=== PATIENT | female | born 1945 | race Caucasian/White ===

== ENCOUNTER → 2016-10-11 | Outpatient (CLI) | payer MEDICARE, BC | LOC: LABWHC1 16:00 | PROVIDERS: ATTEND Internal Medicine Endocrinology, Diabetes & Metabolism | DX: E11.65 Type 2 diabetes mellitus with hyperglycemia (principal) | CPT/HCPCS: 36415; 83519; 84681 ==

== ENCOUNTER → 2017-02-07 | Outpatient (CLI) | payer MEDICARE, BC ==
[2017-02-07 08:41] LABS: ALT 37 U/L (9-52); AST 26 U/L (14-36); Alkaline Phosphatase 54 U/L (38-126); Anion Gap 9 mmol/L; Blood Urea Nitrogen 22 mg/dL (7-17); Calcium 9.9 mg/dL (8.4-10.2); Carbon Dioxide 28 mmol/L (22-30); Chloride 105 mmol/L (98-107); Cholesterol 96 mg/dL (<200); Glucose 91 mg/dL (74-99); HDL Cholesterol 38 mg/dL (40-60); Non-African American GFR(MDRD) >60 (>60 ml/min/1.73 sqM); Potassium 4.8 mmol/L (3.5-5.1); Sodium 142 mmol/L (137-145); Total Bilirubin 0.4 mg/dL (0.2-1.3); Total Protein 7.3 g/dL (6.3-8.2)
[2017-02-07 16:58] LABS: Urine Creatinine 101.9 mg/dL
== END | disposition home or self-care (01) ==
LOC: LABWHC1 07:19
PROVIDERS: ATTEND Internal Medicine Endocrinology, Diabetes & Metabolism
DX: E11.65 Type 2 diabetes mellitus with hyperglycemia (principal)
CPT/HCPCS: 36415; 80053; 80061; 82043; 82570; 83036

== ENCOUNTER → 2017-08-27 | Outpatient (CLI) | payer MEDICARE, BC ==
[2017-08-27 11:22] LABS: ALT 42 U/L (9-52); AST 25 U/L (14-36); Albumin 4.2 g/dL (3.5-5.0); Alkaline Phosphatase 55 U/L (38-126); Anion Gap 15 mmol/L; Blood Urea Nitrogen 22 mg/dL (7-17); Calcium 9.5 mg/dL (8.4-10.2); Carbon Dioxide 29 mmol/L (22-30); Chloride 100 mmol/L (98-107); Cholesterol 159 mg/dL (<200); Glucose 96 mg/dL (74-99); HDL Cholesterol 34 mg/dL (40-60); LDL Cholesterol,Calculated 100 mg/dL (0-99); Potassium 4.7 mmol/L (3.5-5.1); Sodium 144 mmol/L (137-145); Total Bilirubin 0.4 mg/dL (0.2-1.3); Total Protein 6.8 g/dL (6.3-8.2); Triglycerides 124 mg/dL (<150)
[2017-08-27 18:40] LABS: Hemoglobin A1C 6.4 % (4.0-6.0)
== END | disposition home or self-care (01) ==
LOC: LABWHC1 10:19
PROVIDERS: ATTEND Internal Medicine Endocrinology, Diabetes & Metabolism
DX: E11.65 Type 2 diabetes mellitus with hyperglycemia (principal)
CPT/HCPCS: 36415; 80053; 80061; 82043; 82570; 83036

== ENCOUNTER → 2018-07-20 | Outpatient (CLI) | payer BC, MEDICARE ==
[2018-07-20 16:38] LABS: Albumin 4.4 g/dL (3.80-4.90); Anion Gap 8.6 mmol/L (4.00-12.00); Calcium 9.6 mg/dL (8.7-10.3); Carbon Dioxide 29.4 mmol/L (21.6-31.8); Globulin 2.2 g/dL (1.6-3.3); LDL Cholesterol,Calculated 83.2 mg/dL (0.0-131.0); Potassium 5.1 mmol/L (3.5-5.5); Total Bilirubin 0.5 mg/dL (0.3-1.2); Total Protein 6.6 g/dL (6.2-8.2); VLDL Calculation 18.8 mg/dL (5.00-40.00)
[2018-07-20 18:22] LABS: Hemoglobin A1C 6.2 % (4.0-6.0)
== END | disposition home or self-care (01) ==
LOC: LABWHC1 09:19
PROVIDERS: ATTEND Internal Medicine Endocrinology, Diabetes & Metabolism
DX: E11.9 Type 2 diabetes mellitus without complications (principal)
CPT/HCPCS: 36415; 80053; 80061; 82043; 82570; 83036; 84443

== ENCOUNTER → 2018-10-25 | Outpatient (CLI) | payer MEDICARE ==
[2018-10-25 20:04] LABS: Vitamin D 25 Hydroxy 51.4 ng/mL (30.0-100.0)
[2018-10-25 20:35] LABS: Hemoglobin A1C 6.5 % (4.0-6.0)
[2018-10-26 01:41] LABS: African American GFR (CKD) 65.6 (60.0-200.0); Albumin 4.4 g/dL (3.80-4.90); Albumin/Globulin Ratio 2.1 (1.60-3.17); Anion Gap 22.8 mmol/L (4.00-12.00); Calcium 9.4 mg/dL (8.7-10.3); Carbon Dioxide 16.2 mmol/L (21.6-31.8); Globulin 2.1 g/dL (1.6-3.3); Potassium 4.4 mmol/L (3.5-5.5); Total Bilirubin 0.3 mg/dL (0.2-1.2); Total Protein 6.5 g/dL (6.2-8.2)
== END | disposition home or self-care (01) ==
LOC: LABWHC1 15:08
PROVIDERS: ATTEND Internal Medicine Endocrinology, Diabetes & Metabolism
DX: E53.8 Deficiency of other specified B group vitamins (principal); E55.9 Vitamin D deficiency, unspecified; E11.65 Type 2 diabetes mellitus with hyperglycemia
CPT/HCPCS: 36415; 80053; 82306; 82607; 83036

== ENCOUNTER → 2019-03-31 | Outpatient (CLI) | payer MEDICARE ==
[2019-03-31 16:05] LABS: African American GFR (CKD) 65.2 (60.0-200.0); Albumin 4.3 g/dL (3.80-4.90); Albumin/Globulin Ratio 2.05 (1.60-3.17); Anion Gap 3.9 mmol/L (4.00-12.00); Calcium 9.7 mg/dL (8.7-10.3); Carbon Dioxide 32.1 mmol/L (21.6-31.8); Chol/HDL Ratio 4.36; Globulin 2.1 g/dL (1.6-3.3); LDL Cholesterol,Calculated 99.2 mg/dL (0.0-131.0); Non-African American GFR(CKD) 56.2 (60.0-200.0); Potassium 5.5 mmol/L (3.5-5.5); Total Bilirubin 0.3 mg/dL (0.2-1.2); Total Protein 6.4 g/dL (6.2-8.2); VLDL Calculation 21.8 mg/dL (5.00-40.00)
[2019-03-31 17:32] LABS: Urine Creatinine 56.9 mg/dL
[2019-03-31 18:39] LABS: Hemoglobin A1C 7.4 % (4.0-6.0)
== END | disposition home or self-care (01) ==
LOC: LABWHC1 10:57
PROVIDERS: ATTEND Internal Medicine Endocrinology, Diabetes & Metabolism
DX: E11.9 Type 2 diabetes mellitus without complications (principal)
CPT/HCPCS: 36415; 80053; 80061; 82043; 82570; 83036; 84443

== ENCOUNTER → 2019-12-03 | Outpatient (CLI) | payer MEDICARE ==
[2019-12-03 12:06] LABS: Anisocytosis Slight; HCT 52.5 % (34.0-46.0); HGB 15.8 gm/dL (11.4-16.0); Hypochromasia Moderate; MCH 27.7 pg (25.0-35.0); MCHC 30.1 g/dL (31.0-37.0); MCV 91.9 fL (80.0-100.0); Mean Platelet Volume 8.3; Platelet Count 381 k/uL (150-450); RBC 5.71 m/uL (3.80-5.40); WBC 9.2 k/uL (3.8-10.6)
[2019-12-03 12:35] LABS: Appearance,Urine Clear (Clear); Bacteria,Urine Rare /hpf; Bilirubin,Urine Negative (Negative); Blood,Urine Negative (Negative); Color,Urine Yellow; Glucose,Urine (UA) Negative (Negative); Hyaline Casts,Urine 3 /lpf (0-2); Ketones,Urine Negative (Negative); Leukocyte Esterase,Urine Moderate (Negative); Mucus,Urine Rare /hpf; Nitrite,Urine Negative (Negative); PH, Urine 7.5 (5.0-8.0); Protein,Urine Negative (Negative); RBC,Urine 1 /hpf (0-5); Specific Gravity,Urine 1.012 (1.001-1.035); Squamous Epithelial Cell,Urine 2 /hpf (0-4); Urobilinogen,Urine <2.0 mg/dL (<2.0); WBC,Urine 3 /hpf (0-5)
[2019-12-03 18:25] LABS: % Iron Saturation 20.06 (12.00-45.00); Albumin 4.6 g/dL (3.80-4.90); Albumin/Globulin Ratio 1.84 (1.60-3.17); BUN/Creat Ratio 16.67 Ratio (12.00-20.00); Chol/HDL Ratio 3.56; Globulin 2.5 g/dL (1.6-3.3); LDL Cholesterol,Calculated 56.2 mg/dL (0.0-131.0); Magnesium 1.6 mg/dL (1.5-2.4); Non-African American GFR(CKD) 63.9 (60.0-200.0); Phosphorus 3.8 mg/dL (2.4-5.1); Potassium 5.9 mmol/L (3.5-5.5); Total Bilirubin 0.6 mg/dL (0.3-1.2); Total Protein 7.1 g/dL (6.2-8.2); Uric Acid 6.3 mg/dL (2.9-7.7); VLDL Calculation 25.8 mg/dL (5.00-40.00)
[2019-12-03 22:12] LABS: Hemoglobin A1C 6.7 % (4.0-6.0)
[2019-12-03 22:39] LABS: Urine Creatinine 111.7 mg/dL
== END | disposition home or self-care (01) ==
LOC: LABWHC1 10:43
PROVIDERS: ATTEND Family Medicine
DX: I12.9 Hypertensive chronic kidney disease with stage 1 through stage 4 chronic kidney disease, or unspecified chronic kidney disease (principal); E11.22 Type 2 diabetes mellitus with diabetic chronic kidney disease; E11.65 Type 2 diabetes mellitus with hyperglycemia; N18.9 Chronic kidney disease, unspecified; Z79.899 Other long term (current) drug therapy
CPT/HCPCS: 36415; 80053; 80061; 81001; 82043; 82306; 82570; 83036; 83540; 83550; 83735; 83970; 84100; 84443; 84550; 85027

== ENCOUNTER 2023-03-07 19:56 | Observation (INO) | payer MEDICARE ==
[2023-03-07 20:07] LABS: Glucose,Whole Blood 139 mg/dL (70-110)
[2023-03-07] MEDS ORDERED: SODIUM CHLORIDE 0.9% 1,000 ML IV STA (20:52)
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
[2023-03-07 21:33] LABS: Anisocytosis Moderate; HCT 26.5 % (34.0-46.0); HGB 8.3 gm/dL (11.4-16.0); Hypochromasia Marked; MCH 38.4 pg (25.0-35.0); MCHC 31.3 g/dL (31.0-37.0); MCV 122.7 fL (80.0-100.0); Macrocytosis Marked; Mean Platelet Volume 11.7; Platelet Count 483 k/uL (150-450); RBC 2.16 m/uL (3.80-5.40); RDW 20.8 % (11.5-15.5)
[2023-03-07 21:53] LABS: ALT 12 U/L (4-34); AST 17 U/L (14-36); African American GFR (CKD) 38 (>60 ml/min/1.73 sqM); Albumin 3.9 g/dL (3.5-5.0); Alkaline Phosphatase 52 U/L (38-126); Anion Gap 12 mmol/L; Blood Urea Nitrogen 43 mg/dL (7-17); Calcium 9.2 mg/dL (8.4-10.2); Carbon Dioxide 22 mmol/L (22-30); Chloride 103 mmol/L (98-107); Glucose 117 mg/dL (74-99); Magnesium 1.7 mg/dL (1.6-2.3); Non-African American GFR(CKD) 33 (>60 ml/min/1.73 sqM); Phosphorus 3.9 mg/dL (2.5-4.5); Potassium 5.8 mmol/L (3.5-5.1); Sodium 137 mmol/L (137-145); Total Bilirubin 0.9 mg/dL (0.2-1.3)
[2023-03-07 22:02] LABS: NT-Pro-B-Type Natriuretic Pept 9580 pg/mL
[2023-03-07 22:16] LABS: INR 1.3 (<1.2); Partial Thromboplastin Time 23.9 sec (22.0-30.0); Prothrombin Time 13.6 sec (10.0-12.5)
[2023-03-07 22:37] LABS: Band Neutrophils % 1 %; Eosinophils # (M) 0.06 k/uL (0-0.7); Lymphocytes # (M) 0.87 k/uL (1.0-4.8); Monocytes # (M) 0.46 k/uL (0-1.0); Neutrophils % (M) 75 %; Nucleated Red Blood Cells 1 /100 WBC (0-0); Total Cells Counted 100; WBC 5.8 k/uL (3.8-10.6)
[2023-03-07 22:38] LABS: Anisocytosis (M) Present; Hypochromasia (M) Present
[2023-03-07 22:39] LABS: Polychromasia Present
[2023-03-07] MEDS ORDERED: NALOXONE 0.4 MG/ML 1 ML VIAL IV PRN (23:29)
[2023-03-07] MEDS ORDERED: MORPHINE SULFATE 4 MG/ML SYRINGE IV PRN (23:29)
[2023-03-07] MEDS ORDERED: ONDANSETRON 4 MG/2 ML VIAL IVP PRN (23:29)
[2023-03-07] MEDS ORDERED: IPRATROPIUM-ALBUTEROL 3 ML NEB INHALATION STA (23:31)
[2023-03-07] MEDS ORDERED: IPRATROPIUM-ALBUTEROL 3 ML NEB INHALATION PRN (23:31)
[2023-03-07] MEDS ORDERED: SODIUM BICARB 8.4% 50 ML SYR (1 MEQ/ML) IV STA (23:32)
[2023-03-07] MEDS ORDERED: INSULIN REGULAR 100 UNIT/ML VIAL (IV) IV ONE (23:32)
[2023-03-07] MEDS ORDERED: DEXTROSE 50% SYRINGE 50 ML IVP STA (23:32)
[2023-03-07] MEDS ORDERED: SODIUM POLYSTYRENE SULFONATE 15 GM/60 ML BOTTLE PO STA (23:32)
--- NOTE | 2023-03-07 23:41 | XR ---
EXAMINATION TYPE: XR chest 1V DATE OF EXAM: 03/07/2023 9:28 PM CLINICAL INDICATION:Female, 78 years old with history of fall; [facility] COMPARISON: 07/21/2020 TECHNIQUE: XR chest 1V Frontal view of the chest. FINDINGS: Lines/Tubes/Devices: None. Heart/mediastinum: Cardiomediastinal silhouette is well defined. Heart appears mildly/moderately enla rged and stable. Mediastinum appears stable with slight broadening similar to the prior exam. Pulmonary vascularity: Mild central congestion suggested. Lungs/Pleura: Left lung base not evaluated due to the enlarged heart. Visualized left lung and right lung are otherwise clear. No pneumothorax is evident. Musculoskeletal: No clear evidence of an acute bony abnormality in the limits of the exam. Mild/moder ate degenerative changes of the shoulders and spine. Partially seen hardware plate and screws in the proximal left humerus. Other findings: None. IMPRESSION: 1. Cardiomegaly with mild central congestion. 2. Small left pleural effusion, left basilar infiltrate or atelectasis cannot be excluded. 3. Otherwise the lungs are clear without evidence of pneumothorax.
--- NOTE | 2023-03-07 23:43 | XR ---
EXAMINATION TYPE: XR pelvis AP view DATE OF EXAM: 03/07/2023 9:28 PM CLINICAL INDICATION:Female, 78 years old with history of fall; H COMPARISON: None TECHNIQUE: The pelvis was examined in a single projection. FINDINGS: Osseous mineralization appears slightly diminished. Mild/moderate degenerative changes of the lower l umbar spine, SI joints, hips. No definite acute fracture or dislocation is seen. Unremarkable soft ti ssues. IMPRESSION: Osteopenia and degenerative changes. No acute fracture or dislocation identified, on this single view of the pelvis.
--- NOTE | 2023-03-08 00:11 | CT ---
EXAMINATION TYPE: CT brain cspine wo con CT DLP: 1455.2 mGycm, Automated exposure control for dose reduction was used. DATE OF EXAM: 03/07/2023 9:55 PM COMPARISON: None. CLINICAL INDICATION:Female, 78 years old with history of pain; neck pain, ams TECHNIQUE: Brain: Multiple axial CT images of the brain were obtained without IV contrast. Cspine: Axial CT images from the skull base to the inferior aspect of T2 we obtained without intraven ous contrast. Coronal and sagittal reformatted images were also reviewed. FINDINGS: Brain: Extra-axial spaces: No abnormal extra-axial fluid collections. Ventricular system: Appear dilated in proportion to the degree of cerebral atrophy. Cerebral parenchyma: No increased attenuation to suggest acute intraparenchymal hemorrhage. The gra y-white matter interface appears maintained. Moderate to severe generalized brain atrophy. Scattere d hypoattenuating areas are seen within the cerebral white matter, nonspecific but most often seen wi th chronic microvascular ischemic changes; moderate/severe in degree. Cerebellum: No acute abnormality. Mass effect: No evidence of mass effect or midline shift. Intracranial vasculature: Atherosclerotic calcifications of the larger arteries near the skull base. Soft tissues: Normal. Visualized orbits: Orbital contents appear grossly intact. Calvarium/osseous structures: No evidence of calvarial fracture. Paranasal sinuses and mastoid air cells: Clear. Mild nasal septal deviation towards the right. MRI is more sensitive for detecting acute processes such as infarct, and may be considered if clinica lly warranted. Cervical spine: Fracture: None seen. Osseous structures, spinal canal/neural foramina: Osseous structures appear somewhat demineralized. C raniocervical junction, C1-C2, C2-C3, C3-C4 show minimal degenerative changes. Bony canal and neural foramina appear patent. At C4-C5 and C5-C6, there is mild/moderate degenerative disc disease with mar ginal osteophytes and mild facet arthrosis, resulting in mild canal and neural foraminal narrowing at C4-C5, moderate canal and neural foraminal narrowing C5-C6. Vertebral alignment: No traumatic malalignment. Mild reversal of the normal cervical lordosis appears likely degenerative. Neck soft tissues: No acute finding.. Moderate to heavy calcifications are present in the bilateral c ervical carotid artery bifurcation regions, left slightly greater than right. Please note the carotid s have a slightly retropharyngeal course towards the midline, that should be remembered encase pharyn geal mucosal biopsy is other contemplated. Visualized airway is patent. Other: Lung apices show no acute infiltrate or pneumothorax. IMPRESSION: CT head: 1. No acute intracranial CT abnormality. 2. Mild/moderate generalized brain atrophy and chronic microvascular ischemic changes. CT cervical spine: 1. No evidence of cervical spine fracture or traumatic malalignment. 2. Mild/moderate cervical spondylosis, most significant C5-C6. 3. Moderate to heavy carotid arterial calcifications.
[2023-03-08] MEDS: SODIUM CHLORIDE 0.9% 1,000 ML IV SCH ×2 (00:17→23:39)
[2023-03-08 04:11] LABS: Anisocytosis Moderate; Basophils % (A) 1 %; Eosinophils # (A) 0.1 k/uL (0-0.7); Eosinophils % (A) 1 %; HCT 25.4 % (34.0-46.0); HGB 7.7 gm/dL (11.4-16.0); Hypochromasia Marked; Lymphocytes % (A) 17 %; MCHC 30.2 g/dL (31.0-37.0); MCV 122.5 fL (80.0-100.0); Mean Platelet Volume 9.9; Monocytes # (A) 0.9 k/uL (0-1.0); Monocytes % (A) 15 %; Neutrophils # (A) 3.8 k/uL (1.3-7.7); Neutrophils % (A) 64 %; Platelet Count 460 k/uL (150-450); RBC 2.07 m/uL (3.80-5.40); RDW 20.3 % (11.5-15.5); WBC 5.9 k/uL (3.8-10.6)
[2023-03-08 04:14] LABS: Potassium 5.1 mmol/L (3.5-5.1)
[2023-03-08 04:15] LABS: Macrocytosis Marked
[2023-03-08 05:30] LABS: Glucose,Whole Blood 142 mg/dL (70-110)
[2023-03-08] MEDS ORDERED: DEXTROSE 50% SYRINGE 50 ML IVP PRN ×2 (10:47)
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
[2023-03-08 13:06] LABS: African American GFR (CKD) 37 (>60 ml/min/1.73 sqM); Anion Gap 13 mmol/L; Blood Urea Nitrogen 41 mg/dL (7-17); Calcium 9.2 mg/dL (8.4-10.2); Carbon Dioxide 23 mmol/L (22-30); Chloride 103 mmol/L (98-107); Glucose 127 mg/dL (74-99); Magnesium 1.6 mg/dL (1.6-2.3); Non-African American GFR(CKD) 32 (>60 ml/min/1.73 sqM); Potassium 5.9 mmol/L (3.5-5.1); Sodium 139 mmol/L (137-145)
[2023-03-08 13:07] LABS: Glucose,Whole Blood 124 mg/dL (70-110)
[2023-03-08 13:07] LABS: ALT 13 U/L (4-34); AST 18 U/L (14-36); African American GFR (CKD) 40 (>60 ml/min/1.73 sqM); Albumin 3.6 g/dL (3.5-5.0); Albumin/Globulin Ratio 1.2; Alkaline Phosphatase 49 U/L (38-126); Anion Gap 13 mmol/L; Blood Urea Nitrogen 42 mg/dL (7-17); Calcium 8.9 mg/dL (8.4-10.2); Carbon Dioxide 22 mmol/L (22-30); Chloride 104 mmol/L (98-107); Globulin 2.9 g/dL; Glucose 113 mg/dL (74-99); Magnesium 1.6 mg/dL (1.6-2.3); Non-African American GFR(CKD) 34 (>60 ml/min/1.73 sqM); Phosphorus 3.8 mg/dL (2.5-4.5); Sodium 139 mmol/L (137-145); Total Bilirubin 0.8 mg/dL (0.2-1.3); Total Protein 6.5 g/dL (6.3-8.2)
[2023-03-08] MEDS: INSULIN ASPART (NovoLOG) 100 UNIT/ML VIAL SQ SCH ×3 (13:08→21:20)
[2023-03-08] MEDS: FUROSEMIDE 10 MG/ML 2 ML VIAL IV ONE ×2 (13:29→13:30)
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
[2023-03-08] MEDS ORDERED: SODIUM ZIRCONIUM CYCLOSILICATE 10 GM PACKET PO ONE (15:56)
[2023-03-08 18:42] LABS: Glucose,Whole Blood 121 mg/dL (70-110)
[2023-03-08 19:44] LABS: Appearance,Urine Clear (Clear); Bilirubin,Urine Negative (Negative); Blood,Urine Small (Negative); Color,Urine Colorless; Glucose,Urine (UA) Negative (Negative); Ketones,Urine Negative (Negative); Leukocyte Esterase,Urine Negative (Negative); Mucus,Urine Rare /hpf; Nitrite,Urine Negative (Negative); Protein,Urine Negative (Negative); RBC,Urine 22 /hpf (0-5); Specific Gravity,Urine 1.011 (1.001-1.035); Urobilinogen,Urine <2.0 mg/dL (<2.0)
[2023-03-08 21:00] LABS: Glucose,Whole Blood 163 mg/dL (70-110)
[2023-03-09 02:52] LABS: % Iron Saturation 35.19 (12.00-45.00); Iron 101 UG/DL (50-170); Total Iron Binding Capacity 287 UG/DL (228-460)
[2023-03-09 05:44] LABS: Glucose,Whole Blood 146 mg/dL (70-110)
[2023-03-09] MEDS: INSULIN ASPART (NovoLOG) 100 UNIT/ML VIAL SQ SCH ×2 (05:44→11:56)
[2023-03-09] MEDS ORDERED: METOPROLOL SUCCINATE (ER) 25 MG TAB.ER.24H PO SCH (09:00)
[2023-03-09 09:03] LABS: BUN/Creat Ratio 25.71 Ratio (12.00-20.00); Calcium 8.6 mg/dL (8.7-10.3); Carbon Dioxide 23.1 mmol/L (21.6-31.8); Chloride 107 mmol/L (96-109); Glucose 140 mg/dL (70-110); Magnesium 1.8 mg/dL (1.5-2.4); Potassium 5.3 mmol/L (3.5-5.5); Sodium 140 mmol/L (135-145)
[2023-03-09 11:11] LABS: Glucose,Whole Blood 188 mg/dL (70-110)
--- NOTE | 2023-03-09 11:13 | P.PN ---
Subjective Patient is seen in follow-up for hyperkalemia. Potassium level 5.3 today. His Johnson catheter for urinary retention. Renal function stable with creatinine 1.4. Oral intake is good. Vital signs are stable. General: No acute distress. HEENT: Head exam is unremarkable. LUNGS: No audible rhonchi or wheezes. HEART: Rate and Rhythm are regular. ABDOMEN: Nontender. Obese. EXTREMITITES: Chronic changes noted. Objective - Vital Signs Vital signs: Vital Signs Temp 97.7 F 03/09/23 07:17 Pulse 80 03/09/23 07:17 Resp 19 03/09/23 07:17 BP 108/68 03/09/23 07:17 Pulse Ox 93 L 03/09/23 07:17 FiO2 Intake & Output 03/08/23 03/09/23 03/09/23 18:59 06:59 18:59 Output Total 400 Balance -400 Weight 117.934 kg Output: Urine 400 Other: Voiding Method Indwelling Catheter - Labs CBC & Chem 7: 03/08/23 02:58 03/09/23 05:21 Labs: Abnormal Lab Results - Last 24 Hours (Table) 03/08/23 03/08/23 03/08/23 Range/Units 02:58 11:44 13:06 Potassium 5.9 H (3.5-5.1) mmol/L BUN 42 H 41 H (7-17) mg/dL Creatinine 1.47 H 1.55 H (0.52-1.04) mg/dL Est GFR (CKD-EPI) (>=60) BUN/Creatinine Ratio (12.00-20.00) Ratio Glucose 113 H 127 H (74-99) mg/dL POC Glucose (mg/dL) 124 H (70-110) mg/dL Hemoglobin A1c (<=6.0) % Calcium (8.7-10.3) mg/dL Urine Blood (Negative) Urine RBC (0-5) /hpf Urine Mucus (None) /hpf 03/08/23 03/08/23 03/08/23 Range/Units 17:00 18:41 20:58 Potassium (3.5-5.1) mmol/L BUN (7-17) mg/dL Creatinine (0.52-1.04) mg/dL Est GFR (CKD-EPI) (>=60) BUN/Creatinine Ratio (12.00-20.00) Ratio Glucose (74-99) mg/dL POC Glucose (mg/dL) 121 H 163 H (70-110) mg/dL Hemoglobin A1c (<=6.0) % Calcium (8.7-10.3) mg/dL Urine Blood Small H (Negative) Urine RBC 22 H (0-5) /hpf Urine Mucus Rare H (None) /hpf 03/09/23 03/09/23 03/09/23 Range/Units 05:21 05:21 05:42 Potassium (3.5-5.1) mmol/L BUN 36.0 H (7-17) mg/dL Creatinine (0.52-1.04) mg/dL Est GFR (CKD-EPI) 39 L (>=60) BUN/Creatinine Ratio 25.71 H (12.00-20.00) Ratio Glucose 140 H (74-99) mg/dL POC Glucose (mg/dL) 146 H (70-110) mg/dL Hemoglobin A1c 6.6 H (<=6.0) % Calcium 8.6 L (8.7-10.3) mg/dL Urine Blood (Negative) Urine RBC (0-5) /hpf Urine Mucus (None) /hpf Assessment and Plan Plan: Assessment: 1. Acute kidney injury secondary to vasomotor nephropathy from diuresis. Also component of urinary retention. Creatinine 1.54 on admission - 1.4 today. No hydronephrosis noted on kidney ultrasound. No proteinuria on UA. 2. Hyperkalemia secondary to acute kidney injury and potassium supplementation. Improved with medical management. 3. Status post fall. 4. Anemia. Iron replete. 5. Diabetes mellitus. 6. Edema. Status post IV Lasix yesterday. 7. Urinary retention. Has Johnosn catheter. Plan: Encouraged oral intake. Add Flomax. Resume torsemide. Lokelma 10 g once today. Continue to hold potassium supplementation. Okay to do trial of void. Will need to see urology if has persistent hypertension. Advised patient to follow up outpatient in 1 week post discharge. Repeat BMP and magnesium level 2-3 days postdischarge. Patient to follow-up with her PCP next week. Case discussed with primary team.
[2023-03-09] MEDS ORDERED: TAMSULOSIN 0.4 MG CAP.ER.24H PO SCH (11:15)
--- NOTE | 2023-03-09 12:13 | P.DS ---
Providers Date of admission: 03/07/23 23:31 Expected date of discharge: 03/09/23 Attending physician: Lacey Preston Consults: 03/07/23 23:29 Consult Physician Routine Consulting Provider: Pepito Kline Consult Reason/Comments: hyperK Do you want consulting provider notified?: Yes Primary care physician: Ricardo Hameed MD Hospital Course: Discharge diagnoses; Fall Hyperkalemia Acute kidney injury Hypertension Diabetes mellitus Hospital course; patient is 78-year-old lady with past medical history significant for Diabetes mellitus, hypertension who presented to The ER for evaluation for a fall. Patient stated that yesterday she lost her balance and fell hitting the back of her head, patient did not lose her consciousness. There was no noticeable jerking movement of any extremities. No complaints of slurred speech. Patient had trauma to her head and was bleeding. Because of this fall, patient brought to the ER for further evaluation. Initial lab work done in the ER showed WBC 5.8, hemoglobin 8.3, platelet count 483 sodium 137, potassium 5.8, BUNs 43, and 1.54 Chest x-ray done in the ER showed cardiomegaly with mild central congestion, small left pleural effusion CT head done showed no acute intracranial abnormality CT cervical spine showed no evidence of cervical spine fracture or subluxation Pelvic x-ray done showed osteopenia and degenerative changes Patient admitted to internal medicine service 03/09. Patient seen and examined. Labs done this morning showed sodium 140, potassium 5.3, BUNs 36, creatinine 1.4,. Nephrology recommended discontinuing potassium supplementation and continue with torsemide home dose. Patient declined home care. Being discharged in in stable condition PHYSICAL EXAMINATION: GENERAL: The patient is alert and oriented x3, not in any acute distress. Well developed, well nourished. HEENT: Pupils are round and equally reacting to light. EOMI. No scleral icterus. No conjunctival pallor. Normocephalic, atraumatic. No pharyngeal erythema. No thyromegaly. CARDIOVASCULAR: S1 and S2 present. No murmurs, rubs, or gallops. PULMONARY: Chest is clear to auscultation, no wheezing or crackles. ABDOMEN: Soft, nontender, nondistended, normoactive bowel sounds. No palpable organomegaly. MUSCULOSKELETAL: Chronic lymphedema of lower extremities bilaterally EXTREMITIES: No cyanosis, clubbing, or pedal edema. NEUROLOGICAL: Gross neurological examination did not reveal any focal deficits. SKIN: No rashes. Dictation was produced using [employer] dictation software. please excuse any grammatical, word or spelling errors. Patient Condition at Discharge: Fair Plan - Discharge Summary Discharge Rx Participant: No New Discharge Prescriptions: New Tamsulosin [Flomax] 0.4 mg PO PC-BRKFST 30 Days #30 cap Continue metFORMIN HCL [Glucophage Xr] 1,000 mg PO W/BRKFST Metoprolol Succinate [Metoprolol Succinate ER] 25 mg PO DAILY Torsemide [Demadex] 10 mg PO BID metFORMIN HCL ER [Glucophage XR] 500 mg PO W/SUPPER Discontinued Potassium Chloride ER [K-Dur 20] 20 meq PO BID Discharge Medication List metFORMIN HCL [Glucophage Xr] 1,000 mg PO W/BRKFST 12/20/16 [History] Metoprolol Succinate [Metoprolol Succinate ER] 25 mg PO DAILY 03/07/23 [History] Torsemide [Demadex] 10 mg PO BID 03/07/23 [History] metFORMIN HCL ER [Glucophage XR] 500 mg PO W/SUPPER 03/07/23 [History] Tamsulosin [Flomax] 0.4 mg PO PC-BRKFST 30 Days #30 cap 03/09/23 [Rx] Follow up Appointment(s)/Referral(s): Ricardo Hameed MD [Primary Care Provider] - 1-2 days [facility], [NON-STAFF] - ([facility] will call you to schedule your in home nursing and social work visits. You have to see Dr. Hameed before home care can start services with you.) Discharge Disposition: HOME SELF-CARE
[2023-03-09 13:58] VITALS: BP 105/48; PULSE 75; RESP 22; TEMP 97.9
[2023-03-09] MEDS ORDERED: TORSEMIDE 20 MG TAB PO SCH (21:00)
== END 2023-03-09 14:29 | disposition home health service (06) ==
LOC: EC 19:56 → 4SSUR 23:31 → INTOOBSV 23:31 → 4SSUR 03-08 17:37 → UNDODISIN 03-09 14:29
PROVIDERS: ADMIT Hospitalist; ATTEND Hospitalist
DX: E87.5 Hyperkalemia (principal); N17.0 Acute kidney failure with tubular necrosis; I10 Essential (primary) hypertension; E11.9 Type 2 diabetes mellitus without complications; R33.9 Retention of urine, unspecified; D64.9 Anemia, unspecified; E07.9 Disorder of thyroid, unspecified; J44.9 Chronic obstructive pulmonary disease, unspecified; R09.02 Hypoxemia; R41.3 Other amnesia; W01.0XXA Fall on same level from slipping, tripping and stumbling without subsequent striking against object, initial encounter; Z90.49 Acquired absence of other specified parts of digestive tract; Z90.710 Acquired absence of both cervix and uterus; Z79.899 Other long term (current) drug therapy; Z79.84 Long term (current) use of oral hypoglycemic drugs; Z88.5 Allergy status to narcotic agent; Z88.8 Allergy status to other drugs, medicaments and biological substances; Z91.030 Bee allergy status; Z87.828 Personal history of other (healed) physical injury and trauma; Z96.659 Presence of unspecified artificial knee joint
CPT/HCPCS: 96361 ×2; 96374; 96375; 99291; 36415; 94760; 93005; 83880; 80053 ×2; 80048 ×2; 82728; 83540; 83550; 83735 ×3; 84100 ×2; 84132; 84484; 85025 ×2; 85610; 85730; 81001; 83036; 72170; 71045; 76770; 72125; 70450; G0378 ×3; J1940

== ENCOUNTER 2023-03-14 15:49 | Inpatient (IN) | payer MEDICARE ==
[2023-03-14] MEDS ORDERED: IPRATROPIUM-ALBUTEROL 3 ML NEB INHALATION STA ×2 (16:03→20:05)
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
--- NOTE | 2023-03-14 16:34 | XR ---
EXAMINATION TYPE: XR chest 1V portable DATE OF EXAM: 03/14/2023 Comparison: 03/07/2023 Clinical History: 78 year old female sob Findings: Heart is moderately enlarged. No alexia consolidation or pleural effusion seen. Impression: Moderate cardiomegaly. No alexia pulmonary edema or focal infiltrate seen.
[2023-03-14 16:43] LABS: Anisocytosis Moderate; HCT 26.2 % (34.0-46.0); HGB 8.1 gm/dL (11.4-16.0); Hypochromasia Marked; MCH 38.2 pg (25.0-35.0); MCV 123.2 fL (80.0-100.0); Macrocytosis Marked; Mean Platelet Volume 11.6; Platelet Count 407 k/uL (150-450); RBC 2.13 m/uL (3.80-5.40); RDW 20.2 % (11.5-15.5); WBC 5.1 k/uL (3.8-10.6)
[2023-03-14 16:53] LABS: ALT 13 U/L (4-34); AST 16 U/L (14-36); African American GFR (CKD) 30 (>60 ml/min/1.73 sqM); Albumin 4.1 g/dL (3.5-5.0); Alkaline Phosphatase 52 U/L (38-126); Anion Gap 14 mmol/L; Blood Urea Nitrogen 46 mg/dL (7-17); Calcium 9.3 mg/dL (8.4-10.2); Carbon Dioxide 22 mmol/L (22-30); Chloride 102 mmol/L (98-107); Glucose 137 mg/dL (74-99); Magnesium 1.7 mg/dL (1.6-2.3); Non-African American GFR(CKD) 26 (>60 ml/min/1.73 sqM); Potassium 5.5 mmol/L (3.5-5.1); Sodium 138 mmol/L (137-145); Total Bilirubin 1.1 mg/dL (0.2-1.3); Total Protein 7.1 g/dL (6.3-8.2)
[2023-03-14 16:58] LABS: INR 1.3 (<1.2); Prothrombin Time 13.7 sec (10.0-12.5)
[2023-03-14 17:01] LABS: NT-Pro-B-Type Natriuretic Pept 12400 pg/mL
[2023-03-14 17:32] LABS: Lymphocytes # (M) 0.92 k/uL (1.0-4.8); Neutrophils # (M) 3.98 k/uL (1.3-7.7); Neutrophils % (M) 78 %; Nucleated Red Blood Cells 0 /100 WBC (0-0); Total Cells Counted 100
[2023-03-14 17:33] LABS: Poikilocytosis (M) Present
[2023-03-14] MEDS ORDERED: HEPARIN SODIUM 1,000 UN/ML (10ML VL) IV PRN (19:58)
[2023-03-14] MEDS ORDERED: NALOXONE 0.4 MG/ML 1 ML VIAL IV PRN (20:05)
[2023-03-14] MEDS ORDERED: SODIUM CHLORIDE 0.9% 1,000 ML IV STA (20:05)
[2023-03-14] MEDS ORDERED: ONDANSETRON 4 MG/2 ML VIAL IVP PRN (20:05)
[2023-03-14] MEDS: HEPARIN SODIUM 1,000 UN/ML (10ML VL) IV ONE ×2 (20:22→20:58)
[2023-03-14] MEDS: HEPARIN SOD,PORK IN 0.45% NACL 25,000 UNIT in 0.45% NACL 1 250ML.BAG IV SCH ×2 (20:23→20:58)
[2023-03-14] MEDS: SODIUM CHLORIDE 0.9% 1,000 ML IV SCH (20:31)
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
[2023-03-15] MEDS: SODIUM CHLORIDE 0.9% 1,000 ML IV SCH (05:37)
[2023-03-15] MEDS: HEPARIN SOD,PORK IN 0.45% NACL 25,000 UNIT in 0.45% NACL 1 250ML.BAG IV SCH ×2 (06:51→12:01)
[2023-03-15 06:54] LABS: Anisocytosis Moderate; HCT 24.1 % (34.0-46.0); HGB 7.5 gm/dL (11.4-16.0); Hypochromasia Marked; MCH 38.9 pg (25.0-35.0); MCHC 31.1 g/dL (31.0-37.0); MCV 125.2 fL (80.0-100.0); Macrocytosis Marked; Mean Platelet Volume 11.6; Platelet Count 344 k/uL (150-450); RBC 1.92 m/uL (3.80-5.40); RDW 20.6 % (11.5-15.5)
[2023-03-15 07:17] LABS: ALT 12 U/L (4-34); AST 14 U/L (14-36); African American GFR (CKD) 32 (>60 ml/min/1.73 sqM); Albumin 3.6 g/dL (3.5-5.0); Alkaline Phosphatase 49 U/L (38-126); Anion Gap 13 mmol/L; Blood Urea Nitrogen 48 mg/dL (7-17); Calcium 8.9 mg/dL (8.4-10.2); Carbon Dioxide 20 mmol/L (22-30); Chloride 104 mmol/L (98-107); Glucose 121 mg/dL (74-99); Lipase 165 U/L (23-300); Magnesium 1.7 mg/dL (1.6-2.3); Non-African American GFR(CKD) 27 (>60 ml/min/1.73 sqM); Phosphorus 4.3 mg/dL (2.5-4.5); Potassium 5.2 mmol/L (3.5-5.1); Sodium 137 mmol/L (137-145); Total Bilirubin 0.8 mg/dL (0.2-1.3); Total Protein 6.6 g/dL (6.3-8.2)
[2023-03-15] MEDS ORDERED: metFORMIN 500 MG TAB PO SCH (07:30)
[2023-03-15 07:52] LABS: Band Neutrophils % 1 %; Lymphocytes # (M) 0.95 k/uL (1.0-4.8); Monocytes # (M) 0.62 k/uL (0-1.0); Myelocytes # (M) 0.22 k/uL (0); Myelocytes % 4 %; Neutrophils % (M) 68 %; Nucleated Red Blood Cells 3 /100 WBC (0-0); Total Cells Counted 200; WBC 5.6 k/uL (3.8-10.6)
[2023-03-15 07:54] LABS: Poikilocytosis (M) Present
[2023-03-15] MEDS ORDERED: TORSEMIDE 20 MG TAB PO SCH (09:00)
--- NOTE | 2023-03-15 09:15 | NM ---
EXAMINATION TYPE: NM pul vent and perfuse DATE OF EXAM: 03/15/2023 CLINICAL INDICATION: Female, 78 years old with history of PE; HISTORY: TECHNIQUE: Utilizing inhalation of 5.16 mCi Tc 99m DTPA aerosol and intravenous injection of 69.6 mC i of Tc 99m MAA, ventilation and perfusion images are acquired post injection in multiple projections . FINDINGS: There is a moderate-sized matched ventilation/perfusion defect at the right base. Mild heterogeneity of ventilation. IMPRESSION: Intermediate probability for pulmonary embolus given the moderate sized defect at the right base.
[2023-03-15] MEDS: PANTOPRAZOLE 40 MG/10 ML VIAL IV SCH (09:44)
[2023-03-15] MEDS: METOPROLOL SUCCINATE (ER) 25 MG TAB.ER.24H PO SCH ×2 (09:44→09:51)
[2023-03-15] MEDS: TAMSULOSIN 0.4 MG CAP.ER.24H PO SCH (09:44)
[2023-03-15] MEDS ORDERED: DEXTROSE 50% SYRINGE 50 ML IVP PRN ×2 (09:45)
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
[2023-03-15 12:49] LABS: Glucose,Whole Blood 160 mg/dL (70-110)
[2023-03-15] MEDS: INSULIN ASPART (NovoLOG) 100 UNIT/ML VIAL SQ SCH ×3 (12:50→21:43)
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
--- NOTE | 2023-03-15 14:15 | US ---
EXAMINATION TYPE: US kidneys/renal and bladder DATE OF EXAM: 03/15/2023 COMPARISON: NONE CLINICAL INDICATION: Female, 78 years old with history of RASHEEDA; Recent weakness patient denies any oth er signs or symptoms at this time EXAM MEASUREMENTS: Right Kidney: 11.2 x 4.4 x 3.2 cm Left Kidney: 11.2 x 4.3 x 4.5 cm Records Analyst notes: Left side done first due to patients position and condition. Fluid seen right upp er and lower quadrants. Difficult exam due to patients labored breathing and inability to hold breath . Right Kidney: No hydronephrosis or masses seen Left Kidney: There is an 8 mm echogenic area at the upper pole with some technical artifact on color Doppler that could represent nonobstructive calculus. No hydronephrosis. Bladder: Partial distention shows no gross abnormality. Bilateral Jets seen: not seen within a 5 minute period IMPRESSION: No hydronephrosis on either side. Possible 8 mm left upper pole renal calculus.
--- NOTE | 2023-03-15 14:56 | US ---
EXAMINATION TYPE: US venous doppler duplex LE DATE OF EXAM: 03/15/2023 1:59 PM COMPARISON: NONE CLINICAL INDICATION: Female, 78 years old with history of swelling, elevated d-dimer; edema, elevated D-Dimer SIDE PERFORMED: bilateral TECHNIQUE: The lower extremity deep venous system is examined utilizing real time linear array sonog oneil with graded compression, doppler sonography and color-flow sonography. Extreme technical limitations due to patient's body habitus and uncooperation, patient unable to to lerate exam and refused to continue Right Leg: thrombus noted at CFV/GSV junction. patient unable to tolerate compressions. patient refu sed popliteal images Left Leg: patient refused to continue exam, only color images at femoral vein mid and distal obtaine d IMPRESSION: 1. Clot is seen at the saphenofemoral junction which appears nonocclusive. 2. Significantly limited evaluation on the left as only portions of the left femoral vein were imaged and appeared unremarkable as the patient refused to continue the examination.
[2023-03-15] MEDS: FUROSEMIDE 20 MG TAB PO SCH (15:51)
[2023-03-15] MEDS ORDERED: HEPARIN SODIUM,PORCINE 5,000 UNIT/ML 1 ML VIAL SQ SCH (16:00)
[2023-03-15 16:42] LABS: % Iron Saturation 32.06 (12.00-45.00)
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
[2023-03-15] MEDS ORDERED: NON FORMULARY DRUG (Metformin Hcl Er 500 MG Tab.Er.24h) PO SCH (17:30)
[2023-03-15 18:01] LABS: Glucose,Whole Blood 137 mg/dL (70-110)
[2023-03-15 18:44] LABS: Anisocytosis Moderate; HCT 23.7 % (34.0-46.0); Hypochromasia Marked; MCH 38.9 pg (25.0-35.0); MCHC 30.8 g/dL (31.0-37.0); MCV 126.1 fL (80.0-100.0); Macrocytosis Marked; Mean Platelet Volume 11.6; Platelet Count 340 k/uL (150-450); RBC 1.88 m/uL (3.80-5.40); RDW 20.5 % (11.5-15.5)
[2023-03-15 18:46] LABS: INR 1.4 (<1.2); Prothrombin Time 14.3 sec (10.0-12.5)
[2023-03-15 18:54] LABS: HGB 7.3 gm/dL (11.4-16.0); Reticulocyte % 1.9 % (0.5-2.0)
[2023-03-15 20:46] LABS: Glucose,Whole Blood 158 mg/dL (70-110)
[2023-03-15 21:10] LABS: Eosinophils # (M) 0.09 k/uL (0-0.7); Large Platelets Present; Lymphocytes # (M) 0.97 k/uL (1.0-4.8); Monocytes # (M) 0.32 k/uL (0-1.0); Neutrophils # (M) 3.22 k/uL (1.3-7.7); Neutrophils % (M) 70 %; Nucleated Red Blood Cells 2 /100 WBC (0-0); Polychromasia Present; Total Cells Counted 100; WBC 4.6 k/uL (3.8-10.6)
[2023-03-15 21:11] LABS: Ovalocytes Present
[2023-03-15 21:45] LABS: T4, Free (Free Thyroxine) 1.23 ng/dL (0.78-2.19)
--- NOTE | 2023-03-15 23:41 | CONS ---
CONSULTATION HISTORY OF PRESENT ILLNESS: Kayli Verde is a 78-year-old obese lady with type 2 diabetes and probably some diastolic heart failure. She also seems to have obstructive sleep apnea and wears a CPAP. 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 She came in to the hospital with what seems to be shortness of breath, some felt weak, altered mentation type picture, and some shaking. She is giving me a reasonable history, but her main complaint was shortness of breath, did not have any chest discomfort. She is resting comfortably at the time of my evaluation. Her EKG reveals basically what seems to be a lot of artifact, could be underlying sinus mechanism, although P waves are not very evident. There was a lot of baseline artifact. Right ventricular conduction delay is noted. She had an elevated D-dimer and had a pulmonary perfusion study which revealed intermediate probability for the pulmonary embolism. She is resting comfortably at this time without any chest pain or shortness of breath at rest. Apparently, her chest x-ray performed last evening suggests cardiomegaly without any clear-cut infiltrate. Her laboratory data suggests that her troponin is unremarkable, two sets are available. She has severe anemia however. PHYSICAL EXAMINATION: VITAL SIGNS: Blood pressure is 105/70, pulse rate is about 90 irregular. HEENT: Unremarkable, fundus was not examined by me. NECK: Supple. There is JVD of at least 1 cm. No carotid bruit. HEART: Reveals S1, S2, distant heart sounds. CHEST: Lungs reveal diminished air entry. ABDOMEN: Soft, distended, nontender. EXTREMITIES: Lower extremities reveal diminished pulses. NEUROLOGIC: Central nervous system is grossly no focal deficits. LABORATORY DATA: Suggests that BNP is elevated. IMPRESSION: 1. Obstructive sleep apnea with some pulmonary hypertension. 2. Probably diastolic heart failure. 3. Probable pulmonary hypertension. 4. Cannot rule out pneumonia. 5. Possible diastolic heart failure. RECOMMENDATIONS: I am recommending that I will obtain an echocardiogram to assess LV function. It appears that the patient has an intermediate probability of pulmonary embolism and there is a nonocclusive clot at the saphenofemoral vein junction on her right lower extremity. I am recommending that we continue IV heparin and obtain echocardiogram and based on clinical picture, I will make further recommendations. I will also repeat an echocardiogram. The patient has chronic kidney disease as well. Prognosis remains guarded. Thank you very much for the consult. MMODL / IJN: [id number] /
[2023-03-16] MEDS: HEPARIN SOD,PORK IN 0.45% NACL 25,000 UNIT in 0.45% NACL 1 250ML.BAG IV SCH ×2 (00:36→13:45)
[2023-03-16] MEDS: INSULIN ASPART (NovoLOG) 100 UNIT/ML VIAL SQ SCH ×5 (06:26→21:02)
--- NOTE | 2023-03-16 07:35 | CA ---
Transthoracic Echo Report Name: Kayli Verde Age: 78 Gender: F : 1945 Exam Date: 03/15/2023 16:21 Exam Location: [facility] Ht (in): 66 Wt (lb): 267 Ordering Physician: Paul West MD Attending/Referring Phys: Extractor Plant Operator Shahrzad Alvares RDCS Procedure CPT: Indications: SHORTNESS OF BREATH Cardiac Hx: Technical Quality: Fair Contrast 1: Total Dose (mL): Contrast 2: Total Dose (mL): MEASUREMENTS (Male / Female) Normal Values 2D ECHO LV Diastolic Diameter PLAX 4.7 cm 4.2 - 5.9 / 3.9 - 5.3 cm LV Systolic Diameter PLAX 3.6 cm IVS Diastolic Thickness 2.1 cm 0.6 - 1.0 / 0.6 - 0.9 cm LVPW Diastolic Thickness 1.7 cm 0.6 - 1.0 / 0.6 - 0.9 cm LV Relative Wall Thickness 0.8 RV Internal Dim ED PLAX 5.5 cm LVOT Diameter 2.0 cm M-MODE Aortic Root Diameter MM 3.9 cm LA Systolic Diameter MM 4.0 cm LA Ao Ratio MM 1.0 AV Cusp Separation MM 1.3 cm DOPPLER AV Peak Velocity 168.8 cm/s AV Peak Gradient 11.4 mmHg AV Mean Velocity 103.2 cm/s AV Mean Gradient 5.1 mmHg AV Velocity Time Integral 28.4 cm AI Peak Velocity 391.4 cm/s AI Peak Gradient 61.3 mmHg AI Pressure Half Time 845.5 ms LVOT Peak Velocity 95.2 cm/s LVOT Peak Gradient 3.6 mmHg LVOT Velocity Time Integral 16.2 cm LVOT Stroke Volume 51.1 cm??? LVOT Stroke Volume Index 22.6 ml/m??? LVOT Cardiac Index 1719.6 cm???/min???m??? AV Area Cont Eq vti 1.8 cm??? AV Area Cont Eq pk 1.8 cm??? MV Area PHT 2.2 cm??? Mitral E Point Velocity 66.9 cm/s Mitral A Point Velocity 121.4 cm/s Mitral E to A Ratio 0.6 MV Deceleration Time 342.6 ms MV E' Velocity 5.5 cm/s Mitral E to MV E' Ratio 12.1 TR Peak Velocity 452.9 cm/s TR Peak Gradient 82.0 mmHg Right Ventricular Systolic Press 98.8 mmHg FINDINGS Left Ventricle Severely increased left ventricular wall thickness. . No obvious regional wall motion abnormalities. Left ventricular ejection fraction is estimated at 55 to 60 %. Flattened septum in systole and diastole consistent with right ventricle pressure and volume overload. Right Ventricle Severe right ventricular dilatation. Severe pulmonary hypertension. Right ventricular systolic pressure estimated at 99 mm hg.reduced right ventricular global systolic function. Prominent moderator band in right ventricle (normal variant). Right Atrium Severe right atrial dilatation. Left Atrium Mildly increased left atrial area. Mitral Valve Structurally normal mitral valve. Mitral valve thickened. Moderate mitral annular calcification. [id number] mitral regurgitation. Aortic Valve Trileaflet aortic valve. No aortic stenosis. Mild aortic regurgitation. Aortic valve sclerosis. Tricuspid Valve Severe tricuspid regurgitation.structurally normal tricuspid valve. Pulmonic Valve Trace pulmonic regurgitation. Pericardium No pericardial effusion. Aorta Normal size aortic root and proximal ascending aorta. CONCLUSIONS 1. Normal left ventricle size and systolic function with severe hypertrophy 2. Severely dilated right ventricle with reduced function and severe pulmonary hypertension 3. Severe tricuspid with mild to moderate mitral regurgitation 4. Mild aortic regurgitation Previewed by: Dr. Kristen Biggs MD (Electronically Signed) Final Date: 16 March 2023 07:35
[2023-03-16] MEDS: METOPROLOL SUCCINATE (ER) 25 MG TAB.ER.24H PO SCH (07:50)
[2023-03-16] MEDS: FUROSEMIDE 20 MG TAB PO SCH ×2 (07:50→17:22)
[2023-03-16] MEDS: PANTOPRAZOLE 40 MG/10 ML VIAL IV SCH (07:51)
[2023-03-16] MEDS: TAMSULOSIN 0.4 MG CAP.ER.24H PO SCH (07:51)
[2023-03-16] MEDS: ALBUTEROL NEBULIZED 2.5 MG/3 ML INHALATION PRN (08:07)
[2023-03-16 10:43] LABS: Anisocytosis Moderate; Basophils % (A) 1 %; Eosinophils # (A) 0.1 k/uL (0-0.7); Eosinophils % (A) 2 %; HCT 24.8 % (34.0-46.0); HGB 7.6 gm/dL (11.4-16.0); Hypochromasia Marked; Lymphocytes # (A) 0.7 k/uL (1.0-4.8); Lymphocytes % (A) 14 %; MCHC 30.5 g/dL (31.0-37.0); MCV 124.6 fL (80.0-100.0); Macrocytosis Marked; Mean Platelet Volume 11.2; Monocytes # (A) 0.7 k/uL (0-1.0); Monocytes % (A) 14 %; Neutrophils % (A) 65 %; Platelet Count 383 k/uL (150-450); RBC 1.99 m/uL (3.80-5.40); RDW 20.1 % (11.5-15.5); WBC 4.6 k/uL (3.8-10.6)
[2023-03-16 10:45] LABS: ALT 14 U/L (4-34); AST 20 U/L (14-36); African American GFR (CKD) 30 (>60 ml/min/1.73 sqM); Alkaline Phosphatase 49 U/L (38-126); Anion Gap 12 mmol/L; Blood Urea Nitrogen 43 mg/dL (7-17); Carbon Dioxide 22 mmol/L (22-30); Chloride 104 mmol/L (98-107); Glucose 129 mg/dL (74-99); Non-African American GFR(CKD) 26 (>60 ml/min/1.73 sqM); Potassium 5.1 mmol/L (3.5-5.1); Sodium 138 mmol/L (137-145); Total Bilirubin 0.8 mg/dL (0.2-1.3); Total Protein 7.1 g/dL (6.3-8.2)
--- NOTE | 2023-03-16 12:23 | P.PN ---
Subjective Patient is seen for follow-up for acute kidney injury. She is admitted to the hospital with complaints of shortness of breath. VQ scan showed intermediate possibility for PE and patient is maintained on IV heparin. No significant findings of CHF on chest x-ray. Blood pressure was low and has improved slightly. Diuretics were decreased yesterday. No significant complaints today. Serum creatinine at 1.8 mg/dL. UA is pending. No evidence of obstruction on ultrasound. Objective - Vital Signs Vital signs: Vital Signs Temp 99.0 F 03/16/23 07:46 Pulse 101 H 03/16/23 10:21 Resp 18 03/16/23 10:21 BP 107/65 03/16/23 10:21 Pulse Ox 90 L 03/16/23 11:36 FiO2 40 03/16/23 11:00 Intake & Output 03/15/23 03/16/23 03/16/23 18:59 06:59 18:59 Intake Total 1690 176.58 Output Total 350 Balance 1340 176.58 Intake: Intake, IV Titration 1150 176.58 Amount Heparin Sod,Pork in 0.45% 250 176.58 NaCl 25,000 unit In 0.45 % NaCl 1 250ml.bag @ 18 UNITS/KG/HR 21.8 mls/hr IV .[id number] RUBINA Rx#: [id number] Sodium Chloride 0.9% 1, 900 000 ml @ 75 mls/hr IV . [id number] STA Rx#:[id number] Oral 540 Output: Urine 350 Other: Voiding Method External Catheter - Exam Patient is comfortable, no acute distress Sleepy but arousable Examination of the heart S1 and S2 Examination of the lungs bilateral breath sounds are heard Abdomen is soft nontender Examination of the lower extremities shows chronic skin changes with chronic edema CORRECTIONAL GUARD exam grossly intact - Labs CBC & Chem 7: 03/16/23 10:11 03/16/23 10:11 Labs: Abnormal Lab Results - Last 24 Hours (Table) 03/15/23 03/15/23 03/15/23 Range/Units 12:48 17:41 17:41 RBC 1.88 L (3.80-5.40) m/uL Hgb 7.3 L (11.4-16.0) gm/dL Hct 23.7 L (34.0-46.0) % MCV 126.1 H (80.0-100.0) fL MCH 38.9 H (25.0-35.0) pg MCHC 30.8 L (31.0-37.0) g/dL RDW 20.5 H (11.5-15.5) % Lymphocytes # (1.0-4.8) k/uL Lymphocytes # (Manual) 0.97 L (1.0-4.8) k/uL Nucleated RBCs 2 H (0-0) /100 WBC Macrocytosis Marked A PT 14.3 H (10.0-12.5) sec INR 1.4 H (<1.2) APTT 48.0 H (22.0-30.0) sec BUN (7-17) mg/dL Creatinine (0.52-1.04) mg/dL Glucose (74-99) mg/dL POC Glucose (mg/dL) 160 H (70-110) mg/dL Hemoglobin A1c (<=6.0) % TSH (0.465-4.680) mIU/L Free T3 pg/mL (2.8-5.3) pg/ml 03/15/23 03/15/23 03/15/23 Range/Units 17:41 17:41 17:59 RBC (3.80-5.40) m/uL Hgb (11.4-16.0) gm/dL Hct (34.0-46.0) % MCV (80.0-100.0) fL MCH (25.0-35.0) pg MCHC (31.0-37.0) g/dL RDW (11.5-15.5) % Lymphocytes # (1.0-4.8) k/uL Lymphocytes # (Manual) (1.0-4.8) k/uL Nucleated RBCs (0-0) /100 WBC Macrocytosis PT (10.0-12.5) sec INR (<1.2) APTT (22.0-30.0) sec BUN (7-17) mg/dL Creatinine (0.52-1.04) mg/dL Glucose (74-99) mg/dL POC Glucose (mg/dL) 137 H (70-110) mg/dL Hemoglobin A1c 6.8 H (<=6.0) % TSH 7.170 H (0.465-4.680) mIU/L Free T3 pg/mL (2.8-5.3) pg/ml 03/15/23 03/16/23 03/16/23 Range/Units 20:45 07:45 10:11 RBC 1.99 L (3.80-5.40) m/uL Hgb 7.6 L (11.4-16.0) gm/dL Hct 24.8 L (34.0-46.0) % MCV 124.6 H (80.0-100.0) fL MCH 38.0 H (25.0-35.0) pg MCHC 30.5 L (31.0-37.0) g/dL RDW 20.1 H (11.5-15.5) % Lymphocytes # 0.7 L (1.0-4.8) k/uL Lymphocytes # (Manual) (1.0-4.8) k/uL Nucleated RBCs (0-0) /100 WBC Macrocytosis Marked A PT (10.0-12.5) sec INR (<1.2) APTT 88.9 H (22.0-30.0) sec BUN (7-17) mg/dL Creatinine (0.52-1.04) mg/dL Glucose (74-99) mg/dL POC Glucose (mg/dL) 158 H (70-110) mg/dL Hemoglobin A1c (<=6.0) % TSH (0.465-4.680) mIU/L Free T3 pg/mL (2.8-5.3) pg/ml 03/16/23 Range/Units 10:11 RBC (3.80-5.40) m/uL Hgb (11.4-16.0) gm/dL Hct (34.0-46.0) % MCV (80.0-100.0) fL MCH (25.0-35.0) pg MCHC (31.0-37.0) g/dL RDW (11.5-15.5) % Lymphocytes # (1.0-4.8) k/uL Lymphocytes # (Manual) (1.0-4.8) k/uL Nucleated RBCs (0-0) /100 WBC Macrocytosis PT (10.0-12.5) sec INR (<1.2) APTT (22.0-30.0) sec BUN 43 H (7-17) mg/dL Creatinine 1.84 H (0.52-1.04) mg/dL Glucose 129 H (74-99) mg/dL POC Glucose (mg/dL) (70-110) mg/dL Hemoglobin A1c (<=6.0) % TSH (0.465-4.680) mIU/L Free T3 pg/mL 2.2 L (2.8-5.3) pg/ml Assessment and Plan Assessment: 1. Acute kidney injury, ATN mostly associated with hypotension. Possible component of hypovolemia. Check urine analysis. Ultrasound of the kidneys is pending. I will hold diuretics for now. 2. Intermediate possibility of PE maintained on IV heparin 3. Hyperkalemia associated with acute kidney injury, improved. Rule out urine retention. Blood sugar is not elevated. 4. Anemia , iron replete , based on labs on 03/08/2023. Being followed by hematology 5. Obstructive sleep apnea maintained on home O2 6. Morbid obesity 7. History of diastolic CHF 8. History of von Willebrand's disease Plan: Check urine analysis May continue low-dose oral Lasix unless renal function is worse in a.m. Patient does not clinically appear to be significantly volume overloaded. Repeat labs in a.m.
--- NOTE | 2023-03-16 12:55 | P.PN ---
Subjective Progress Note Date: 03/16/23 Patient is a 78-year-old lady past medical history significant for COPD, obesity/obesity hypoventilation syndrome, chronic hypoxemic respiratory failure, obstructive sleep apnea, CHF, diabetes mellitus, hypertension, hypothyroidism who presented to the hospital for possible worsening shortness of breath. She was in the hospital beginning of the month at which time she had a fall. Patient stated ever since she has been discharged she has been worsening shortness of breath. Shortness of breath is present on exertion and at rest. Patient states that only walking across the room makes her short of breath and winded. Denies any chest pain. There was no complain of any fever or chills. Denies any cough. Denies any nausea, vomiting abdominal pain. Patient was also going of lethargy and weakness. Because of worsening shortness of breath, patient came to the ER Initial lab work done in the ER showed WBC 5.1, hemoglobin 8.1, platelet count 407, sodium 138, potassium 5.5, BUNs 46, creatinine 1.87 and troponin 0.012, proBNP [id number] Influenza A not detected Influenza B not detected RSV not detected COVID-19 not detected EKG done in the ER showed heart rate of 86 , no ST segment elevation or depression seen, no T-wave inversions seen. Chest x-ray done in the ER showed moderate cardiac megaly, no pulmonary edema or infiltrate seen VQ scan done showed intermediate possibility for pulmonary embolism given the moderate sized defect at the right base Patient admitted to internal medicine service 03/16. Patient seen and examined. Patient had rapid response this morning because of respiratory distress, patient's pulse ox dropped into 70s, patient had to be placed on BiPAP. Doing much better now. Denies any shortness of breath. Patient is alert and oriented, answering question appropriately 2-D echo done showed normal left ventricle size and systolic function with severe hypertrophy, severely dilated right ventricle with reduced function and severe pulmonary hypertension, severe tricuspid with mild to moderate mitral regurg REVIEW OF SYSTEMS: CONSTITUTIONAL: No fever, no malaise,. CARDIOVASCULAR: As mentioned above PULMONARY: As mentioned above GASTROINTESTINAL: No diarrhea, no nausea, no vomiting, no abdominal pain. NEUROLOGICAL: No headaches, no weakness, PHYSICAL EXAMINATION: GENERAL: The patient is alert and oriented x3, not in any acute distress. Well developed, well nourished. HEENT: Pupils are round and equally reacting to light. EOMI. No scleral icterus. No conjunctival pallor. Normocephalic, atraumatic. No pharyngeal erythema. No thyromegaly. CARDIOVASCULAR: S1 and S2 present. No murmurs, rubs, or gallops. PULMONARY: Diminished breath sounds at the bases bilaterally, rhonchi audible at the bases ABDOMEN: Soft, nontender, nondistended, normoactive bowel sounds. No palpable organomegaly. MUSCULOSKELETAL: No joint swelling or deformity. EXTREMITIES: No cyanosis, clubbing, or pedal edema. NEUROLOGICAL: Gross neurological examination did not reveal any focal deficits. SKIN: No rashes. Assessment and plan Acute on chronic diastolic CHF Hyperkalemia Acute on chronic kidney disease V/Q scan showing intermediate probably for PE On occlusive thrombus in the right saphenofemoral junction Chronic hypoxemic respiratory failure, chronically utilizes 4 L/m nasal cannula History of COPD, stable Obesity/obesity hypoventilation syndrome Obstructive sleep apnea, utilizes BiPAP at night with a support of 13/8 Diabetes mellitus, type II Macrocytic anemia, no acute blood loss noted. Hypertension Hypothyroidism Morbid obesity, with a BMI of 43.1 kg/m Monitor vital signs Monitor CBC Monitor CMP Continue telemetry monitoring Continue oxygen supplementation, continue BiPAP as needed Trend troponins. Strict I's and O's, daily weights Avoid nephrotoxic agents. Aggressive bronchopulmonary hygiene Continue breathing treatments 2-D echo done showed normal left ventricle size and systolic function with severe hypertrophy, severely dilated right ventricle with reduced function and severe pulmonary hypertension, severe tricuspid with mild to moderate mitral regurg Continue pharmacy dose heparin In regards to acute anemia,continue to monitor H&H transfuse for hemodynamic instability or hemoglobin less than 7, and anemia workup noted. Hematology oncology following In regards to diabetes mellitus, continue sliding scale insulin Hematology oncology following, agree with IV heparin for now, recommend doing CTA chest with contrast once renal functions improved to rule out PE. Cardiology following nephrology following Pulmonology following Labs and medication were reviewed.. Continue same treatment. Continue with symptomatic treatment. Resume home medication. Monitor labs and vitals. DVT and GI prophylaxis. Further recommendations as per clinical course of the patient Dictation was produced using [employer] dictation software. please excuse any grammatical, word or spelling errors. Objective - Vital Signs Vital signs: Vital Signs Temp 99.0 F 03/16/23 07:46 Pulse 93 12/22/23 09:31 Resp 18 03/16/23 09:31 BP 120/71 03/16/23 07:46 Pulse Ox 97 03/16/23 09:31 FiO2 40 03/16/23 08:44 Intake & Output 03/15/23 03/16/23 03/16/23 18:59 06:59 18:59 Intake Total 1690 176.58 Output Total 350 Balance 1340 176.58 Intake: Intake, IV Titration 1150 176.58 Amount Heparin Sod,Pork in 0.45% 250 176.58 NaCl 25,000 unit In 0.45 % NaCl 1 250ml.bag @ 18 UNITS/KG/HR 21.8 mls/hr IV .[id number] RUBINA Rx#: [id number] Sodium Chloride 0.9% 1, 900 000 ml @ 75 mls/hr IV . [id number] STA Rx#:[id number] Oral 540 Output: Urine 350 Other: Voiding Method External Catheter - Labs CBC & Chem 7: 03/16/23 10:11 03/16/23 10:11 Labs: Abnormal Lab Results - Last 24 Hours (Table) 03/15/23 03/15/23 03/15/23 Range/Units 12:48 17:41 17:41 RBC 1.88 L (3.80-5.40) m/uL Hgb 7.3 L (11.4-16.0) gm/dL Hct 23.7 L (34.0-46.0) % MCV 126.1 H (80.0-100.0) fL MCH 38.9 H (25.0-35.0) pg MCHC 30.8 L (31.0-37.0) g/dL RDW 20.5 H (11.5-15.5) % Lymphocytes # (Manual) 0.97 L (1.0-4.8) k/uL Nucleated RBCs 2 H (0-0) /100 WBC Macrocytosis Marked A PT 14.3 H (10.0-12.5) sec INR 1.4 H (<1.2) APTT 48.0 H (22.0-30.0) sec POC Glucose (mg/dL) 160 H (70-110) mg/dL Hemoglobin A1c (<=6.0) % TSH (0.465-4.680) mIU/L 03/15/23 03/15/23 03/15/23 Range/Units 17:41 17:41 17:59 RBC (3.80-5.40) m/uL Hgb (11.4-16.0) gm/dL Hct (34.0-46.0) % MCV (80.0-100.0) fL MCH (25.0-35.0) pg MCHC (31.0-37.0) g/dL RDW (11.5-15.5) % Lymphocytes # (Manual) (1.0-4.8) k/uL Nucleated RBCs (0-0) /100 WBC Macrocytosis PT (10.0-12.5) sec INR (<1.2) APTT (22.0-30.0) sec POC Glucose (mg/dL) 137 H (70-110) mg/dL Hemoglobin A1c 6.8 H (<=6.0) % TSH 7.170 H (0.465-4.680) mIU/L 03/15/23 03/16/23 Range/Units 20:45 07:45 RBC (3.80-5.40) m/uL Hgb (11.4-16.0) gm/dL Hct (34.0-46.0) % MCV (80.0-100.0) fL MCH (25.0-35.0) pg MCHC (31.0-37.0) g/dL RDW (11.5-15.5) % Lymphocytes # (Manual) (1.0-4.8) k/uL Nucleated RBCs (0-0) /100 WBC Macrocytosis PT (10.0-12.5) sec INR (<1.2) APTT 88.9 H (22.0-30.0) sec POC Glucose (mg/dL) 158 H (70-110) mg/dL Hemoglobin A1c (<=6.0) % TSH (0.465-4.680) mIU/L
--- NOTE | 2023-03-16 14:40 | P.PN ---
Subjective Progress Note Date: 03/16/23 Patient seen in the ER at today's visit. Continues on BiPAP, SPO2 96%. Patient does report improvement in breathing with BiPAP. Objective - Vital Signs Vital signs: Vital Signs Temp 99.0 F 03/16/23 07:46 Pulse 86 03/16/23 13:47 Resp 18 03/16/23 13:47 BP 127/81 03/16/23 13:47 Pulse Ox 96 03/16/23 13:47 FiO2 40 03/16/23 11:00 Intake & Output 03/15/23 03/16/23 03/16/23 18:59 06:59 18:59 Intake Total 1690 250.00 Output Total 350 Balance 1340 250.00 Intake: Intake, IV Titration 1150 250.00 Amount Heparin Sod,Pork in 0.45% 250 250.00 NaCl 25,000 unit In 0.45 % NaCl 1 250ml.bag @ 18 UNITS/KG/HR 21.8 mls/hr IV .[id number] RUBINA Rx#: [id number] Sodium Chloride 0.9% 1, 900 000 ml @ 75 mls/hr IV . [id number] STA Rx#:[id number] Oral 540 Output: Urine 350 Other: Voiding Method External Catheter - Constitutional General appearance: Present: obese - EENT Eyes: Present: anicteric sclerae, EOMI ENT: Present: hearing grossly normal - Respiratory Details: breathing even and unlabored, bipap in place - Cardiovascular Details: skin warm and dry - Integumentary Integumentary: Absent: cyanotic - Musculoskeletal Musculoskeletal: Present: generalized weakness - Psychiatric Psychiatric: Present: A&O x's 3 - Labs CBC & Chem 7: 03/16/23 10:11 03/16/23 10:11 Labs: Abnormal Lab Results - Last 24 Hours (Table) 03/15/23 03/15/23 03/15/23 Range/Units 17:41 17:41 17:41 RBC 1.88 L (3.80-5.40) m/uL Hgb 7.3 L (11.4-16.0) gm/dL Hct 23.7 L (34.0-46.0) % MCV 126.1 H (80.0-100.0) fL MCH 38.9 H (25.0-35.0) pg MCHC 30.8 L (31.0-37.0) g/dL RDW 20.5 H (11.5-15.5) % Lymphocytes # (1.0-4.8) k/uL Lymphocytes # (Manual) 0.97 L (1.0-4.8) k/uL Nucleated RBCs 2 H (0-0) /100 WBC Macrocytosis Marked A PT 14.3 H (10.0-12.5) sec INR 1.4 H (<1.2) APTT 48.0 H (22.0-30.0) sec BUN (7-17) mg/dL Creatinine (0.52-1.04) mg/dL Glucose (74-99) mg/dL POC Glucose (mg/dL) (70-110) mg/dL Hemoglobin A1c (<=6.0) % TSH 7.170 H (0.465-4.680) mIU/L Free T3 pg/mL (2.8-5.3) pg/ml 03/15/23 03/15/23 03/15/23 Range/Units 17:41 17:59 20:45 RBC (3.80-5.40) m/uL Hgb (11.4-16.0) gm/dL Hct (34.0-46.0) % MCV (80.0-100.0) fL MCH (25.0-35.0) pg MCHC (31.0-37.0) g/dL RDW (11.5-15.5) % Lymphocytes # (1.0-4.8) k/uL Lymphocytes # (Manual) (1.0-4.8) k/uL Nucleated RBCs (0-0) /100 WBC Macrocytosis PT (10.0-12.5) sec INR (<1.2) APTT (22.0-30.0) sec BUN (7-17) mg/dL Creatinine (0.52-1.04) mg/dL Glucose (74-99) mg/dL POC Glucose (mg/dL) 137 H 158 H (70-110) mg/dL Hemoglobin A1c 6.8 H (<=6.0) % TSH (0.465-4.680) mIU/L Free T3 pg/mL (2.8-5.3) pg/ml 03/16/23 03/16/23 03/16/23 Range/Units 07:45 10:11 10:11 RBC 1.99 L (3.80-5.40) m/uL Hgb 7.6 L (11.4-16.0) gm/dL Hct 24.8 L (34.0-46.0) % MCV 124.6 H (80.0-100.0) fL MCH 38.0 H (25.0-35.0) pg MCHC 30.5 L (31.0-37.0) g/dL RDW 20.1 H (11.5-15.5) % Lymphocytes # 0.7 L (1.0-4.8) k/uL Lymphocytes # (Manual) (1.0-4.8) k/uL Nucleated RBCs (0-0) /100 WBC Macrocytosis Marked A PT (10.0-12.5) sec INR (<1.2) APTT 88.9 H (22.0-30.0) sec BUN 43 H (7-17) mg/dL Creatinine 1.84 H (0.52-1.04) mg/dL Glucose 129 H (74-99) mg/dL POC Glucose (mg/dL) (70-110) mg/dL Hemoglobin A1c (<=6.0) % TSH (0.465-4.680) mIU/L Free T3 pg/mL 2.2 L (2.8-5.3) pg/ml Assessment and Plan (1) Acute exacerbation of chronic obstructive pulmonary disease Current Visit: Yes Status: Acute Priority: High Code(s): J44.1 - CHRONIC OBSTRUCTIVE PULMONARY DISEASE W (ACUTE) EXACERBATION SNOMED Code(s): 099014273 Plan: Reported von Willebrand disease -Unclear about circumstances of diagnosis. Reports diagnosed 5 years ago at [facility]. Does not f/u with hematology. Reports no history of bleeding problems -No lab work found within [facility] EMR to indicate the same VQ scan for SOB-probability intermediate for PE in RLL Baseline BLE doppler-thrombus in the rt leg CFV/GSV junction, refused popliteal assessment and the lt leg -Pt currently is denying any bleeding episodes, no precautions for surgery/invasive procedures. -Irregardless of von Willebrand disease, if pt has VTE/PE, anticoagulation needs to be given. Currently heparin drip. -Will see if renal function improves, may be able to do CTA. Will also see if pt improves if she can tolerate completion of BLE doppler -Provoked vs unprovoked clot, difficult to determine. Pt states she moves very little, this is chronic and had recent hospitalization. -Patient will need to be transitioned to oral anticoagulation with Eliquis prior to discharge, can be transitioned if no procedures planned. Pt will need to closely monitor for any signs of bleeding and have f/u for hgb monitoring. Pt would need minimum 3 months anticoagulation, if pt still rather immobilized would have to consider extending anticoagulation Macrocytic anemia -Iron studies not consistent with SAHARA, Vitamin B12 low end of normal at 312. Folate normal. MMA pending. If MMA high will add B12 supplementation -Thyroid studies revealed subclinical hypothyroidism -Med list reviewed, no med associated with macrocytosis seen -Transfuse for Hgb <7
[2023-03-16 15:26] LABS: Reticulocyte % 1.8 % (0.5-2.0)
--- NOTE | 2023-03-16 15:34 | P.PN ---
Subjective Progress Note Date: 03/16/23 I am seeing this patient in consultation today 03/15/2023 in the emergency room after she presented with acute on chronic shortness of breath that has been ongoing and progressively worsening for a couple weeks. Patient is a 78-year-old white female past medical history significant for COPD, obesity/obes ity hypoventilation syndrome, chronic hypoxemic respiratory failure, obstructive sleep apnea, CHF, diabetes mellitus, hypertension, hypothyroidism. She did have a recent hospitalization at our facility for a fall and was discharged on March 09. She does follow in the pulmonary office with Dr. Schilling. Most recent PFT from 2020, shows a combination of severe obstructive/restrictive disease. She is chronically oxygen dependent and utilizes 4 L/m nasal cannula. She is technically a poor historian. Patient states that she is chronically short of breath, however, she has been progressively more short of breath over the last couple weeks. Denies any infectious symptoms such as cough, fever, chest pain, hemoptysis. Denies sick contacts. Does admit chronic lower extremity swelling. She takes Demadex twice a day at home. Denies any chest pain, heart palpitations, syncope or increase in her lower extremity swelling. Chest x-ray shows moderate cardiomegaly, no alexia pulmonary edema or focal infiltrate suggestive of pneumonia. NT proBNP was elevated at 12,400. CBC has a WBC count of 5.1, hemoglobin 8.1, hematocrit 26.2, platelets 407. BMP shows sodium 138, potassium 5.5, chloride 102, serum bicarbonate 22, BUN 46, creatinine 1.87, glucose 137. D-dimer was elevated at 1.99, however, clinical suspicion for pulmonary embolism is low. Patient is scheduled to undergo VQ sca n. Troponin less than 0.012. Normal saline is infusing at 75 ML's per hour. She is currently sitting up in bed, on 4 L/m nasal cannula, in no acute distress. Vital signs are stable. The patient is seen today 03/16/2023 in follow-up in the emergency department. She is currently sitting up in bed. Awake and alert in no acute distress. Maintained on BiPAP 13/8 and 40% FiO2. His been afebrile. Hemodynamically stable. Dopplers of the lower extremity were positive for DVT in the right. Ventilation perfusion scan revealed intermediate probability for pulmonary embolus. There is a moderate sized defect at the right base. Echocardiogram revealed severely increased left ventricular wall thickness. Left ventricular ejection fraction 55-60%. Flattened septum in systole and diastole consistent with right ventricular pressure fluid and volume overload. Severe right ventricular dilatation with severe pulmonary hypertension and an RVSP of 99 mmHG. White count 4.6. Hemoglobin 7.6. Platelets 383,000. Sodium 138. Potassium 5.1. Bicarb 22. BUN 43. Creatinine 1.84. Glucose 129. She is currently on a heparin drip. Receiving oral diuretics. Objective - Vital Signs Vital signs: Vital Signs Temp 99.0 F 03/16/23 07:46 Pulse 86 03/16/23 13:47 Resp 18 03/16/23 13:47 BP 127/81 03/16/23 13:47 Pulse Ox 96 03/16/23 13:47 FiO2 40 03/16/23 11:00 Intake & Output 03/15/23 03/16/23 03/16/23 18:59 06:59 18:59 Intake Total 1690 250.00 Output Total 350 Balance 1340 250.00 Intake: Intake, IV Titration 1150 250.00 Amount Heparin Sod,Pork in 0.45% 250 250.00 NaCl 25,000 unit In 0.45 % NaCl 1 250ml.bag @ 18 UNITS/KG/HR 21.8 mls/hr IV .[id number] RUBINA Rx#: [id number] Sodium Chloride 0.9% 1, 900 000 ml @ 75 mls/hr IV . [id number] STA Rx#:[id number] Oral 540 Output: Urine 350 Other: Voiding Method External Catheter - Exam GENERAL EXAM: Alert, 78-year-old female, morbidly obese, on BiPAP 13/8 and 40% FiO2, fairly comfortable in no apparent distress. HEAD: Normocephalic and atraumatic EYES: Normal reaction of pupils, equal size. NOSE: Clear with pink turbinates. THROAT: No erythema or exudates. NECK: No masses, no JVD. CHEST: No chest wall deformity. LUNGS: Equal air entry with markedly diminished lung sounds throughout. No cr ackles, wheeze, rhonchi or focal dullness. No conversational dyspnea. CVS: S1 and S2 normal with no audible murmur, regular rhythm. No extra heart sounds ABDOMEN: Obese abdomen, no hepatosplenomegaly, active bowel sounds, no guarding or rigidity. SPINE: No scoliosis or deformity SKIN: No rashes CENTRAL NERVOUS SYSTEM: No focal deficits, tone is normal in all 4 extremities. EXTREMITIES: There is bilateral lower extremity edema, no clubbing or cyanosis. Peripheral pulses are intact. - Labs CBC & Chem 7: 03/16/23 10:11 03/16/23 10:11 Labs: Abnormal Lab Results - Last 24 Hours (Table) 03/15/23 03/15/23 03/15/23 Range/Units 11:14 17:41 17:41 RBC 1.88 L (3.80-5.40) m/uL Hgb 7.3 L (11.4-16.0) gm/dL Hct 23.7 L (34.0-46.0) % MCV 126.1 H (80.0-100.0) fL MCH 38.9 H (25.0-35.0) pg MCHC 30.8 L (31.0-37.0) g/dL RDW 20.5 H (11.5-15.5) % Lymphocytes # (1.0-4.8) k/uL Lymphocytes # (Manual) 0.97 L (1.0-4.8) k/uL Nucleated RBCs 2 H (0-0) /100 WBC Macrocytosis Marked A PT 14.3 H (10.0-12.5) sec INR 1.4 H (<1.2) APTT 48.0 H (22.0-30.0) sec BUN (7-17) mg/dL Creatinine (0.52-1.04) mg/dL Glucose (74-99) mg/dL POC Glucose (mg/dL) (70-110) mg/dL Hemoglobin A1c (<=6.0) % RBC Folate 877 H (280 - 791) ng/mL TSH (0.465-4.680) mIU/L Free T3 pg/mL (2.8-5.3) pg/ml 03/15/23 03/15/23 03/15/23 Range/Units 17:41 17:41 17:59 RBC (3.80-5.40) m/uL Hgb (11.4-16.0) gm/dL Hct (34.0-46.0) % MCV (80.0-100.0) fL MCH (25.0-35.0) pg MCHC (31.0-37.0) g/dL RDW (11.5-15.5) % Lymphocytes # (1.0-4.8) k/uL Lymphocytes # (Manual) (1.0-4.8) k/uL Nucleated RBCs (0-0) /100 WBC Macrocytosis PT (10.0-12.5) sec INR (<1.2) APTT (22.0-30.0) sec BUN (7-17) mg/dL Creatinine (0.52-1.04) mg/dL Glucose (74-99) mg/dL POC Glucose (mg/dL) 137 H (70-110) mg/dL Hemoglobin A1c 6.8 H (<=6.0) % RBC Folate (280 - 791) ng/mL TSH 7.170 H (0.465-4.680) mIU/L Free T3 pg/mL (2.8-5.3) pg/ml 03/15/23 03/16/23 03/16/23 Range/Units 20:45 07:45 10:11 RBC 1.99 L (3.80-5.40) m/uL Hgb 7.6 L (11.4-16.0) gm/dL Hct 24.8 L (34.0-46.0) % MCV 124.6 H (80.0-100.0) fL MCH 38.0 H (25.0-35.0) pg MCHC 30.5 L (31.0-37.0) g/dL RDW 20.1 H (11.5-15.5) % Lymphocytes # 0.7 L (1.0-4.8) k/uL Lymphocytes # (Manual) (1.0-4.8) k/uL Nucleated RBCs (0-0) /100 WBC Macrocytosis Marked A PT (10.0-12.5) sec INR (<1.2) APTT 88.9 H (22.0-30.0) sec BUN (7-17) mg/dL Creatinine (0.52-1.04) mg/dL Glucose (74-99) mg/dL POC Glucose (mg/dL) 158 H (70-110) mg/dL Hemoglobin A1c (<=6.0) % RBC Folate (280 - 791) ng/mL TSH (0.465-4.680) mIU/L Free T3 pg/mL (2.8-5.3) pg/ml 03/16/23 Range/Units 10:11 RBC (3.80-5.40) m/uL Hgb (11.4-16.0) gm/dL Hct (34.0-46.0) % MCV (80.0-100.0) fL MCH (25.0-35.0) pg MCHC (31.0-37.0) g/dL RDW (11.5-15.5) % Lymphocytes # (1.0-4.8) k/uL Lymphocytes # (Manual) (1.0-4.8) k/uL Nucleated RBCs (0-0) /100 WBC Macrocytosis PT (10.0-12.5) sec INR (<1.2) APTT (22.0-30.0) sec BUN 43 H (7-17) mg/dL Creatinine 1.84 H (0.52-1.04) mg/dL Glucose 129 H (74-99) mg/dL POC Glucose (mg/dL) (70-110) mg/dL Hemoglobin A1c (<=6.0) % RBC Folate (280 - 791) ng/mL TSH (0.465-4.680) mIU/L Free T3 pg/mL 2.2 L (2.8-5.3) pg/ml Assessment and Plan Assessment: Acute on chronic dyspnea, chest x-ray does not show any focal infiltrates or evidence of pneumonia. There is moderate cardiomegaly without any significant pulmonary edema. NT proBNP was elevated. Consider possible mild diastolic congestive heart failure exacerbation. Echocardiogram revealed severely increased left ventricular wall thickness. Left ventricular ejection fraction 55-60%. Flattened septum in systole and diastole consistent with right ventricular pressure fluid and volume overload. Severe right ventricular dilatation with severe pulmonary hypertension and an RVSP of 99 mmHG. Suspected right lower lobe pulmonary embolism, right lower extremity DVT, currently on a heparin drip Chronic hypoxemic respiratory failure, chronically utilizes 4 L/m nasal cannula History of COPD, stable Obesity/obesity hypoventilation syndrome Obstructive sleep apnea, utilizes BiPAP at night with a support of 13/ Diabetes mellitus, type II Acute on chronic kidney disease Macrocytic anemia, no acute blood loss noted. Hypertension Hypothyroidism Morbid obesity, with a BMI of 43.1 kg/m Never tobacco smoker Helen: The patient was seen and evaluated Echocardiogram, VQ scan, Dopplers, labs and medications reviewed Currently on a heparin drip Continued on oral diuretics Continued on BiPAP alternating with 4 L nasal cannula Titrate the FiO2 as tolerated Increase her activity as tolerated We will continue to follow I have personally seen and examined the patient, performed the documentation and the assessment and plan as written. Number of minutes spent on the visit: 10.
[2023-03-16 17:04] LABS: Glucose,Whole Blood 112 mg/dL (70-110)
[2023-03-16] MEDS: CYANOCOBALAMIN 1,000 MCG/ML 1 ML VIAL IM SCH (17:22)
[2023-03-16 20:08] LABS: Glucose,Whole Blood 166 mg/dL (70-110)
[2023-03-17] MEDS: HEPARIN SOD,PORK IN 0.45% NACL 25,000 UNIT in 0.45% NACL 1 250ML.BAG IV SCH (06:17)
[2023-03-17 06:25] LABS: Glucose,Whole Blood 146 mg/dL (70-110)
[2023-03-17] MEDS: INSULIN ASPART (NovoLOG) 100 UNIT/ML VIAL SQ SCH ×4 (06:32→20:27)
--- NOTE | 2023-03-17 06:47 | PN ---
PROGRESS NOTE SUBJECTIVE: This is a 78-year-old lady with severe obstructive sleep apnea, severe pulmonary hypertension, who was placed on BiPAP, did well but she pulled off the BiPAP, became obtunded. She is now doing better. A team was called, but she seems to be holding up her own. She has a preserved LV systolic function, severe pulmonary hypertension, history of smoking. OBJECTIVE: VITALS: Stable at this time. She is somewhat better oriented. NECK: JVD is quite evident more than 2 cm. HEART: S1, S2 heard distantly regular. LUNGS: Reveal diminished air entry. ABDOMEN: Distended, nontender. EXTREMITIES: Lower extremities reveal bilateral edema. NEUROLOGIC: Central nervous system is normal. Continue current regimen from the cardiac standpoint. Further management per Pulmonary. No new recommendations. I will continue to see her as needed. MMODL / IJN: [id number] /
[2023-03-17] MEDS: PANTOPRAZOLE 40 MG/10 ML VIAL IV SCH (08:51)
[2023-03-17] MEDS: METOPROLOL SUCCINATE (ER) 25 MG TAB.ER.24H PO SCH (08:51)
[2023-03-17] MEDS: TAMSULOSIN 0.4 MG CAP.ER.24H PO SCH (08:52)
[2023-03-17] MEDS: FUROSEMIDE 20 MG TAB PO SCH ×2 (08:52→16:57)
[2023-03-17] MEDS: CYANOCOBALAMIN 1,000 MCG/ML 1 ML VIAL IM SCH ×2 (08:52→12:09)
[2023-03-17 10:29] LABS: Anisocytosis Slight; HCT 24.4 % (34.0-46.0); HGB 7.4 gm/dL (11.4-16.0); Hypochromasia Marked; MCH 38.9 pg (25.0-35.0); MCHC 30.4 g/dL (31.0-37.0); MCV 128.1 fL (80.0-100.0); Macrocytosis Marked; Mean Platelet Volume 11.1; Platelet Count 308 k/uL (150-450); RBC 1.91 m/uL (3.80-5.40); RDW 19.6 % (11.5-15.5); WBC 4.5 k/uL (3.8-10.6)
--- NOTE | 2023-03-17 10:42 | P.PN ---
Subjective Patient is seen for follow-up for acute kidney injury. She is admitted to the hospital with complaints of shortness of breath. VQ scan showed intermediate possibility for PE and patient is maintained on IV heparin. No significant findings of CHF on chest x-ray. Blood pressure was low and has improved slightly. Diuretics have been decreased No significant complaints today. Overall feeling better. Serum creatinine at 1.8 mg/dL. UA is pending. No evidence of obstruction on ultrasound. Objective - Vital Signs Vital signs: Vital Signs Temp 97.9 F 03/17/23 08:00 Pulse 99 03/17/23 08:00 Resp 24 03/17/23 08:00 BP 118/56 03/17/23 08:00 Pulse Ox 92 L 03/17/23 08:31 FiO2 40 03/17/23 08:29 Intake & Output 03/16/23 03/17/23 03/17/23 18:59 06:59 18:59 Intake Total 294.89 205.11 120 Output Total 650 Balance 294.89 -444.89 120 Intake: Intake, IV Titration 294.89 205.11 Amount Heparin Sod,Pork in 0.45% 294.89 205.11 NaCl 25,000 unit In 0.45 % NaCl 1 250ml.bag @ 18 UNITS/KG/HR 21.8 mls/hr IV .[id number] [facility] Rx#: [id number] Oral 120 Output: Urine 650 Other: Voiding Method External Catheter External Catheter - Exam Patient is comfortable, no acute distress Awake and on BiPAP Examination of the heart S1 and S2 Examination of the lungs bilateral breath sounds are heard Abdomen is soft nontender Examination of the lower extremities shows chronic skin changes with chronic edema [employer] exam grossly intact - Labs CBC & Chem 7: 03/16/23 10:11 03/16/23 10:11 Labs: Abnormal Lab Results - Last 24 Hours (Table) 03/15/23 03/16/23 03/16/23 Range/Units 11:14 10:11 10:11 RBC 1.99 L (3.80-5.40) m/uL Hgb 7.6 L (11.4-16.0) gm/dL Hct 24.8 L (34.0-46.0) % MCV 124.6 H (80.0-100.0) fL MCH 38.0 H (25.0-35.0) pg MCHC 30.5 L (31.0-37.0) g/dL RDW 20.1 H (11.5-15.5) % Lymphocytes # 0.7 L (1.0-4.8) k/uL Macrocytosis Marked A APTT (22.0-30.0) sec BUN 43 H (7-17) mg/dL Creatinine 1.84 H (0.52-1.04) mg/dL Glucose 129 H (74-99) mg/dL POC Glucose (mg/dL) (70-110) mg/dL RBC Folate 877 H (280 - 791) ng/mL Free T3 pg/mL 2.2 L (2.8-5.3) pg/ml 03/16/23 03/16/23 03/16/23 Range/Units 14:59 17:02 19:59 RBC (3.80-5.40) m/uL Hgb (11.4-16.0) gm/dL Hct (34.0-46.0) % MCV (80.0-100.0) fL MCH (25.0-35.0) pg MCHC (31.0-37.0) g/dL RDW (11.5-15.5) % Lymphocytes # (1.0-4.8) k/uL Macrocytosis APTT 81.0 H (22.0-30.0) sec BUN (7-17) mg/dL Creatinine (0.52-1.04) mg/dL Glucose (74-99) mg/dL POC Glucose (mg/dL) 112 H 166 H (70-110) mg/dL RBC Folate (280 - 791) ng/mL Free T3 pg/mL (2.8-5.3) pg/ml 03/16/23 03/17/23 03/17/23 Range/Units 22:58 06:24 09:13 RBC (3.80-5.40) m/uL Hgb (11.4-16.0) gm/dL Hct (34.0-46.0) % MCV (80.0-100.0) fL MCH (25.0-35.0) pg MCHC (31.0-37.0) g/dL RDW (11.5-15.5) % Lymphocytes # (1.0-4.8) k/uL Macrocytosis APTT 116.6 H* 66.3 H (22.0-30.0) sec BUN (7-17) mg/dL Creatinine (0.52-1.04) mg/dL Glucose (74-99) mg/dL POC Glucose (mg/dL) 146 H (70-110) mg/dL RBC Folate (280 - 791) ng/mL Free T3 pg/mL (2.8-5.3) pg/ml Assessment and Plan Assessment: 1. Acute kidney injury, ATN mostly associated with hypotension. Possible component of hypovolemia. Check urine analysis. Ultrasound of the kidneys shows no evidence of obstruction. Maintained on low-dose Lasix. 2. Intermediate possibility of PE maintained on IV heparin 3. Hyperkalemia associated with acute kidney injury, improved. Rule out urine retention. Blood sugar is not elevated. 4. Anemia , iron replete , based on labs on 03/08/2023. Being followed by hematology 5. Obstructive sleep apnea maintained on home O2 6. Morbid obesity 7. History of diastolic CHF 8. History of von Willebrand's disease Plan: Check urine analysis May continue low-dose oral Lasix unless renal function is worse. Patient does not clinically appear to be significantly volume overloaded. Repeat labs in a.m.
[2023-03-17 11:16] LABS: Anisocytosis (M) Present; Band Neutrophils % 2 %; Eosinophils # (M) 0.09 k/uL (0-0.7); Hypochromasia (M) Present; Lymphocytes # (M) 0.81 k/uL (1.0-4.8); Monocytes # (M) 0.32 k/uL (0-1.0); Neutrophils % (M) 71 %; Nucleated Red Blood Cells 0 /100 WBC (0-0); Total Cells Counted 100
[2023-03-17 11:21] LABS: Glucose,Whole Blood 159 mg/dL (70-110)
--- NOTE | 2023-03-17 12:42 | P.PN ---
Subjective Progress Note Date: 03/17/23 Principal diagnosis: Shortness of breath. I am seeing this patient in consultation today 03/15/2023 in the emergency room after she presented with acute on chronic shortness of breath that has been ongoing and progressively worsening for a couple weeks. Patient is a 78-year-old white female past medical history significant for COPD, obesity/obesity hypoventilation syndrome, chronic hypoxemic respiratory failure, obstructive sleep apnea, CHF, diabetes mellitus, hypertension, hypothyroidism. She did have a recent hospitalization at our facility for a fall and was discharged on March 09. She does follow in the pulmonary office with Dr. Schilling. Most recent PFT from 2020, shows a combination of severe obstructive/restrictive disease. She is chronically oxygen dependent and utilizes 4 L/m nasal cannula. She is technically a poor historian. Patient states that she is chronically short of breath, however, she has been progressively more short of breath over the last couple weeks. Denies any infectious symptoms such as cough, fever, chest pain, hemoptysis. Denies sick contacts. Does admit chronic lower extremity swelling. She takes Demadex twice a day at home. Denies any chest pain, heart palpitations, syncope or increase in her lower extremity swelling. Chest x-ray shows moderate cardiomegaly, no alexia pulmonary edema or focal infiltrate suggestive of pneumonia. NT proBNP was elevated at 12,400. CBC has a WBC count of 5.1, hemoglobin 8.1, hematocrit 26.2, platelets 407. BMP shows sodium 138, potassium 5.5, chloride 102, serum bicarbonate 22, BUN 46, creatinine 1.87, glucose 137. D-dimer was elevated at 1.99, however, clinical suspicion for pulmonary embolism is low. Patient is scheduled to undergo VQ scan. Troponin less than 0.012. Normal saline is infusing at 75 ML's per hour. She is currently sitting up in bed, on 4 L/m nasal cannula, in no acute distress. Vital signs are stable. The patient is seen today 03/16/2023 in follow-up in the emergency department. She is currently sitting up in bed. Awake and alert in no acute distress. Maintained on BiPAP 13/8 and 40% FiO2. His been afebrile. Hemodynamically stable. Dopplers of the lower extremity were positive for DVT in the right. Ventilation perfusion scan revealed intermediate probability for pulmonary embolus. There is a moderate sized defect at the right base. Echocardiogram revealed severely increased left ventricular wall thickness. Left ventricular ejection fraction 55-60%. Flattened septum in systole and diastole consistent with right ventricular pressure fluid and volume overload. Severe right ventricular dilatation with severe pulmonary hypertension and an RVSP of 99 mmHG. White count 4.6. Hemoglobin 7.6. Platelets 383,000. Sodium 138. Potassium 5.1. Bicarb 22. BUN 43. Creatinine 1.84. Glucose 129. She is currently on a heparin drip. Receiving oral diuretics. Progress note dated 03/17/2023. 78-year-old female initially seen in the emergency department. Seen today in room 371. The patient continues on BiPAP, and IV heparin. She was discovered to have a right lower extremity DVT. The patient is feeling better, and gives a thumbs up, when asked how she is doing. Today's labs include a white count 4.5, he will been some 0.4, hematocrit 24.4, and a platelet count of 308,000. PTT is 66.3. Glucose is 159. VQ scan was indeterminate. Doppler lower lobe extremity did reveal a right lower extremity DVT. Objective - Vital Signs Vital signs: Vital Signs Temp 97.7 F 03/17/23 11:55 Pulse 89 03/17/23 11:55 Resp 32 H 03/17/23 11:55 BP 106/52 03/17/23 11:55 Pulse Ox 96 03/17/23 11:55 FiO2 40 03/17/23 11:55 Intake & Output 03/16/23 03/17/23 03/17/23 18:59 06:59 18:59 Intake Total 294.89 205.11 120 Output Total 650 Balance 294.89 -444.89 120 Intake: Intake, IV Titration 294.89 205.11 Amount Heparin Sod,Pork in 0.45% 294.89 205.11 NaCl 25,000 unit In 0.45 % NaCl 1 250ml.bag @ 18 UNITS/KG/HR 21.8 mls/hr IV .[id number] [facility] Rx#: [id number] Oral 120 Output: Urine 650 Other: Voiding Method External Catheter External Catheter - Exam No acute distress, oriented 3. Currently on BiPAP. No alexia respiratory difficulty. HEENT examination is grossly unremarkable. Mucous membranes are moist. No oral lesions. Neck supple. Full range of motion. No adenopathy thyromegaly or neck vein distention. Cardiovascular examination reveals regular rhythm rate. S1-S2 normal. No S3 or S4. No discernible murmur noted. Heart rate 89 bpm. Lungs reveal scattered rhonchi. No wheezes or crackles. Breath sounds equal. Saturations are in the mid 90s. Abdomen obese, but soft, with bowel sounds. No masses or tenderness. Extremities are intact. There is some edema in the lower extremities. No cyanosis or clubbing. Chronic venous stasis changes noted. Skin is without rash or lesion. Neurologic examination is brief but nonfocal. - Labs CBC & Chem 7: 03/17/23 09:13 03/16/23 10:11 Labs: Abnormal Lab Results - Last 24 Hours (Table) 03/15/23 03/16/23 03/16/23 Range/Units 11:14 14:59 17:02 RBC (3.80-5.40) m/uL Hgb (11.4-16.0) gm/dL Hct (34.0-46.0) % MCV (80.0-100.0) fL MCH (25.0-35.0) pg MCHC (31.0-37.0) g/dL RDW (11.5-15.5) % Lymphocytes # (Manual) (1.0-4.8) k/uL Macrocytosis APTT 81.0 H (22.0-30.0) sec POC Glucose (mg/dL) 112 H (70-110) mg/dL RBC Folate 877 H (280 - 791) ng/mL 03/16/23 03/16/23 03/17/23 Range/Units 19:59 22:58 06:24 RBC (3.80-5.40) m/uL Hgb (11.4-16.0) gm/dL Hct (34.0-46.0) % MCV (80.0-100.0) fL MCH (25.0-35.0) pg MCHC (31.0-37.0) g/dL RDW (11.5-15.5) % Lymphocytes # (Manual) (1.0-4.8) k/uL Macrocytosis APTT 116.6 H* (22.0-30.0) sec POC Glucose (mg/dL) 166 H 146 H (70-110) mg/dL RBC Folate (280 - 791) ng/mL 03/17/23 03/17/23 03/17/23 Range/Units 09:13 09:13 11:19 RBC 1.91 L (3.80-5.40) m/uL Hgb 7.4 L (11.4-16.0) gm/dL Hct 24.4 L (34.0-46.0) % MCV 128.1 H (80.0-100.0) fL MCH 38.9 H (25.0-35.0) pg MCHC 30.4 L (31.0-37.0) g/dL RDW 19.6 H (11.5-15.5) % Lymphocytes # (Manual) 0.81 L (1.0-4.8) k/uL Macrocytosis Marked A APTT 66.3 H (22.0-30.0) sec POC Glucose (mg/dL) 159 H (70-110) mg/dL RBC Folate (280 - 791) ng/mL Assessment and Plan Assessment: Acute on chronic dyspnea, chest x-ray does not show any focal infiltrates or evidence of pneumonia. There is moderate cardiomegaly without any significant pulmonary edema. NT proBNP was elevated. Consider possible mild diastolic congestive heart failure exacerbation. Echocardiogram revealed severely increased left ventricular wall thickness. Left ventricular ejection fraction 55-60%. Flattened septum in systole and diastole consistent with right ventri cular pressure fluid and volume overload. Severe right ventricular dilatation with severe pulmonary hypertension and an RVSP of 99 mmHG. Suspected right lower lobe pulmonary embolism, right lower extremity DVT. Chronic hypoxemic respiratory failure, chronically utilizes 4 L/m nasal cannula. History of COPD, stable. Obesity/obesity hypoventilation syndrome. Obstructive sleep apnea, utilizes BiPAP at night with a support of 05/11. Diabetes mellitus, type II. Acute on chronic kidney disease. Macrocytic anemia. Hypertension. Hypothyroidism. Morbid obesity, with a BMI of 43.1 kg/m. Never tobacco smoker. Plan: Plan dated 03/17/2023. The patient appears to be doing better. She continues on BiPAP and IV heparin. She's getting oxygen bled in at 5 L/m. Her Doppler of the lower extremities revealed a right-sided DVT. Her ventilation perfusion lung scan was indetermi jan. There was a defect at the right lung base. We will continue to follow and make recommendations where appropriate. Clinically, she appears better. Labs, x-rays, medications are reviewed. The patient's overall prognosis though, remains very guarded. Time with Patient: Less than 30
--- NOTE | 2023-03-17 13:47 | P.PN ---
Subjective Progress Note Date: 03/17/23 Patient is a 78-year-old lady past medical history significant for COPD, obesity/obesity hypoventilation syndrome, chronic hypoxemic respiratory failure, obstructive sleep apnea, CHF, diabetes mellitus, hypertension, hypothyroidism who presented to the hospital for possible worsening shortness of breath. She was in the hospital beginning of the month at which time she had a fall. Patient stated ever since she has been discharged she has been worsening shortness of breath. Shortness of breath is present on exertion and at rest. Patient states that only walking across the room makes her short of breath and winded. Denies any chest pain. There was no complain of any fever or chills. Denies any cough. Denies any nausea, vomiting abdominal pain. Patient was also going of lethargy and weakness. Because of worsening shortness of breath, patient came to the ER Initial lab work done in the ER showed WBC 5.1, hemoglobin 8.1, platelet count 407, sodium 138, potassium 5.5, BUNs 46, creatinine 1.87 and troponin 0.012, proBNP 57927 Influenza A not detected Influenza B not detected RSV not detected COVID-19 not detected EKG done in the ER showed heart rate of 86 , no ST segment elevation or depression seen, no T-wave inversions seen. Chest x-ray done in the ER showed moderate cardiac megaly, no pulmonary edema or infiltrate seen VQ scan done showed intermediate possibility for pulmonary embolism given the moderate sized defect at the right base Patient admitted to internal medicine service 03/16. Patient seen and examined. Patient had rapid response this morning because of respiratory distress, patient's pulse ox dropped into 70s, patient had to be placed on BiPAP. Doing much better now. Denies any shortness of breath. Patient is alert and oriented, answering question appropriately 2-D echo done showed normal left ventricle size and systolic function with severe hypertrophy, severely dilated right ventricle with reduced function and severe pulmonary hypertension, severe tricuspid with mild to moderate mitral regurg 03/17. Patient seen and examined. Patient was placed on BiPAP, FiO2 40%. States she feels much better. Patient was later switched to nasal cannula oxygen at 5 L. Patient is refusing vitamin B12 injections. Denies any cough. Denies any fever or chills. REVIEW OF SYSTEMS: CONSTITUTIONAL: No fever, no malaise,. CARDIOVASCULAR: As mentioned above PULMONARY: As mentioned above GASTROINTESTINAL: No diarrhea, no nausea, no vomiting, no abdominal pain. NEUROLOGICAL: No headaches, no weakness, PHYSICAL EXAMINATION: GENERAL: The patient is alert and oriented x3, not in any acute distress. Well developed, well nourished. HEENT: Pupils are round and equally reacting to light. EOMI. No scleral icterus. No conjunctival pallor. Normocephalic, atraumatic. No pharyngeal erythema. No thyromegaly. CARDIOVASCULAR: S1 and S2 present. No murmurs, rubs, or gallops. PULMONARY: Diminished breath sounds at the bases bilaterally, rhonchi audible at the bases ABDOMEN: Soft, nontender, nondistended, normoactive bowel sounds. No palpable organomegaly. MUSCULOSKELETAL: No joint swelling or deformity. EXTREMITIES: No cyanosis, clubbing, or pedal edema. NEUROLOGICAL: Gross neurological examination did not reveal any focal deficits. SKIN: No rashes. Assessment and plan Acute on chronic diastolic CHF Hyperkalemia Acute on chronic kidney disease V/Q scan showing intermediate probably for PE On occlusive thrombus in the right saphenofemoral junction Chronic hypoxemic respiratory failure, chronically utilizes 4 L/m nasal cannula History of COPD, stable Obesity/obesity hypoventilation syndrome Obstructive sleep apnea, utilizes BiPAP at night with a support of 05/11 Diabetes mellitus, type II Macrocytic anemia, no acute blood loss noted. Hypertension Hypothyroidism Morbid obesity, with a BMI of 43.1 kg/m Monitor vital signs Monitor CBC Monitor CMP Continue telemetry monitoring Continue oxygen supplementation, continue BiPAP as needed Trend troponins. Strict I's and O's, daily weights, continue Lasix 20 mg twice a Avoid nephrotoxic agents. Aggressive bronchopulmonary hygiene Continue breathing treatments 2-D echo done showed normal left ventricle size and systolic function with severe hypertrophy, severely dilated right ventricle with reduced function and severe pulmonary hypertension, severe tricuspid with mild to moderate mitral regurg Continue pharmacy dose heparin In regards to acute anemia,continue to monitor H&H transfuse for hemodynamic instability or hemoglobin less than 7, and anemia workup noted. Hematology oncology following, ordered adamantly 12 In regards to diabetes mellitus, continue sliding scale insulin Hematology oncology following, agree with IV heparin for now, recommend doing CTA chest with contrast once renal functions improved to rule out PE. Cardiology following nephrology following Pulmonology following Labs and medication were reviewed.. Continue same treatment. Continue with symptomatic treatment. Resume home medication. Monitor labs and vitals. DVT and GI prophylaxis. Further recommendations as per clinical course of the patient Dictation was produced using [employer] dictation software. please excuse any grammatical, word or spelling errors. Objective - Vital Signs Vital signs: Vital Signs Temp 97.9 F 03/17/23 08:00 Pulse 99 03/17/23 08:00 Resp 24 03/17/23 08:00 BP 118/56 03/17/23 08:00 Pulse Ox 92 L 03/17/23 08:31 FiO2 40 03/17/23 08:29 Intake & Output 03/16/23 03/17/23 03/17/23 18:59 06:59 18:59 Intake Total 294.89 205.11 120 Output Total 650 Balance 294.89 -444.89 120 Intake: Intake, IV Titration 294.89 205.11 Amount Heparin Sod,Pork in 0.45% 294.89 205.11 NaCl 25,000 unit In 0.45 % NaCl 1 250ml.bag @ 18 UNITS/KG/HR 21.8 mls/hr IV .[id number] [facility] Rx#: [id number] Oral 120 Output: Urine 650 Other: Voiding Method External Catheter - Labs CBC & Chem 7: 03/17/23 09:13 03/16/23 10:11 Labs: Abnormal Lab Results - Last 24 Hours (Table) 03/15/23 03/16/23 03/16/23 Range/Units 11:14 10:11 10:11 RBC 1.99 L (3.80-5.40) m/uL Hgb 7.6 L (11.4-16.0) gm/dL Hct 24.8 L (34.0-46.0) % MCV 124.6 H (80.0-100.0) fL MCH 38.0 H (25.0-35.0) pg MCHC 30.5 L (31.0-37.0) g/dL RDW 20.1 H (11.5-15.5) % Lymphocytes # 0.7 L (1.0-4.8) k/uL Macrocytosis Marked A APTT (22.0-30.0) sec BUN 43 H (7-17) mg/dL Creatinine 1.84 H (0.52-1.04) mg/dL Glucose 129 H (74-99) mg/dL POC Glucose (mg/dL) (70-110) mg/dL RBC Folate 877 H (280 - 791) ng/mL Free T3 pg/mL 2.2 L (2.8-5.3) pg/ml 03/16/23 03/16/23 03/16/23 Range/Units 14:59 17:02 19:59 RBC (3.80-5.40) m/uL Hgb (11.4-16.0) gm/dL Hct (34.0-46.0) % MCV (80.0-100.0) fL MCH (25.0-35.0) pg MCHC (31.0-37.0) g/dL RDW (11.5-15.5) % Lymphocytes # (1.0-4.8) k/uL Macrocytosis APTT 81.0 H (22.0-30.0) sec BUN (7-17) mg/dL Creatinine (0.52-1.04) mg/dL Glucose (74-99) mg/dL POC Glucose (mg/dL) 112 H 166 H (70-110) mg/dL RBC Folate (280 - 791) ng/mL Free T3 pg/mL (2.8-5.3) pg/ml 03/16/23 03/17/23 Range/Units 22:58 06:24 RBC (3.80-5.40) m/uL Hgb (11.4-16.0) gm/dL Hct (34.0-46.0) % MCV (80.0-100.0) fL MCH (25.0-35.0) pg MCHC (31.0-37.0) g/dL RDW (11.5-15.5) % Lymphocytes # (1.0-4.8) k/uL Macrocytosis APTT 116.6 H* (22.0-30.0) sec BUN (7-17) mg/dL Creatinine (0.52-1.04) mg/dL Glucose (74-99) mg/dL POC Glucose (mg/dL) 146 H (70-110) mg/dL RBC Folate (280 - 791) ng/mL Free T3 pg/mL (2.8-5.3) pg/ml
[2023-03-17 14:51] LABS: ALT 12 U/L (4-34); AST 17 U/L (14-36); African American GFR (CKD) 36 (>60 ml/min/1.73 sqM); Albumin 3.6 g/dL (3.5-5.0); Alkaline Phosphatase 52 U/L (38-126); Anion Gap 16 mmol/L; Blood Urea Nitrogen 41 mg/dL (7-17); Calcium 8.6 mg/dL (8.4-10.2); Carbon Dioxide 17 mmol/L (22-30); Chloride 105 mmol/L (98-107); Glucose 192 mg/dL (74-99); Non-African American GFR(CKD) 31 (>60 ml/min/1.73 sqM); Sodium 138 mmol/L (137-145); Total Bilirubin 0.7 mg/dL (0.2-1.3); Total Protein 6.6 g/dL (6.3-8.2)
--- NOTE | 2023-03-17 14:54 | P.PN ---
Subjective Progress Note Date: 03/17/23 Principal diagnosis: Shortness of breath -No acute events overnight -Refusing vitamin B12 1000 mcg injections -Breathing is improved since admission, unchanged since yesterday Objective - Vital Signs Vital signs: Vital Signs Temp 97.7 F 03/17/23 11:55 Pulse 89 03/17/23 11:55 Resp 32 H 03/17/23 11:55 BP 106/52 03/17/23 11:55 Pulse Ox 96 03/17/23 11:55 FiO2 40 03/17/23 11:55 Intake & Output 03/16/23 03/17/23 03/17/23 18:59 06:59 18:59 Intake Total 294.89 205.11 342 Output Total 650 250 Balance 294.89 -444.89 92 Intake: Intake, IV Titration 294.89 205.11 Amount Heparin Sod,Pork in 0.45% 294.89 205.11 NaCl 25,000 unit In 0.45 % NaCl 1 250ml.bag @ 18 UNITS/KG/HR 21.8 mls/hr IV .[id number] [facility] Rx#: [id number] Oral 342 Output: Urine 650 250 Other: Voiding Method External Catheter External Catheter - Constitutional General appearance: Present: cooperative, morbidly obese, no acute distress - EENT Eyes: Present: EOMI - Respiratory Respiratory: bilateral: diminished - Cardiovascular Rhythm: regular - Gastrointestinal General gastrointestinal: Present: soft. Absent: distended - Integumentary Integumentary: Present: pale - Neurologic Neurologic: Present: CNII-XII intact. Absent: focal deficits - Labs CBC & Chem 7: 03/17/23 09:13 03/16/23 10:11 Labs: Abnormal Lab Results - Last 24 Hours (Table) 03/16/23 03/16/23 03/16/23 Range/Units 14:59 17:02 19:59 RBC (3.80-5.40) m/uL Hgb (11.4-16.0) gm/dL Hct (34.0-46.0) % MCV (80.0-100.0) fL MCH (25.0-35.0) pg MCHC (31.0-37.0) g/dL RDW (11.5-15.5) % Lymphocytes # (Manual) (1.0-4.8) k/uL Macrocytosis APTT 81.0 H (22.0-30.0) sec POC Glucose (mg/dL) 112 H 166 H (70-110) mg/dL 03/16/23 03/17/23 03/17/23 Range/Units 22:58 06:24 09:13 RBC 1.91 L (3.80-5.40) m/uL Hgb 7.4 L (11.4-16.0) gm/dL Hct 24.4 L (34.0-46.0) % MCV 128.1 H (80.0-100.0) fL MCH 38.9 H (25.0-35.0) pg MCHC 30.4 L (31.0-37.0) g/dL RDW 19.6 H (11.5-15.5) % Lymphocytes # (Manual) 0.81 L (1.0-4.8) k/uL Macrocytosis Marked A APTT 116.6 H* (22.0-30.0) sec POC Glucose (mg/dL) 146 H (70-110) mg/dL 03/17/23 03/17/23 Range/Units 09:13 11:19 RBC (3.80-5.40) m/uL Hgb (11.4-16.0) gm/dL Hct (34.0-46.0) % MCV (80.0-100.0) fL MCH (25.0-35.0) pg MCHC (31.0-37.0) g/dL RDW (11.5-15.5) % Lymphocytes # (Manual) (1.0-4.8) k/uL Macrocytosis APTT 66.3 H (22.0-30.0) sec POC Glucose (mg/dL) 159 H (70-110) mg/dL Assessment and Plan (1) Pulmonary embolism Current Visit: Yes Status: Acute Code(s): I26.99 - OTHER PULMONARY EMBOLISM WITHOUT ACUTE COR PULMONALE SNOMED Code(s): 28214042 (2) Macrocytic anemia Current Visit: Yes Status: Acute Code(s): D53.9 - NUTRITIONAL ANEMIA, UNSPECIFIED SNOMED Code(s): 19409824 (3) Acute pulmonary edema Current Visit: Yes Status: Acute Code(s): J81.0 - ACUTE PULMONARY EDEMA SNOMED Code(s): 93914712 (4) COPD (chronic obstructive pulmonary disease) Current Visit: Yes Status: Chronic Code(s): J44.9 - CHRONIC OBSTRUCTIVE PULMONARY DISEASE, UNSPECIFIED SNOMED Code(s): 48764564 Plan: Reported von Willebrand disease -Unclear about circumstances of diagnosis. Reports diagnosed 5 years ago at [facility]. Does not f/u with hematology. Reports no history of bleeding problems -No lab work found within [facility] EMR to indicate the same VQ scan for SOB-probability intermediate for PE in RLL Baseline BLE doppler-thrombus in the rt leg CFV/GSV junction, refused popliteal assessment and the lt leg -Pt currently is denying any bleeding episodes, no precautions for surgery/invasive procedures. -Irregardless of von Willebrand disease, if pt has VTE/PE, anticoagulation needs to be given. Currently heparin drip. -Will see if renal function improves, may be able to do CTA. Will also see if pt improves if she can tolerate completion of BLE doppler -Provoked vs unprovoked clot, difficult to determine. Pt states she moves very little, this is chronic and had recent hospitalization. -Patient will need to be transitioned to oral anticoagulation with Eliquis prior to discharge, can be transitioned if no procedures planned. Pt will need to closely monitor for any signs of bleeding and have f/u for hgb monitoring. Pt would need minimum 3 months anticoagulation, if pt still rather immobilized would have to consider extending anticoagulation Macrocytic anemia -Iron studies not consistent with SAHARA, Vitamin B12 low end of normal at 312. Folate normal. MMA pending -Given her hypoxia, vitamin B12 1000 mcg was started empirically while MMA is in process. She has notably refused vitamin B12 injections -Thyroid studies revealed subclinical hypothyroidism -Med list reviewed, no med associated with macrocytosis seen -She was noted to have near normal hemoglobin in 2020 -At this time, she would like to defer on transfusion of packed red blood cells as she had a transfusion in the past, which she noted did not have an effect on her breathing -Transfuse for Hgb <7 Stephanie Jamil MD
[2023-03-17 16:26] LABS: Glucose,Whole Blood 149 mg/dL (70-110)
[2023-03-17 20:23] LABS: Glucose,Whole Blood 145 mg/dL (70-110)
[2023-03-18] MEDS: HEPARIN SOD,PORK IN 0.45% NACL 25,000 UNIT in 0.45% NACL 1 250ML.BAG IV SCH ×2 (02:06→03:47)
[2023-03-18 07:54] LABS: Anisocytosis Slight; HGB 7.5 gm/dL (11.4-16.0); Hypochromasia Marked; MCH 38.4 pg (25.0-35.0); MCV 128.1 fL (80.0-100.0); Macrocytosis Marked; Mean Platelet Volume 11.2; Platelet Count 315 k/uL (150-450); RBC 1.95 m/uL (3.80-5.40); RDW 19.8 % (11.5-15.5); WBC 5.1 k/uL (3.8-10.6)
[2023-03-18] MEDS: INSULIN ASPART (NovoLOG) 100 UNIT/ML VIAL SQ SCH ×4 (09:10→21:10)
[2023-03-18] MEDS: PANTOPRAZOLE 40 MG/10 ML VIAL IV SCH (09:12)
[2023-03-18] MEDS: TAMSULOSIN 0.4 MG CAP.ER.24H PO SCH (09:12)
[2023-03-18] MEDS: FUROSEMIDE 20 MG TAB PO SCH ×2 (09:12→17:21)
[2023-03-18] MEDS: Apixaban Initiation Dose--VTE 5 MG TAB PO SCH ×2 (09:25→19:58)
--- NOTE | 2023-03-18 10:40 | P.PN ---
Subjective Progress Note Date: 03/18/23 Principal diagnosis: Shortness of breath. I am seeing this patient in consultation today 03/15/2023 in the emergency room after she presented with acute on chronic shortness of breath that has been ongoing and progressively worsening for a couple weeks. Patient is a 78-year-old white female past medical history significant for COPD, obesity/obesity hypoventilation syndrome, chronic hypoxemic respiratory failure, obstructive sleep apnea, CHF, diabetes mellitus, hypertension, hypothyroidism. She did have a recent hospitalization at our facility for a fall and was discharged on March 09. She does follow in the pulmonary office with Dr. Schilling. Most recent PFT from 2020, shows a combination of severe obstructive/restrictive disease. She is chronically oxygen dependent and utilizes 4 L/m nasal cannula. She is technically a poor historian. Patient states that she is chronically short of breath, however, she has been progressively more short of breath over the last couple weeks. Denies any infectious symptoms such as cough, fever, chest pain, hemoptysis. Denies sick contacts. Does admit chronic lower extremity swelling. She takes Demadex twice a day at home. Denies any chest pain, heart palpitations, syncope or increase in her lower extremity swelling. Chest x-ray shows moderate cardiomegaly, no alexia pulmonary edema or focal infiltrate suggestive of pneumonia. NT proBNP was elevated at 12,400. CBC has a WBC count of 5.1, hemoglobin 8.1, hematocrit 26.2, platelets 407. BMP shows sodium 138, potassium 5.5, chloride 102, serum bicarbonate 22, BUN 46, creatinine 1.87, glucose 137. D-dimer was elevated at 1.99, however, clinical suspicion for pulmonary embolism is low. Patient is scheduled to undergo VQ scan. Troponin less than 0.012. Normal saline is infusing at 75 ML's per hour. She is currently sitting up in bed, on 4 L/m nasal cannula, in no acute distress. Vital signs are stable. The patient is seen today 03/16/2023 in follow-up in the emergency department. She is currently sitting up in bed. Awake and alert in no acute distress. Maintained on BiPAP 13/8 and 40% FiO2. His been afebrile. Hemodynamically stable. Dopplers of the lower extremity were positive for DVT in the right. Ventilation perfusion scan revealed intermediate probability for pulmonary embolus. There is a moderate sized defect at the right base. Echocardiogram revealed severely increased left ventricular wall thickness. Left ventricular ejection fraction 55-60%. Flattened septum in systole and diastole consistent with right ventricular pressure fluid and volume overload. Severe right ventricular dilatation with severe pulmonary hypertension and an RVSP of 99 mmHG. White count 4.6. Hemoglobin 7.6. Platelets 383,000. Sodium 138. Potassium 5.1. Bicarb 22. BUN 43. Creatinine 1.84. Glucose 129. She is currently on a heparin drip. Receiving oral diuretics. Progress note dated 03/17/2023. 78-year-old female initially seen in the emergency department. Seen today in room 371. The patient continues on BiPAP, and IV heparin. She was discovered to have a right lower extremity DVT. The patient is feeling better, and gives a thumbs up, when asked how she is doing. Today's labs include a white count 4.5, he will been some 0.4, hematocrit 24.4, and a platelet count of 308,000. PTT is 66.3. Glucose is 159. VQ scan was indeterminate. Doppler lower lobe extremity did reveal a right lower extremity DVT. Progress note dated 03/18/2023. 78-year-old female seen in room 371. She continues on BiPAP. The patient is currently on IV heparin, but can be converted to a factor X a inhibitor. When not on BiPAP, she is getting oxygen, at 5 L. The patient clinically feels like she is improved. Current laboratory includes a white count 5.1, hemoglobin 7.5, hematocrit 25, and a platelet count of 315,000. Objective - Vital Signs Vital signs: Vital Signs Temp 97.6 F 03/18/23 08:00 Pulse 77 03/18/23 08:00 Resp 28 H 03/18/23 08:00 BP 96/54 03/18/23 08:00 Pulse Ox 97 03/18/23 08:00 FiO2 40 03/18/23 08:41 Intake & Output 03/17/23 03/18/23 03/18/23 18:59 06:59 18:59 Intake Total 621.84 250 120 Output Total 350 500 Balance 271.84 -250 120 Intake: IV 159.84 Heparin Sod,Pork in 0.45% 159.84 NaCl 25,000 unit In 0.45 % NaCl 1 250ml.bag @ 18 UNITS/KG/HR 21.8 mls/hr IV .[id number] [facility] Rx#: [id number] Intake, IV Titration 250 Amount Heparin Sod,Pork in 0.45% 250 NaCl 25,000 unit In 0.45 % NaCl 1 250ml.bag @ 18 UNITS/KG/HR 21.8 mls/hr IV .[id number] [facility] Rx#: [id number] Oral 462 120 Output: Urine 350 500 Other: Voiding Method External Catheter External Catheter External Catheter - Exam No acute distress, oriented 3. Currently on BiPAP. No alexia respiratory difficulty. HEENT examination is grossly unremarkable. Mucous membranes are moist. No oral lesions. Neck supple. Full range of motion. No adenopathy thyromegaly or neck vein distention. Cardiovascular examination reveals regular rhythm rate. S1-S2 normal. No S3 or S4. No discernible murmur noted. Heart rate 77 bpm. Lungs reveal scattered rhonchi. No wheezes or crackles. Breath sounds equal. Saturation is 97% on BiPAP. Abdomen obese, but soft, with bowel sounds. No masses or tenderness. Extremities are intact. There is some edema in the lower extremities. No cyanosis or clubbing. Chronic venous stasis changes noted. Skin is without rash or lesion. Neurologic examination is brief but nonfocal. - Labs CBC & Chem 7: 03/18/23 06:57 03/17/23 09:13 Labs: Abnormal Lab Results - Last 24 Hours (Table) 03/17/23 03/17/23 03/17/23 Range/Units 09:13 09:13 11:19 RBC 1.91 L (3.80-5.40) m/uL Hgb 7.4 L (11.4-16.0) gm/dL Hct 24.4 L (34.0-46.0) % MCV 128.1 H (80.0-100.0) fL MCH 38.9 H (25.0-35.0) pg MCHC 30.4 L (31.0-37.0) g/dL RDW 19.6 H (11.5-15.5) % Lymphocytes # (Manual) 0.81 L (1.0-4.8) k/uL Macrocytosis Marked A APTT (22.0-30.0) sec Carbon Dioxide 17 L (22-30) mmol/L BUN 41 H (7-17) mg/dL Creatinine 1.61 H (0.52-1.04) mg/dL Glucose 192 H (74-99) mg/dL POC Glucose (mg/dL) 159 H (70-110) mg/dL 03/17/23 03/17/23 03/18/23 Range/Units 16:24 20:21 06:57 RBC (3.80-5.40) m/uL Hgb (11.4-16.0) gm/dL Hct (34.0-46.0) % MCV (80.0-100.0) fL MCH (25.0-35.0) pg MCHC (31.0-37.0) g/dL RDW (11.5-15.5) % Lymphocytes # (Manual) (1.0-4.8) k/uL Macrocytosis APTT 79.1 H (22.0-30.0) sec Carbon Dioxide (22-30) mmol/L BUN (7-17) mg/dL Creatinine (0.52-1.04) mg/dL Glucose (74-99) mg/dL POC Glucose (mg/dL) 149 H 145 H (70-110) mg/dL 03/18/23 Range/Units 06:57 RBC 1.95 L (3.80-5.40) m/uL Hgb 7.5 L (11.4-16.0) gm/dL Hct 25.0 L (34.0-46.0) % MCV 128.1 H (80.0-100.0) fL MCH 38.4 H (25.0-35.0) pg MCHC 30.0 L (31.0-37.0) g/dL RDW 19.8 H (11.5-15.5) % Lymphocytes # (Manual) (1.0-4.8) k/uL Macrocytosis Marked A APTT (22.0-30.0) sec Carbon Dioxide (22-30) mmol/L BUN (7-17) mg/dL Creatinine (0.52-1.04) mg/dL Glucose (74-99) mg/dL POC Glucose (mg/dL) (70-110) mg/dL Assessment and Plan Assessment: Acute on chronic dyspnea, chest x-ray does not show any focal infiltrates or evidence of pneumonia. There is moderate cardiomegaly without any significant pulmonary edema. NT proBNP was elevated. Consider possible mild diastolic congestive heart failure exacerbation. Echocardiogram revealed severely increased left ventricular wall thickness. Left ventricular ejection fraction 55-60%. Flattened septum in systole and diastole consistent with right ventricular pressure fluid and volume overload. Severe right ventricular dilatation with severe pulmonary hypertension and an RVSP of 99 mmHG. Suspected right lower lobe pulmonary embolism/right lower extremity DVT. Chronic hypoxemic respiratory failure, chronically utilizes 4 L/m nasal cannula. History of COPD, stable. Obesity/obesity hypoventilation syndrome. Obstructive sleep apnea, utilizes BiPAP at night with a support of 13/8. Diabetes mellitus, type II. Acute on chronic kidney disease. Macrocytic anemia. Hypertension. Hypothyroidism. Morbid obesity, with a BMI of 43.1 kg/m. Never tobacco smoker. Plan: Plan dated 03/17/2023. The patient appears to be doing better. She continues on BiPAP and IV heparin. She's getting oxygen bled in at 5 L/m. Her Doppler of the lower extremities revealed a right-sided DVT. Her ventilation perfusion lung scan was indeterminate. There was a defect at the right lung base. We will continue to follow and make recommendations where appropriate. Clinically, she appears better. Labs, x-rays, medications are reviewed. The patient's overall prognosis though, remains very guarded. Plan dated 03/18/2023. The patient continues on BiPAP, or nasal O2 at 5 L, and IV heparin. The IV heparin will be converted to a factor X a inhibitor. Labs, x-rays, and medicati ons are reviewed. The patient's overall prognosis remains guarded. Labs, are in the normal range for the most part. We will continue to follow the patient, and make recommendations along the way. The patient's overall prognosis remains guarded. She was found to have a right lower extremity DVT. She is also suspected to have a pulmonary embolism, although, the ventilation perfusion lung scan was indeterminate. Time with Patient: Less than 30
--- NOTE | 2023-03-18 11:03 | P.PN ---
Subjective Patient is seen for follow-up for acute kidney injury. She is admitted to the hospital with complaints of shortness of breath. VQ scan showed intermediate possibility for PE and patient is maintained on IV heparin. No significant findings of CHF on chest x-ray. Blood pressure remains on the lower side. Diuretics have been decreased No significant complaints today. Overall feeling better. Serum creatinine decreased to 1.6 mg/dL. UA has not been sent yet. No evidence of obstruction on ultrasound. Objective - Vital Signs Vital signs: Vital Signs Temp 97.6 F 03/18/23 08:00 Pulse 77 03/18/23 08:00 Resp 28 H 03/18/23 08:00 BP 96/54 03/18/23 08:00 Pulse Ox 97 03/18/23 08:00 FiO2 40 03/18/23 08:41 Intake & Output 03/17/23 03/18/23 03/18/23 18:59 06:59 18:59 Intake Total 621.84 250 120 Output Total 350 500 Balance 271.84 -250 120 Intake: IV 159.84 Heparin Sod,Pork in 0.45% 159.84 NaCl 25,000 unit In 0.45 % NaCl 1 250ml.bag @ 18 UNITS/KG/HR 21.8 mls/hr IV .[id number] [facility] Rx#: [id number] Intake, IV Titration 250 Amount Heparin Sod,Pork in 0.45% 250 NaCl 25,000 unit In 0.45 % NaCl 1 250ml.bag @ 18 UNITS/KG/HR 21.8 mls/hr IV .[id number] [facility] Rx#: [id number] Oral 462 120 Output: Urine 350 500 Other: Voiding Method External Catheter External Catheter External Catheter - Exam Patient is comfortable, no acute distress Awake and on BiPAP Examination of the heart S1 and S2 Examination of the lungs bilateral breath sounds are heard Abdomen is soft nontender Examination of the lower extremities shows chronic skin changes with chronic edema [employer] exam grossly intact - Labs CBC & Chem 7: 03/18/23 06:57 03/17/23 09:13 Labs: Abnormal Lab Results - Last 24 Hours (Table) 03/17/23 03/17/23 03/17/23 Range/Units 09:13 09:13 11:19 RBC (3.80-5.40) m/uL Hgb (11.4-16.0) gm/dL Hct (34.0-46.0) % MCV (80.0-100.0) fL MCH (25.0-35.0) pg MCHC (31.0-37.0) g/dL RDW (11.5-15.5) % Lymphocytes # (Manual) 0.81 L (1.0-4.8) k/uL Macrocytosis APTT (22.0-30.0) sec Carbon Dioxide 17 L (22-30) mmol/L BUN 41 H (7-17) mg/dL Creatinine 1.61 H (0.52-1.04) mg/dL Glucose 192 H (74-99) mg/dL POC Glucose (mg/dL) 159 H (70-110) mg/dL 03/17/23 03/17/23 03/18/23 Range/Units 16:24 20:21 06:57 RBC (3.80-5.40) m/uL Hgb (11.4-16.0) gm/dL Hct (34.0-46.0) % MCV (80.0-100.0) fL MCH (25.0-35.0) pg MCHC (31.0-37.0) g/dL RDW (11.5-15.5) % Lymphocytes # (Manual) (1.0-4.8) k/uL Macrocytosis APTT 79.1 H (22.0-30.0) sec Carbon Dioxide (22-30) mmol/L BUN (7-17) mg/dL Creatinine (0.52-1.04) mg/dL Glucose (74-99) mg/dL POC Glucose (mg/dL) 149 H 145 H (70-110) mg/dL 03/18/23 Range/Units 06:57 RBC 1.95 L (3.80-5.40) m/uL Hgb 7.5 L (11.4-16.0) gm/dL Hct 25.0 L (34.0-46.0) % MCV 128.1 H (80.0-100.0) fL MCH 38.4 H (25.0-35.0) pg MCHC 30.0 L (31.0-37.0) g/dL RDW 19.8 H (11.5-15.5) % Lymphocytes # (Manual) (1.0-4.8) k/uL Macrocytosis Marked A APTT (22.0-30.0) sec Carbon Dioxide (22-30) mmol/L BUN (7-17) mg/dL Creatinine (0.52-1.04) mg/dL Glucose (74-99) mg/dL POC Glucose (mg/dL) (70-110) mg/dL Assessment and Plan Assessment: 1. Acute kidney injury, ATN mostly associated with hypotension. Possible component of hypovolemia. Check urine analysis. Ultrasound of the kidneys shows no evidence of obstruction. Maintained on low-dose Lasix. 2. Intermediate possibility of PE maintained on IV heparin 3. Hyperkalemia associated with acute kidney injury, improved. Rule out urine retention. Blood sugar is not elevated. 4. Anemia , iron replete , based on labs on 03/08/2023. Being followed by hematology 5. Obstructive sleep apnea maintained on home O2 6. Morbid obesity 7. History of diastolic CHF 8. History of von Willebrand's disease Plan: Check urine analysis, it will be reordered May continue low-dose oral Lasix unless renal function is worse. Patient does not clinically appear to be significantly volume overloaded. Repeat labs in a.m.
[2023-03-18 11:21] LABS: ALT 11 U/L (4-34); AST 16 U/L (14-36); African American GFR (CKD) 32 (>60 ml/min/1.73 sqM); Albumin 3.7 g/dL (3.5-5.0); Alkaline Phosphatase 50 U/L (38-126); Anion Gap 14 mmol/L; Blood Urea Nitrogen 41 mg/dL (7-17); Calcium 8.8 mg/dL (8.4-10.2); Carbon Dioxide 19 mmol/L (22-30); Chloride 105 mmol/L (98-107); Glucose 120 mg/dL (74-99); Non-African American GFR(CKD) 28 (>60 ml/min/1.73 sqM); Potassium 5.5 mmol/L (3.5-5.1); Sodium 138 mmol/L (137-145); Total Bilirubin 0.7 mg/dL (0.2-1.3); Total Protein 6.9 g/dL (6.3-8.2)
[2023-03-18 11:39] LABS: Glucose,Whole Blood 198 mg/dL (70-110)
[2023-03-18] MEDS: CYANOCOBALAMIN 1,000 MCG/ML 1 ML VIAL IM SCH (11:47)
[2023-03-18] MEDS: METOPROLOL SUCCINATE (ER) 25 MG TAB.ER.24H PO SCH (12:13)
--- NOTE | 2023-03-18 13:06 | P.PN ---
Subjective Progress Note Date: 03/18/23 Patient is a 78-year-old lady past medical history significant for COPD, obesity/obesity hypoventilation syndrome, chronic hypoxemic respiratory failure, obstructive sleep apnea, CHF, diabetes mellitus, hypertension, hypothyroidism who presented to the hospital for possible worsening shortness of breath. She was in the hospital beginning of the month at which time she had a fall. Patient stated ever since she has been discharged she has been worsening shortness of breath. Shortness of breath is present on exertion and at rest. Patient states that only walking across the room makes her short of breath and winded. Denies any chest pain. There was no complain of any fever or chills. Denies any cough. Denies any nausea, vomiting abdominal pain. Patient was also going of lethargy and weakness. Because of worsening shortness of breath, patient came to the ER Initial lab work done in the ER showed WBC 5.1, hemoglobin 8.1, platelet count 407, sodium 138, potassium 5.5, BUNs 46, creatinine 1.87 and troponin 0.012, proBNP 48214 Influenza A not detected Influenza B not detected RSV not detected COVID-19 not detected EKG done in the ER showed heart rate of 86 , no ST segment elevation or depression seen, no T-wave inversions seen. Chest x-ray done in the ER showed moderate cardiac megaly, no pulmonary edema or infiltrate seen VQ scan done showed intermediate possibility for pulmonary embolism given the moderate sized defect at the right base Patient admitted to internal medicine service 03/16. Patient seen and examined. Patient had rapid response this morning because of respiratory distress, patient's pulse ox dropped into 70s, patient had to be placed on BiPAP. Doing much better now. Denies any shortness of breath. Patient is alert and oriented, answering question appropriately 2-D echo done showed normal left ventricle size and systolic function with severe hypertrophy, severely dilated right ventricle with reduced function and severe pulmonary hypertension, severe tricuspid with mild to moderate mitral regurg 03/17. Patient seen and examined. Patient was placed on BiPAP, FiO2 40%. States she feels much better. Patient was later switched to nasal cannula oxygen at 5 L. Patient is refusing vitamin B12 injections. Denies any cough. Denies any fever or chills. 03/18. Patient seen and examined. Labs were the brace 5.1, hemoglobin 7.5, platelet count 315. Heparin was discontinued, switched to oral Eliquis. Continues to be on BiPAP but breathing has improved a lot. Patient tired this morning, she wants to rest. Vital signs stable REVIEW OF SYSTEMS: CONSTITUTIONAL: No fever, no malaise,. CARDIOVASCULAR: As mentioned above PULMONARY: As mentioned above GASTROINTESTINAL: No diarrhea, no nausea, no vomiting, no abdominal pain. NEUROLOGICAL: No headaches, no weakness, PHYSICAL EXAMINATION: GENERAL: The patient is alert and oriented x3, not in any acute distress. Well developed, well nourished. HEENT: Pupils are round and equally reacting to light. EOMI. No scleral icterus. No conjunctival pallor. Normocephalic, atraumatic. No pharyngeal erythema. No thyromegaly. CARDIOVASCULAR: S1 and S2 present. No murmurs, rubs, or gallops. PULMONARY: Diminished breath sounds at the bases bilaterally, rhonchi audible at the bases ABDOMEN: Soft, nontender, nondistended, normoactive bowel sounds. No palpable organomegaly. MUSCULOSKELETAL: No joint swelling or deformity. EXTREMITIES: No cyanosis, clubbing, or pedal edema. NEUROLOGICAL: Gross neurological examination did not reveal any focal deficits. SKIN: No rashes. Assessment and plan Acute on chronic diastolic CHF Hyperkalemia Acute on chronic kidney disease V/Q scan showing intermediate probably for PE On occlusive thrombus in the right saphenofemoral junction Chronic hypoxemic respiratory failure, chronically utilizes 4 L/m nasal cannula History of COPD, stable Obesity/obesity hypoventilation syndrome Obstructive sleep apnea, utilizes BiPAP at night with a support of 13/8 Diabetes mellitus, type II Macrocytic anemia, no acute blood loss noted. Hypertension Hypothyroidism Morbid obesity, with a BMI of 43.1 kg/m Monitor vital signs Monitor CBC Monitor CMP Continue telemetry monitoring Continue oxygen supplementation, continue BiPAP as needed Trend troponins. Strict I's and O's, daily weights, continue Lasix 20 mg twice a day Avoid nephrotoxic agents. Aggressive bronchopulmonary hygiene Continue breathing treatments 2-D echo done showed normal left ventricle size and systolic function with severe hypertrophy, severely dilated right ventricle with reduced function and severe pulmonary hypertension, severe tricuspid with mild to moderate mitral regurg DC heparin, switched to Eliquis In regards to acute anemia,continue to monitor H&H transfuse for hemodynamic instability or hemoglobin less than 7, and anemia workup noted. Hematology oncology following, recommend oral anticoagulation for at least 3 months In regards to diabetes mellitus, continue sliding scale insulin Cardiology following nephrology following Pulmonology following Labs and medication were reviewed.. Continue same treatment. Continue with symptomatic treatment. Resume home medication. Monitor labs and vitals. DVT and GI prophylaxis. Further recommendations as per clinical course of the patient Dictation was produced using [employer] dictation software. please excuse any grammatical, word or spelling errors. Objective - Vital Signs Vital signs: Vital Signs Temp 97.6 F 03/18/23 08:00 Pulse 77 03/18/23 08:00 Resp 28 H 03/18/23 08:00 BP 96/54 03/18/23 08:00 Pulse Ox 97 03/18/23 08:00 FiO2 40 03/18/23 08:41 Intake & Output 03/17/23 03/18/23 03/18/23 18:59 06:59 18:59 Intake Total 621.84 250 120 Output Total 350 500 Balance 271.84 -250 120 Intake: IV 159.84 Heparin Sod,Pork in 0.45% 159.84 NaCl 25,000 unit In 0.45 % NaCl 1 250ml.bag @ 18 UNITS/KG/HR 21.8 mls/hr IV .[id number] [facility] Rx#: [id number] Intake, IV Titration 250 Amount Heparin Sod,Pork in 0.45% 250 NaCl 25,000 unit In 0.45 % NaCl 1 250ml.bag @ 18 UNITS/KG/HR 21.8 mls/hr IV .[id number] [facility] Rx#: [id number] Oral 462 120 Output: Urine 350 500 Other: Voiding Method External Catheter External Catheter External Catheter - Labs CBC & Chem 7: 03/18/23 06:57 03/18/23 06:57 Labs: Abnormal Lab Results - Last 24 Hours (Table) 03/17/23 03/17/23 03/17/23 Range/Units 09:13 09:13 09:13 RBC 1.91 L (3.80-5.40) m/uL Hgb 7.4 L (11.4-16.0) gm/dL Hct 24.4 L (34.0-46.0) % MCV 128.1 H (80.0-100.0) fL MCH 38.9 H (25.0-35.0) pg MCHC 30.4 L (31.0-37.0) g/dL RDW 19.6 H (11.5-15.5) % Lymphocytes # (Manual) 0.81 L (1.0-4.8) k/uL Macrocytosis Marked A APTT 66.3 H (22.0-30.0) sec Carbon Dioxide 17 L (22-30) mmol/L BUN 41 H (7-17) mg/dL Creatinine 1.61 H (0.52-1.04) mg/dL Glucose 192 H (74-99) mg/dL POC Glucose (mg/dL) (70-110) mg/dL 03/17/23 03/17/23 03/17/23 Range/Units 11:19 16:24 20:21 RBC (3.80-5.40) m/uL Hgb (11.4-16.0) gm/dL Hct (34.0-46.0) % MCV (80.0-100.0) fL MCH (25.0-35.0) pg MCHC (31.0-37.0) g/dL RDW (11.5-15.5) % Lymphocytes # (Manual) (1.0-4.8) k/uL Macrocytosis APTT (22.0-30.0) sec Carbon Dioxide (22-30) mmol/L BUN (7-17) mg/dL Creatinine (0.52-1.04) mg/dL Glucose (74-99) mg/dL POC Glucose (mg/dL) 159 H 149 H 145 H (70-110) mg/dL 03/18/23 03/18/23 Range/Units 06:57 06:57 RBC 1.95 L (3.80-5.40) m/uL Hgb 7.5 L (11.4-16.0) gm/dL Hct 25.0 L (34.0-46.0) % MCV 128.1 H (80.0-100.0) fL MCH 38.4 H (25.0-35.0) pg MCHC 30.0 L (31.0-37.0) g/dL RDW 19.8 H (11.5-15.5) % Lymphocytes # (Manual) (1.0-4.8) k/uL Macrocytosis Marked A APTT 79.1 H (22.0-30.0) sec Carbon Dioxide (22-30) mmol/L BUN (7-17) mg/dL Creatinine (0.52-1.04) mg/dL Glucose (74-99) mg/dL POC Glucose (mg/dL) (70-110) mg/dL
[2023-03-18 16:26] LABS: Glucose,Whole Blood 122 mg/dL (70-110)
[2023-03-18] MEDS: CYANOCOBALAMIN 500 MCG TAB PO SCH (17:21)
[2023-03-18 17:48] LABS: Appearance,Urine Cloudy (Clear); Bacteria,Urine Rare /hpf; Bilirubin,Urine Negative (Negative); Blood,Urine Moderate (Negative); Color,Urine Yellow; Glucose,Urine (UA) Negative (Negative); Hyaline Casts,Urine 29 /lpf (0-2); Ketones,Urine Negative (Negative); Leukocyte Esterase,Urine Negative (Negative); Mucus,Urine Rare /hpf; Nitrite,Urine Negative (Negative); Protein,Urine Trace (Negative); RBC,Urine 42 /hpf (0-5); Specific Gravity,Urine 1.015 (1.001-1.035); Squamous Epithelial Cell,Urine 3 /hpf (0-4); Urobilinogen,Urine <2.0 mg/dL (<2.0); WBC,Urine 1 /hpf (0-5)
[2023-03-18 20:04] LABS: Glucose,Whole Blood 136 mg/dL (70-110)
[2023-03-19 06:05] LABS: Glucose,Whole Blood 132 mg/dL (70-110)
[2023-03-19] MEDS: INSULIN ASPART (NovoLOG) 100 UNIT/ML VIAL SQ SCH ×4 (06:05→20:03)
--- NOTE | 2023-03-19 08:37 | P.PN ---
Subjective Progress Note Date: 03/19/23 Patient is a 78-year-old lady past medical history significant for COPD, obesity/obesity hypoventilation syndrome, chronic hypoxemic respiratory failure, obstructive sleep apnea, CHF, diabetes mellitus, hypertension, hypothyroidism who presented to the hospital for possible worsening shortness of breath. She was in the hospital beginning of the month at which time she had a fall. Patient stated ever since she has been discharged she has been worsening shortness of breath. Shortness of breath is present on exertion and at rest. Patient states that only walking across the room makes her short of breath and winded. Denies any chest pain. There was no complain of any fever or chills. Denies any cough. Denies any nausea, vomiting abdominal pain. Patient was also going of lethargy and weakness. Because of worsening shortness of breath, patient came to the ER Initial lab work done in the ER showed WBC 5.1, hemoglobin 8.1, platelet count 407, sodium 138, potassium 5.5, BUNs 46, creatinine 1.87 and troponin 0.012, proBNP [id number] Influenza A not detected Influenza B not detected RSV not detected COVID-19 not detected EKG done in the ER showed heart rate of 86 , no ST segment elevation or depression seen, no T-wave inversions seen. Chest x-ray done in the ER showed moderate cardiac megaly, no pulmonary edema or infiltrate seen VQ scan done showed intermediate possibility for pulmonary embolism given the moderate sized defect at the right base Patient admitted to internal medicine service 03/16. Patient seen and examined. Patient had rapid response this morning because of respiratory distress, patient's pulse ox dropped into 70s, patient had to be placed on BiPAP. Doing much better now. Denies any shortness of breath. Patient is alert and oriented, answering question appropriately 2-D echo done showed normal left ventricle size and systolic function with severe hypertrophy, severely dilated right ventricle with reduced function and severe pulmonary hypertension, severe tricuspid with mild to moderate mitral regurg 03/17. Patient seen and examined. Patient was placed on BiPAP, FiO2 40%. States she feels much better. Patient was later switched to nasal cannula oxygen at 5 L. Patient is refusing vitamin B12 injections. Denies any cough. Denies any fever or chills. 03/18. Patient seen and examined. Labs were the brace 5.1, hemoglobin 7.5, platelet count 315. Heparin was discontinued, switched to oral Eliquis. Continues to be on BiPAP but breathing has improved a lot. Patient tired this morning, she wants to rest. Vital signs stable 03/19. Patient seen and examined. Patient currently on BiPAP with an FiO2 40%. Patient is responsive, answering questions appropriately. On BiPAP she states that she feels much better. States she wants to eat and wants to get off the BiPAP. REVIEW OF SYSTEMS: CONSTITUTIONAL: No fever, no malaise,. CARDIOVASCULAR: As mentioned above PULMONARY: As mentioned above GASTROINTESTINAL: No diarrhea, no nausea, no vomiting, no abdominal pain. NEUROLOGICAL: No headaches, no weakness, PHYSICAL EXAMINATION: GENERAL: The patient is alert and oriented x3, not in any acute distress. Well developed, well nourished. HEENT: Pupils are round and equally reacting to light. EOMI. No scleral icterus. No conjunctival pallor. Normocephalic, atraumatic. No pharyngeal erythema. No thyromegaly. CARDIOVASCULAR: S1 and S2 present. No murmurs, rubs, or gallops. PULMONARY: Diminished breath sounds at the bases bilaterally, rhonchi audible at the bases ABDOMEN: Soft, nontender, nondistended, normoactive bowel sounds. No palpable organomegaly. MUSCULOSKELETAL: No joint swelling or deformity. EXTREMITIES: No cyanosis, clubbing, or pedal edema. NEUROLOGICAL: Gross neurological examination did not reveal any focal deficits. SKIN: No rashes. Assessment and plan Acute on chronic diastolic CHF Hyperkalemia Acute on chronic kidney disease V/Q scan showing intermediate probably for PE On occlusive thrombus in the right saphenofemoral junction Chronic hypoxemic respiratory failure, chronically utilizes 4 L/m nasal cannula History of COPD, stable Obesity/obesity hypoventilation syndrome Obstructive sleep apnea, utilizes BiPAP at night with a support of 13 Diabetes mellitus, type II Macrocytic anemia, no acute blood loss noted. Hypertension Hypothyroidism Morbid obesity, with a BMI of 43.1 kg/m Monitor vital signs Monitor CBC Monitor CMP Continue telemetry monitoring Continue oxygen supplementation, continue BiPAP as needed Trend troponins. Strict I's and O's, daily weights, continue Lasix 20 mg twice a day Avoid nephrotoxic agents. Aggressive bronchopulmonary hygiene Continue breathing treatments 2-D echo done showed normal left ventricle size and systolic function with severe hypertrophy, severely dilated right ventricle with reduced function and severe pulmonary hypertension, severe tricuspid with mild to moderate mitral regurg Continue Eliquis In regards to acute anemia,continue to monitor H&H transfuse for hemodynamic instability or hemoglobin less than 7, and anemia workup noted. Hematology on cology following, recommend oral anticoagulation for at least 3 months In regards to diabetes mellitus, continue sliding scale insulin nephrology following Pulmonology following Labs and medication were reviewed.. Continue same treatment. Continue with symptomatic treatment. Resume home medication. Monitor labs and vitals. DVT and GI prophylaxis. Further recommendations as per clinical course of the patient Dictation was produced using [employer] dictation software. please excuse any gramma tical, word or spelling errors. Objective - Vital Signs Vital signs: Vital Signs Temp 98.1 F 03/19/23 04:00 Pulse 94 03/19/23 04:00 Resp 19 03/19/23 04:00 BP 104/55 03/19/23 04:00 Pulse Ox 96 03/19/23 04:00 FiO2 40 03/19/23 08:24 Intake & Output 03/18/23 03/19/23 03/19/23 18:59 06:59 18:59 Intake Total 213.96 Output Total 100 150 Balance 113.96 -150 Intake: IV 93.96 Heparin Sod,Pork in 0.45% 93.96 NaCl 25,000 unit In 0.45 % NaCl 1 250ml.bag @ 18 UNITS/KG/HR 21.8 mls/hr IV .[id number] [facility] Rx#: [id number] Oral 120 Output: Urine 100 150 Other: Voiding Method External Catheter External Catheter # Voids 1 - Labs CBC & Chem 7: 03/18/23 06:57 03/18/23 06:57 Labs: Abnormal Lab Results - Last 24 Hours (Table) 03/18/23 03/18/23 03/18/23 Range/Units 06:57 11:38 16:00 Potassium 5.5 H (3.5-5.1) mmol/L Carbon Dioxide 19 L (22-30) mmol/L BUN 41 H (7-17) mg/dL Creatinine 1.76 H (0.52-1.04) mg/dL Glucose 120 H (74-99) mg/dL POC Glucose (mg/dL) 198 H (70-110) mg/dL Urine Appearance Cloudy H (Clear) Urine Protein Trace H (Negative) Urine Blood Moderate H (Negative) Urine RBC 42 H (0-5) /hpf Urine Bacteria Rare H (None) /hpf Hyaline Casts 29 H (0-2) /lpf Urine Mucus Rare H (None) /hpf 03/18/23 03/18/23 03/19/23 Range/Units 16:24 20:01 06:03 Potassium (3.5-5.1) mmol/L Carbon Dioxide (22-30) mmol/L BUN (7-17) mg/dL Creatinine (0.52-1.04) mg/dL Glucose (74-99) mg/dL POC Glucose (mg/dL) 122 H 136 H 132 H (70-110) mg/dL Urine Appearance (Clear) Urine Protein (Negative) Urine Blood (Negative) Urine RBC (0-5) /hpf Urine Bacteria (None) /hpf Hyaline Casts (0-2) /lpf Urine Mucus (None) /hpf
[2023-03-19] MEDS: FUROSEMIDE 20 MG TAB PO SCH (08:45)
[2023-03-19] MEDS: CYANOCOBALAMIN 500 MCG TAB PO SCH (08:45)
[2023-03-19] MEDS: TAMSULOSIN 0.4 MG CAP.ER.24H PO SCH (08:45)
[2023-03-19] MEDS: METOPROLOL SUCCINATE (ER) 25 MG TAB.ER.24H PO SCH (08:45)
[2023-03-19] MEDS: Apixaban Initiation Dose--VTE 5 MG TAB PO SCH ×3 (08:46→20:14)
[2023-03-19] MEDS: PANTOPRAZOLE 40 MG/10 ML VIAL IV SCH (08:46)
--- NOTE | 2023-03-19 11:27 | P.PN ---
Subjective Progress Note Date: 03/19/23 Principal diagnosis: Shortness of breath. I am seeing this patient in consultation today 03/15/2023 in the emergency room after she presented with acute on chronic shortness of breath that has been ongoing and progressively worsening for a couple weeks. Patient is a 78-year-old white female past medical history significant for COPD, obesity/obesity hypoventilation syndrome, chronic hypoxemic respiratory failure, obstructive sleep apnea, CHF, diabetes mellitus, hypertension, hypothyroidism. She did have a recent hospitalization at our facility for a fall and was discharged on March 09. She does follow in the pulmonary office with Dr. Schilling. Most recent PFT from 2020, shows a combination of severe obstructive/restrictive disease. She is chronically oxygen dependent and utilizes 4 L/m nasal cannula. She is technically a poor historian. Patient states that she is chronically short of breath, however, she has been progressively more short of breath over the last couple weeks. Denies any infectious symptoms such as cough, fever, chest pain, hemoptysis. Denies sick contacts. Does admit chronic lower extremity swelling. She takes Demadex twice a day at home. Denies any chest pain, heart palpitations, syncope or increase in her lower extremity swelling. Chest x-ray shows moderate cardiomegaly, no alexia pulmonary edema or focal infiltrate suggestive of pneumonia. NT proBNP was elevated at 12,400. CBC has a WBC count of 5.1, hemoglobin 8.1, hematocrit 26.2, platelets 407. BMP shows sodium 138, potassium 5.5, chloride 102, serum bicarbonate 22, BUN 46, creatinine 1.87, glucose 137. D-dimer was elevated at 1.99, however, clinical suspicion for pulmonary embolism is low. Patient is scheduled to undergo VQ scan. Troponin less than 0.012. Normal saline is infusing at 75 ML's per hour. She is currently sitting up in bed, on 4 L/m nasal cannula, in no acute distress. Vital signs are stable. The patient is seen today 03/16/2023 in follow-up in the emergency department. She is currently sitting up in bed. Awake and alert in no acute distress. Maintained on BiPAP 13/8 and 40% FiO2. His been afebrile. Hemodynamically stable. Dopplers of the lower extremity were positive for DVT in the right. Ventilation perfusion scan revealed intermediate probability for pulmonary embolus. There is a moderate sized defect at the right base. Echocardiogram revealed severely increased left ventricular wall thickness. Left ventricular ejection fraction 55-60%. Flattened septum in systole and diastole consistent with right ventricular pressure fluid and volume overload. Severe right ventricular dilatation with severe pulmonary hypertension and an RVSP of 99 mmHG. White count 4.6. Hemoglobin 7.6. Platelets 383,000. Sodium 138. Potassium 5.1. Bicarb 22. BUN 43. Creatinine 1.84. Glucose 129. She is currently on a heparin drip. Receiving oral diuretics. Progress note dated 03/17/2023. 78-year-old female initially seen in the emergency department. Seen today in room 371. The patient continues on BiPAP, and IV heparin. She was discovered to have a right lower extremity DVT. The patient is feeling better, and gives a thumbs up, when asked how she is doing. Today's labs include a white count 4.5, he will been some 0.4, hematocrit 24.4, and a platelet count of 308,000. PTT is 66.3. Glucose is 159. VQ scan was indeterminate. Doppler lower lobe extremity did reveal a right lower extremity DVT. Progress note dated 03/18/2023. 78-year-old female seen in room 371. She continues on BiPAP. The patient is currently on IV heparin, but can be converted to a factor X a inhibitor. When not on BiPAP, she is getting oxygen, at 5 L. The patient clinically feels like she is improved. Current laboratory includes a white count 5.1, hemoglobin 7.5, hematocrit 25, and a platelet count of 315,000. Progress note dated 03/19/2023. 78-year-old female seen in room 368. The patient continues on BiPAP. When not on BiPAP, she is getting oxygen by nasal cannula, at 5 L. The patient is doing better, and each day, feels like she is improved. The patient was placed on Eliquis, for her right lower extremity DVT, and presumed pulmonary embolism. No new labs today other than a glucose of 132. Objective - Vital Signs Vital signs: Vital Signs Temp 99 F 03/19/23 08:45 Pulse 88 03/19/23 08:45 Resp 18 03/19/23 08:45 BP 99/51 03/19/23 08:45 Pulse Ox 93 L 03/19/23 08:45 FiO2 40 03/19/23 08:45 Intake & Output 03/18/23 03/19/23 03/19/23 18:59 06:59 18:59 Intake Total 213.96 Output Total 100 150 Balance 113.96 -150 Intake: IV 93.96 Heparin Sod,Pork in 0.45% 93.96 NaCl 25,000 unit In 0.45 % NaCl 1 250ml.bag @ 18 UNITS/KG/HR 21.8 mls/hr IV .[id number] [facility] Rx#: [id number] Oral 120 Output: Urine 100 150 Other: Voiding Method External Catheter External Catheter External Catheter # Voids 1 - Exam No acute distress, oriented 3. Currently on BiPAP. No alexia respiratory difficulty. HEENT examination is grossly unremarkable. Mucous membranes are moist. No oral lesions. Neck supple. Full range of motion. No adenopathy thyromegaly or neck vein distention. Cardiovascular examination reveals regular rhythm rate. S1-S2 normal. No S3 or S4. No discernible murmur noted. Heart rate 88 bpm. Lungs reveal scattered rhonchi. No wheezes or crackles. Breath sounds equal. Saturation is 95 % on BiPAP. Abdomen obese, but soft, with bowel sounds. No masses or tenderness. Extremities are intact. There is some edema in the lower extremities. No cyan osis or clubbing. Chronic venous stasis changes noted. Skin is without rash or lesion. Neurologic examination is brief but nonfocal. - Labs CBC & Chem 7: 03/18/23 06:57 03/18/23 06:57 Labs: Abnormal Lab Results - Last 24 Hours (Table) 03/18/23 03/18/23 03/18/23 Range/Units 06:57 11:38 16:00 Carbon Dioxide 19 L (22-30) mmol/L BUN 41 H (7-17) mg/dL Creatinine 1.76 H (0.52-1.04) mg/dL Glucose 120 H (74-99) mg/dL POC Glucose (mg/dL) 198 H (70-110) mg/dL Urine Appearance Cloudy H (Clear) Urine Protein Trace H (Negative) Urine Blood Moderate H (Negative) Urine RBC 42 H (0-5) /hpf Urine Bacteria Rare H (None) /hpf Hyaline Casts 29 H (0-2) /lpf Urine Mucus Rare H (None) /hpf 03/18/23 03/18/23 03/19/23 Range/Units 16:24 20:01 06:03 Carbon Dioxide (22-30) mmol/L BUN (7-17) mg/dL Creatinine (0.52-1.04) mg/dL Glucose (74-99) mg/dL POC Glucose (mg/dL) 122 H 136 H 132 H (70-110) mg/dL Urine Appearance (Clear) Urine Protein (Negative) Urine Blood (Negative) Urine RBC (0-5) /hpf Urine Bacteria (None) /hpf Hyaline Casts (0-2) /lpf Urine Mucus (None) /hpf Assessment and Plan Assessment: Acute on chronic dyspnea, chest x-ray does not show any focal infiltrates or e vidence of pneumonia. There is moderate cardiomegaly without any significant pulmonary edema. NT proBNP was elevated. Consider possible mild diastolic congestive heart failure exacerbation. Echocardiogram revealed severely increased left ventricular wall thickness. Left ventricular ejection fraction 55-60%. Flattened septum in systole and diastole consistent with right ventricular pressure fluid and volume overload. Severe right ventricular dilatation with severe pulmonary hypertension and an RVSP of 99 mmHG. Suspected right lower lobe pulmonary embolism/right lower extremity DVT. Chronic hypoxemic respiratory failure, chronically utilizes 4 L/m nasal cannula. History of COPD, stable. Obesity/obesity hypoventilation syndrome. Obstructive sleep apnea, utilizes BiPAP at night with a support of 13/8. Diabetes mellitus, type II. Acute on chronic kidney disease. Macrocytic anemia. Hypertension. Hypothyroidism. Morbid obesity, with a BMI of 43.1 kg/m. Never tobacco smoker. Plan: Plan dated 03/17/2023. The patient appears to be doing better. She continues on BiPAP and IV heparin. She's getting oxygen bled in at 5 L/m. Her Doppler of the lower extremities revealed a right-sided DVT. Her ventilation perfusion lung scan was indeterminate. There was a defect at the right lung base. We will continue to follow and make recommendations where appropriate. Clinically, she appears better. Labs, x-rays, medications are reviewed. The patient's overall prognosis though, remains very guarded. Plan dated 03/18/2023. The patient continues on BiPAP, or nasal O2 at 5 L, and IV heparin. The IV heparin will be converted to a factor X a inhibitor. Labs, x-rays, and medications are reviewed. The patient's overall prognosis remains guarded. Labs, are in the normal range for the most part. We will continue to follow the patient, and make recommendations along the way. The patient's overall prognosis remains guarded. She was found to have a right lower extremity DVT. She is also suspected to have a pulmonary embolism, although, the ventilation perfusion lung scan was indeterminate. Plan dated 03/19/2023. The patient is currently on BiPAP, but when not on BiPAP, the patient is on oxygen by nasal cannula at 5 L. Labs, x-rays, and medications are reviewed. The patient was discovered to have a right lower extremity DVT. The patient's v entilation perfusion lung scan was indeterminate. The patient may or may not have had a pulmonary embolism. Labs, x-rays, and medications are reviewed. The patient's overall prognosis remains guarded. We will continue to follow the patient, and make recommendations. Time with Patient: Less than 30
--- NOTE | 2023-03-19 11:27 | P.PN ---
Subjective Patient is seen for follow-up for acute kidney injury. She is admitted to the hospital with complaints of shortness of breath. VQ scan showed intermediate possibility for PE and patient is maintained on IV heparin. No significant findings of CHF on chest x-ray. Blood pressure remains on the lower side. Diuretics have been decreased No significant complaints today. Overall feeling better. Serum creatinine decreased to 1.76 mg/dL. potassium 5.5 yesterday. No evidence of obstruction on ultrasound. Objective - Vital Signs Vital signs: Vital Signs Temp 99 F 03/19/23 08:45 Pulse 88 03/19/23 08:45 Resp 18 03/19/23 08:45 BP 99/51 03/19/23 08:45 Pulse Ox 93 L 03/19/23 08:45 FiO2 40 03/19/23 08:45 Intake & Output 03/18/23 03/19/23 03/19/23 18:59 06:59 18:59 Intake Total 213.96 Output Total 100 150 Balance 113.96 -150 Intake: IV 93.96 Heparin Sod,Pork in 0.45% 93.96 NaCl 25,000 unit In 0.45 % NaCl 1 250ml.bag @ 18 UNITS/KG/HR 21.8 mls/hr IV .[id number] [facility] Rx#: [id number] Oral 120 Output: Urine 100 150 Other: Voiding Method External Catheter External Catheter External Catheter # Voids 1 - Exam Patient is comfortable, no acute distress Awake and on BiPAP Examination of the heart S1 and S2 Examination of the lungs bilateral breath sounds are heard Abdomen is soft nontender Examination of the lower extremities shows chronic skin changes with chronic edema HIDE EXAMINER exam grossly intact - Labs CBC & Chem 7: 03/18/23 06:57 03/18/23 06:57 Labs: Abnormal Lab Results - Last 24 Hours (Table) 03/18/23 03/18/23 03/18/23 Range/Units 06:57 11:38 16:00 Carbon Dioxide 19 L (22-30) mmol/L BUN 41 H (7-17) mg/dL Creatinine 1.76 H (0.52-1.04) mg/dL Glucose 120 H (74-99) mg/dL POC Glucose (mg/dL) 198 H (70-110) mg/dL Urine Appearance Cloudy H (Clear) Urine Protein Trace H (Negative) Urine Blood Moderate H (Negative) Urine RBC 42 H (0-5) /hpf Urine Bacteria Rare H (None) /hpf Hyaline Casts 29 H (0-2) /lpf Urine Mucus Rare H (None) /hpf 03/18/23 03/18/23 03/19/23 Range/Units 16:24 20:01 06:03 Carbon Dioxide (22-30) mmol/L BUN (7-17) mg/dL Creatinine (0.52-1.04) mg/dL Glucose (74-99) mg/dL POC Glucose (mg/dL) 122 H 136 H 132 H (70-110) mg/dL Urine Appearance (Clear) Urine Protein (Negative) Urine Blood (Negative) Urine RBC (0-5) /hpf Urine Bacteria (None) /hpf Hyaline Casts (0-2) /lpf Urine Mucus (None) /hpf Assessment and Plan Assessment: 1. Acute kidney injury, ATN mostly associated with hypotension. Possible component of hypovolemia. UA shows trace protein and moderate blood. Ultrasound of the kidneys shows no evidence of obstruction. Maintained on low- dose Lasix. 2. Intermediate possibility of PE maintained on IV heparin. Now discontinued 3. Hyperkalemia associated with acute kidney injury, improved. Rule out urine retention. Blood sugar is not elevated. 4. Anemia , iron replete , based on labs on 03/08/2023. Being followed by hematology 5. Obstructive sleep apnea maintained on home O2 6. Morbid obesity 7. History of diastolic CHF 8. History of von Willebrand's disease Plan: Change diuretics to torsemide that patient was taking at home. This will help with the hyperkalemia. Add oral sodium bicarb for borderline metabolic acidosis. Repeat labs in a.m.
[2023-03-19 12:00] LABS: Glucose,Whole Blood 183 mg/dL (70-110)
[2023-03-19 12:36] LABS: African American GFR (CKD) 24 (>60 ml/min/1.73 sqM); Anion Gap 14 mmol/L; Blood Urea Nitrogen 52 mg/dL (7-17); Calcium 8.8 mg/dL (8.4-10.2); Carbon Dioxide 17 mmol/L (22-30); Chloride 105 mmol/L (98-107); Glucose 145 mg/dL (74-99); Non-African American GFR(CKD) 21 (>60 ml/min/1.73 sqM); Sodium 136 mmol/L (137-145)
[2023-03-19 12:48] LABS: Potassium 6.1 mmol/L (3.5-5.1)
[2023-03-19] MEDS ORDERED: ALBUTEROL NEB (CONC) 2.5 MG/0.5 ML INHALATION ONE (13:29)
[2023-03-19] MEDS ORDERED: DEXTROSE 50% SYRINGE 50 ML IVP ONE (13:29)
[2023-03-19] MEDS ORDERED: SODIUM POLYSTYRENE SULFONATE 30 GM/120 ML BOTTLE RECTAL ONE (14:00)
[2023-03-19] MEDS ORDERED: INSULIN REGULAR 100 UNIT/ML VIAL (IV) IV ONE (14:00)
[2023-03-19 16:32] LABS: Glucose,Whole Blood 143 mg/dL (70-110)
[2023-03-19 19:50] LABS: Glucose,Whole Blood 146 mg/dL (70-110)
[2023-03-19] MEDS: SODIUM BICARBONATE TAB 650 MG TAB PO SCH ×2 (20:03→20:14)
[2023-03-19] MEDS ORDERED: TORSEMIDE 20 MG TAB PO SCH (21:00)
[2023-03-19] MEDS ORDERED: HEPARIN SODIUM 1,000 UN/ML (10ML VL) IV PRN (21:38)
[2023-03-19] MEDS ORDERED: HEPARIN SODIUM 1,000 UN/ML (10ML VL) IV ONE (21:38)
[2023-03-19] MEDS ORDERED: Apixaban Initiation Dose--VTE 5 MG TAB PO SCH (21:45)
[2023-03-19] MEDS: HEPARIN SOD,PORK IN 0.45% NACL 25,000 UNIT in 0.45% NACL 1 250ML.BAG IV SCH (22:13)
[2023-03-19 22:20] LABS: Anisocytosis Slight; HCT 24.6 % (34.0-46.0); HGB 7.6 gm/dL (11.4-16.0); Hypochromasia Marked; MCH 39.2 pg (25.0-35.0); MCHC 30.8 g/dL (31.0-37.0); MCV 127.3 fL (80.0-100.0); Macrocytosis Marked; Mean Platelet Volume 12.8; Platelet Count 320 k/uL (150-450); RBC 1.94 m/uL (3.80-5.40); WBC 8.4 k/uL (3.8-10.6)
[2023-03-19 22:48] LABS: Band Neutrophils % 15 %; Monocytes # (M) 1.34 k/uL (0-1.0); Neutrophils % (M) 63 %; Nucleated Red Blood Cells 0 /100 WBC (0-0); Total Cells Counted 100
[2023-03-19 22:49] LABS: Hypochromasia (M) Present
[2023-03-20 03:45] LABS: Anisocytosis Moderate; HCT 23.9 % (34.0-46.0); HGB 7.1 gm/dL (11.4-16.0); Hypochromasia Marked; MCH 37.5 pg (25.0-35.0); MCHC 29.5 g/dL (31.0-37.0); MCV 127.1 fL (80.0-100.0); Macrocytosis Marked; Mean Platelet Volume 12.9; Platelet Count 310 k/uL (150-450); RBC 1.88 m/uL (3.80-5.40); RDW 20.1 % (11.5-15.5)
[2023-03-20 04:24] LABS: ALT 12 U/L (4-34); AST 21 U/L (14-36); African American GFR (CKD) 18 (>60 ml/min/1.73 sqM); Albumin 3.2 g/dL (3.5-5.0); Alkaline Phosphatase 49 U/L (38-126); Anion Gap 12 mmol/L; Blood Urea Nitrogen 58 mg/dL (7-17); Calcium 8.7 mg/dL (8.4-10.2); Carbon Dioxide 20 mmol/L (22-30); Chloride 104 mmol/L (98-107); Glucose 125 mg/dL (74-99); Non-African American GFR(CKD) 16 (>60 ml/min/1.73 sqM); Potassium 5.6 mmol/L (3.5-5.1); Sodium 136 mmol/L (137-145); Total Bilirubin 0.7 mg/dL (0.2-1.3); Total Protein 6.3 g/dL (6.3-8.2)
[2023-03-20] MEDS: ALBUTEROL NEBULIZED 2.5 MG/3 ML INHALATION PRN ×3 (04:51→19:53)
[2023-03-20 05:24] LABS: Glucose,Whole Blood 139 mg/dL (70-110)
[2023-03-20 05:54] LABS: Glucose,Whole Blood 138 mg/dL (70-110)
[2023-03-20 06:15] LABS: ABG Base Excess -6.4 mmol/L; ABG HCO3 22 mmol/L (21-25); ABG Oxygen Saturation 95.9 % (94-97); ABG PCO2 54 mmHg (35-45); ABG PH 7.21 (7.35-7.45); ABG PO2 86 mmHg (83-108); ABG TCO2 23 mmol/L (19-24); Allen Test Performed? Yes
[2023-03-20] MEDS: NOREPINEPHRINE 4 MG in SODIUM CHLORIDE 0.9% 250 ML IV SCH ×3 (06:32→19:37)
[2023-03-20] MEDS: INSULIN ASPART (NovoLOG) 100 UNIT/ML VIAL SQ SCH ×4 (06:44→20:41)
[2023-03-20 06:57] LABS: Band Neutrophils % 6 %; Lymphocytes # (M) 1.53 k/uL (1.0-4.8); Monocytes # (M) 0.34 k/uL (0-1.0); Neutrophils % (M) 73 %; Nucleated Red Blood Cells 1 /100 WBC (0-0); Total Cells Counted 200; WBC 8.5 k/uL (3.8-10.6)
[2023-03-20 07:01] LABS: RBC Fragments Present
[2023-03-20 07:03] LABS: Large Platelets Present; Poikilocytosis (M) Present
[2023-03-20] MEDS: PANTOPRAZOLE 40 MG/10 ML VIAL IV SCH (09:18)
[2023-03-20] MEDS: METOPROLOL SUCCINATE (ER) 25 MG TAB.ER.24H PO SCH (09:22)
[2023-03-20] MEDS ORDERED: SODIUM BICARB 8.4% 50 ML SYR (1 MEQ/ML) ONE (09:27)
[2023-03-20] MEDS ORDERED: SODIUM BICARB 8.4% 50 ML SYR (1 MEQ/ML) IV STA ×2 (09:27→09:34)
--- NOTE | 2023-03-20 09:39 | P.PN ---
Subjective Progress Note Date: 03/20/23 I am seeing this patient in consultation today 03/15/2023 in the emergency room after she presented with acute on chronic shortness of breath that has been ongoing and progressively worsening for a couple weeks. Patient is a 78-year-old white female past medical history significant for COPD, obesity/obe sity hypoventilation syndrome, chronic hypoxemic respiratory failure, obstructive sleep apnea, CHF, diabetes mellitus, hypertension, hypothyroidism. She did have a recent hospitalization at our facility for a fall and was discharged on March 09. She does follow in the pulmonary office with Dr. Schilling. Most recent PFT from 2020, shows a combination of severe obstructive/restrictive disease. She is chronically oxygen dependent and utilizes 4 L/m nasal cannula. She is technically a poor historian. Patient states that she is chronically short of breath, however, she has been progressively more short of breath over the last couple weeks. Denies any infectious symptoms such as cough, fever, chest pain, hemoptysis. Denies sick contacts. Does admit chronic lower extremity swelling. She takes Demadex twice a day at home. Denies any chest pain, heart palpitations, syncope or increase in her lower extremity swelling. Chest x-ray shows moderate cardiomegaly, no alexia pulmonary edema or focal infiltrate suggestive of pneumonia. NT proBNP was elevated at 12,400. CBC has a WBC count of 5.1, hemoglobin 8.1, hematocrit 26.2, platelets 407. BMP shows sodium 138, potassium 5.5, chloride 102, serum bicarbonate 22, BUN 46, creatinine 1.87, glucose 137. D-dimer was elevated at 1.99, however, clinical suspicion for pulmonary embolism is low. Patient is scheduled to undergo VQ scan. Troponin less than 0.012. Normal saline is infusing at 75 ML's per hour. She is currently sitting up in bed, on 4 L/m nasal cannula, in no acute distress. Vital signs are stable. The patient is seen today 03/16/2023 in follow-up in the emergency department. She is currently sitting up in bed. Awake and alert in no acute distress. Maintained on BiPAP 13/8 and 40% FiO2. His been afebrile. Hemodynamically stable. Dopplers of the lower extremity were positive for DVT in the right. Ve ntilation perfusion scan revealed intermediate probability for pulmonary embolus. There is a moderate sized defect at the right base. Echocardiogram revealed severely increased left ventricular wall thickness. Left ventricular ejection fraction 55-60%. Flattened septum in systole and diastole consistent with right ventricular pressure fluid and volume overload. Severe right ventricular dilatation with severe pulmonary hypertension and an RVSP of 99 mmHG. White count 4.6. Hemoglobin 7.6. Platelets 383,000. Sodium 138. Potassium 5.1. Bicarb 22. BUN 43. Creatinine 1.84. Glucose 129. She is currently on a heparin drip. Receiving oral diuretics. Progress note dated 03/17/2023. 78-year-old female initially seen in the emergency department. Seen today in room 371. The patient continues on BiPAP, and IV heparin. She was discovered to have a right lower extremity DVT. The patient is feeling better, and gives a thumbs up, when asked how she is doing. Today's labs include a white count 4.5, he will been some 0.4, hematocrit 24.4, and a platelet count of 308,000. PTT is 66.3. Glucose is 159. VQ scan was indeterminate. Doppler lower lobe extremity did reveal a right lower extremity DVT. Progress note dated 03/18/2023. 78-year-old female seen in room 371. She continues on BiPAP. The patient is currently on IV heparin, but can be converted to a factor X a inhibitor. When not on BiPAP, she is getting oxygen, at 5 L. The patient clinically feels like she is improved. Current laboratory includes a white count 5.1, hemoglobin 7.5, hematocrit 25, and a platelet count of 315,000. On today's evaluation of 03/20/2023, I'm seeing the patient for a follow-up. T his is a 78-year-old female patient, quite debilitated with COPD, obesity and obesity hypoventilation syndrome and chronic hypoxic and hypercapnic respiratory failure along with severe right-sided heart failure and severe pulmonary hypertension and a preserved LV function. She is also known to have chronic kidney disease, diabetes mellitus, hypertension and hypothyroidism. She is morbidly obese. The patient presented to us initially with shortness of breath this been going on for the past several weeks. Had a viral screen was negative including Covid 19. The patient's condition progressively got worse and the patient got admitted to the intensive care unit yesterday and currently she is on a BiPAP at pressure 14/8 cm of water and FiO2 of 70%. It was noted that the patient was getting progressively more obtunded. While on the BiPAP, she is able to generate a tidal volume of 350 mL with a rate of 24. She is following simple commands however she is extremely weak. She is sore all over and she is having diffuse body aches. She is afebrile. She is hypotensive and she was also started on pressors and currently she is on norepinephrine running at 0.1 mcg/kg/m. She has also developed an acute kidney injury and had a BUN today is at 58 with a creatinine of 2.8 and a sodium level is at 136. She is acidotic and her potassium level is up to 5.6. Blood gas showed a pH of 7.21 with a pCO2 54 and pO2 of 86. The white cell count of 8.5 with a hemoglobin of 7.5. I do not see any chest x-rays done on this patient. The last chest x-ray was done on 03/14/2022 that showed cardiomegaly without any acute abnormalities. The Doppler of the lower extremities showed limited visibility and a clot was seen in the saphenous/femoral junction which is nonocclusive. The patient is cu rrently on IV heparin. A VQ scan that was done at a time of admission on 03/15/2023 was intermediate probability. The patient was diabetes with torsemide. The patient is currently on IV heparin. No antibiotic coverage for the time being. I also reviewed her most recent echocardiogram which showed severe tricuspid regurgitation, no evidence of any aortic stenosis, she has severe dilated RV with reduced function and severe pulmonary hypertension with a PA pressure of 99. There is flattening of the septum consistent with severe RV pressure/volume overload. Objective - Vital Signs Vital signs: Vital Signs Temp 96.6 F L 03/20/23 08:00 Pulse 71 03/20/23 08:00 Resp 34 H 03/20/23 08:00 BP 107/54 03/20/23 08:00 Pulse Ox 96 03/20/23 08:00 FiO2 70 03/20/23 07:33 Intake & Output 03/19/23 03/20/23 03/20/23 18:59 06:59 18:59 Intake Total 161.813 91.209 Output Total 0 Balance 161.813 91.209 Intake: Intake, IV Titration 161.813 91.209 Amount Heparin Sod,Pork in 0.45% 155.507 0 NaCl 25,000 unit In 0.45 % NaCl 1 250ml.bag @ 18 UNITS/KG/HR 21.8 mls/hr IV .[id number] [facility] Rx#: [id number] Norepinephrine 4 mg In 6.306 91.209 Sodium Chloride 0.9% 250 ml @ 0.03 MCG/KG/MIN 13. 843 mls/hr IV .[id number] [facility] Rx#:[id number] Output: Urine 0 Other: Voiding Method External Catheter Diaper External Catheter # Voids 2 1 # Bowel Movements 1 1 - Exam No acute distress, obtunded with diminished level of consciousness currently on a BiPAP at a pressure of 14/8 cm of water and FiO2 of 70% Head exam was generally normal. There was no scleral icterus or corneal arcus. Mucous membranes were dry Neck supple. Full range of motion. No adenopathy thyromegaly or neck vein di stention. Cardiovascular examination reveals regular rhythm rate. S1-S2 normal. No S3 or S4. murmur noted. There is a systolic ejection murmur grade 3/6 heard over the right lateral sternal border Lungs reveal scattered rhonchi. No wheezes or crackles. Breath sounds equal. Breath sounds are diminished bilaterally Abdomen obese, but soft, with bowel sounds. No masses or tenderness. Extremities are intact. There is some edema in the lower extremities. No cyanosis or clubbing. Chronic venous stasis changes noted. Skin is without rash or lesion. Neurologic examination is brief but nonfocal. Able to withdrawal in all 4 extremities without any limitation. - Labs CBC & Chem 7: 03/20/23 03:26 03/20/23 03:26 Labs: Abnormal Lab Results - Last 24 Hours (Table) 03/15/23 03/19/23 03/19/23 Range/Units 17:41 11:51 11:59 RBC (3.80-5.40) m/uL Hgb (11.4-16.0) gm/dL Hct (34.0-46.0) % MCV (80.0-100.0) fL MCH (25.0-35.0) pg MCHC (31.0-37.0) g/dL RDW (11.5-15.5) % Lymphocytes # (Manual) (1.0-4.8) k/uL Monocytes # (Manual) (0-1.0) k/uL Nucleated RBCs (0-0) /100 WBC Macrocytosis APTT (22.0-30.0) sec ABG pH (7.35-7.45) ABG pCO2 (35-45) mmHg Sodium 136 L (137-145) mmol/L Potassium 6.1 H* (3.5-5.1) mmol/L Carbon Dioxide 17 L (22-30) mmol/L BUN 52 H (7-17) mg/dL Creatinine 2.22 H (0.52-1.04) mg/dL Glucose 145 H (74-99) mg/dL POC Glucose (mg/dL) 183 H (70-110) mg/dL Albumin (3.5-5.0) g/dL Methylmalonic Acid 0.47 H (<0.40) umol/L 03/19/23 03/19/23 03/19/23 Range/Units 16:31 17:41 19:49 RBC (3.80-5.40) m/uL Hgb (11.4-16.0) gm/dL Hct (34.0-46.0) % MCV (80.0-100.0) fL MCH (25.0-35.0) pg MCHC (31.0-37.0) g/dL RDW (11.5-15.5) % Lymphocytes # (Manual) (1.0-4.8) k/uL Monocytes # (Manual) (0-1.0) k/uL Nucleated RBCs (0-0) /100 WBC Macrocytosis APTT (22.0-30.0) sec ABG pH (7.35-7.45) ABG pCO2 (35-45) mmHg Sodium (137-145) mmol/L Potassium 5.7 H (3.5-5.1) mmol/L Carbon Dioxide (22-30) mmol/L BUN (7-17) mg/dL Creatinine (0.52-1.04) mg/dL Glucose (74-99) mg/dL POC Glucose (mg/dL) 143 H 146 H (70-110) mg/dL Albumin (3.5-5.0) g/dL Methylmalonic Acid (<0.40) umol/L 03/19/23 03/20/23 03/20/23 Range/Units 21:54 03:26 03:26 RBC 1.94 L 1.88 L (3.80-5.40) m/uL Hgb 7.6 L 7.1 L (11.4-16.0) gm/dL Hct 24.6 L 23.9 L (34.0-46.0) % MCV 127.3 H 127.1 H (80.0-100.0) fL MCH 39.2 H 37.5 H (25.0-35.0) pg MCHC 30.8 L 29.5 L (31.0-37.0) g/dL RDW 20.0 H 20.1 H (11.5-15.5) % Lymphocytes # (Manual) 0.50 L (1.0-4.8) k/uL Monocytes # (Manual) 1.34 H (0-1.0) k/uL Nucleated RBCs 1 H (0-0) /100 WBC Macrocytosis Marked A Marked A APTT (22.0-30.0) sec ABG pH (7.35-7.45) ABG pCO2 (35-45) mmHg Sodium 136 L (137-145) mmol/L Potassium 5.6 H (3.5-5.1) mmol/L Carbon Dioxide 20 L (22-30) mmol/L BUN 58 H (7-17) mg/dL Creatinine 2.84 H (0.52-1.04) mg/dL Glucose 125 H (74-99) mg/dL POC Glucose (mg/dL) (70-110) mg/dL Albumin 3.2 L (3.5-5.0) g/dL Methylmalonic Acid (<0.40) umol/L 03/20/23 03/20/23 03/20/23 Range/Units 03:26 05:23 05:53 RBC (3.80-5.40) m/uL Hgb (11.4-16.0) gm/dL Hct (34.0-46.0) % MCV (80.0-100.0) fL MCH (25.0-35.0) pg MCHC (31.0-37.0) g/dL RDW (11.5-15.5) % Lymphocytes # (Manual) (1.0-4.8) k/uL Monocytes # (Manual) (0-1.0) k/uL Nucleated RBCs (0-0) /100 WBC Macrocytosis APTT >200.0 H* (22.0-30.0) sec ABG pH (7.35-7.45) ABG pCO2 (35-45) mmHg Sodium (137-145) mmol/L Potassium (3.5-5.1) mmol/L Carbon Dioxide (22-30) mmol/L BUN (7-17) mg/dL Creatinine (0.52-1.04) mg/dL Glucose (74-99) mg/dL POC Glucose (mg/dL) 139 H 138 H (70-110) mg/dL Albumin (3.5-5.0) g/dL Methylmalonic Acid (<0.40) umol/L // Range/Units 06:10 RBC (3.80-5.40) m/uL Hgb (11.4-16.0) gm/dL Hct (34.0-46.0) % MCV (80.0-100.0) fL MCH (25.0-35.0) pg MCHC (31.0-37.0) g/dL RDW (11.5-15.5) % Lymphocytes # (Manual) (1.0-4.8) k/uL Monocytes # (Manual) (0-1.0) k/uL Nucleated RBCs (0-0) /100 WBC Macrocytosis APTT (22.0-30.0) sec ABG pH 7.21 L (7.35-7.45) ABG pCO2 54 H (35-45) mmHg Sodium (137-145) mmol/L Potassium (3.5-5.1) mmol/L Carbon Dioxide (22-30) mmol/L BUN (7-17) mg/dL Creatinine (0.52-1.04) mg/dL Glucose (74-99) mg/dL POC Glucose (mg/dL) (70-110) mg/dL Albumin (3.5-5.0) g/dL Methylmalonic Acid (<0.40) umol/L Assessment and Plan Plan: Acute on chronic dyspnea, chest x-ray does not show any focal infiltrates or evidence of pneumonia. There is moderate cardiomegaly without any significant pulmonary edema. NT proBNP was elevated. Consider possible mild diastolic congestive heart failure exacerbation. Echocardiogram revealed severely increased left ventricular wall thickness. Left ventricular ejection fraction 55-60%. Flattened septum in systole and diastole consistent with right ventricular pressure fluid and volume overload. Severe right ventricular dilatation with severe pulmonary hypertension and an RVSP of 99 mmHG. Acute on chronic hypercapnic/hypoxic respiratory failure, currently on BiPAP Diminished level of consciousness, altered mentation secondary to above, consider CO2 narcosis Acute on chronic kidney injury, creatinine is up to 2.8 Non-anion gap metabolic acidosis, likely secondary to above, serum bicarb is currently at 20 and the patient assumes a higher serum bicarb level due to her chronic hypercapnic respiratory failure Suspected right lower lobe pulmonary embolism, right lower extremity DVT. The patient is currently on IV heparin Acute hypotension, currently under investigation. The patient is currently on norepinephrine running at 0.1 Santiago grasper kilogram per minutes, rule out septic event Severe pulmonary hypertension and right-sided heart failure Chronic hypoxemic respiratory failure, chronically utilizes 4 L/m nasal cannula. History of COPD, stable. Obesity/obesity hypoventilation syndrome. Obstructive sleep apnea, utilizes BiPAP at night with a support of 13/8 cm of water on outpatient basis Diabetes mellitus, type II. Acute on chronic kidney disease, likely secondary to intravascular volume depletion/cardiorenal factors with a right-sided failure Acute hyperkalemia secondary to acidosis Macrocytic anemia. Hypertension. Hypothyroidism. Morbid obesity, with a BMI of 43.1 kg/m. Never tobacco smoker. Plan: Continue BiPAP therapy for now at the same pressures of 14/8 cm of water FiO2 of 70% Give the patient was sodium those as 50 mEq each Start the patient on a bicarb infusion at the rate of 75 mL an hour We will establish a triple-lumen catheter and will monitor CVP We'll establish an arterial line The patient is currently on pressors and this will be continued Check pro calcitonin level Start The patient IV Zosyn as an empiric antibiotic coverage We'll obtain a immediate chest x-ray following the line insertion Stop the oral Eliquis Stop the torsemide Monitor mentation Cor status is full and there is a high risk for requiring intubation mechanical ventilation especially if his condition decompensates. We'll collaborate with the rest of the consultants on the care of this patient. Critical care evaluation that was done in more than 30 minutes excluding time to do any procedures. Time with Patient: Greater than 30
[2023-03-20] MEDS: CYANOCOBALAMIN 500 MCG TAB PO SCH (09:57)
[2023-03-20] MEDS: TAMSULOSIN 0.4 MG CAP.ER.24H PO SCH (09:57)
--- NOTE | 2023-03-20 10:02 | P.PCN ---
Date of Procedure: 03/20/23 Preoperative Diagnosis: Acute on chronic hypoxic respiratory failure Postoperative Diagnosis: Same Procedure(s) Performed: Triple-lumen catheter Anesthesia: local Surgeon: Juan Schilling Pathology: none sent Condition: critical Disposition: ICU Operative Findings: Indication: Hemodynamic monitoring/Intravenous access. A time-out was completed verifying correct patient, procedure, site, positioning, and implant(s) or special equipment if applicable. The patient was placed in a dependent position appropriate for central line placement based on the vein to be cannulated. The patients [neck was prepped and draped in sterile fashion. 1% Lidocaine was used to anesthetize the surrounding skin area. A triple lumen 9F Cordis catheter was introduced into the left IJ vein using Seldinger technique. The catheter was threaded smoothly over the guide wire and appropriate blood return was obtained. Each lumen of the catheter was evacuated of air and flushed with sterile saline. The catheter was then sutured in place to the skin and a sterile dressing applied. Perfusion to the extremity distal to the point of catheter insertion was checked and found to be adequate. The patient tolerated the procedure well and there were no complications.
[2023-03-20] MEDS: DEXTROSE 5% IN WATER 1,000 ML with SODIUM BICARB (1 MEQ/ML) 150 ML IV SCH (10:21)
[2023-03-20] MEDS: HEPARIN SOD,PORK IN 0.45% NACL 25,000 UNIT in 0.45% NACL 1 250ML.BAG IV SCH (10:33)
[2023-03-20] MEDS: PIPERACILLIN-TAZOBACTAM 3.375 GM in SODIUM CHLORIDE 0.9% 100 ML IVPB SCH ×2 (10:33→20:46)
--- NOTE | 2023-03-20 11:01 | XR ---
EXAMINATION TYPE: XR chest 1V DATE OF EXAM: 03/20/2023 COMPARISON: 03/14/2023 HISTORY: 78-year-old female increased oxygen requirements status post left jugular line placement TECHNIQUE: Single frontal view of the chest is obtained. FINDINGS: Left IJ CVC tip at the lower SVC level. Patient slightly rotated towards the right. Heart mildly enla rged. Ongoing interstitial/vascular prominence, possibly slightly increased. No alexia consolidation o r pleural effusion. Plate and screw fixation proximal left humerus. IMPRESSION: 1. Left IJ CVC tip at the lower SVC level. 2. Mild cardiomegaly and interstitial prominence similar to slightly increased; correlate for mild pu lmonary vascular congestion.
--- NOTE | 2023-03-20 11:05 | P.PN ---
Subjective Patient is seen for follow-up for acute kidney injury. She is admitted to the hospital with complaints of shortness of breath. VQ scan showed intermediate possibility for PE and patient is maintained on IV heparin. No significant findings of CHF on chest x-ray. Blood pressure remains on the lower side. Diuretics have been decreased Overnight patient was significantly hypotensive with map of 50 and was transferred to the ICU this morning. Patient has received fluid boluses. She was also confused. Currently maintained on BiPAP. A Johnson catheter is being placed. A central line has been placed as well. Patient is maintained on low-dose levo fed. Serum creatinine at 2.8 today with a potassium of 5.6 CO2 is 20. Objective - Vital Signs Vital signs: Vital Signs Temp 96.6 F L 03/20/23 08:00 Pulse 78 03/20/23 10:00 Resp 11 L 03/20/23 10:00 BP 95/83 03/20/23 10:00 Pulse Ox 98 03/20/23 10:00 FiO2 70 03/20/23 07:33 Intake & Output 03/19/23 03/20/23 03/20/23 18:59 06:59 18:59 Intake Total 161.813 133.314 Output Total 0 Balance 161.813 133.314 Intake: Intake, IV Titration 161.813 133.314 Amount Heparin Sod,Pork in 0.45% 155.507 42.105 NaCl 25,000 unit In 0.45 % NaCl 1 250ml.bag @ 18 UNITS/KG/HR 21.8 mls/hr IV .[id number] [facility] Rx#: [id number] Norepinephrine 4 mg In 6.306 91.209 Sodium Chloride 0.9% 250 ml @ 0.03 MCG/KG/MIN 13. 843 mls/hr IV .[id number] [facility] Rx#:[id number] Output: Urine 0 Other: Voiding Method External Catheter Diaper External Catheter # Voids 2 1 # Bowel Movements 1 1 - Exam Patient is comfortable, no acute distress Awake and on BiPAP Examination of the heart S1 and S2 Examination of the lungs bilateral breath sounds are heard Abdomen is soft nontender Examination of the lower extremities shows chronic skin changes with much decreased edema. 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 - Labs CBC & Chem 7: 03/20/23 03:26 03/20/23 03:26 Labs: Abnormal Lab Results - Last 24 Hours (Table) 03/15/23 03/19/23 03/19/23 Range/Units 17:41 11:51 11:59 RBC (3.80-5.40) m/uL Hgb (11.4-16.0) gm/dL Hct (34.0-46.0) % MCV (80.0-100.0) fL MCH (25.0-35.0) pg MCHC (31.0-37.0) g/dL RDW (11.5-15.5) % Lymphocytes # (Manual) (1.0-4.8) k/uL Monocytes # (Manual) (0-1.0) k/uL Nucleated RBCs (0-0) /100 WBC Macrocytosis APTT (22.0-30.0) sec ABG pH (7.35-7.45) ABG pCO2 (35-45) mmHg Sodium 136 L (137-145) mmol/L Potassium 6.1 H* (3.5-5.1) mmol/L Carbon Dioxide 17 L (22-30) mmol/L BUN 52 H (7-17) mg/dL Creatinine 2.22 H (0.52-1.04) mg/dL Glucose 145 H (74-99) mg/dL POC Glucose (mg/dL) 183 H (70-110) mg/dL Albumin (3.5-5.0) g/dL Methylmalonic Acid 0.47 H (<0.40) umol/L 03/19/23 03/19/23 03/19/23 Range/Units 16:31 17:41 19:49 RBC (3.80-5.40) m/uL Hgb (11.4-16.0) gm/dL Hct (34.0-46.0) % MCV (80.0-100.0) fL MCH (25.0-35.0) pg MCHC (31.0-37.0) g/dL RDW (11.5-15.5) % Lymphocytes # (Manual) (1.0-4.8) k/uL Monocytes # (Manual) (0-1.0) k/uL Nucleated RBCs (0-0) /100 WBC Macrocytosis APTT (22.0-30.0) sec ABG pH (7.35-7.45) ABG pCO2 (35-45) mmHg Sodium (137-145) mmol/L Potassium 5.7 H (3.5-5.1) mmol/L Carbon Dioxide (22-30) mmol/L BUN (7-17) mg/dL Creatinine (0.52-1.04) mg/dL Glucose (74-99) mg/dL POC Glucose (mg/dL) 143 H 146 H (70-110) mg/dL Albumin (3.5-5.0) g/dL Methylmalonic Acid (<0.40) umol/L 03/19/23 03/20/23 03/20/23 Range/Units 21:54 03:26 03:26 RBC 1.94 L 1.88 L (3.80-5.40) m/uL Hgb 7.6 L 7.1 L (11.4-16.0) gm/dL Hct 24.6 L 23.9 L (34.0-46.0) % MCV 127.3 H 127.1 H (80.0-100.0) fL MCH 39.2 H 37.5 H (25.0-35.0) pg MCHC 30.8 L 29.5 L (31.0-37.0) g/dL RDW 20.0 H 20.1 H (11.5-15.5) % Lymphocytes # (Manual) 0.50 L (1.0-4.8) k/uL Monocytes # (Manual) 1.34 H (0-1.0) k/uL Nucleated RBCs 1 H (0-0) /100 WBC Macrocytosis Marked A Marked A APTT (22.0-30.0) sec ABG pH (7.35-7.45) ABG pCO2 (35-45) mmHg Sodium 136 L (137-145) mmol/L Potassium 5.6 H (3.5-5.1) mmol/L Carbon Dioxide 20 L (22-30) mmol/L BUN 58 H (7-17) mg/dL Creatinine 2.84 H (0.52-1.04) mg/dL Glucose 125 H (74-99) mg/dL POC Glucose (mg/dL) (70-110) mg/dL Albumin 3.2 L (3.5-5.0) g/dL Methylmalonic Acid (<0.40) umol/L 03/20/23 03/20/23 03/20/23 Range/Units 03:26 05:23 05:53 RBC (3.80-5.40) m/uL Hgb (11.4-16.0) gm/dL Hct (34.0-46.0) % MCV (80.0-100.0) fL MCH (25.0-35.0) pg MCHC (31.0-37.0) g/dL RDW (11.5-15.5) % Lymphocytes # (Manual) (1.0-4.8) k/uL Monocytes # (Manual) (0-1.0) k/uL Nucleated RBCs (0-0) /100 WBC Macrocytosis APTT >200.0 H* (22.0-30.0) sec ABG pH (7.35-7.45) ABG pCO2 (35-45) mmHg Sodium (137-145) mmol/L Potassium (3.5-5.1) mmol/L Carbon Dioxide (22-30) mmol/L BUN (7-17) mg/dL Creatinine (0.52-1.04) mg/dL Glucose (74-99) mg/dL POC Glucose (mg/dL) 139 H 138 H (70-110) mg/dL Albumin (3.5-5.0) g/dL Methylmalonic Acid (<0.40) umol/L 03/20/23 Range/Units 06:10 RBC (3.80-5.40) m/uL Hgb (11.4-16.0) gm/dL Hct (34.0-46.0) % MCV (80.0-100.0) fL MCH (25.0-35.0) pg MCHC (31.0-37.0) g/dL RDW (11.5-15.5) % Lymphocytes # (Manual) (1.0-4.8) k/uL Monocytes # (Manual) (0-1.0) k/uL Nucleated RBCs (0-0) /100 WBC Macrocytosis APTT (22.0-30.0) sec ABG pH 7.21 L (7.35-7.45) ABG pCO2 54 H (35-45) mmHg Sodium (137-145) mmol/L Potassium (3.5-5.1) mmol/L Carbon Dioxide (22-30) mmol/L BUN (7-17) mg/dL Creatinine (0.52-1.04) mg/dL Glucose (74-99) mg/dL POC Glucose (mg/dL) (70-110) mg/dL Albumin (3.5-5.0) g/dL Methylmalonic Acid (<0.40) umol/L Assessment and Plan Assessment: 1. Acute kidney injury, ATN mostly associated with hypotension. Possible component of hypovolemia. UA shows trace protein and moderate blood. Ultrasound of the kidneys shows no evidence of obstruction. Diuretics were decreased. 2. Intermediate possibility of PE maintained on IV heparin. Now discontinued 3. Hyperkalemia associated with acute kidney injury, improved. Rule out urine retention. Blood sugar is not elevated. 4. Anemia , iron replete , based on labs on 03/08/2023. Being followed by hematology 5. Obstructive sleep apnea maintained on home O2 6. Morbid obesity 7. History of diastolic CHF 8. History of von Willebrand's disease Plan: Agree with IV fluids DC diuretics Insert Johnson catheter Repeat labs in a.m. Avoid nephrotoxic agents.
[2023-03-20 11:26] LABS: Glucose,Whole Blood 147 mg/dL (70-110)
--- NOTE | 2023-03-20 12:17 | P.PN ---
Subjective Progress Note Date: 03/20/23 Patient seen in the ICU at today's visit. Continues on BiPAP, SPO2 96%. Patient somnolent. Objective - Vital Signs Vital signs: Vital Signs Temp 96.6 F L 03/20/23 08:00 Pulse 79 03/20/23 11:00 Resp 11 L 03/20/23 11:00 BP 84/64 03/20/23 11:00 Pulse Ox 99 03/20/23 11:00 FiO2 70 03/20/23 11:25 Intake & Output 03/19/23 03/20/23 03/20/23 18:59 06:59 18:59 Intake Total 161.813 434.062 Output Total 22 Balance 161.813 412.062 Intake: IV 210 Dextrose 5% in Water 1, 110 000 ml @ 75 mls/hr IV . [id number] [facility] with Sodium Bicarb (1 Meq/ml) 150 ml Rx#:[id number] Piperacillin-Tazobactam 3 100 .375 gm In Sodium Chloride 0.9% 100 ml @ 25 mls/hr IVPB Q12HR [facility] Rx #:[id number] Intake, IV Titration 161.813 224.062 Amount Heparin Sod,Pork in 0.45% 155.507 42.105 NaCl 25,000 unit In 0.45 % NaCl 1 250ml.bag @ 18 UNITS/KG/HR 21.8 mls/hr IV .[id number] [facility] Rx#: [id number] Norepinephrine 4 mg In 6.306 181.957 Sodium Chloride 0.9% 250 ml @ 0.03 MCG/KG/MIN 13. 843 mls/hr IV .[id number] [facility] Rx#:[id number] Output: Urine 22 Other: Voiding Method External Catheter Diaper External Catheter # Voids 2 1 # Bowel Movements 1 1 - Constitutional General appearance: Present: no acute distress - Respiratory Details: bipap in place, breathing unlabored - Cardiovascular Details: skin warm and dry - Integumentary Integumentary: Absent: cyanotic - Musculoskeletal Musculoskeletal: Present: generalized weakness - Psychiatric Psychiatric Comment(s): somnolent - Labs CBC & Chem 7: 03/20/23 03:26 03/20/23 03:26 Labs: Abnormal Lab Results - Last 24 Hours (Table) 03/15/23 03/19/23 03/19/23 Range/Units 17:41 11:51 16:31 RBC (3.80-5.40) m/uL Hgb (11.4-16.0) gm/dL Hct (34.0-46.0) % MCV (80.0-100.0) fL MCH (25.0-35.0) pg MCHC (31.0-37.0) g/dL RDW (11.5-15.5) % Lymphocytes # (Manual) (1.0-4.8) k/uL Monocytes # (Manual) (0-1.0) k/uL Nucleated RBCs (0-0) /100 WBC Macrocytosis APTT (22.0-30.0) sec ABG pH (7.35-7.45) ABG pCO2 (35-45) mmHg Sodium 136 L (137-145) mmol/L Potassium 6.1 H* (3.5-5.1) mmol/L Carbon Dioxide 17 L (22-30) mmol/L BUN 52 H (7-17) mg/dL Creatinine 2.22 H (0.52-1.04) mg/dL Glucose 145 H (74-99) mg/dL POC Glucose (mg/dL) 143 H (70-110) mg/dL Albumin (3.5-5.0) g/dL Methylmalonic Acid 0.47 H (<0.40) umol/L 03/19/23 03/19/23 03/19/23 Range/Units 17:41 19:49 21:54 RBC 1.94 L (3.80-5.40) m/uL Hgb 7.6 L (11.4-16.0) gm/dL Hct 24.6 L (34.0-46.0) % MCV 127.3 H (80.0-100.0) fL MCH 39.2 H (25.0-35.0) pg MCHC 30.8 L (31.0-37.0) g/dL RDW 20.0 H (11.5-15.5) % Lymphocytes # (Manual) 0.50 L (1.0-4.8) k/uL Monocytes # (Manual) 1.34 H (0-1.0) k/uL Nucleated RBCs (0-0) /100 WBC Macrocytosis Marked A APTT (22.0-30.0) sec ABG pH (7.35-7.45) ABG pCO2 (35-45) mmHg Sodium (137-145) mmol/L Potassium 5.7 H (3.5-5.1) mmol/L Carbon Dioxide (22-30) mmol/L BUN (7-17) mg/dL Creatinine (0.52-1.04) mg/dL Glucose (74-99) mg/dL POC Glucose (mg/dL) 146 H (70-110) mg/dL Albumin (3.5-5.0) g/dL Methylmalonic Acid (<0.40) umol/L 03/20/23 03/20/23 03/20/23 Range/Units 03:26 03:26 03:26 RBC 1.88 L (3.80-5.40) m/uL Hgb 7.1 L (11.4-16.0) gm/dL Hct 23.9 L (34.0-46.0) % MCV 127.1 H (80.0-100.0) fL MCH 37.5 H (25.0-35.0) pg MCHC 29.5 L (31.0-37.0) g/dL RDW 20.1 H (11.5-15.5) % Lymphocytes # (Manual) (1.0-4.8) k/uL Monocytes # (Manual) (0-1.0) k/uL Nucleated RBCs 1 H (0-0) /100 WBC Macrocytosis Marked A APTT >200.0 H* (22.0-30.0) sec ABG pH (7.35-7.45) ABG pCO2 (35-45) mmHg Sodium 136 L (137-145) mmol/L Potassium 5.6 H (3.5-5.1) mmol/L Carbon Dioxide 20 L (22-30) mmol/L BUN 58 H (7-17) mg/dL Creatinine 2.84 H (0.52-1.04) mg/dL Glucose 125 H (74-99) mg/dL POC Glucose (mg/dL) (70-110) mg/dL Albumin 3.2 L (3.5-5.0) g/dL Methylmalonic Acid (<0.40) umol/L 03/20/23 03/20/23 03/20/23 Range/Units 05:23 05:53 06:10 RBC (3.80-5.40) m/uL Hgb (11.4-16.0) gm/dL Hct (34.0-46.0) % MCV (80.0-100.0) fL MCH (25.0-35.0) pg MCHC (31.0-37.0) g/dL RDW (11.5-15.5) % Lymphocytes # (Manual) (1.0-4.8) k/uL Monocytes # (Manual) (0-1.0) k/uL Nucleated RBCs (0-0) /100 WBC Macrocytosis APTT (22.0-30.0) sec ABG pH 7.21 L (7.35-7.45) ABG pCO2 54 H (35-45) mmHg Sodium (137-145) mmol/L Potassium (3.5-5.1) mmol/L Carbon Dioxide (22-30) mmol/L BUN (7-17) mg/dL Creatinine (0.52-1.04) mg/dL Glucose (74-99) mg/dL POC Glucose (mg/dL) 139 H 138 H (70-110) mg/dL Albumin (3.5-5.0) g/dL Methylmalonic Acid (<0.40) umol/L 03/20/23 Range/Units 11:24 RBC (3.80-5.40) m/uL Hgb (11.4-16.0) gm/dL Hct (34.0-46.0) % MCV (80.0-100.0) fL MCH (25.0-35.0) pg MCHC (31.0-37.0) g/dL RDW (11.5-15.5) % Lymphocytes # (Manual) (1.0-4.8) k/uL Monocytes # (Manual) (0-1.0) k/uL Nucleated RBCs (0-0) /100 WBC Macrocytosis APTT (22.0-30.0) sec ABG pH (7.35-7.45) ABG pCO2 (35-45) mmHg Sodium (137-145) mmol/L Potassium (3.5-5.1) mmol/L Carbon Dioxide (22-30) mmol/L BUN (7-17) mg/dL Creatinine (0.52-1.04) mg/dL Glucose (74-99) mg/dL POC Glucose (mg/dL) 147 H (70-110) mg/dL Albumin (3.5-5.0) g/dL Methylmalonic Acid (<0.40) umol/L Assessment and Plan (1) Acute exacerbation of chronic obstructive pulmonary disease Current Visit: Yes Status: Acute Priority: High Code(s): J44.1 - CHRONIC OBSTRUCTIVE PULMONARY DISEASE W (ACUTE) EXACERBATION SNOMED Code(s): 274065186 (2) Macrocytic anemia Current Visit: Yes Status: Acute Priority: Medium Code(s): D53.9 - NUTRITIONAL ANEMIA, UNSPECIFIED SNOMED Code(s): 06736211 (3) Pulmonary embolism Current Visit: Yes Status: Acute Priority: High Code(s): I26.99 - OTHER PULMONARY EMBOLISM WITHOUT ACUTE COR PULMONALE SNOMED Code(s): 55451614 Plan: Reported von Willebrand disease -Unclear about circumstances of diagnosis. Reports diagnosed 5 years ago at [facility]. Does not f/u with hematology. Reports no history of bleeding problems -No lab work found within [facility] to indicate the same VQ scan for SOB-probability intermediate for PE in RLL Baseline BLE doppler-thrombus in the rt leg CFV/GSV junction, refused popliteal assessment and the lt leg -Pt currently is denying any bleeding episodes, no precautions for surgery/invasive procedures. -Irregardless of von Willebrand disease, if pt has VTE/PE, anticoagulation needs to be given. Currently heparin drip. -Will see if renal function improves, may be able to do CTA. Will also see if pt improves if she can tolerate completion of BLE doppler -Provoked vs unprovoked clot, difficult to determine. Pt states she moves very little, this is chronic and had recent hospitalization. -Patient will need to be transitioned to oral anticoagulation with Eliquis prior to discharge, can be transitioned if no procedures planned. Pt will need to closely monitor for any signs of bleeding and have f/u for hgb monitoring. Pt would need minimum 3 months anticoagulation, if pt still rather immobilized would have to consider extending anticoagulation Macrocytic anemia -Iron studies not consistent with SAHARA, Vitamin B12 low end of normal at 312, MMA elevated. Folate normal. -Vitamin B12 1000 mcg was started empirically. She has notably refused vitamin B12 injections. When pt is able to come off bipap and more stable, can start PO Vitamin B12 if she is still refusing B12 injections -Thyroid studies revealed subclinical hypothyroidism -Med list reviewed, no med associated with macrocytosis seen -She was noted to have near normal hemoglobin in 2020 -At this time, she would like to defer on transfusion of packed red blood cells as she had a transfusion in the past, which she noted did not have an effect on her breathing -Transfuse for Hgb <7
--- NOTE | 2023-03-20 13:38 | P.PN ---
Subjective Progress Note Date: 03/20/23 Patient is a 78-year-old lady past medical history significant for COPD, obesity/obesity hypoventilation syndrome, chronic hypoxemic respiratory failure, obstructive sleep apnea, CHF, diabetes mellitus, hypertension, hypothyroidism who presented to the hospital for possible worsening shortness of breath. She was in the hospital beginning of the month at which time she had a fall. Patient stated ever since she has been discharged she has been worsening shortness of breath. Shortness of breath is present on exertion and at rest. Patient states that only walking across the room makes her short of breath and winded. Denies any chest pain. There was no complain of any fever or chills. Denies any cough. Denies any nausea, vomiting abdominal pain. Patient was also going of lethargy and weakness. Because of worsening shortness of breath, patient came to the ER Initial lab work done in the ER showed WBC 5.1, hemoglobin 8.1, platelet count 407, sodium 138, potassium 5.5, BUNs 46, creatinine 1.87 and troponin 0.012, proBNP 42099 Influenza A not detected Influenza B not detected RSV not detected COVID-19 not detected EKG done in the ER showed heart rate of 86 , no ST segment elevation or depression seen, no T-wave inversions seen. Chest x-ray done in the ER showed moderate cardiac megaly, no pulmonary edema or infiltrate seen VQ scan done showed intermediate possibility for pulmonary embolism given the moderate sized defect at the right base Patient admitted to internal medicine service 03/16. Patient seen and examined. Patient had rapid response this morning because of respiratory distress, patient's pulse ox dropped into 70s, patient had to be placed on BiPAP. Doing much better now. Denies any shortness of breath. Patient is alert and oriented, answering question appropriately 2-D echo done showed normal left ventricle size and systolic function with severe hypertrophy, severely dilated right ventricle with reduced function and severe pulmonary hypertension, severe tricuspid with mild to moderate mitral regurg 03/17. Patient seen and examined. Patient was placed on BiPAP, FiO2 40%. States she feels much better. Patient was later switched to nasal cannula oxygen at 5 L. Patient is refusing vitamin B12 injections. Denies any cough. Denies any fever or chills. 03/18. Patient seen and examined. Labs were the brace 5.1, hemoglobin 7.5, platelet count 315. Heparin was discontinued, switched to oral Eliquis. Continues to be on BiPAP but breathing has improved a lot. Patient tired this morning, she wants to rest. Vital signs stable 03/19. Patient seen and examined. Patient currently on BiPAP with an FiO2 40%. Patient is responsive, answering questions appropriately. On BiPAP she states that she feels much better. States she wants to eat and wants to get off the BiPAP. 03/20. Patient seen and examined. Patient had rapid response called overnight for low blood pressure, patient was evaluated by A team and transferred to ICU. Currently on BiPAP, opened eyes, follows commands, he recognizes his family REVIEW OF SYSTEMS: CONSTITUTIONAL: No fever, no malaise,. CARDIOVASCULAR: As mentioned above PULMONARY: As mentioned above GASTROINTESTINAL: No diarrhea, no nausea, no vomiting, no abdominal pain. NEUROLOGICAL: No headaches, no weakness, PHYSICAL EXAMINATION: GENERAL: The patient is alert , not in any acute distress. Well developed, well nourished. HEENT: Pupils are round and equally reacting to light. EOMI. No scleral icterus. No conjunctival pallor. Normocephalic, atraumatic. No pharyngeal erythema. No thyromegaly. CARDIOVASCULAR: S1 and S2 present. No murmurs, rubs, or gallops. PULMONARY: Diminished breath sounds at the bases bilaterally, rhonchi audible at the bases ABDOMEN: Soft, nontender, nondistended, normoactive bowel sounds. No palpable organomegaly. MUSCULOSKELETAL: No joint swelling or deformity. EXTREMITIES: No cyanosis, clubbing, or pedal edema. NEUROLOGICAL: Gross neurological examination did not reveal any focal deficits. SKIN: No rashes. Assessment and plan Acute on chronic diastolic CHF Hyperkalemia Acute on chronic kidney disease V/Q scan showing intermediate probably for PE On occlusive thrombus in the right saphenofemoral junction Chronic hypoxemic respiratory failure, chronically utilizes 4 L/m nasal cannula History of COPD, stable Obesity/obesity hypoventilation syndrome Obstructive sleep apnea, utilizes BiPAP at night with a support of 05/11 Diabetes mellitus, type II Macrocytic anemia, no acute blood loss noted. Hypertension Hypothyroidism Morbid obesity, with a BMI of 43.1 kg/m Monitor vital signs Monitor CBC Monitor CMP Continue telemetry monitoring Continue oxygen supplementation, continue BiPAP as needed Trend troponins. Strict I's and O's, daily weights Continue IV Levophed Continue IV heparin drip Avoid nephrotoxic agents. Aggressive bronchopulmonary hygiene Continue breathing treatments 2-D echo done showed normal left ventricle size and systolic function with severe hypertrophy, severely dilated right ventricle with reduced function and severe pulmonary hypertension, severe tricuspid with mild to moderate mitral regurg In regards to acute anemia,continue to monitor H&H transfuse for hemodynamic instability or hemoglobin less than 7, and anemia workup noted. Hematology oncology following, recommend oral anticoagulation for at least 3 months In regards to diabetes mellitus, continue sliding scale insulin nephrology following Pulmonology following Labs and medication were reviewed.. Continue same treatment. Continue with symptomatic treatment. Resume home medication. Monitor labs and vitals. DVT and GI prophylaxis. Further recommendations as per clinical course of the patient Dictation was produced using [employer] dictation software. please excuse any grammatical, word or spelling errors. Objective - Vital Signs Vital signs: Vital Signs Temp 96.6 F L 03/20/23 08:00 Pulse 71 03/20/23 08:00 Resp 34 H 03/20/23 08:00 BP 107/54 03/20/23 08:00 Pulse Ox 96 03/20/23 08:00 FiO2 70 03/20/23 07:33 Intake & Output 03/19/23 03/20/23 03/20/23 18:59 06:59 18:59 Intake Total 161.813 91.209 Output Total 0 Balance 161.813 91.209 Intake: Intake, IV Titration 161.813 91.209 Amount Heparin Sod,Pork in 0.45% 155.507 0 NaCl 25,000 unit In 0.45 % NaCl 1 250ml.bag @ 18 UNITS/KG/HR 21.8 mls/hr IV .[id number] [facility] Rx#: [id number] Norepinephrine 4 mg In 6.306 91.209 Sodium Chloride 0.9% 250 ml @ 0.03 MCG/KG/MIN 13. 843 mls/hr IV .[id number] [facility] Rx#:[id number] Output: Urine 0 Other: Voiding Method External Catheter Diaper External Catheter # Voids 2 1 # Bowel Movements 1 1 - Labs CBC & Chem 7: 03/20/23 03:26 03/20/23 03:26 Labs: Abnormal Lab Results - Last 24 Hours (Table) 03/15/23 03/19/23 03/19/23 Range/Units 17:41 11:51 11:59 RBC (3.80-5.40) m/uL Hgb (11.4-16.0) gm/dL Hct (34.0-46.0) % MCV (80.0-100.0) fL MCH (25.0-35.0) pg MCHC (31.0-37.0) g/dL RDW (11.5-15.5) % Lymphocytes # (Manual) (1.0-4.8) k/uL Monocytes # (Manual) (0-1.0) k/uL Nucleated RBCs (0-0) /100 WBC Macrocytosis APTT (22.0-30.0) sec ABG pH (7.35-7.45) ABG pCO2 (35-45) mmHg Sodium 136 L (137-145) mmol/L Potassium 6.1 H* (3.5-5.1) mmol/L Carbon Dioxide 17 L (22-30) mmol/L BUN 52 H (7-17) mg/dL Creatinine 2.22 H (0.52-1.04) mg/dL Glucose 145 H (74-99) mg/dL POC Glucose (mg/dL) 183 H (70-110) mg/dL Albumin (3.5-5.0) g/dL Methylmalonic Acid 0.47 H (<0.40) umol/L 03/19/23 03/19/23 03/19/23 Range/Units 16:31 17:41 19:49 RBC (3.80-5.40) m/uL Hgb (11.4-16.0) gm/dL Hct (34.0-46.0) % MCV (80.0-100.0) fL MCH (25.0-35.0) pg MCHC (31.0-37.0) g/dL RDW (11.5-15.5) % Lymphocytes # (Manual) (1.0-4.8) k/uL Monocytes # (Manual) (0-1.0) k/uL Nucleated RBCs (0-0) /100 WBC Macrocytosis APTT (22.0-30.0) sec ABG pH (7.35-7.45) ABG pCO2 (35-45) mmHg Sodium (137-145) mmol/L Potassium 5.7 H (3.5-5.1) mmol/L Carbon Dioxide (22-30) mmol/L BUN (7-17) mg/dL Creatinine (0.52-1.04) mg/dL Glucose (74-99) mg/dL POC Glucose (mg/dL) 143 H 146 H (70-110) mg/dL Albumin (3.5-5.0) g/dL Methylmalonic Acid (<0.40) umol/L 03/19/23 03/20/23 03/20/23 Range/Units 21:54 03:26 03:26 RBC 1.94 L 1.88 L (3.80-5.40) m/uL Hgb 7.6 L 7.1 L (11.4-16.0) gm/dL Hct 24.6 L 23.9 L (34.0-46.0) % MCV 127.3 H 127.1 H (80.0-100.0) fL MCH 39.2 H 37.5 H (25.0-35.0) pg MCHC 30.8 L 29.5 L (31.0-37.0) g/dL RDW 20.0 H 20.1 H (11.5-15.5) % Lymphocytes # (Manual) 0.50 L (1.0-4.8) k/uL Monocytes # (Manual) 1.34 H (0-1.0) k/uL Nucleated RBCs 1 H (0-0) /100 WBC Macrocytosis Marked A Marked A APTT (22.0-30.0) sec ABG pH (7.35-7.45) ABG pCO2 (35-45) mmHg Sodium 136 L (137-145) mmol/L Potassium 5.6 H (3.5-5.1) mmol/L Carbon Dioxide 20 L (22-30) mmol/L BUN 58 H (7-17) mg/dL Creatinine 2.84 H (0.52-1.04) mg/dL Glucose 125 H (74-99) mg/dL POC Glucose (mg/dL) (70-110) mg/dL Albumin 3.2 L (3.5-5.0) g/dL Methylmalonic Acid (<0.40) umol/L 03/20/23 03/20/23 03/20/23 Range/Units 03:26 05:23 05:53 RBC (3.80-5.40) m/uL Hgb (11.4-16.0) gm/dL Hct (34.0-46.0) % MCV (80.0-100.0) fL MCH (25.0-35.0) pg MCHC (31.0-37.0) g/dL RDW (11.5-15.5) % Lymphocytes # (Manual) (1.0-4.8) k/uL Monocytes # (Manual) (0-1.0) k/uL Nucleated RBCs (0-0) /100 WBC Macrocytosis APTT >200.0 H* (22.0-30.0) sec ABG pH (7.35-7.45) ABG pCO2 (35-45) mmHg Sodium (137-145) mmol/L Potassium (3.5-5.1) mmol/L Carbon Dioxide (22-30) mmol/L BUN (7-17) mg/dL Creatinine (0.52-1.04) mg/dL Glucose (74-99) mg/dL POC Glucose (mg/dL) 139 H 138 H (70-110) mg/dL Albumin (3.5-5.0) g/dL Methylmalonic Acid (<0.40) umol/L 03/20/23 Range/Units 06:10 RBC (3.80-5.40) m/uL Hgb (11.4-16.0) gm/dL Hct (34.0-46.0) % MCV (80.0-100.0) fL MCH (25.0-35.0) pg MCHC (31.0-37.0) g/dL RDW (11.5-15.5) % Lymphocytes # (Manual) (1.0-4.8) k/uL Monocytes # (Manual) (0-1.0) k/uL Nucleated RBCs (0-0) /100 WBC Macrocytosis APTT (22.0-30.0) sec ABG pH 7.21 L (7.35-7.45) ABG pCO2 54 H (35-45) mmHg Sodium (137-145) mmol/L Potassium (3.5-5.1) mmol/L Carbon Dioxide (22-30) mmol/L BUN (7-17) mg/dL Creatinine (0.52-1.04) mg/dL Glucose (74-99) mg/dL POC Glucose (mg/dL) (70-110) mg/dL Albumin (3.5-5.0) g/dL Methylmalonic Acid (<0.40) umol/L
[2023-03-20 14:05] LABS: Appearance,Urine Cloudy (Clear); Bacteria,Urine Occasional /hpf; Bilirubin,Urine Negative (Negative); Blood,Urine Large (Negative); Color,Urine Light Red; Glucose,Urine (UA) Negative (Negative); Hyaline Casts,Urine 20 /lpf (0-2); Ketones,Urine Negative (Negative); Leukocyte Esterase,Urine Negative (Negative); Mucus,Urine Rare /hpf; Nitrite,Urine Negative (Negative); Protein,Urine 1+ (Negative); RBC,Urine >182 /hpf (0-5); Specific Gravity,Urine 1.018 (1.001-1.035); Squamous Epithelial Cell,Urine 5 /hpf (0-4); Urobilinogen,Urine <2.0 mg/dL (<2.0); WBC,Urine 25 /hpf (0-5)
[2023-03-20 14:15] LABS: ABG Base Excess -4.3 mmol/L; ABG HCO3 24 mmol/L (21-25); ABG Oxygen Saturation 99.1 % (94-97); ABG PCO2 61 mmHg (35-45); ABG PO2 139 mmHg (83-108); ABG TCO2 26 mmol/L (19-24); Allen Test Performed? Yes
[2023-03-20] MEDS ORDERED: FUROSEMIDE 10 MG/ML 10 ML VIAL IV STA (15:51)
[2023-03-20] MEDS: DOBUTamine DRIP 500 MG in DEXTROSE/WATER 1 250ML.BAG IV SCH (16:17)
[2023-03-20 16:49] LABS: Glucose,Whole Blood 179 mg/dL (70-110)
[2023-03-20 20:41] LABS: Glucose,Whole Blood 164 mg/dL (70-110)
[2023-03-20 20:51] LABS: ABG Base Excess -2.1 mmol/L; ABG HCO3 26 mmol/L (21-25); ABG Oxygen Saturation 99.2 % (94-97); ABG PCO2 62 mmHg (35-45); ABG PH 7.22 (7.35-7.45); ABG PO2 133 mmHg (83-108); ABG TCO2 27 mmol/L (19-24); Allen Test Performed? Yes
[2023-03-20] MEDS ORDERED: ARTIFICIAL TEARS-HYPROMELLOSE DROPS 15 ML BTL BOTH EYES PRN (23:13)
[2023-03-21] MEDS: FUROSEMIDE 10 MG/ML 10 ML VIAL IV SCH ×3 (00:45→16:31)
[2023-03-21] MEDS: DEXTROSE 5% IN WATER 1,000 ML with SODIUM BICARB (1 MEQ/ML) 150 ML IV SCH (00:54)
[2023-03-21] MEDS: HEPARIN SOD,PORK IN 0.45% NACL 25,000 UNIT in 0.45% NACL 1 250ML.BAG IV SCH ×2 (01:23→11:14)
[2023-03-21] MEDS: NOREPINEPHRINE 4 MG in SODIUM CHLORIDE 0.9% 250 ML IV SCH ×3 (04:39→23:25)
[2023-03-21 06:02] LABS: ALT 13 U/L (4-34); AST 18 U/L (14-36); African American GFR (CKD) 18 (>60 ml/min/1.73 sqM); Albumin 2.8 g/dL (3.5-5.0); Alkaline Phosphatase 47 U/L (38-126); Anion Gap 10 mmol/L; Blood Urea Nitrogen 63 mg/dL (7-17); Carbon Dioxide 26 mmol/L (22-30); Chloride 102 mmol/L (98-107); Glucose 151 mg/dL (74-99); Non-African American GFR(CKD) 15 (>60 ml/min/1.73 sqM); Sodium 138 mmol/L (137-145); Total Bilirubin 0.7 mg/dL (0.2-1.3); Total Protein 5.6 g/dL (6.3-8.2)
[2023-03-21 06:09] LABS: Anisocytosis Moderate; HCT 22.2 % (34.0-46.0); Hypochromasia Marked; MCH 37.9 pg (25.0-35.0); MCHC 30.2 g/dL (31.0-37.0); MCV 125.7 fL (80.0-100.0); Macrocytosis Marked; Mean Platelet Volume 12.6; Platelet Count 303 k/uL (150-450); RBC 1.77 m/uL (3.80-5.40); RDW 20.3 % (11.5-15.5); WBC 6.2 k/uL (3.8-10.6)
[2023-03-21 06:16] LABS: HGB 6.7 gm/dL (11.4-16.0)
[2023-03-21 07:08] LABS: Glucose,Whole Blood 167 mg/dL (70-110)
[2023-03-21] MEDS: ALBUTEROL NEBULIZED 2.5 MG/3 ML INHALATION PRN ×3 (08:05→20:17)
[2023-03-21 08:06] LABS: Band Neutrophils % 2 %; Eosinophils # (M) 0.06 k/uL (0-0.7); Lymphocytes # (M) 0.99 k/uL (1.0-4.8); Monocytes # (M) 1.12 k/uL (0-1.0); Myelocytes # (M) 0.19 k/uL (0); Myelocytes % 3 %; Neutrophils % (M) 62 %; Nucleated Red Blood Cells 0 /100 WBC (0-0); Total Cells Counted 200
--- NOTE | 2023-03-21 08:18 | XR ---
EXAMINATION TYPE: XR chest 1V DATE OF EXAM: 03/21/2023 4:06 AM CLINICAL INDICATION:Female, 78 years old with history of respiratory failure, bipap; [facility] COMPARISON: Chest radiograph from one day prior. TECHNIQUE: XR chest 1V Frontal view of the chest. FINDINGS: Left IJ CVC tip at the lower SVC level. Patient slightly rotated towards the right. Heart mildly enla rged. Ongoing interstitial/vascular prominence, possibly slightly increased. No alexia consolidation o r pleural effusion. Plate and screw fixation proximal left humerus. Increasing right lower lung airsp milly opacities on the right hilar region IMPRESSION: 1. Left IJ CVC tip at the lower SVC level. 2. Increasing right lower lung airspace opacities correlate for mass versus pneumonia.
[2023-03-21 08:20] LABS: Poikilocytosis (M) Present
[2023-03-21 08:28] LABS: Ovalocytes Present; Spherocytes Present
--- NOTE | 2023-03-21 08:55 | P.PN ---
Subjective Progress Note Date: 03/21/23 I am seeing this patient in consultation today 03/15/2023 in the emergency room after she presented with acute on chronic shortness of breath that has been ongoing and progressively worsening for a couple weeks. Patient is a 78-year-old white female past medical history significant for COPD, obesity/obe sity hypoventilation syndrome, chronic hypoxemic respiratory failure, obstructive sleep apnea, CHF, diabetes mellitus, hypertension, hypothyroidism. She did have a recent hospitalization at our facility for a fall and was discharged on March 09. She does follow in the pulmonary office with Dr. Schilling. Most recent PFT from 2020, shows a combination of severe obstructive/restrictive disease. She is chronically oxygen dependent and utilizes 4 L/m nasal cannula. She is technically a poor historian. Patient states that she is chronically short of breath, however, she has been progressively more short of breath over the last couple weeks. Denies any infectious symptoms such as cough, fever, chest pain, hemoptysis. Denies sick contacts. Does admit chronic lower extremity swelling. She takes Demadex twice a day at home. Denies any chest pain, heart palpitations, syncope or increase in her lower extremity swelling. Chest x-ray shows moderate cardiomegaly, no alexia pulmonary edema or focal infiltrate suggestive of pneumonia. NT proBNP was elevated at 12,400. CBC has a WBC count of 5.1, hemoglobin 8.1, hematocrit 26.2, platelets 407. BMP shows sodium 138, potassium 5.5, chloride 102, serum bicarbonate 22, BUN 46, creatinine 1.87, glucose 137. D-dimer was elevated at 1.99, however, clinical suspicion for pulmonary embolism is low. Patient is scheduled to undergo VQ scan. Troponin less than 0.012. Normal saline is infusing at 75 ML's per hour. She is currently sitting up in bed, on 4 L/m nasal cannula, in no acute distress. Vital signs are stable. The patient is seen today 03/16/2023 in follow-up in the emergency department. She is currently sitting up in bed. Awake and alert in no acute distress. Maintained on BiPAP 13/8 and 40% FiO2. His been afebrile. Hemodynamically stable. Dopplers of the lower extremity were positive for DVT in the right. Ve ntilation perfusion scan revealed intermediate probability for pulmonary embolus. There is a moderate sized defect at the right base. Echocardiogram revealed severely increased left ventricular wall thickness. Left ventricular ejection fraction 55-60%. Flattened septum in systole and diastole consistent with right ventricular pressure fluid and volume overload. Severe right ventricular dilatation with severe pulmonary hypertension and an RVSP of 99 mmHG. White count 4.6. Hemoglobin 7.6. Platelets 383,000. Sodium 138. Potassium 5.1. Bicarb 22. BUN 43. Creatinine 1.84. Glucose 129. She is currently on a heparin drip. Receiving oral diuretics. Progress note dated 03/17/2023. 78-year-old female initially seen in the emergency department. Seen today in room 371. The patient continues on BiPAP, and IV heparin. She was discovered to have a right lower extremity DVT. The patient is feeling better, and gives a thumbs up, when asked how she is doing. Today's labs include a white count 4.5, he will been some 0.4, hematocrit 24.4, and a platelet count of 308,000. PTT is 66.3. Glucose is 159. VQ scan was indeterminate. Doppler lower lobe extremity did reveal a right lower extremity DVT. Progress note dated 03/18/2023. 78-year-old female seen in room 371. She continues on BiPAP. The patient is currently on IV heparin, but can be converted to a factor X a inhibitor. When not on BiPAP, she is getting oxygen, at 5 L. The patient clinically feels like she is improved. Current laboratory includes a white count 5.1, hemoglobin 7.5, hematocrit 25, and a platelet count of 315,000. On today's evaluation of 03/20/2023, I'm seeing the patient for a follow-up. T his is a 78-year-old female patient, quite debilitated with COPD, obesity and obesity hypoventilation syndrome and chronic hypoxic and hypercapnic respiratory failure along with severe right-sided heart failure and severe pulmonary hypertension and a preserved LV function. She is also known to have chronic kidney disease, diabetes mellitus, hypertension and hypothyroidism. She is morbidly obese. The patient presented to us initially with shortness of breath this been going on for the past several weeks. Had a viral screen was negative including Covid 19. The patient's condition progressively got worse and the patient got admitted to the intensive care unit yesterday and currently she is on a BiPAP at pressure 14/8 cm of water and FiO2 of 70%. It was noted that the patient was getting progressively more obtunded. While on the BiPAP, she is able to generate a tidal volume of 350 mL with a rate of 24. She is following simple commands however she is extremely weak. She is sore all over and she is having diffuse body aches. She is afebrile. She is hypotensive and she was also started on pressors and currently she is on norepinephrine running at 0.1 mcg/kg/m. She has also developed an acute kidney injury and had a BUN today is at 58 with a creatinine of 2.8 and a sodium level is at 136. She is acidotic and her potassium level is up to 5.6. Blood gas showed a pH of 7.21 with a pCO2 54 and pO2 of 86. The white cell count of 8.5 with a hemoglobin of 7.5. I do not see any chest x-rays done on this patient. The last chest x-ray was done on 03/14/2022 that showed cardiomegaly without any acute abnormalities. The Doppler of the lower extremities showed limited visibility and a clot was seen in the saphenous/femoral junction which is nonocclusive. The patient is cu rrently on IV heparin. A VQ scan that was done at a time of admission on 03/15/2023 was intermediate probability. The patient was diabetes with torsemide. The patient is currently on IV heparin. No antibiotic coverage for the time being. I also reviewed her most recent echocardiogram which showed severe tricuspid regurgitation, no evidence of any aortic stenosis, she has severe dilated RV with reduced function and severe pulmonary hypertension with a PA pressure of 99. There is flattening of the septum consistent with severe RV pressure/volume overload. On 03/21/2023, the patient is being seen in follow-up in the intensive care unit. The patient remains on a BiPAP at a pressure of 14/8 with an FiO2 of 100%. She was on BiPAP throughout the day yesterday and overnight she was kept on a BiPAP. She is still lethargic, level of consciousness and diminished yet she is arousable. She has diffuse body aches and she is very tender to touch brought her body. The patient is able to manage well on the BiPAP machine and she generating a tidal volume of 4 50 mL and a respiratory rate is around 30. Her pulse ox currently is at 98%. Chest x-ray shows no significant interval change. There is cardiomegaly. This pulmonary artery dilatation consistent with pulmonary hypertension. The patient has some airspace disease in the right lower lobe suspecting pneumonia for that reason the patient was started on IV Zosyn as a broad-spectrum antibiotic coverage. Hemodynamically, the patient has severe RV failure and pulmonary hypertension. He is diuresing well with Lasix. She was started on Lasix 60 mg IV every 8 hours and her urine output has approach 1 L over the past 24 hours. She is still in positive fluid balance pH she sustained an acute kidney injury and the creatinine is stable compared to yesterday. Creatinine this morning is at 2.8 with a BUN of 63. Sodium is at 13 8, potassium is at 5, currently 102 bicarb is 26. The patient is currently on norepinephrine running at 0.05 mcg/kg/m. Dobutamine was also added yesterday which is running at 5 mcg/kg/m. IV fluids are in the form of bicarb infusion at 75 mL an hour. No blood gases available from this morning. The most recent blood gas from yesterday showed a pH of 7.22 with a pCO2 of 62 and pO2 of 133 and this was on FiO2 of 70%. Patient remains on IV heparin. The cardiac rhythm is sinus at this point in time. Objective - Vital Signs Vital signs: Vital Signs Temp 97.6 F 03/21/23 04:00 Pulse 102 H 03/21/23 08:17 Resp 29 H 03/21/23 07:00 BP 116/47 03/21/23 07:00 Pulse Ox 97 03/21/23 07:00 FiO2 100 03/21/23 07:43 Intake & Output 03/20/23 03/21/23 03/21/23 18:59 06:59 18:59 Intake Total 2715.368 8207.162 75 Output Total 203 835 100 Balance 977.068 361.162 -25 Weight 124.9 kg Intake: IV 735 900 75 Dextrose 5% in Water 1, 635 900 75 000 ml @ 75 mls/hr IV . [id number] RUBINA with Sodium Bicarb (1 Meq/ml) 150 ml Rx#:[id number] Piperacillin-Tazobactam 3 100 .375 gm In Sodium Chloride 0.9% 100 ml @ 25 mls/hr IVPB Q12HR RUBINA Rx #:[id number] Intake, IV Titration 445.068 296.162 Amount Heparin Sod,Pork in 0.45% 42.105 NaCl 25,000 unit In 0.45 % NaCl 1 250ml.bag @ 18 UNITS/KG/HR 21.8 mls/hr IV .[id number] RUBINA Rx#: [id number] Norepinephrine 4 mg In 402.963 296.162 Sodium Chloride 0.9% 250 ml @ 0.03 MCG/KG/MIN 13. 843 mls/hr IV .[id number] RUBINA Rx#:[id number] Output: Urine 203 835 100 Other: Voiding Method Indwelling Catheter Indwelling Catheter - Exam No acute distress, obtunded with diminished level of consciousness currently on a BiPAP at a pressure of 14/8 cm of water and FiO2 of 100%, she is responding despite of diminished level of consciousness. She is moving all 4 extremities and she is following simple commands. Head exam was generally normal. There was no scleral icterus or corneal arcus. Mucous membranes were dry Neck supple. Full range of motion. No adenopathy thyromegaly and there is significant JVDs bilaterally and the patient has a left IJ triple lumen catheter in place Cardiovascular examination reveals regular rhythm rate. S1-S2 normal. No S3 or S4. murmur noted. There is a systolic ejection murmur grade 3/6 heard over the right lateral sternal border Lungs reveal scattered rhonchi. No wheezes or crackles. Breath sounds equal. Breath sounds are diminished bilaterally Abdomen obese, but soft, with bowel sounds. No masses or tenderness. Extremities are intact. There is some edema in the lower extremities. No cyan osis or clubbing. Chronic venous stasis changes noted. Skin is without rash or lesion. Neurologic examination is brief but nonfocal. Able to withdrawal in all 4 extremities without any limitation. - Labs CBC & Chem 7: 03/21/23 05:41 03/21/23 05:41 Labs: Abnormal Lab Results - Last 24 Hours (Table) 03/15/23 03/20/23 03/20/23 Range/Units 17:41 03:26 11:24 RBC (3.80-5.40) m/uL Hgb (11.4-16.0) gm/dL Hct (34.0-46.0) % MCV (80.0-100.0) fL MCH (25.0-35.0) pg MCHC (31.0-37.0) g/dL RDW (11.5-15.5) % Lymphocytes # (Manual) (1.0-4.8) k/uL Monocytes # (Manual) (0-1.0) k/uL Myelocytes # (Manual) (0) k/uL Macrocytosis APTT (22.0-30.0) sec ABG pH (7.35-7.45) ABG pCO2 (35-45) mmHg ABG pO2 (83-108) mmHg ABG HCO3 (21-25) mmol/L ABG Total CO2 (19-24) mmol/L ABG O2 Saturation (94-97) % BUN (7-17) mg/dL Creatinine (0.52-1.04) mg/dL Glucose (74-99) mg/dL POC Glucose (mg/dL) 147 H (70-110) mg/dL Calcium (8.4-10.2) mg/dL Erythropoietin 2338.86 H (2.00-30.00) mIU/mL Total Protein (6.3-8.2) g/dL Albumin (3.5-5.0) g/dL Procalcitonin 0.49 H (0.02-0.09) ng/mL Urine Appearance (Clear) Urine Protein (Negative) Urine Blood (Negative) Urine RBC (0-5) /hpf Urine WBC (0-5) /hpf Urine WBC Clumps (None) /hpf Ur Squamous Epith Cells (0-4) /hpf Urine Bacteria (None) /hpf Hyaline Casts (0-2) /lpf Urine Mucus (None) /hpf 03/20/23 03/20/23 03/20/23 Range/Units 11:30 13:55 14:13 RBC (3.80-5.40) m/uL Hgb (11.4-16.0) gm/dL Hct (34.0-46.0) % MCV (80.0-100.0) fL MCH (25.0-35.0) pg MCHC (31.0-37.0) g/dL RDW (11.5-15.5) % Lymphocytes # (Manual) (1.0-4.8) k/uL Monocytes # (Manual) (0-1.0) k/uL Myelocytes # (Manual) (0) k/uL Macrocytosis APTT 40.6 H (22.0-30.0) sec ABG pH 7.20 L (7.35-7.45) ABG pCO2 61 H (35-45) mmHg ABG pO2 139 H (83-108) mmHg ABG HCO3 (21-25) mmol/L ABG Total CO2 26 H (19-24) mmol/L ABG O2 Saturation 99.1 H (94-97) % BUN (7-17) mg/dL Creatinine (0.52-1.04) mg/dL Glucose (74-99) mg/dL POC Glucose (mg/dL) (70-110) mg/dL Calcium (8.4-10.2) mg/dL Erythropoietin (2.00-30.00) mIU/mL Total Protein (6.3-8.2) g/dL Albumin (3.5-5.0) g/dL Procalcitonin (0.02-0.09) ng/mL Urine Appearance Cloudy H (Clear) Urine Protein 1+ H (Negative) Urine Blood Large H (Negative) Urine RBC >182 H (0-5) /hpf Urine WBC 25 H (0-5) /hpf Urine WBC Clumps Few H (None) /hpf Ur Squamous Epith Cells 5 H (0-4) /hpf Urine Bacteria Occasional H (None) /hpf Hyaline Casts 20 H (0-2) /lpf Urine Mucus Rare H (None) /hpf 03/20/23 03/20/23 03/20/23 Range/Units 16:44 20:39 20:49 RBC (3.80-5.40) m/uL Hgb (11.4-16.0) gm/dL Hct (34.0-46.0) % MCV (80.0-100.0) fL MCH (25.0-35.0) pg MCHC (31.0-37.0) g/dL RDW (11.5-15.5) % Lymphocytes # (Manual) (1.0-4.8) k/uL Monocytes # (Manual) (0-1.0) k/uL Myelocytes # (Manual) (0) k/uL Macrocytosis APTT (22.0-30.0) sec ABG pH 7.22 L (7.35-7.45) ABG pCO2 62 H (35-45) mmHg ABG pO2 133 H (83-108) mmHg ABG HCO3 26 H (21-25) mmol/L ABG Total CO2 27 H (19-24) mmol/L ABG O2 Saturation 99.2 H (94-97) % BUN (7-17) mg/dL Creatinine (0.52-1.04) mg/dL Glucose (74-99) mg/dL POC Glucose (mg/dL) 179 H 164 H (70-110) mg/dL Calcium (8.4-10.2) mg/dL Erythropoietin (2.00-30.00) mIU/mL Total Protein (6.3-8.2) g/dL Albumin (3.5-5.0) g/dL Procalcitonin (0.02-0.09) ng/mL Urine Appearance (Clear) Urine Protein (Negative) Urine Blood (Negative) Urine RBC (0-5) /hpf Urine WBC (0-5) /hpf Urine WBC Clumps (None) /hpf Ur Squamous Epith Cells (0-4) /hpf Urine Bacteria (None) /hpf Hyaline Casts (0-2) /lpf Urine Mucus (None) /hpf 03/21/23 03/21/23 03/21/23 Range/Units 05:41 05:41 07:07 RBC 1.77 L (3.80-5.40) m/uL Hgb 6.7 L* (11.4-16.0) gm/dL Hct 22.2 L (34.0-46.0) % MCV 125.7 H (80.0-100.0) fL MCH 37.9 H (25.0-35.0) pg MCHC 30.2 L (31.0-37.0) g/dL RDW 20.3 H (11.5-15.5) % Lymphocytes # (Manual) 0.99 L (1.0-4.8) k/uL Monocytes # (Manual) 1.12 H (0-1.0) k/uL Myelocytes # (Manual) 0.19 H (0) k/uL Macrocytosis Marked A APTT (22.0-30.0) sec ABG pH (7.35-7.45) ABG pCO2 (35-45) mmHg ABG pO2 (83-108) mmHg ABG HCO3 (21-25) mmol/L ABG Total CO2 (19-24) mmol/L ABG O2 Saturation (94-97) % BUN 63 H (7-17) mg/dL Creatinine 2.85 H (0.52-1.04) mg/dL Glucose 151 H (74-99) mg/dL POC Glucose (mg/dL) 167 H (70-110) mg/dL Calcium 8.0 L (8.4-10.2) mg/dL Erythropoietin (2.00-30.00) mIU/mL Total Protein 5.6 L (6.3-8.2) g/dL Albumin 2.8 L (3.5-5.0) g/dL Procalcitonin (0.02-0.09) ng/mL Urine Appearance (Clear) Urine Protein (Negative) Urine Blood (Negative) Urine RBC (0-5) /hpf Urine WBC (0-5) /hpf Urine WBC Clumps (None) /hpf Ur Squamous Epith Cells (0-4) /hpf Urine Bacteria (None) /hpf Hyaline Casts (0-2) /lpf Urine Mucus (None) /hpf Assessment and Plan Plan: Acute on chronic dyspnea, chest x-ray does not show any focal infiltrates or evidence of pneumonia. There is moderate cardiomegaly without any significant pulmonary edema. NT proBNP was elevated. Consider possible mild diastolic congestive heart failure exacerbation. Echocardiogram revealed severely increased left ventricular wall thickness. Left ventricular ejection fraction 55-60%. Flattened septum in systole and diastole consistent with right ventricular pressure fluid and volume overload. Severe right ventricular dilatation with severe pulmonary hypertension and an RVSP of 99 mmHG. Acute on chronic hypercapnic/hypoxic respiratory failure, currently on BiPAP pressures of 14/8 with an FiO2 of 100%, awaiting a follow-up blood gas Diminished level of consciousness, altered mentation secondary to above, consider CO2 narcosis, neurologic exam is nonfocal Acute on chronic kidney injury, creatinine is up to 2.8, stable renal function and patient's urine operas improving Non-anion gap metabolic acidosis, likely secondary to above, serum bicarb is currently at 20 and the patient assumes a higher serum bicarb level due to her chronic hypercapnic respiratory failure, serum bicarb is improving while the patient is on a bicarb infusion Suspected right lower lobe pulmonary embolism, right lower extremity DVT. The patient is currently on IV heparin Acute hypotension, currently under investigation. The patient is currently on norepinephrine running at 0.04 microvascular kilogram per minute. The patient is also on dobutamine at 5 mcg/kg/m Severe pulmonary hypertension and right-sided heart failure Chronic hypoxemic respiratory failure, chronically utilizes 4 L/m nasal cannula. History of COPD, stable. Obesity/obesity hypoventilation syndrome. Obstructive sleep apnea, utilizes BiPAP at night with a support of 13/8 cm of water on outpatient basis Diabetes mellitus, type II. Acute on chronic kidney disease, likely secondary to intravascular volume depletion/cardiorenal factors with a right-sided failure Acute hyperkalemia secondary to acidosis Macrocytic anemia. Hypertension. Hypothyroidism. Morbid obesity, with a BMI of 43.1 kg/m. Never tobacco smoker. Plan: Continue BiPAP therapy for now at the same pressures of 14/8 cm of water FiO2 of 100% on repeated a blood gas and will do necessary ventilator changes Change the bicarb infusion to 40 mL an hour Continue Lasix 60 mg IV every 8 hours CVP is markedly elevated At a combination of norepinephrine and dobutamine at this point in time. COntinue IV Zosyn as an empiric antibiotic coverage Continue IV heparin Monitor mentation Cor status is full and there is a high risk for requiring intubation mechanical ventilation especially if his condition decompensates. We'll collaborate with the rest of the consultants on the care of this patient. Critical care evaluation that was done in more than 30 minutes excluding time to do any procedures. I discussed the case with the the bedside and he is aware of her critical condition. Time with Patient: Greater than 30
[2023-03-21 08:56] LABS: ABG HCO3 27 mmol/L (21-25); ABG Oxygen Saturation 98.7 % (94-97); ABG PCO2 63 mmHg (35-45); ABG PH 7.25 (7.35-7.45); ABG PO2 129 mmHg (83-108); ABG TCO2 29 mmol/L (19-24); Allen Test Performed? Yes
[2023-03-21] MEDS ORDERED: DEXTROSE 5% IN WATER 1,000 ML with SODIUM BICARB (1 MEQ/ML) 150 ML IV SCH (09:00)
[2023-03-21] MEDS: INSULIN ASPART (NovoLOG) 100 UNIT/ML VIAL SQ SCH ×4 (09:16→21:09)
[2023-03-21] MEDS: PIPERACILLIN-TAZOBACTAM 3.375 GM in SODIUM CHLORIDE 0.9% 100 ML IVPB SCH ×2 (09:52→21:09)
[2023-03-21] MEDS: PANTOPRAZOLE 40 MG/10 ML VIAL IV SCH (09:52)
--- NOTE | 2023-03-21 10:18 | P.PN ---
Subjective Patient is seen for follow-up for acute kidney injury. She is admitted to the hospital with complaints of shortness of breath. VQ scan showed intermediate possibility for PE and patient is maintained on IV heparin. No significant findings of CHF on chest x-ray. Blood pressure remains on the lower side. O2 requirements were higher and therefore patient was started on Lasix. Urine output at 6200 ML per hour. Also started on dobutamine due to severe right heart failure. Serum creatinine staying at 2.8 mg/dL. Objective - Vital Signs Vital signs: Vital Signs Temp 97.4 F L 03/21/23 09:44 Pulse 109 H 03/21/23 09:44 Resp 35 H 03/21/23 09:44 BP 127/43 03/21/23 09:44 Pulse Ox 90 L 03/21/23 09:44 FiO2 60 03/21/23 09:00 Intake & Output 03/20/23 03/21/23 03/21/23 18:59 06:59 18:59 Intake Total 6712.664 9522.162 368.890 Output Total 203 835 200 Balance 977.068 361.162 168.890 Weight 124.9 kg Intake: IV 735 900 225 Dextrose 5% in Water 1, 635 900 225 000 ml @ 75 mls/hr IV . [id number] [facility] with Sodium Bicarb (1 Meq/ml) 150 ml Rx#:[id number] Piperacillin-Tazobactam 3 100 .375 gm In Sodium Chloride 0.9% 100 ml @ 25 mls/hr IVPB Q12HR [facility] Rx #:[id number] Intake, IV Titration 445.068 296.162 143.890 Amount Heparin Sod,Pork in 0.45% 42.105 NaCl 25,000 unit In 0.45 % NaCl 1 250ml.bag @ 18 UNITS/KG/HR 21.8 mls/hr IV .[id number] [facility] Rx#: [id number] Norepinephrine 4 mg In 402.963 296.162 143.890 Sodium Chloride 0.9% 250 ml @ 0.03 MCG/KG/MIN 13. 843 mls/hr IV .[id number] [facility] Rx#:[id number] Blood Product 0 Unit 0 Output: Urine 203 835 200 Other: Voiding Method Indwelling Catheter Indwelling Catheter - Exam Patient is comfortable, no acute distress Awake and on BiPAP, confused Examination of the heart S1 and S2 Examination of the lungs bilateral breath sounds are heard Abdomen is soft nontender Examination of the lower extremities shows chronic skin changes with much decreased edema. [employer] exam grossly intact - Labs CBC & Chem 7: 03/21/23 05:41 03/21/23 05:41 Labs: Abnormal Lab Results - Last 24 Hours (Table) 03/15/23 03/20/23 03/20/23 Range/Units 17:41 03:26 11:24 RBC (3.80-5.40) m/uL Hgb (11.4-16.0) gm/dL Hct (34.0-46.0) % MCV (80.0-100.0) fL MCH (25.0-35.0) pg MCHC (31.0-37.0) g/dL RDW (11.5-15.5) % Lymphocytes # (Manual) (1.0-4.8) k/uL Monocytes # (Manual) (0-1.0) k/uL Myelocytes # (Manual) (0) k/uL Macrocytosis APTT (22.0-30.0) sec ABG pH (7.35-7.45) ABG pCO2 (35-45) mmHg ABG pO2 (83-108) mmHg ABG HCO3 (21-25) mmol/L ABG Total CO2 (19-24) mmol/L ABG O2 Saturation (94-97) % BUN (7-17) mg/dL Creatinine (0.52-1.04) mg/dL Glucose (74-99) mg/dL POC Glucose (mg/dL) 147 H (70-110) mg/dL Calcium (8.4-10.2) mg/dL Erythropoietin 2338.86 H (2.00-30.00) mIU/mL Total Protein (6.3-8.2) g/dL Albumin (3.5-5.0) g/dL Procalcitonin 0.49 H (0.02-0.09) ng/mL Urine Appearance (Clear) Urine Protein (Negative) Urine Blood (Negative) Urine RBC (0-5) /hpf Urine WBC (0-5) /hpf Urine WBC Clumps (None) /hpf Ur Squamous Epith Cells (0-4) /hpf Urine Bacteria (None) /hpf Hyaline Casts (0-2) /lpf Urine Mucus (None) /hpf Crossmatch 03/20/23 03/20/23 03/20/23 Range/Units 11:30 13:55 14:13 RBC (3.80-5.40) m/uL Hgb (11.4-16.0) gm/dL Hct (34.0-46.0) % MCV (80.0-100.0) fL MCH (25.0-35.0) pg MCHC (31.0-37.0) g/dL RDW (11.5-15.5) % Lymphocytes # (Manual) (1.0-4.8) k/uL Monocytes # (Manual) (0-1.0) k/uL Myelocytes # (Manual) (0) k/uL Macrocytosis APTT 40.6 H (22.0-30.0) sec ABG pH 7.20 L (7.35-7.45) ABG pCO2 61 H (35-45) mmHg ABG pO2 139 H (83-108) mmHg ABG HCO3 (21-25) mmol/L ABG Total CO2 26 H (19-24) mmol/L ABG O2 Saturation 99.1 H (94-97) % BUN (7-17) mg/dL Creatinine (0.52-1.04) mg/dL Glucose (74-99) mg/dL POC Glucose (mg/dL) (70-110) mg/dL Calcium (8.4-10.2) mg/dL Erythropoietin (2.00-30.00) mIU/mL Total Protein (6.3-8.2) g/dL Albumin (3.5-5.0) g/dL Procalcitonin (0.02-0.09) ng/mL Urine Appearance Cloudy H (Clear) Urine Protein 1+ H (Negative) Urine Blood Large H (Negative) Urine RBC >182 H (0-5) /hpf Urine WBC 25 H (0-5) /hpf Urine WBC Clumps Few H (None) /hpf Ur Squamous Epith Cells 5 H (0-4) /hpf Urine Bacteria Occasional H (None) /hpf Hyaline Casts 20 H (0-2) /lpf Urine Mucus Rare H (None) /hpf Crossmatch 03/20/23 03/20/23 03/20/23 Range/Units 16:44 20:39 20:49 RBC (3.80-5.40) m/uL Hgb (11.4-16.0) gm/dL Hct (34.0-46.0) % MCV (80.0-100.0) fL MCH (25.0-35.0) pg MCHC (31.0-37.0) g/dL RDW (11.5-15.5) % Lymphocytes # (Manual) (1.0-4.8) k/uL Monocytes # (Manual) (0-1.0) k/uL Myelocytes # (Manual) (0) k/uL Macrocytosis APTT (22.0-30.0) sec ABG pH 7.22 L (7.35-7.45) ABG pCO2 62 H (35-45) mmHg ABG pO2 133 H (83-108) mmHg ABG HCO3 26 H (21-25) mmol/L ABG Total CO2 27 H (19-24) mmol/L ABG O2 Saturation 99.2 H (94-97) % BUN (7-17) mg/dL Creatinine (0.52-1.04) mg/dL Glucose (74-99) mg/dL POC Glucose (mg/dL) 179 H 164 H (70-110) mg/dL Calcium (8.4-10.2) mg/dL Erythropoietin (2.00-30.00) mIU/mL Total Protein (6.3-8.2) g/dL Albumin (3.5-5.0) g/dL Procalcitonin (0.02-0.09) ng/mL Urine Appearance (Clear) Urine Protein (Negative) Urine Blood (Negative) Urine RBC (0-5) /hpf Urine WBC (0-5) /hpf Urine WBC Clumps (None) /hpf Ur Squamous Epith Cells (0-4) /hpf Urine Bacteria (None) /hpf Hyaline Casts (0-2) /lpf Urine Mucus (None) /hpf Crossmatch 03/21/23 03/21/23 03/21/23 Range/Units 05:41 05:41 07:07 RBC 1.77 L (3.80-5.40) m/uL Hgb 6.7 L* (11.4-16.0) gm/dL Hct 22.2 L (34.0-46.0) % MCV 125.7 H (80.0-100.0) fL MCH 37.9 H (25.0-35.0) pg MCHC 30.2 L (31.0-37.0) g/dL RDW 20.3 H (11.5-15.5) % Lymphocytes # (Manual) 0.99 L (1.0-4.8) k/uL Monocytes # (Manual) 1.12 H (0-1.0) k/uL Myelocytes # (Manual) 0.19 H (0) k/uL Macrocytosis Marked A APTT (22.0-30.0) sec ABG pH (7.35-7.45) ABG pCO2 (35-45) mmHg ABG pO2 (83-108) mmHg ABG HCO3 (21-25) mmol/L ABG Total CO2 (19-24) mmol/L ABG O2 Saturation (94-97) % BUN 63 H (7-17) mg/dL Creatinine 2.85 H (0.52-1.04) mg/dL Glucose 151 H (74-99) mg/dL POC Glucose (mg/dL) 167 H (70-110) mg/dL Calcium 8.0 L (8.4-10.2) mg/dL Erythropoietin (2.00-30.00) mIU/mL Total Protein 5.6 L (6.3-8.2) g/dL Albumin 2.8 L (3.5-5.0) g/dL Procalcitonin (0.02-0.09) ng/mL Urine Appearance (Clear) Urine Protein (Negative) Urine Blood (Negative) Urine RBC (0-5) /hpf Urine WBC (0-5) /hpf Urine WBC Clumps (None) /hpf Ur Squamous Epith Cells (0-4) /hpf Urine Bacteria (None) /hpf Hyaline Casts (0-2) /lpf Urine Mucus (None) /hpf Crossmatch 03/21/23 03/21/23 Range/Units 07:51 08:55 RBC (3.80-5.40) m/uL Hgb (11.4-16.0) gm/dL Hct (34.0-46.0) % MCV (80.0-100.0) fL MCH (25.0-35.0) pg MCHC (31.0-37.0) g/dL RDW (11.5-15.5) % Lymphocytes # (Manual) (1.0-4.8) k/uL Monocytes # (Manual) (0-1.0) k/uL Myelocytes # (Manual) (0) k/uL Macrocytosis APTT (22.0-30.0) sec ABG pH 7.25 L (7.35-7.45) ABG pCO2 63 H (35-45) mmHg ABG pO2 129 H (83-108) mmHg ABG HCO3 27 H (21-25) mmol/L ABG Total CO2 29 H (19-24) mmol/L ABG O2 Saturation 98.7 H (94-97) % BUN (7-17) mg/dL Creatinine (0.52-1.04) mg/dL Glucose (74-99) mg/dL POC Glucose (mg/dL) (70-110) mg/dL Calcium (8.4-10.2) mg/dL Erythropoietin (2.00-30.00) mIU/mL Total Protein (6.3-8.2) g/dL Albumin (3.5-5.0) g/dL Procalcitonin (0.02-0.09) ng/mL Urine Appearance (Clear) Urine Protein (Negative) Urine Blood (Negative) Urine RBC (0-5) /hpf Urine WBC (0-5) /hpf Urine WBC Clumps (None) /hpf Ur Squamous Epith Cells (0-4) /hpf Urine Bacteria (None) /hpf Hyaline Casts (0-2) /lpf Urine Mucus (None) /hpf Crossmatch See Detail Assessment and Plan Assessment: 1. Acute kidney injury, ATN mostly associated with hypotension. UA shows trace protein and moderate blood. Ultrasound of the kidneys shows no evidence of obstruction. Back on diuretics due to increased oxygen requirement. Significant right heart failure noted. Patient was also started on dobutamine. 2. Intermediate possibility of PE maintained on IV heparin. Now discontinued 3. Hyperkalemia associated with acute kidney injury, improved. Rule out urine retention. Blood sugar is not elevated. 4. Anemia , iron replete , based on labs on 03/08/2023. Being followed by [facility] 5. Obstructive sleep apnea maintained on home O2 6. Morbid obesity 7. History of diastolic CHF with severe right heart failure 8. History of von Willebrand's disease Plan: DC bicarb drip Continue with Lasix Repeat labs in a.m. Avoid nephrotoxic agents Agree with packed RBCs transfusion.
[2023-03-21 11:08] LABS: Glucose,Whole Blood 188 mg/dL (70-110)
[2023-03-21] MEDS: TAMSULOSIN 0.4 MG CAP.ER.24H PO SCH (11:09)
[2023-03-21] MEDS: CYANOCOBALAMIN 500 MCG TAB PO SCH (11:09)
[2023-03-21] MEDS: METOPROLOL SUCCINATE (ER) 25 MG TAB.ER.24H PO SCH (11:10)
--- NOTE | 2023-03-21 12:43 | P.PN ---
Subjective Progress Note Date: 03/21/23 Patient seen in the ICU at today's visit. Continues on BiPAP, SPO2 100%. Pt more alert today. Reporting breathing has improved. Hgb 6.7 today, 1 unit PRBCs ordered. Objective - Vital Signs Vital signs: Vital Signs Temp 97.7 F 03/21/23 09:54 Pulse 105 H 03/21/23 11:50 Resp 34 H 03/21/23 11:00 BP 112/48 03/21/23 11:15 Pulse Ox 93 L 03/21/23 11:15 FiO2 80 03/21/23 11:14 Intake & Output 03/20/23 03/21/23 03/21/23 18:59 06:59 18:59 Intake Total 5463.436 3495.162 613.278 Output Total 203 835 300 Balance 977.068 361.162 313.278 Weight 124.9 kg 124.9 kg Intake: IV 735 900 417 Dextrose 5% in Water 1, 635 900 305 000 ml @ 75 mls/hr IV . [id number] [facility] with Sodium Bicarb (1 Meq/ml) 150 ml Rx#:[id number] Piperacillin-Tazobactam 3 100 100 .375 gm In Sodium Chloride 0.9% 100 ml @ 25 mls/hr IVPB Q12HR [facility] Rx #:[id number] Pressure Bag (0.9 Sodium 12 Chloride) Intake, IV Titration 445.068 296.162 196.278 Amount Heparin Sod,Pork in 0.45% 42.105 52.388 NaCl 25,000 unit In 0.45 % NaCl 1 250ml.bag @ 18 UNITS/KG/HR 21.8 mls/hr IV .[id number] [facility] Rx#: [id number] Norepinephrine 4 mg In 402.963 296.162 143.890 Sodium Chloride 0.9% 250 ml @ 0.03 MCG/KG/MIN 13. 843 mls/hr IV .[id number] [facility] Rx#:[id number] Blood Product 0 Unit 0 Output: Urine 203 835 300 Other: Voiding Method Indwelling Catheter Indwelling Catheter - Constitutional General appearance: Present: no acute distress, obese - EENT ENT: Present: hearing grossly normal - Respiratory Details: bipap in place, breathing even and unlabored - Cardiovascular Details: skin warm and dry - Integumentary Integumentary: Absent: cyanotic - Musculoskeletal Musculoskeletal: Present: generalized weakness - Psychiatric Psychiatric: Present: A&O x's 3 - Labs CBC & Chem 7: 03/21/23 05:41 03/21/23 05:41 Labs: Abnormal Lab Results - Last 24 Hours (Table) 03/15/23 03/20/23 03/20/23 Range/Units 17:41 03:26 11:30 RBC (3.80-5.40) m/uL Hgb (11.4-16.0) gm/dL Hct (34.0-46.0) % MCV (80.0-100.0) fL MCH (25.0-35.0) pg MCHC (31.0-37.0) g/dL RDW (11.5-15.5) % Lymphocytes # (Manual) (1.0-4.8) k/uL Monocytes # (Manual) (0-1.0) k/uL Myelocytes # (Manual) (0) k/uL Macrocytosis APTT (22.0-30.0) sec ABG pH (7.35-7.45) ABG pCO2 (35-45) mmHg ABG pO2 (83-108) mmHg ABG HCO3 (21-25) mmol/L ABG Total CO2 (19-24) mmol/L ABG O2 Saturation (94-97) % BUN (7-17) mg/dL Creatinine (0.52-1.04) mg/dL Glucose (74-99) mg/dL POC Glucose (mg/dL) (70-110) mg/dL Calcium (8.4-10.2) mg/dL Erythropoietin 2338.86 H (2.00-30.00) mIU/mL Total Protein (6.3-8.2) g/dL Albumin (3.5-5.0) g/dL Procalcitonin 0.49 H (0.02-0.09) ng/mL Urine Appearance Cloudy H (Clear) Urine Protein 1+ H (Negative) Urine Blood Large H (Negative) Urine RBC >182 H (0-5) /hpf Urine WBC 25 H (0-5) /hpf Urine WBC Clumps Few H (None) /hpf Ur Squamous Epith Cells 5 H (0-4) /hpf Urine Bacteria Occasional H (None) /hpf Hyaline Casts 20 H (0-2) /lpf Urine Mucus Rare H (None) /hpf Crossmatch 03/20/23 03/20/23 03/20/23 Range/Units 13:55 14:13 16:44 RBC (3.80-5.40) m/uL Hgb (11.4-16.0) gm/dL Hct (34.0-46.0) % MCV (80.0-100.0) fL MCH (25.0-35.0) pg MCHC (31.0-37.0) g/dL RDW (11.5-15.5) % Lymphocytes # (Manual) (1.0-4.8) k/uL Monocytes # (Manual) (0-1.0) k/uL Myelocytes # (Manual) (0) k/uL Macrocytosis APTT 40.6 H (22.0-30.0) sec ABG pH 7.20 L (7.35-7.45) ABG pCO2 61 H (35-45) mmHg ABG pO2 139 H (83-108) mmHg ABG HCO3 (21-25) mmol/L ABG Total CO2 26 H (19-24) mmol/L ABG O2 Saturation 99.1 H (94-97) % BUN (7-17) mg/dL Creatinine (0.52-1.04) mg/dL Glucose (74-99) mg/dL POC Glucose (mg/dL) 179 H (70-110) mg/dL Calcium (8.4-10.2) mg/dL Erythropoietin (2.00-30.00) mIU/mL Total Protein (6.3-8.2) g/dL Albumin (3.5-5.0) g/dL Procalcitonin (0.02-0.09) ng/mL Urine Appearance (Clear) Urine Protein (Negative) Urine Blood (Negative) Urine RBC (0-5) /hpf Urine WBC (0-5) /hpf Urine WBC Clumps (None) /hpf Ur Squamous Epith Cells (0-4) /hpf Urine Bacteria (None) /hpf Hyaline Casts (0-2) /lpf Urine Mucus (None) /hpf Crossmatch 03/20/23 03/20/23 03/21/23 Range/Units 20:39 20:49 05:41 RBC 1.77 L (3.80-5.40) m/uL Hgb 6.7 L* (11.4-16.0) gm/dL Hct 22.2 L (34.0-46.0) % MCV 125.7 H (80.0-100.0) fL MCH 37.9 H (25.0-35.0) pg MCHC 30.2 L (31.0-37.0) g/dL RDW 20.3 H (11.5-15.5) % Lymphocytes # (Manual) 0.99 L (1.0-4.8) k/uL Monocytes # (Manual) 1.12 H (0-1.0) k/uL Myelocytes # (Manual) 0.19 H (0) k/uL Macrocytosis Marked A APTT (22.0-30.0) sec ABG pH 7.22 L (7.35-7.45) ABG pCO2 62 H (35-45) mmHg ABG pO2 133 H (83-108) mmHg ABG HCO3 26 H (21-25) mmol/L ABG Total CO2 27 H (19-24) mmol/L ABG O2 Saturation 99.2 H (94-97) % BUN (7-17) mg/dL Creatinine (0.52-1.04) mg/dL Glucose (74-99) mg/dL POC Glucose (mg/dL) 164 H (70-110) mg/dL Calcium (8.4-10.2) mg/dL Erythropoietin (2.00-30.00) mIU/mL Total Protein (6.3-8.2) g/dL Albumin (3.5-5.0) g/dL Procalcitonin (0.02-0.09) ng/mL Urine Appearance (Clear) Urine Protein (Negative) Urine Blood (Negative) Urine RBC (0-5) /hpf Urine WBC (0-5) /hpf Urine WBC Clumps (None) /hpf Ur Squamous Epith Cells (0-4) /hpf Urine Bacteria (None) /hpf Hyaline Casts (0-2) /lpf Urine Mucus (None) /hpf Crossmatch 03/21/23 03/21/23 03/21/23 Range/Units 05:41 07:07 07:51 RBC (3.80-5.40) m/uL Hgb (11.4-16.0) gm/dL Hct (34.0-46.0) % MCV (80.0-100.0) fL MCH (25.0-35.0) pg MCHC (31.0-37.0) g/dL RDW (11.5-15.5) % Lymphocytes # (Manual) (1.0-4.8) k/uL Monocytes # (Manual) (0-1.0) k/uL Myelocytes # (Manual) (0) k/uL Macrocytosis APTT (22.0-30.0) sec ABG pH (7.35-7.45) ABG pCO2 (35-45) mmHg ABG pO2 (83-108) mmHg ABG HCO3 (21-25) mmol/L ABG Total CO2 (19-24) mmol/L ABG O2 Saturation (94-97) % BUN 63 H (7-17) mg/dL Creatinine 2.85 H (0.52-1.04) mg/dL Glucose 151 H (74-99) mg/dL POC Glucose (mg/dL) 167 H (70-110) mg/dL Calcium 8.0 L (8.4-10.2) mg/dL Erythropoietin (2.00-30.00) mIU/mL Total Protein 5.6 L (6.3-8.2) g/dL Albumin 2.8 L (3.5-5.0) g/dL Procalcitonin (0.02-0.09) ng/mL Urine Appearance (Clear) Urine Protein (Negative) Urine Blood (Negative) Urine RBC (0-5) /hpf Urine WBC (0-5) /hpf Urine WBC Clumps (None) /hpf Ur Squamous Epith Cells (0-4) /hpf Urine Bacteria (None) /hpf Hyaline Casts (0-2) /lpf Urine Mucus (None) /hpf Crossmatch See Detail 03/21/23 03/21/23 Range/Units 08:55 11:07 RBC (3.80-5.40) m/uL Hgb (11.4-16.0) gm/dL Hct (34.0-46.0) % MCV (80.0-100.0) fL MCH (25.0-35.0) pg MCHC (31.0-37.0) g/dL RDW (11.5-15.5) % Lymphocytes # (Manual) (1.0-4.8) k/uL Monocytes # (Manual) (0-1.0) k/uL Myelocytes # (Manual) (0) k/uL Macrocytosis APTT (22.0-30.0) sec ABG pH 7.25 L (7.35-7.45) ABG pCO2 63 H (35-45) mmHg ABG pO2 129 H (83-108) mmHg ABG HCO3 27 H (21-25) mmol/L ABG Total CO2 29 H (19-24) mmol/L ABG O2 Saturation 98.7 H (94-97) % BUN (7-17) mg/dL Creatinine (0.52-1.04) mg/dL Glucose (74-99) mg/dL POC Glucose (mg/dL) 188 H (70-110) mg/dL Calcium (8.4-10.2) mg/dL Erythropoietin (2.00-30.00) mIU/mL Total Protein (6.3-8.2) g/dL Albumin (3.5-5.0) g/dL Procalcitonin (0.02-0.09) ng/mL Urine Appearance (Clear) Urine Protein (Negative) Urine Blood (Negative) Urine RBC (0-5) /hpf Urine WBC (0-5) /hpf Urine WBC Clumps (None) /hpf Ur Squamous Epith Cells (0-4) /hpf Urine Bacteria (None) /hpf Hyaline Casts (0-2) /lpf Urine Mucus (None) /hpf Crossmatch Assessment and Plan (1) Acute exacerbation of chronic obstructive pulmonary disease Current Visit: Yes Status: Acute Priority: High Code(s): J44.1 - CHRONIC OBSTRUCTIVE PULMONARY DISEASE W (ACUTE) EXACERBATION SNOMED Code(s): 119706399 (2) Macrocytic anemia Current Visit: Yes Status: Acute Priority: Medium Code(s): D53.9 - NUTRITIONAL ANEMIA, UNSPECIFIED SNOMED Code(s): 00592346 (3) Pulmonary embolism Current Visit: Yes Status: Acute Priority: High Code(s): I26.99 - OTHER PULMONARY EMBOLISM WITHOUT ACUTE COR PULMONALE SNOMED Code(s): 48352228 Plan: Reported von Willebrand disease -Unclear about circumstances of diagnosis. Reports diagnosed 5 years ago at [facility]. Does not f/u with hematology. Reports no history of bleeding problems -No lab work found within [place] EMR to indicate the same VQ scan for SOB-probability intermediate for PE in RLL Baseline BLE doppler-thrombus in the rt leg CFV/GSV junction, refused popliteal assessment and the lt leg -Pt currently is denying any bleeding episodes, no precautions for surgery/invasive procedures. -Irregardless of von Willebrand disease, if pt has VTE/PE, anticoagulation needs to be given. Currently heparin drip. -Will see if renal function improves, may be able to do CTA. Will also see if pt improves if she can tolerate completion of BLE doppler -Provoked vs unprovoked clot, difficult to determine. Pt states she moves very little, this is chronic and had recent hospitalization. -Patient will need to be transitioned to oral anticoagulation with Eliquis prior to discharge, can be transitioned if no procedures planned. Pt will need to closely monitor for any signs of bleeding and have f/u for hgb monitoring. Pt would need minimum 3 months anticoagulation, if pt still rather immobilized would have to consider extending anticoagulation Macrocytic anemia -Iron studies not consistent with SAHARA, Vitamin B12 low end of normal at 312, MMA elevated. Folate normal. -Vitamin B12 1000 mcg was started empirically. She has notably refused vitamin B12 injections. PO Vitamin B12 has been started. -Thyroid studies revealed subclinical hypothyroidism -Med list reviewed, no med associated with macrocytosis seen -She was noted to have near normal hemoglobin in 2020 -Hgb 6.7 today, 1 unit PRBCs ordered. Hematuria noted on UA, no gross blood noted. Denies rectal bleeding/melena. IJ was placed yesterday with some bleeding to site, may have had some degree of effect on drop in hemoglobin. -Once pt acutely recovers should consider BM biopsy to further evaluate macrocytic anemia -Transfuse for Hgb <7 or if symptomatic
[2023-03-21 13:54] LABS: Anisocytosis Moderate; HCT 24.4 % (34.0-46.0); HGB 7.5 gm/dL (11.4-16.0); Hypochromasia Marked; MCH 37.3 pg (25.0-35.0); MCHC 30.7 g/dL (31.0-37.0); MCV 121.6 fL (80.0-100.0); Macrocytosis Marked; Platelet Count 292 k/uL (150-450); Poikilocytosis Slight; RBC 2.01 m/uL (3.80-5.40); RDW 22.6 % (11.5-15.5)
--- NOTE | 2023-03-21 14:05 | P.PN ---
Subjective Progress Note Date: 03/21/23 Patient is a 78-year-old lady past medical history significant for COPD, obesity/obesity hypoventilation syndrome, chronic hypoxemic respiratory failure, obstructive sleep apnea, CHF, diabetes mellitus, hypertension, hypothyroidism who presented to the hospital for possible worsening shortness of breath. She was in the hospital beginning of the month at which time she had a fall. Patient stated ever since she has been discharged she has been worsening shortness of breath. Shortness of breath is present on exertion and at rest. Patient states that only walking across the room makes her short of breath and winded. Denies any chest pain. There was no complain of any fever or chills. Denies any cough. Denies any nausea, vomiting abdominal pain. Patient was also going of lethargy and weakness. Because of worsening shortness of breath, patient came to the ER Initial lab work done in the ER showed WBC 5.1, hemoglobin 8.1, platelet count 407, sodium 138, potassium 5.5, BUNs 46, creatinine 1.87 and troponin 0.012, proBNP 16792 Influenza A not detected Influenza B not detected RSV not detected COVID-19 not detected EKG done in the ER showed heart rate of 86 , no ST segment elevation or depression seen, no T-wave inversions seen. Chest x-ray done in the ER showed moderate cardiac megaly, no pulmonary edema or infiltrate seen VQ scan done showed intermediate possibility for pulmonary embolism given the moderate sized defect at the right base Patient admitted to internal medicine service 03/16. Patient seen and examined. Patient had rapid response this morning because of respiratory distress, patient's pulse ox dropped into 70s, patient had to be placed on BiPAP. Doing much better now. Denies any shortness of breath. Patient is alert and oriented, answering question appropriately 2-D echo done showed normal left ventricle size and systolic function with severe hypertrophy, severely dilated right ventricle with reduced function and severe pulmonary hypertension, severe tricuspid with mild to moderate mitral regurg 03/17. Patient seen and examined. Patient was placed on BiPAP, FiO2 40%. States she feels much better. Patient was later switched to nasal cannula oxygen at 5 L. Patient is refusing vitamin B12 injections. Denies any cough. Denies any fever or chills. 03/18. Patient seen and examined. Labs were the brace 5.1, hemoglobin 7.5, platelet count 315. Heparin was discontinued, switched to oral Eliquis. Continues to be on BiPAP but breathing has improved a lot. Patient tired this morning, she wants to rest. Vital signs stable 03/19. Patient seen and examined. Patient currently on BiPAP with an FiO2 40%. Patient is responsive, answering questions appropriately. On BiPAP she states that she feels much better. States she wants to eat and wants to get off the BiPAP. 03/20. Patient seen and examined. Patient had rapid response called overnight for low blood pressure, patient was evaluated by A team and transferred to ICU. Currently on BiPAP, opened eyes, follows commands, he recognizes his family 03/21. Patient seen and examined. Patient continues to be on BiPAP, currently 1000% FiO2. Patient continues to be lethargic but arousable. Currently on dobutamine and Levophed drip. Patient also on IV Lasix 60 mg every 8. Family at the bedside REVIEW OF SYSTEMS: Cannot be obtained as patient is currently lethargic PHYSICAL EXAMINATION: GENERAL: The patient is alert , not in any acute distress. Well developed, well nourished. HEENT: Pupils are round and equally reacting to light. EOMI. No scleral icterus. No conjunctival pallor. Normocephalic, atraumatic. No pharyngeal erythema. No thyromegaly. CARDIOVASCULAR: S1 and S2 present. No murmurs, rubs, or gallops. PULMONARY: Diminished breath sounds at the bases bilaterally, rhonchi audible at the bases ABDOMEN: Soft, nontender, nondistended, normoactive bowel sounds. No palpable organomegaly. MUSCULOSKELETAL: No joint swelling or deformity. EXTREMITIES: No cyanosis, clubbing, or pedal edema. NEUROLOGICAL: Gross neurological examination did not reveal any focal deficits. SKIN: No rashes. Assessment and plan Acute on chronic diastolic CHF Hyperkalemia Acute on chronic kidney disease V/Q scan showing intermediate probably for PE On occlusive thrombus in the right saphenofemoral junction Chronic hypoxemic respiratory failure, chronically utilizes 4 L/m nasal cannula History of COPD, stable Obesity/obesity hypoventilation syndrome Obstructive sleep apnea, utilizes BiPAP at night with a support of 13/ Diabetes mellitus, type II Macrocytic anemia, no acute blood loss noted. Hypertension Hypothyroidism Morbid obesity, with a BMI of 43.1 kg/m Monitor vital signs Monitor CBC Monitor CMP Continue telemetry monitoring Continue BiPAP Trend troponins. Strict I's and O's, daily weights, continue IV Lasix 60 mg every 8 Continue IV Levophed and dobutamine Continue IV heparin drip Avoid nephrotoxic agents. Aggressive bronchopulmonary hygiene Continue breathing treatments 2-D echo done showed normal left ventricle size and systolic function with severe hypertrophy, severely dilated right ventricle with reduced function and severe pulmonary hypertension, severe tricuspid with mild to moderate mitral regurg In regards to acute anemia,continue to monitor H&H transfuse for hemodynamic instability or hemoglobin less than 7, and anemia workup noted. Hematology oncology following, recommend oral anticoagulation for at least 3 months In regards to diabetes mellitus, continue sliding scale insulin nephrology following Pulmonology following Labs and medication were reviewed.. Continue same treatment. Continue with symptomatic treatment. Resume home medication. Monitor labs and vitals. DVT and GI prophylaxis. Further recommendations as per clinical course of the patient Dictation was produced using [employer] dictation software. please excuse any g rammatical, word or spelling errors. Objective - Vital Signs Vital signs: Vital Signs Temp 97.5 F L 03/21/23 11:45 Pulse 106 H 03/21/23 13:00 Resp 32 H 03/21/23 13:00 BP 114/52 03/21/23 13:00 Pulse Ox 93 L 03/21/23 13:00 FiO2 80 03/21/23 12:00 Intake & Output 03/20/23 03/21/23 03/21/23 18:59 06:59 18:59 Intake Total 3284.261 0144.162 1081.262 Output Total 203 835 430 Balance 977.068 361.162 651.262 Weight 124.9 kg 124.9 kg Intake: IV 735 900 503 Dextrose 5% in Water 1, 80 000 ml @ 40 mls/hr IV . Q24H RUBINA with Sodium Bicarb (1 Meq/ml) 150 ml Rx#:[id number] Dextrose 5% in Water 1, 635 900 305 000 ml @ 75 mls/hr IV . [id number] RUBINA with Sodium Bicarb (1 Meq/ml) 150 ml Rx#:[id number] Piperacillin-Tazobactam 3 100 100 .375 gm In Sodium Chloride 0.9% 100 ml @ 25 mls/hr IVPB Q12HR RUBINA Rx #:[id number] Pressure Bag (0.9 Sodium 18 Chloride) Intake, IV Titration 445.068 296.162 268.262 Amount Heparin Sod,Pork in 0.45% 42.105 52.388 NaCl 25,000 unit In 0.45 % NaCl 1 250ml.bag @ 18 UNITS/KG/HR 21.8 mls/hr IV .[id number] RUBINA Rx#: [id number] Norepinephrine 4 mg In 402.963 296.162 215.874 Sodium Chloride 0.9% 250 ml @ 0.03 MCG/KG/MIN 13. 843 mls/hr IV .[id number] RUBINA Rx#:[id number] Blood Product 310 Rc As-1 Unit 310 [id number] Output: Urine 203 835 430 Other: Voiding Method Indwelling Catheter Indwelling Catheter Indwelling Catheter - Labs CBC & Chem 7: 03/21/23 05:41 03/21/23 05:41 Labs: Abnormal Lab Results - Last 24 Hours (Table) 03/20/23 03/20/23 03/20/23 Range/Units 03:26 11:30 13:55 RBC (3.80-5.40) m/uL Hgb (11.4-16.0) gm/dL Hct (34.0-46.0) % MCV (80.0-100.0) fL MCH (25.0-35.0) pg MCHC (31.0-37.0) g/dL RDW (11.5-15.5) % Lymphocytes # (Manual) (1.0-4.8) k/uL Monocytes # (Manual) (0-1.0) k/uL Myelocytes # (Manual) (0) k/uL Macrocytosis APTT 40.6 H (22.0-30.0) sec ABG pH (7.35-7.45) ABG pCO2 (35-45) mmHg ABG pO2 (83-108) mmHg ABG HCO3 (21-25) mmol/L ABG Total CO2 (19-24) mmol/L ABG O2 Saturation (94-97) % BUN (7-17) mg/dL Creatinine (0.52-1.04) mg/dL Glucose (74-99) mg/dL POC Glucose (mg/dL) (70-110) mg/dL Calcium (8.4-10.2) mg/dL Total Protein (6.3-8.2) g/dL Albumin (3.5-5.0) g/dL Procalcitonin 0.49 H (0.02-0.09) ng/mL Urine Appearance Cloudy H (Clear) Urine Protein 1+ H (Negative) Urine Blood Large H (Negative) Urine RBC >182 H (0-5) /hpf Urine WBC 25 H (0-5) /hpf Urine WBC Clumps Few H (None) /hpf Ur Squamous Epith Cells 5 H (0-4) /hpf Urine Bacteria Occasional H (None) /hpf Hyaline Casts 20 H (0-2) /lpf Urine Mucus Rare H (None) /hpf Crossmatch 03/20/23 03/20/23 03/20/23 Range/Units 14:13 16:44 20:39 RBC (3.80-5.40) m/uL Hgb (11.4-16.0) gm/dL Hct (34.0-46.0) % MCV (80.0-100.0) fL MCH (25.0-35.0) pg MCHC (31.0-37.0) g/dL RDW (11.5-15.5) % Lymphocytes # (Manual) (1.0-4.8) k/uL Monocytes # (Manual) (0-1.0) k/uL Myelocytes # (Manual) (0) k/uL Macrocytosis APTT (22.0-30.0) sec ABG pH 7.20 L (7.35-7.45) ABG pCO2 61 H (35-45) mmHg ABG pO2 139 H (83-108) mmHg ABG HCO3 (21-25) mmol/L ABG Total CO2 26 H (19-24) mmol/L ABG O2 Saturation 99.1 H (94-97) % BUN (7-17) mg/dL Creatinine (0.52-1.04) mg/dL Glucose (74-99) mg/dL POC Glucose (mg/dL) 179 H 164 H (70-110) mg/dL Calcium (8.4-10.2) mg/dL Total Protein (6.3-8.2) g/dL Albumin (3.5-5.0) g/dL Procalcitonin (0.02-0.09) ng/mL Urine Appearance (Clear) Urine Protein (Negative) Urine Blood (Negative) Urine RBC (0-5) /hpf Urine WBC (0-5) /hpf Urine WBC Clumps (None) /hpf Ur Squamous Epith Cells (0-4) /hpf Urine Bacteria (None) /hpf Hyaline Casts (0-2) /lpf Urine Mucus (None) /hpf Crossmatch 03/20/23 03/21/23 03/21/23 Range/Units 20:49 05:41 05:41 RBC 1.77 L (3.80-5.40) m/uL Hgb 6.7 L* (11.4-16.0) gm/dL Hct 22.2 L (34.0-46.0) % MCV 125.7 H (80.0-100.0) fL MCH 37.9 H (25.0-35.0) pg MCHC 30.2 L (31.0-37.0) g/dL RDW 20.3 H (11.5-15.5) % Lymphocytes # (Manual) 0.99 L (1.0-4.8) k/uL Monocytes # (Manual) 1.12 H (0-1.0) k/uL Myelocytes # (Manual) 0.19 H (0) k/uL Macrocytosis Marked A APTT (22.0-30.0) sec ABG pH 7.22 L (7.35-7.45) ABG pCO2 62 H (35-45) mmHg ABG pO2 133 H (83-108) mmHg ABG HCO3 26 H (21-25) mmol/L ABG Total CO2 27 H (19-24) mmol/L ABG O2 Saturation 99.2 H (94-97) % BUN 63 H (7-17) mg/dL Creatinine 2.85 H (0.52-1.04) mg/dL Glucose 151 H (74-99) mg/dL POC Glucose (mg/dL) (70-110) mg/dL Calcium 8.0 L (8.4-10.2) mg/dL Total Protein 5.6 L (6.3-8.2) g/dL Albumin 2.8 L (3.5-5.0) g/dL Procalcitonin (0.02-0.09) ng/mL Urine Appearance (Clear) Urine Protein (Negative) Urine Blood (Negative) Urine RBC (0-5) /hpf Urine WBC (0-5) /hpf Urine WBC Clumps (None) /hpf Ur Squamous Epith Cells (0-4) /hpf Urine Bacteria (None) /hpf Hyaline Casts (0-2) /lpf Urine Mucus (None) /hpf Crossmatch 03/21/23 03/21/23 03/21/23 Range/Units 07:07 07:51 08:55 RBC (3.80-5.40) m/uL Hgb (11.4-16.0) gm/dL Hct (34.0-46.0) % MCV (80.0-100.0) fL MCH (25.0-35.0) pg MCHC (31.0-37.0) g/dL RDW (11.5-15.5) % Lymphocytes # (Manual) (1.0-4.8) k/uL Monocytes # (Manual) (0-1.0) k/uL Myelocytes # (Manual) (0) k/uL Macrocytosis APTT (22.0-30.0) sec ABG pH 7.25 L (7.35-7.45) ABG pCO2 63 H (35-45) mmHg ABG pO2 129 H (83-108) mmHg ABG HCO3 27 H (21-25) mmol/L ABG Total CO2 29 H (19-24) mmol/L ABG O2 Saturation 98.7 H (94-97) % BUN (7-17) mg/dL Creatinine (0.52-1.04) mg/dL Glucose (74-99) mg/dL POC Glucose (mg/dL) 167 H (70-110) mg/dL Calcium (8.4-10.2) mg/dL Total Protein (6.3-8.2) g/dL Albumin (3.5-5.0) g/dL Procalcitonin (0.02-0.09) ng/mL Urine Appearance (Clear) Urine Protein (Negative) Urine Blood (Negative) Urine RBC (0-5) /hpf Urine WBC (0-5) /hpf Urine WBC Clumps (None) /hpf Ur Squamous Epith Cells (0-4) /hpf Urine Bacteria (None) /hpf Hyaline Casts (0-2) /lpf Urine Mucus (None) /hpf Crossmatch See Detail 03/21/23 Range/Units 11:07 RBC (3.80-5.40) m/uL Hgb (11.4-16.0) gm/dL Hct (34.0-46.0) % MCV (80.0-100.0) fL MCH (25.0-35.0) pg MCHC (31.0-37.0) g/dL RDW (11.5-15.5) % Lymphocytes # (Manual) (1.0-4.8) k/uL Monocytes # (Manual) (0-1.0) k/uL Myelocytes # (Manual) (0) k/uL Macrocytosis APTT (22.0-30.0) sec ABG pH (7.35-7.45) ABG pCO2 (35-45) mmHg ABG pO2 (83-108) mmHg ABG HCO3 (21-25) mmol/L ABG Total CO2 (19-24) mmol/L ABG O2 Saturation (94-97) % BUN (7-17) mg/dL Creatinine (0.52-1.04) mg/dL Glucose (74-99) mg/dL POC Glucose (mg/dL) 188 H (70-110) mg/dL Calcium (8.4-10.2) mg/dL Total Protein (6.3-8.2) g/dL Albumin (3.5-5.0) g/dL Procalcitonin (0.02-0.09) ng/mL Urine Appearance (Clear) Urine Protein (Negative) Urine Blood (Negative) Urine RBC (0-5) /hpf Urine WBC (0-5) /hpf Urine WBC Clumps (None) /hpf Ur Squamous Epith Cells (0-4) /hpf Urine Bacteria (None) /hpf Hyaline Casts (0-2) /lpf Urine Mucus (None) /hpf Crossmatch
[2023-03-21 15:12] LABS: ABG Base Excess 0.4 mmol/L; ABG HCO3 27 mmol/L (21-25); ABG Oxygen Saturation 93.6 % (94-97); ABG PCO2 54 mmHg (35-45); ABG PO2 69 mmHg (83-108); ABG TCO2 28 mmol/L (19-24); Allen Test Performed? Yes
[2023-03-21 15:24] LABS: Band Neutrophils % 2 %; Eosinophils # (M) 0.12 k/uL (0-0.7); Metamyelocytes # (M) 0.06 k/uL (0); Metamyelocytes % 1 %; Monocytes # (M) 0.84 k/uL (0-1.0); Myelocytes # (M) 0.06 k/uL (0); Myelocytes % 1 %; Neutrophils % (M) 72 %; Nucleated Red Blood Cells 0 /100 WBC (0-0); Total Cells Counted 200
[2023-03-21 16:29] LABS: Glucose,Whole Blood 194 mg/dL (70-110)
[2023-03-21] MEDS: SODIUM CHLORIDE 0.9% 500 ML 500 ML IV SCH (17:46)
[2023-03-21] MEDS: FUROSEMIDE 100 MG in SODIUM CHLORIDE 0.9% 90 ML IV SCH (19:58)
[2023-03-21 20:36] LABS: Glucose,Whole Blood 158 mg/dL (70-110)
--- NOTE | 2023-03-21 21:05 | P.PCN ---
Date of Procedure: 03/21/23 Operative Findings: Date of Procedure: 03/21/23 Preoperative Diagnosis: Acute on chronic hypoxic and hypercapnic respiratory failure Postoperative Diagnosis: Same Procedure(s) Performed: Arterial line Surgeon: Juan Schilling Pathology: other Condition: critical Disposition: ICU Operative Findings: Indication: Hemodynamic monitoring. A time-out was completed verifying correct patient, procedure, site, positioning, and implant(s) or special equipment if applicable. Allens test was performed to ensure adequate perfusion. The patients right wrist was cleaned using chlorhexidine . 1% Lidocaine was used to anesthetize the area. An 18G Arrow arterial line was introduced into the radial artery. The catheter was threaded over the guide wire and the needle was removed with appropriate pulsatile blood return. Blood loss was minimal. The catheter was then sutured in place to the skin and a sterile dressing applied. Perfusion to the extremity distal to the point of catheter insertion was checked and found to be adequate. The patient tolerated the procedure well and there were no complications.
--- NOTE | 2023-03-21 21:16 | PN ---
PROGRESS NOTE SUBJECTIVE: This is a 78-year-old lady who was admitted to hospital predominantly with right-sided heart failure and severe pulmonary hypertension. Currently on diuretics and dobutamine and I have been asked to see the patient. We have initially done a consult and signed off. She is on IV heparin. Heart failure symptoms have improved somewhat. OBJECTIVE: VITAL SIGNS: Afebrile, heart rate is 127, blood pressure is 113/54, respiratory rate 18. CHEST: Reveals diminished air entry bilaterally. HEART: Reveals first and second heart sounds. Systolic murmur at the apex. ABDOMEN: Soft. EXTREMITIES: Exam of extremities reveals bilateral pitting edema. BNP is elevated. The patient is on a BiPAP and on Levophed for hypotension. ASSESSMENT AND PLAN: Severe pulmonary hypertension with right-sided heart failure, chronic hypoxic respiratory failure, obstructive sleep apnea, acute on chronic renal insufficiency and history of DVT. Continue the patient on current measures. The patient is anemic and is requiring blood transfusion. MMODL / IJN: [id number] /
[2023-03-21] MEDS: DOBUTamine DRIP 500 MG in DEXTROSE/WATER 1 250ML.BAG IV SCH (23:24)
[2023-03-21 23:52] LABS: Glucose,Whole Blood 152 mg/dL (70-110)
[2023-03-22] MEDS: DEXMEDETOMIDINE/0.9% NACL(PMX) 400 MCG in EMPTY BAG 1 BAG IV SCH ×2 (00:10→08:05)
[2023-03-22] MEDS: HEPARIN SOD,PORK IN 0.45% NACL 25,000 UNIT in 0.45% NACL 1 250ML.BAG IV SCH ×3 (02:49→16:34)
[2023-03-22] MEDS: FUROSEMIDE 100 MG in SODIUM CHLORIDE 0.9% 90 ML IV SCH ×3 (03:20→21:15)
[2023-03-22 04:41] LABS: Anisocytosis Moderate; HCT 26.2 % (34.0-46.0); Hypochromasia Marked; MCHC 30.7 g/dL (31.0-37.0); MCV 120.7 fL (80.0-100.0); Macrocytosis Marked; Mean Platelet Volume 11.8; Platelet Count 334 k/uL (150-450); Poikilocytosis Slight; RBC 2.17 m/uL (3.80-5.40); RDW 21.9 % (11.5-15.5)
[2023-03-22] MEDS ORDERED: DEXTROSE 5% IN WATER 100 ML with AMIODARONE 150 MG IV ONE (04:45)
[2023-03-22] MEDS ORDERED: AMIODARONE 360 MG in DEXTROSE 5% IN WATER 200 ML IV ONE ×2 (04:54)
[2023-03-22] MEDS: DOBUTamine DRIP 500 MG in DEXTROSE/WATER 1 250ML.BAG IV SCH (05:07)
[2023-03-22] MEDS: NOREPINEPHRINE 4 MG in SODIUM CHLORIDE 0.9% 250 ML IV SCH ×2 (05:10→08:00)
[2023-03-22 06:44] LABS: ALT 12 U/L (4-34); AST 16 U/L (14-36); African American GFR (CKD) 20 (>60 ml/min/1.73 sqM); Alkaline Phosphatase 50 U/L (38-126); Anion Gap 12 mmol/L; Blood Urea Nitrogen 58 mg/dL (7-17); Carbon Dioxide 24 mmol/L (22-30); Chloride 104 mmol/L (98-107); Glucose 152 mg/dL (74-99); Non-African American GFR(CKD) 17 (>60 ml/min/1.73 sqM); Potassium 4.5 mmol/L (3.5-5.1); Sodium 140 mmol/L (137-145); Total Protein 5.9 g/dL (6.3-8.2)
[2023-03-22 06:55] LABS: Glucose,Whole Blood 181 mg/dL (70-110)
[2023-03-22] MEDS: ALBUTEROL NEBULIZED 2.5 MG/3 ML INHALATION PRN (08:06)
[2023-03-22] MEDS: MORPHINE SULFATE 4 MG/ML SYRINGE IV PRN (08:19)
[2023-03-22 08:31] LABS: Glucose,Whole Blood 182 mg/dL (70-110)
[2023-03-22] MEDS ORDERED: propofoL 100 ML IV ONE (08:35)
[2023-03-22 08:39] LABS: Band Neutrophils % 2 %; Basophils # (M) 0.09 k/uL (0-0.2); Metamyelocytes # (M) 0.27 k/uL (0); Metamyelocytes % 3 %; Monocytes # (M) 0.53 k/uL (0-1.0); Myelocytes # (M) 0.18 k/uL (0); Myelocytes % 2 %; Neutrophils % (M) 78 %; Nucleated Red Blood Cells 1 /100 WBC (0-0); Total Cells Counted 200; WBC 8.9 k/uL (3.8-10.6)
--- NOTE | 2023-03-22 08:41 | P.PN ---
Subjective Progress Note Date: 03/22/23 I am seeing this patient in consultation today 03/15/2023 in the emergency room after she presented with acute on chronic shortness of breath that has been ongoing and progressively worsening for a couple weeks. Patient is a 78-year-old white female past medical history significant for COPD, obesity/obe sity hypoventilation syndrome, chronic hypoxemic respiratory failure, obstructive sleep apnea, CHF, diabetes mellitus, hypertension, hypothyroidism. She did have a recent hospitalization at our facility for a fall and was discharged on March 09. She does follow in the pulmonary office with Dr. Schilling. Most recent PFT from 2020, shows a combination of severe obstructive/restrictive disease. She is chronically oxygen dependent and utilizes 4 L/m nasal cannula. She is technically a poor historian. Patient states that she is chronically short of breath, however, she has been progressively more short of breath over the last couple weeks. Denies any infectious symptoms such as cough, fever, chest pain, hemoptysis. Denies sick contacts. Does admit chronic lower extremity swelling. She takes Demadex twice a day at home. Denies any chest pain, heart palpitations, syncope or increase in her lower extremity swelling. Chest x-ray shows moderate cardiomegaly, no alexia pulmonary edema or focal infiltrate suggestive of pneumonia. NT proBNP was elevated at 12,400. CBC has a WBC count of 5.1, hemoglobin 8.1, hematocrit 26.2, platelets 407. BMP shows sodium 138, potassium 5.5, chloride 102, serum bicarbonate 22, BUN 46, creatinine 1.87, glucose 137. D-dimer was elevated at 1.99, however, clinical suspicion for pulmonary embolism is low. Patient is scheduled to undergo VQ scan. Troponin less than 0.012. Normal saline is infusing at 75 ML's per hour. She is currently sitting up in bed, on 4 L/m nasal cannula, in no acute distress. Vital signs are stable. The patient is seen today 03/16/2023 in follow-up in the emergency department. She is currently sitting up in bed. Awake and alert in no acute distress. Maintained on BiPAP 13/8 and 40% FiO2. His been afebrile. Hemodynamically stable. Dopplers of the lower extremity were positive for DVT in the right. Ve ntilation perfusion scan revealed intermediate probability for pulmonary embolus. There is a moderate sized defect at the right base. Echocardiogram revealed severely increased left ventricular wall thickness. Left ventricular ejection fraction 55-60%. Flattened septum in systole and diastole consistent with right ventricular pressure fluid and volume overload. Severe right ventricular dilatation with severe pulmonary hypertension and an RVSP of 99 mmHG. White count 4.6. Hemoglobin 7.6. Platelets 383,000. Sodium 138. Potassium 5.1. Bicarb 22. BUN 43. Creatinine 1.84. Glucose 129. She is currently on a heparin drip. Receiving oral diuretics. Progress note dated 03/17/2023. 78-year-old female initially seen in the emergency department. Seen today in room 371. The patient continues on BiPAP, and IV heparin. She was discovered to have a right lower extremity DVT. The patient is feeling better, and gives a thumbs up, when asked how she is doing. Today's labs include a white count 4.5, he will been some 0.4, hematocrit 24.4, and a platelet count of 308,000. PTT is 66.3. Glucose is 159. VQ scan was indeterminate. Doppler lower lobe extremity did reveal a right lower extremity DVT. Progress note dated 03/18/2023. 78-year-old female seen in room 371. She continues on BiPAP. The patient is currently on IV heparin, but can be converted to a factor X a inhibitor. When not on BiPAP, she is getting oxygen, at 5 L. The patient clinically feels like she is improved. Current laboratory includes a white count 5.1, hemoglobin 7.5, hematocrit 25, and a platelet count of 315,000. On today's evaluation of 03/20/2023, I'm seeing the patient for a follow-up. T his is a 78-year-old female patient, quite debilitated with COPD, obesity and obesity hypoventilation syndrome and chronic hypoxic and hypercapnic respiratory failure along with severe right-sided heart failure and severe pulmonary hypertension and a preserved LV function. She is also known to have chronic kidney disease, diabetes mellitus, hypertension and hypothyroidism. She is morbidly obese. The patient presented to us initially with shortness of breath this been going on for the past several weeks. Had a viral screen was negative including Covid 19. The patient's condition progressively got worse and the patient got admitted to the intensive care unit yesterday and currently she is on a BiPAP at pressure 14/8 cm of water and FiO2 of 70%. It was noted that the patient was getting progressively more obtunded. While on the BiPAP, she is able to generate a tidal volume of 350 mL with a rate of 24. She is following simple commands however she is extremely weak. She is sore all over and she is having diffuse body aches. She is afebrile. She is hypotensive and she was also started on pressors and currently she is on norepinephrine running at 0.1 mcg/kg/m. She has also developed an acute kidney injury and had a BUN today is at 58 with a creatinine of 2.8 and a sodium level is at 136. She is acidotic and her potassium level is up to 5.6. Blood gas showed a pH of 7.21 with a pCO2 54 and pO2 of 86. The white cell count of 8.5 with a hemoglobin of 7.5. I do not see any chest x-rays done on this patient. The last chest x-ray was done on 03/14/2022 that showed cardiomegaly without any acute abnormalities. The Doppler of the lower extremities showed limited visibility and a clot was seen in the saphenous/femoral junction which is nonocclusive. The patient is cu rrently on IV heparin. A VQ scan that was done at a time of admission on 03/15/2023 was intermediate probability. The patient was diabetes with torsemide. The patient is currently on IV heparin. No antibiotic coverage for the time being. I also reviewed her most recent echocardiogram which showed severe tricuspid regurgitation, no evidence of any aortic stenosis, she has severe dilated RV with reduced function and severe pulmonary hypertension with a PA pressure of 99. There is flattening of the septum consistent with severe RV pressure/volume overload. On 03/21/2023, the patient is being seen in follow-up in the intensive care unit. The patient remains on a BiPAP at a pressure of 14/8 with an FiO2 of 100%. She was on BiPAP throughout the day yesterday and overnight she was kept on a BiPAP. She is still lethargic, level of consciousness and diminished yet she is arousable. She has diffuse body aches and she is very tender to touch brought her body. The patient is able to manage well on the BiPAP machine and she generating a tidal volume of 4 50 mL and a respiratory rate is around 30. Her pulse ox currently is at 98%. Chest x-ray shows no significant interval change. There is cardiomegaly. This pulmonary artery dilatation consistent with pulmonary hypertension. The patient has some airspace disease in the right lower lobe suspecting pneumonia for that reason the patient was started on IV Zosyn as a broad-spectrum antibiotic coverage. Hemodynamically, the patient has severe RV failure and pulmonary hypertension. He is diuresing well with Lasix. She was started on Lasix 60 mg IV every 8 hours and her urine output has approach 1 L over the past 24 hours. She is still in positive fluid balance pH she sustained an acute kidney injury and the creatinine is stable compared to yesterday. Creatinine this morning is at 2.8 with a BUN of 63. Sodium is at 13 8, potassium is at 5, currently 102 bicarb is 26. The patient is currently on norepinephrine running at 0.05 mcg/kg/m. Dobutamine was also added yesterday which is running at 5 mcg/kg/m. IV fluids are in the form of bicarb infusion at 75 mL an hour. No blood gases available from this morning. The most recent blood gas from yesterday showed a pH of 7.22 with a pCO2 of 62 and pO2 of 133 and this was on FiO2 of 70%. Patient remains on IV heparin. The cardiac rhythm is sinus at this point in time. 03/22/2023, the patient is struggling with her breathing and she is restless and still lethargic and encephalopathic and confused. She had to be started on Precedex as the patient was reaching out to a BiPAP mask and Precedex is running at 0.7 g. Kilogram per hour. Overnight, she encountered about of atrial fibrillation with rapid response. She became hemodynamically unstable and she h ad to be cardioverted. Subsequently, dobutamine was discontinued. Her current cardiac rhythm is back into sinus and the patient is on amiodarone per protocol running at 1 mg/m. She remains on pressors and norepinephrine is running at 0.14 mcg/kg/m. She is also on Lasix drip at 10 mg an hour. The patient is currently on a BiPAP at a pressure of 14/8 cm of water would notify DrOrestes 100%. Urine output is in order of 50-60 mL an hour. Overall fluid balance +1.2 L over the past 24 hours. Chest x-ray from today shows no significant interval change. There is CHF and cardiomegaly. Right lower lobe consolidation seems to be improved and the patient has a left IJ triple-lumen catheter in place. Blood gas was showing some improvement from yesterday. Note. Blood gas from today. She remains on IV heparin. The hemoglobin is stable at 8 with a white cell count of 9. BUN is at 58 with a creatinine of 2.58 and a sodium level is at 140. IV fluids are currently at KVO. She is afebrile. Based on her decompensated respiratory status, I made the decision to proceed with intubation mechanical ventilation. Avoided discussed this with her family including her and son yesterday. Obviously, her overall respiratory status is decompensated. She remains quite tachypneic, encephalopathic and obtunded. Objective - Vital Signs Vital signs: Vital Signs Temp 98.8 F 03/22/23 04:00 Pulse 95 03/22/23 08:26 Resp 33 H 03/22/23 07:00 BP 104/71 03/22/23 07:00 Pulse Ox 91 L 03/22/23 07:00 FiO2 100 03/22/23 07:38 Intake & Output 03/21/23 03/22/23 03/22/23 18:59 06:59 18:59 Intake Total 1027.949 7596.503 253.099 Output Total 895 745 35 Balance 778.000 452.503 218.099 Weight 124.9 kg 126.2 kg Intake: IV 718 392 26 Dextrose 5% in Water 1, 280 000 ml @ 40 mls/hr IV . Q24H R[facility] with Sodium Bicarb (1 Meq/ml) 150 ml Rx#:[id number] Dextrose 5% in Water 1, 305 000 ml @ 75 mls/hr IV . [id number] R[facility]INA with Sodium Bicarb (1 Meq/ml) 150 ml Rx#:[id number] Furosemide 100 mg In 80 Sodium Chloride 0.9% 90 ml @ 10 MG/HR 10 mls/hr IV .Q10H RUBINA Rx#: [id number] Piperacillin-Tazobactam 3 100 .375 gm In Sodium Chloride 0.9% 100 ml @ 25 mls/hr IVPB Q12HR RUBINA Rx #:[id number] Pressure Bag (0.9 Sodium 33 72 6 Chloride) Sodium Chloride 0.9% 500 240 20 ml 500 ml @ 20 mls/hr IV .Q24H R[facility]INA Rx#:[id number] Intake, IV Titration 645.000 805.503 227.099 Amount DOBUTamine DRIP 500 mg In 250.000 Dextrose/Water 1 250ml. bag @ 5 MCG/KG/MIN 18.166 mls/hr IV .[id number] R[facility]INA Rx#:[id number] Dexmedetomidine/0.9% NaCl 70.414 0 (Pmx) 400 mcg In Empty Bag 1 bag @ 0.2 MCG/KG/HR 6.245 mls/hr IV .[id number] RUBINA Rx#:[id number] Furosemide 100 mg In 73.667 Sodium Chloride 0.9% 90 ml @ 10 MG/HR 10 mls/hr IV .Q10H R[facility] Rx#: [id number] Heparin Sod,Pork in 0.45% 52.388 250 96.361 NaCl 25,000 unit In 0.45 % NaCl 1 250ml.bag @ 18 UNITS/KG/HR 21.8 mls/hr IV .[id number] R[facility] Rx#: [id number] Norepinephrine 4 mg In 342.612 411.422 130.738 Sodium Chloride 0.9% 250 ml @ 0.03 MCG/KG/MIN 13. 843 mls/hr IV .[id number] RUBINA Rx#:[id number] Blood Product 310 Rc As-1 Unit 310 [id number] Output: Urine 895 745 35 Other: Voiding Method Indwelling Catheter Indwelling Catheter ABP, PAP, CO, CI - Last Documented Arterial Blood Pressure 101/48 - Exam No acute distress, obtunded with diminished level of consciousness currently on a BiPAP at a pressure of 14/8 cm of water and FiO2 of 100%, the patient is currently on Precedex. Mental status is quite diminished and altered. She is tachypneic while being on a BiPAP and in moderate degree of respiratory distress. Head exam was generally normal. There was no scleral icterus or corneal arcus. Mucous membranes were dry Neck supple. Full range of motion. No adenopathy thyromegaly and there is significant JVDs bilaterally and the patient has a left IJ triple lumen catheter in place Cardiovascular examination reveals regular rhythm rate. S1-S2 normal. No S3 or S4. murmur noted. There is a systolic ejection murmur grade 3/6 heard over the right lateral sternal border Lungs reveal scattered rhonchi. No wheezes or crackles. Breath sounds equal. Breath sounds are diminished bilaterally Abdomen obese, but soft, with bowel sounds. No masses or tenderness. Extremities are intact. There is some edema in the lower extremities. No cyanosis or clubbing. Chronic venous stasis changes noted. Skin is without rash or lesion. Neurologic examination is brief but nonfocal. Able to withdrawal in all 4 extr emities without any limitation. The patient is currently on Precedex - Labs CBC & Chem 7: 03/22/23 04:13 03/22/23 04:13 Labs: Abnormal Lab Results - Last 24 Hours (Table) 03/21/23 03/21/23 03/21/23 Range/Units 07:51 08:55 11:07 RBC (3.80-5.40) m/uL Hgb (11.4-16.0) gm/dL Hct (34.0-46.0) % MCV (80.0-100.0) fL MCH (25.0-35.0) pg MCHC (31.0-37.0) g/dL RDW (11.5-15.5) % Lymphocytes # (Manual) (1.0-4.8) k/uL Metamyelocytes # (Man) (0) k/uL Myelocytes # (Manual) (0) k/uL Macrocytosis APTT (22.0-30.0) sec ABG pH 7.25 L (7.35-7.45) ABG pCO2 63 H (35-45) mmHg ABG pO2 129 H (83-108) mmHg ABG HCO3 27 H (21-25) mmol/L ABG Total CO2 29 H (19-24) mmol/L ABG O2 Saturation 98.7 H (94-97) % BUN (7-17) mg/dL Creatinine (0.52-1.04) mg/dL Glucose (74-99) mg/dL POC Glucose (mg/dL) 188 H (70-110) mg/dL Calcium (8.4-10.2) mg/dL Total Protein (6.3-8.2) g/dL Albumin (3.5-5.0) g/dL Crossmatch See Detail 03/21/23 03/21/23 03/21/23 Range/Units 13:00 14:24 15:10 RBC 2.01 L (3.80-5.40) m/uL Hgb 7.5 L (11.4-16.0) gm/dL Hct 24.4 L (34.0-46.0) % MCV 121.6 H (80.0-100.0) fL MCH 37.3 H (25.0-35.0) pg MCHC 30.7 L (31.0-37.0) g/dL RDW 22.6 H (11.5-15.5) % Lymphocytes # (Manual) 0.60 L (1.0-4.8) k/uL Metamyelocytes # (Man) 0.06 H (0) k/uL Myelocytes # (Manual) 0.06 H (0) k/uL Macrocytosis Marked A APTT 58.6 H (22.0-30.0) sec ABG pH 7.30 L (7.35-7.45) ABG pCO2 54 H (35-45) mmHg ABG pO2 69 L (83-108) mmHg ABG HCO3 27 H (21-25) mmol/L ABG Total CO2 28 H (19-24) mmol/L ABG O2 Saturation 93.6 L (94-97) % BUN (7-17) mg/dL Creatinine (0.52-1.04) mg/dL Glucose (74-99) mg/dL POC Glucose (mg/dL) (70-110) mg/dL Calcium (8.4-10.2) mg/dL Total Protein (6.3-8.2) g/dL Albumin (3.5-5.0) g/dL Crossmatch 03/21/23 03/21/23 03/21/23 Range/Units 16:28 20:35 23:50 RBC (3.80-5.40) m/uL Hgb (11.4-16.0) gm/dL Hct (34.0-46.0) % MCV (80.0-100.0) fL MCH (25.0-35.0) pg MCHC (31.0-37.0) g/dL RDW (11.5-15.5) % Lymphocytes # (Manual) (1.0-4.8) k/uL Metamyelocytes # (Man) (0) k/uL Myelocytes # (Manual) (0) k/uL Macrocytosis APTT (22.0-30.0) sec ABG pH (7.35-7.45) ABG pCO2 (35-45) mmHg ABG pO2 (83-108) mmHg ABG HCO3 (21-25) mmol/L ABG Total CO2 (19-24) mmol/L ABG O2 Saturation (94-97) % BUN (7-17) mg/dL Creatinine (0.52-1.04) mg/dL Glucose (74-99) mg/dL POC Glucose (mg/dL) 194 H 158 H 152 H (70-110) mg/dL Calcium (8.4-10.2) mg/dL Total Protein (6.3-8.2) g/dL Albumin (3.5-5.0) g/dL Crossmatch 03/22/23 03/22/23 03/22/23 Range/Units 04:13 04:13 04:13 RBC 2.17 L (3.80-5.40) m/uL Hgb 8.0 L (11.4-16.0) gm/dL Hct 26.2 L (34.0-46.0) % MCV 120.7 H (80.0-100.0) fL MCH 37.0 H (25.0-35.0) pg MCHC 30.7 L (31.0-37.0) g/dL RDW 21.9 H (11.5-15.5) % Lymphocytes # (Manual) (1.0-4.8) k/uL Metamyelocytes # (Man) (0) k/uL Myelocytes # (Manual) (0) k/uL Macrocytosis Marked A APTT 76.4 H (22.0-30.0) sec ABG pH (7.35-7.45) ABG pCO2 (35-45) mmHg ABG pO2 (83-108) mmHg ABG HCO3 (21-25) mmol/L ABG Total CO2 (19-24) mmol/L ABG O2 Saturation (94-97) % BUN 58 H (7-17) mg/dL Creatinine 2.58 H (0.52-1.04) mg/dL Glucose 152 H (74-99) mg/dL POC Glucose (mg/dL) (70-110) mg/dL Calcium 8.0 L (8.4-10.2) mg/dL Total Protein 5.9 L (6.3-8.2) g/dL Albumin 3.0 L (3.5-5.0) g/dL Crossmatch 03/22/23 03/22/23 Range/Units 06:54 08:30 RBC (3.80-5.40) m/uL Hgb (11.4-16.0) gm/dL Hct (34.0-46.0) % MCV (80.0-100.0) fL MCH (25.0-35.0) pg MCHC (31.0-37.0) g/dL RDW (11.5-15.5) % Lymphocytes # (Manual) (1.0-4.8) k/uL Metamyelocytes # (Man) (0) k/uL Myelocytes # (Manual) (0) k/uL Macrocytosis APTT (22.0-30.0) sec ABG pH (7.35-7.45) ABG pCO2 (35-45) mmHg ABG pO2 (83-108) mmHg ABG HCO3 (21-25) mmol/L ABG Total CO2 (19-24) mmol/L ABG O2 Saturation (94-97) % BUN (7-17) mg/dL Creatinine (0.52-1.04) mg/dL Glucose (74-99) mg/dL POC Glucose (mg/dL) 181 H 182 H (70-110) mg/dL Calcium (8.4-10.2) mg/dL Total Protein (6.3-8.2) g/dL Albumin (3.5-5.0) g/dL Crossmatch Assessment and Plan Plan: Acute on chronic dyspnea, chest x-ray does not show any focal infiltrates or evidence of pneumonia. There is moderate cardiomegaly without any significant pulmonary edema. NT proBNP was elevated. Consider possible mild diastolic congestive heart failure exacerbation. Echocardiogram revealed severely increased left ventricular wall thickness. Left ventricular ejection fraction 55-60%. Flattened septum in systole and diastole consistent with right ventricular pressure fluid and volume overload. Severe right ventricular dilatation with severe pulmonary hypertension and an RVSP of 99 mmHG. noted the patient has a combination of an acute on top of chronic hypoxic and hypercapnic respiratory failure. Mental status is quite diminished and the patient is having significant progress to distress while being on BiPAP. As such, I'm going to proceed with intubation mechanical ventilation to continue our treatments. Respiratory status will be supported with mechanical ventilation. Acute on chronic hypercapnic/hypoxic respiratory failure, currently on BiPAP pressures of 14/8 with an FiO2 of 100%, respiratory status is quite compromised at this point in time. The patient required intubation mechanical ventilation. Diminished level of consciousness, altered mentation secondary to above, consider CO2 narcosis, neurologic exam is nonfocal, the patient was encountering some agitation and the patient was started on Precedex Acute on chronic kidney injury, creatinine is slightly improved compared to yesterday and the patient is producing adequate amount of urine output in the order of 50 mL an hour on a Lasix drip Non-anion gap metabolic acidosis, improved Suspected right lower lobe pulmonary embolism, right lower extremity DVT. The patient is currently on IV heparin Atrial fibrillation with rapid ventricular response, converted back into sinus rhythm and the patient is currently on amiodarone drip and IV heparin Acute hypotension, currently under investigation. The patient is currently on norepinephrine running at 0. 1 4 mcg/kg/m and the patient is currently off dobutamine Severe pulmonary hypertension and right-sided heart failure Chronic hypoxemic respiratory failure, chronically utilizes 4 L/m nasal cannula. History of COPD, stable. Obesity/obesity hypoventilation syndrome. Obstructive sleep apnea, utilizes BiPAP at night with a support of 13/8 cm of water on outpatient basis Diabetes mellitus, type II. Acute on chronic kidney disease, likely secondary to intravascular volume depletion/cardiorenal factors with a right-sided failure Acute hyperkalemia secondary to acidosis Macrocytic anemia. Hypertension. Hypothyroidism. Morbid obesity, with a BMI of 43.1 kg/m. Never tobacco smoker. Plan: We'll proceed with intubation and mechanical ventilation We'll put the patient on a rate of 26, tidal volume of 400, FiO2 of 100% and a PEEP of 10 Will obtain blood gases post intubation and will make further adjustment on a mechanical ventilator Use propofol and stop the Precedex The patient will be kept on a Lasix drip Continue norepinephrine Continue amiodarone per protocol Continue IV Zosyn Chest x-ray and blood gases post intubation We'll initiate enteral feeding post intubation Condition is on significant exam will continue to follow. Critical care evaluation that was done in more than 30 minutes excluding time to do any procedures. I discussed the case with the the bedside and he is aware of her critical condition. Time with Patient: Greater than 30
[2023-03-22 08:42] LABS: Mixed Population RBC Present
[2023-03-22] MEDS ORDERED: CISATRACURIUM 2 MG/ML 5 ML VIAL IV ONE ×2 (08:44→09:00)
--- NOTE | 2023-03-22 09:01 | P.PCN ---
Date of Procedure: 03/22/23 Preoperative Diagnosis: On top of chronic hypoxic and hypercapnic respiratory failure Postoperative Diagnosis: Acute on top of chronic hypoxic and hypercapnic respiratory failure Procedure(s) Performed: Intubation Anesthesia: CHRISTOPHERA Surgeon: Juan Schilling Estimated Blood Loss (ml): 0 Pathology: other Condition: critical Disposition: ICU Operative Findings: Indication: Respiratory compromise. A time-out was completed verifying correct patient, procedure, site, positioning, and implant(s) or special equipment if applicable. The patient was positioned appropriately and a #8 endotracheal tube was placed under direct laryngoscopy. The tube was anchored at 22 cm at the teeth. Correct placement was confirmed by presence of bilateral breath sounds without air sounds in the abdomen on auscultation. An end-tidal CO2 monitor was also used to confirm tracheal placement of the ET tube. A chest x-ray was ordered to assess for pneumothorax and verify endotracheal tube placement. The patient tolerated the procedure well and there were no complications.
[2023-03-22] MEDS ORDERED: SODIUM CHLORIDE 0.9% 1,000 ML IV ONE (09:15)
--- NOTE | 2023-03-22 09:18 | XR ---
EXAMINATION TYPE: XR chest 1V portable DATE OF EXAM: 03/22/2023 Comparison: 03/22/2023 Clinical History: 78-year-old female post intubation Findings: ET tube satisfactory. Left IJ CVC tip at the lower SVC. Heart mild to moderately enlarged. Hyperinfla tion with diffuse interstitial opacity. Patchy left basilar opacity with increasing small left effusi on. Impression: 1. Ongoing CHF with patchy interstitial pulmonary edema fairly similar. 2. Slight increasing small left effusion with adjacent atelectasis and/or consolidation.
[2023-03-22 09:35] LABS: ABG Base Excess -2.2 mmol/L; ABG HCO3 25 mmol/L (21-25); ABG Oxygen Saturation 89.8 % (94-97); ABG PCO2 52 mmHg (35-45); ABG PH 7.28 (7.35-7.45); ABG PO2 63 mmHg (83-108); ABG TCO2 26 mmol/L (19-24)
[2023-03-22 09:38] LABS: Allen Test Performed? no
[2023-03-22] MEDS: NOREPINEPHRINE 32 MG in SODIUM CHLORIDE 0.9% 218 ML IV SCH (09:45)
--- NOTE | 2023-03-22 09:49 | XR ---
EXAMINATION TYPE: XR chest 1V portable DATE OF EXAM: 03/22/2023 9:44 AM CLINICAL INDICATION:Female, 78 years old with history of OG tube placement; COMPARISON: Chest radiographs from 03/22/2023. TECHNIQUE: XR chest 1V portable Frontal view of the chest. FINDINGS: Lungs/Pleura: There is no evidence of pleural effusion, focal consolidation, or pneumothorax. Pulmonary vascularity: Pulmonary vascular congestion. Heart/mediastinum: Cardiomediastinal silhouette is enlarged and stable. Musculoskeletal: No acute osseous pathology. Other findings: None Lines/Tubes: Nasogastric tube with its distal tip and side-port projecting under the diaphragm. Left central venous catheter with distal tip at the cavoatrial junction. IMPRESSION: 1. Nasogastric tube with its distal tip and side-port projecting under the diaphragm. 2. Cardiomegaly and mild pulmonary vascular congestion. Chronic for CHF.
[2023-03-22] MEDS ORDERED: ALBUTEROL NEBULIZED 2.5 MG/3 ML INHALATION PRN (10:20)
--- NOTE | 2023-03-22 10:20 | XR ---
EXAMINATION TYPE: XR chest 1V DATE OF EXAM: 03/22/2023 COMPARISON: 03/21/2023 HISTORY: 78-year-old female respiratory failure, shortness of breath, BiPAP TECHNIQUE: Single frontal view of the chest is obtained. FINDINGS: Left CVC tip at the cavoatrial junction. Heart mildly enlarged. Diffuse interstitial and p atchy airspace opacities bilaterally. Aeration slightly improving at the right base. No sizable pleur al effusion. IMPRESSION: Similar findings suggesting CHF with mild patchy pulmonary edema.
[2023-03-22] MEDS: CYANOCOBALAMIN 500 MCG TAB PO SCH (10:38)
[2023-03-22] MEDS: TAMSULOSIN 0.4 MG CAP.ER.24H PO SCH (10:38)
[2023-03-22] MEDS: AMIODARONE 450 MG in DEXTROSE 5% IN WATER 250 ML IV SCH ×4 (10:39→23:27)
[2023-03-22] MEDS: PANTOPRAZOLE 40 MG/10 ML VIAL IV SCH (10:42)
[2023-03-22] MEDS: PIPERACILLIN-TAZOBACTAM 3.375 GM in SODIUM CHLORIDE 0.9% 100 ML IVPB SCH ×2 (10:43→21:05)
[2023-03-22] MEDS: ALBUTEROL NEBULIZED 2.5 MG/3 ML INHALATION SCH ×4 (11:03→23:31)
[2023-03-22 11:12] LABS: Glucose,Whole Blood 181 mg/dL (70-110)
--- NOTE | 2023-03-22 11:22 | P.PN ---
Subjective Patient is seen for follow-up for acute kidney injury. She is admitted to the hospital with complaints of shortness of breath. VQ scan showed intermediate possibility for PE and patient is maintained on IV heparin. Respiratory status deteriorated overnight and patient was intubated this morning. She is maintained on levo fed. Started on Lasix drip. Urine output at about 40-50 mL per hour. Serum creatinine slightly better today at 2.5 from 2.8 yesterday. Dobutamine was discontinued due to A. fib with RVR only this morning. This was started mostly for severe right heart failure. Objective - Vital Signs Vital signs: Vital Signs Temp 98.5 F 03/22/23 08:00 Pulse 103 H 03/22/23 11:04 Resp 22 03/22/23 10:00 BP 117/65 03/22/23 09:45 Pulse Ox 90 L 03/22/23 10:00 FiO2 100 03/22/23 11:04 Intake & Output 03/21/23 03/22/23 03/22/23 18:59 06:59 18:59 Intake Total 2487.628 2528.503 316.979 Output Total 895 745 35 Balance 778.000 452.503 281.979 Weight 124.9 kg 126.2 kg 126.2 kg Intake: IV 718 392 26 Dextrose 5% in Water 1, 280 000 ml @ 40 mls/hr IV . Q24H [facility] with Sodium Bicarb (1 Meq/ml) 150 ml Rx#:[id number] Dextrose 5% in Water 1, 305 000 ml @ 75 mls/hr IV . [id number] [facility] with Sodium Bicarb (1 Meq/ml) 150 ml Rx#:[id number] Furosemide 100 mg In 80 Sodium Chloride 0.9% 90 ml @ 10 MG/HR 10 mls/hr IV .Q10H [facility] Rx#: [id number] Piperacillin-Tazobactam 3 100 .375 gm In Sodium Chloride 0.9% 100 ml @ 25 mls/hr IVPB Q12HR [facility] Rx #:[id number] Pressure Bag (0.9 Sodium 33 72 6 Chloride) Sodium Chloride 0.9% 500 240 20 ml 500 ml @ 20 mls/hr IV .Q24H [facility] Rx#:[id number] Intake, IV Titration 645.000 805.503 290.979 Amount DOBUTamine DRIP 500 mg In 250.000 Dextrose/Water 1 250ml. bag @ 5 MCG/KG/MIN 18.166 mls/hr IV .[id number] [facility] Rx#:[id number] Dexmedetomidine/0.9% NaCl 70.414 11.970 (Pmx) 400 mcg In Empty Bag 1 bag @ 0.2 MCG/KG/HR 6.245 mls/hr IV .Q16H1M [facility] Rx#:[id number] Furosemide 100 mg In 73.667 Sodium Chloride 0.9% 90 ml @ 10 MG/HR 10 mls/hr IV .Q10H [facility] Rx#: [id number] Heparin Sod,Pork in 0.45% 52.388 250 96.361 NaCl 25,000 unit In 0.45 % NaCl 1 250ml.bag @ 18 UNITS/KG/HR 21.8 mls/hr IV .[id number] [facility] Rx#: [id number] Norepinephrine 4 mg In 342.612 411.422 182.648 Sodium Chloride 0.9% 250 ml @ 0.03 MCG/KG/MIN 13. 843 mls/hr IV .[id number] [facility] Rx#:[id number] Blood Product 310 Rc As-1 Unit 310 [id number] Output: Urine 895 745 35 Other: Voiding Method Indwelling Catheter Indwelling Catheter ABP, PAP, CO, CI - Last Documented Arterial Blood Pressure 103/46 - Exam Patient is sedated and on the ventilator Examination of the heart S1 and S2 Examination of the lungs bilateral breath sounds are heard Abdomen is soft nontender, obese Examination of the lower extremities shows chronic skin changes with much decreased edema. [employer] exam cannot be assessed - Labs CBC & Chem 7: 03/22/23 04:13 03/22/23 04:13 Labs: Abnormal Lab Results - Last 24 Hours (Table) 03/21/23 03/21/23 03/21/23 Range/Units 07:51 13:00 14:24 RBC 2.01 L (3.80-5.40) m/uL Hgb 7.5 L (11.4-16.0) gm/dL Hct 24.4 L (34.0-46.0) % MCV 121.6 H (80.0-100.0) fL MCH 37.3 H (25.0-35.0) pg MCHC 30.7 L (31.0-37.0) g/dL RDW 22.6 H (11.5-15.5) % Lymphocytes # (Manual) 0.60 L (1.0-4.8) k/uL Metamyelocytes # (Man) 0.06 H (0) k/uL Myelocytes # (Manual) 0.06 H (0) k/uL Nucleated RBCs (0-0) /100 WBC Macrocytosis Marked A APTT 58.6 H (22.0-30.0) sec ABG pH (7.35-7.45) ABG pCO2 (35-45) mmHg ABG pO2 (83-108) mmHg ABG HCO3 (21-25) mmol/L ABG Total CO2 (19-24) mmol/L ABG O2 Saturation (94-97) % BUN (7-17) mg/dL Creatinine (0.52-1.04) mg/dL Glucose (74-99) mg/dL POC Glucose (mg/dL) (70-110) mg/dL Calcium (8.4-10.2) mg/dL Total Protein (6.3-8.2) g/dL Albumin (3.5-5.0) g/dL Crossmatch See Detail 03/21/23 03/21/23 03/21/23 Range/Units 15:10 16:28 20:35 RBC (3.80-5.40) m/uL Hgb (11.4-16.0) gm/dL Hct (34.0-46.0) % MCV (80.0-100.0) fL MCH (25.0-35.0) pg MCHC (31.0-37.0) g/dL RDW (11.5-15.5) % Lymphocytes # (Manual) (1.0-4.8) k/uL Metamyelocytes # (Man) (0) k/uL Myelocytes # (Manual) (0) k/uL Nucleated RBCs (0-0) /100 WBC Macrocytosis APTT (22.0-30.0) sec ABG pH 7.30 L (7.35-7.45) ABG pCO2 54 H (35-45) mmHg ABG pO2 69 L (83-108) mmHg ABG HCO3 27 H (21-25) mmol/L ABG Total CO2 28 H (19-24) mmol/L ABG O2 Saturation 93.6 L (94-97) % BUN (7-17) mg/dL Creatinine (0.52-1.04) mg/dL Glucose (74-99) mg/dL POC Glucose (mg/dL) 194 H 158 H (70-110) mg/dL Calcium (8.4-10.2) mg/dL Total Protein (6.3-8.2) g/dL Albumin (3.5-5.0) g/dL Crossmatch 03/21/23 03/22/23 03/22/23 Range/Units 23:50 04:13 04:13 RBC 2.17 L (3.80-5.40) m/uL Hgb 8.0 L (11.4-16.0) gm/dL Hct 26.2 L (34.0-46.0) % MCV 120.7 H (80.0-100.0) fL MCH 37.0 H (25.0-35.0) pg MCHC 30.7 L (31.0-37.0) g/dL RDW 21.9 H (11.5-15.5) % Lymphocytes # (Manual) 0.80 L (1.0-4.8) k/uL Metamyelocytes # (Man) 0.27 H (0) k/uL Myelocytes # (Manual) 0.18 H (0) k/uL Nucleated RBCs 1 H (0-0) /100 WBC Macrocytosis Marked A APTT (22.0-30.0) sec ABG pH (7.35-7.45) ABG pCO2 (35-45) mmHg ABG pO2 (83-108) mmHg ABG HCO3 (21-25) mmol/L ABG Total CO2 (19-24) mmol/L ABG O2 Saturation (94-97) % BUN 58 H (7-17) mg/dL Creatinine 2.58 H (0.52-1.04) mg/dL Glucose 152 H (74-99) mg/dL POC Glucose (mg/dL) 152 H (70-110) mg/dL Calcium 8.0 L (8.4-10.2) mg/dL Total Protein 5.9 L (6.3-8.2) g/dL Albumin 3.0 L (3.5-5.0) g/dL Crossmatch 03/22/23 03/22/23 03/22/23 Range/Units 04:13 06:54 08:30 RBC (3.80-5.40) m/uL Hgb (11.4-16.0) gm/dL Hct (34.0-46.0) % MCV (80.0-100.0) fL MCH (25.0-35.0) pg MCHC (31.0-37.0) g/dL RDW (11.5-15.5) % Lymphocytes # (Manual) (1.0-4.8) k/uL Metamyelocytes # (Man) (0) k/uL Myelocytes # (Manual) (0) k/uL Nucleated RBCs (0-0) /100 WBC Macrocytosis APTT 76.4 H (22.0-30.0) sec ABG pH (7.35-7.45) ABG pCO2 (35-45) mmHg ABG pO2 (83-108) mmHg ABG HCO3 (21-25) mmol/L ABG Total CO2 (19-24) mmol/L ABG O2 Saturation (94-97) % BUN (7-17) mg/dL Creatinine (0.52-1.04) mg/dL Glucose (74-99) mg/dL POC Glucose (mg/dL) 181 H 182 H (70-110) mg/dL Calcium (8.4-10.2) mg/dL Total Protein (6.3-8.2) g/dL Albumin (3.5-5.0) g/dL Crossmatch 03/22/23 03/22/23 Range/Units 09:34 11:11 RBC (3.80-5.40) m/uL Hgb (11.4-16.0) gm/dL Hct (34.0-46.0) % MCV (80.0-100.0) fL MCH (25.0-35.0) pg MCHC (31.0-37.0) g/dL RDW (11.5-15.5) % Lymphocytes # (Manual) (1.0-4.8) k/uL Metamyelocytes # (Man) (0) k/uL Myelocytes # (Manual) (0) k/uL Nucleated RBCs (0-0) /100 WBC Macrocytosis APTT (22.0-30.0) sec ABG pH 7.28 L (7.35-7.45) ABG pCO2 52 H (35-45) mmHg ABG pO2 63 L (83-108) mmHg ABG HCO3 (21-25) mmol/L ABG Total CO2 26 H (19-24) mmol/L ABG O2 Saturation 89.8 L (94-97) % BUN (7-17) mg/dL Creatinine (0.52-1.04) mg/dL Glucose (74-99) mg/dL POC Glucose (mg/dL) 181 H (70-110) mg/dL Calcium (8.4-10.2) mg/dL Total Protein (6.3-8.2) g/dL Albumin (3.5-5.0) g/dL Crossmatch Assessment and Plan Assessment: 1. Acute kidney injury, ATN mostly associated with hypotension. UA shows trace protein and moderate blood. Ultrasound of the kidneys shows no evidence of obstruction. Back on diuretics due to increased oxygen requirement. Significant right heart failure noted. Patient was also started on dobutamine, discontinued now secondary to A. fib with RVR this morning 2. Intermediate possibility of PE maintained on IV heparin. 3. Hyperkalemia associated with acute kidney injury, improved. 4. Anemia , iron replete , based on labs on 03/08/2023. Being followed by hematology 5. Obstructive sleep apnea maintained on home O2 6. Morbid obesity 7. History of diastolic CHF with severe right heart failure 8. History of von Willebrand's disease 9. Acute hypoxic respiratory failure Plan: Continue with Lasix drip Repeat labs in a.m. Avoid nephrotoxic agents We will continue to monitor on a daily basis for need for renal replacement therapy.
[2023-03-22 11:27] VITALS: BMI 44.9
[2023-03-22] MEDS: INSULIN ASPART (NovoLOG) 100 UNIT/ML VIAL SQ SCH ×2 (11:53→17:47)
--- NOTE | 2023-03-22 12:54 | P.PN ---
Subjective Progress Note Date: 03/22/23 Patient is a 78-year-old lady past medical history significant for COPD, obesity/obesity hypoventilation syndrome, chronic hypoxemic respiratory failure, obstructive sleep apnea, CHF, diabetes mellitus, hypertension, hypothyroidism who presented to the hospital for possible worsening shortness of breath. She was in the hospital beginning of the month at which time she had a fall. Patient stated ever since she has been discharged she has been worsening shortness of breath. Shortness of breath is present on exertion and at rest. Patient states that only walking across the room makes her short of breath and winded. Denies any chest pain. There was no complain of any fever or chills. Denies any cough. Denies any nausea, vomiting abdominal pain. Patient was also going of lethargy and weakness. Because of worsening shortness of breath, patient came to the ER Initial lab work done in the ER showed WBC 5.1, hemoglobin 8.1, platelet count 407, sodium 138, potassium 5.5, BUNs 46, creatinine 1.87 and troponin 0.012, proBNP 45828 Influenza A not detected Influenza B not detected RSV not detected COVID-19 not detected EKG done in the ER showed heart rate of 86 , no ST segment elevation or depression seen, no T-wave inversions seen. Chest x-ray done in the ER showed moderate cardiac megaly, no pulmonary edema or infiltrate seen VQ scan done showed intermediate possibility for pulmonary embolism given the moderate sized defect at the right base Patient admitted to internal medicine service 03/16. Patient seen and examined. Patient had rapid response this morning because of respiratory distress, patient's pulse ox dropped into 70s, patient had to be placed on BiPAP. Doing much better now. Denies any shortness of breath. Patient is alert and oriented, answering question appropriately 2-D echo done showed normal left ventricle size and systolic function with severe hypertrophy, severely dilated right ventricle with reduced function and severe pulmonary hypertension, severe tricuspid with mild to moderate mitral regurg 03/17. Patient seen and examined. Patient was placed on BiPAP, FiO2 40%. States she feels much better. Patient was later switched to nasal cannula oxygen at 5 L. Patient is refusing vitamin B12 injections. Denies any cough. Denies any fever or chills. 03/18. Patient seen and examined. Labs were the brace 5.1, hemoglobin 7.5, platelet count 315. Heparin was discontinued, switched to oral Eliquis. Continues to be on BiPAP but breathing has improved a lot. Patient tired this morning, she wants to rest. Vital signs stable 03/19. Patient seen and examined. Patient currently on BiPAP with an FiO2 40%. Patient is responsive, answering questions appropriately. On BiPAP she states that she feels much better. States she wants to eat and wants to get off the BiPAP. 03/20. Patient seen and examined. Patient had rapid response called overnight for low blood pressure, patient was evaluated by A team and transferred to ICU. Currently on BiPAP, opened eyes, follows commands, he recognizes his family 03/21. Patient seen and examined. Patient continues to be on BiPAP, currently 1000% FiO2. Patient continues to be lethargic but arousable. Currently on dobutamine and Levophed drip. Patient also on IV Lasix 60 mg every 8. Family at the bedside 03/22. Patient seen and examined. Patient continued to be in respiratory distress, was on BiPAP but restless, patient was intubated by critical care team. Patient went into A. fib and RVR overnight and had to be cardioverted. Currently on Lasix drip, amiodarone, Levophed PHYSICAL EXAMINATION: GENERAL: The patient is intubated and sedated HEENT: Pupils are round and equally reacting to light. EOMI. No scleral icterus. No conjunctival pallor. Normocephalic, atraumatic. No pharyngeal erythema. No thyromegaly. CARDIOVASCULAR: S1 and S2 present. No murmurs, rubs, or gallops. PULMONARY: Diminished breath sounds at the bases bilaterally, rhonchi audible at the bases ABDOMEN: Soft, nontender, nondistended, normoactive bowel sounds. No palpable organomegaly. MUSCULOSKELETAL: No joint swelling or deformity. EXTREMITIES: No cyanosis, clubbing, or pedal edema. NEUROLOGICAL: intubated SKIN: No rashes. Assessment and plan Acute on chronic diastolic CHF Acute on chronic hypoxemic hypercapnic respiratory failure A. fib with RVR status post cardioversion severe pulmonary hypertension Hyperkalemia Acute on chronic kidney disease V/Q scan showing intermediate probably for PE On occlusive thrombus in the right saphenofemoral junction Chronic hypoxemic respiratory failure, chronically utilizes 4 L/m nasal cannula History of COPD, stable Obesity/obesity hypoventilation syndrome Obstructive sleep apnea, utilizes BiPAP at night with a support of 13/8 Diabetes mellitus, type II Macrocytic anemia, no acute blood loss noted. Hypertension Hypothyroidism Morbid obesity, with a BMI of 43.1 kg/m Monitor vital signs Monitor CBC monitor CMP Continue vent management per ICU Continue IV propofol Continue amiodarone drip Strict I's and O's, daily weights, continue IV Lasix drip Continue IV Levophed Continue IV heparin drip Start tube feeding Avoid nephrotoxic agents. Aggressive bronchopulmonary hygiene Continue breathing treatments 2-D echo done showed normal left ventricle size and systolic function with severe hypertrophy, severely dilated right ventricle with reduced function and severe pulmonary hypertension, severe tricuspid with mild to moderate mitral reg urg In regards to acute anemia,continue to monitor H&H transfuse for hemodynamic instability or hemoglobin less than 7, and anemia workup noted. Hematology oncology following, recommend oral anticoagulation for at least 3 months In regards to diabetes mellitus, continue sliding scale insulin nephrology following Critical care following Labs and medication were reviewed.. Continue same treatment. Continue with symptomatic treatment. Resume home medication. Monitor labs and vitals. DVT and GI prophylaxis. Further recommendations as per clinical course of the patient Dictation was produced using [employer] dictation software. please excuse any grammatical, word or spelling errors. Objective - Vital Signs Vital signs: Vital Signs Temp 98.8 F 03/22/23 04:00 Pulse 95 03/22/23 08:26 Resp 33 H 03/22/23 07:00 BP 104/71 03/22/23 07:00 Pulse Ox 91 L 03/22/23 07:00 FiO2 100 03/22/23 09:20 Intake & Output 03/21/23 03/22/23 03/22/23 18:59 06:59 18:59 Intake Total 8138.484 1276.503 253.099 Output Total 895 745 35 Balance 778.000 452.503 218.099 Weight 124.9 kg 126.2 kg Intake: IV 718 392 26 Dextrose 5% in Water 1, 280 000 ml @ 40 mls/hr IV . Q24H [facility] with Sodium Bicarb (1 Meq/ml) 150 ml Rx#:[id number] Dextrose 5% in Water 1, 305 000 ml @ 75 mls/hr IV . [id number] [facility] with Sodium Bicarb (1 Meq/ml) 150 ml Rx#:[id number] Furosemide 100 mg In 80 Sodium Chloride 0.9% 90 ml @ 10 MG/HR 10 mls/hr IV .Q10H [facility] Rx#: [id number] Piperacillin-Tazobactam 3 100 .375 gm In Sodium Chloride 0.9% 100 ml @ 25 mls/hr IVPB Q12HR [facility] Rx #:[id number] Pressure Bag (0.9 Sodium 33 72 6 Chloride) Sodium Chloride 0.9% 500 240 20 ml 500 ml @ 20 mls/hr IV .Q24H [facility] Rx#:[id number] Intake, IV Titration 645.000 805.503 227.099 Amount DOBUTamine DRIP 500 mg In 250.000 Dextrose/Water 1 250ml. bag @ 5 MCG/KG/MIN 18.166 mls/hr IV .[id number] [facility] Rx#:[id number] Dexmedetomidine/0.9% NaCl 70.414 0 (Pmx) 400 mcg In Empty Bag 1 bag @ 0.2 MCG/KG/HR 6.245 mls/hr IV .[id number] [facility] Rx#:[id number] Furosemide 100 mg In 73.667 Sodium Chloride 0.9% 90 ml @ 10 MG/HR 10 mls/hr IV .Q10H [facility] Rx#: [id number] Heparin Sod,Pork in 0.45% 52.388 250 96.361 NaCl 25,000 unit In 0.45 % NaCl 1 250ml.bag @ 18 UNITS/KG/HR 21.8 mls/hr IV .[id number] [facility] Rx#: [id number] Norepinephrine 4 mg In 342.612 411.422 130.738 Sodium Chloride 0.9% 250 ml @ 0.03 MCG/KG/MIN 13. 843 mls/hr IV .[id number] [facility] Rx#:[id number] Blood Product 310 Rc As-1 Unit 310 [id number] Output: Urine 895 745 35 Other: Voiding Method Indwelling Catheter Indwelling Catheter ABP, PAP, CO, CI - Last Documented Arterial Blood Pressure 101/48 - Labs CBC & Chem 7: 03/22/23 04:13 03/22/23 04:13 Labs: Abnormal Lab Results - Last 24 Hours (Table) 03/21/23 03/21/23 03/21/23 Range/Units 07:51 11:07 13:00 RBC 2.01 L (3.80-5.40) m/uL Hgb 7.5 L (11.4-16.0) gm/dL Hct 24.4 L (34.0-46.0) % MCV 121.6 H (80.0-100.0) fL MCH 37.3 H (25.0-35.0) pg MCHC 30.7 L (31.0-37.0) g/dL RDW 22.6 H (11.5-15.5) % Lymphocytes # (Manual) 0.60 L (1.0-4.8) k/uL Metamyelocytes # (Man) 0.06 H (0) k/uL Myelocytes # (Manual) 0.06 H (0) k/uL Nucleated RBCs (0-0) /100 WBC Macrocytosis Marked A APTT (22.0-30.0) sec ABG pH (7.35-7.45) ABG pCO2 (35-45) mmHg ABG pO2 (83-108) mmHg ABG HCO3 (21-25) mmol/L ABG Total CO2 (19-24) mmol/L ABG O2 Saturation (94-97) % BUN (7-17) mg/dL Creatinine (0.52-1.04) mg/dL Glucose (74-99) mg/dL POC Glucose (mg/dL) 188 H (70-110) mg/dL Calcium (8.4-10.2) mg/dL Total Protein (6.3-8.2) g/dL Albumin (3.5-5.0) g/dL Crossmatch See Detail 03/21/23 03/21/23 03/21/23 Range/Units 14:24 15:10 16:28 RBC (3.80-5.40) m/uL Hgb (11.4-16.0) gm/dL Hct (34.0-46.0) % MCV (80.0-100.0) fL MCH (25.0-35.0) pg MCHC (31.0-37.0) g/dL RDW (11.5-15.5) % Lymphocytes # (Manual) (1.0-4.8) k/uL Metamyelocytes # (Man) (0) k/uL Myelocytes # (Manual) (0) k/uL Nucleated RBCs (0-0) /100 WBC Macrocytosis APTT 58.6 H (22.0-30.0) sec ABG pH 7.30 L (7.35-7.45) ABG pCO2 54 H (35-45) mmHg ABG pO2 69 L (83-108) mmHg ABG HCO3 27 H (21-25) mmol/L ABG Total CO2 28 H (19-24) mmol/L ABG O2 Saturation 93.6 L (94-97) % BUN (7-17) mg/dL Creatinine (0.52-1.04) mg/dL Glucose (74-99) mg/dL POC Glucose (mg/dL) 194 H (70-110) mg/dL Calcium (8.4-10.2) mg/dL Total Protein (6.3-8.2) g/dL Albumin (3.5-5.0) g/dL Crossmatch 03/21/23 03/21/23 03/22/23 Range/Units 20:35 23:50 04:13 RBC 2.17 L (3.80-5.40) m/uL Hgb 8.0 L (11.4-16.0) gm/dL Hct 26.2 L (34.0-46.0) % MCV 120.7 H (80.0-100.0) fL MCH 37.0 H (25.0-35.0) pg MCHC 30.7 L (31.0-37.0) g/dL RDW 21.9 H (11.5-15.5) % Lymphocytes # (Manual) 0.80 L (1.0-4.8) k/uL Metamyelocytes # (Man) 0.27 H (0) k/uL Myelocytes # (Manual) 0.18 H (0) k/uL Nucleated RBCs 1 H (0-0) /100 WBC Macrocytosis Marked A APTT (22.0-30.0) sec ABG pH (7.35-7.45) ABG pCO2 (35-45) mmHg ABG pO2 (83-108) mmHg ABG HCO3 (21-25) mmol/L ABG Total CO2 (19-24) mmol/L ABG O2 Saturation (94-97) % BUN (7-17) mg/dL Creatinine (0.52-1.04) mg/dL Glucose (74-99) mg/dL POC Glucose (mg/dL) 158 H 152 H (70-110) mg/dL Calcium (8.4-10.2) mg/dL Total Protein (6.3-8.2) g/dL Albumin (3.5-5.0) g/dL Crossmatch 03/22/23 03/22/23 03/22/23 Range/Units 04:13 04:13 06:54 RBC (3.80-5.40) m/uL Hgb (11.4-16.0) gm/dL Hct (34.0-46.0) % MCV (80.0-100.0) fL MCH (25.0-35.0) pg MCHC (31.0-37.0) g/dL RDW (11.5-15.5) % Lymphocytes # (Manual) (1.0-4.8) k/uL Metamyelocytes # (Man) (0) k/uL Myelocytes # (Manual) (0) k/uL Nucleated RBCs (0-0) /100 WBC Macrocytosis APTT 76.4 H (22.0-30.0) sec ABG pH (7.35-7.45) ABG pCO2 (35-45) mmHg ABG pO2 (83-108) mmHg ABG HCO3 (21-25) mmol/L ABG Total CO2 (19-24) mmol/L ABG O2 Saturation (94-97) % BUN 58 H (7-17) mg/dL Creatinine 2.58 H (0.52-1.04) mg/dL Glucose 152 H (74-99) mg/dL POC Glucose (mg/dL) 181 H (70-110) mg/dL Calcium 8.0 L (8.4-10.2) mg/dL Total Protein 5.9 L (6.3-8.2) g/dL Albumin 3.0 L (3.5-5.0) g/dL Crossmatch 03/22/23 Range/Units 08:30 RBC (3.80-5.40) m/uL Hgb (11.4-16.0) gm/dL Hct (34.0-46.0) % MCV (80.0-100.0) fL MCH (25.0-35.0) pg MCHC (31.0-37.0) g/dL RDW (11.5-15.5) % Lymphocytes # (Manual) (1.0-4.8) k/uL Metamyelocytes # (Man) (0) k/uL Myelocytes # (Manual) (0) k/uL Nucleated RBCs (0-0) /100 WBC Macrocytosis APTT (22.0-30.0) sec ABG pH (7.35-7.45) ABG pCO2 (35-45) mmHg ABG pO2 (83-108) mmHg ABG HCO3 (21-25) mmol/L ABG Total CO2 (19-24) mmol/L ABG O2 Saturation (94-97) % BUN (7-17) mg/dL Creatinine (0.52-1.04) mg/dL Glucose (74-99) mg/dL POC Glucose (mg/dL) 182 H (70-110) mg/dL Calcium (8.4-10.2) mg/dL Total Protein (6.3-8.2) g/dL Albumin (3.5-5.0) g/dL Crossmatch
[2023-03-22 17:45] LABS: Glucose,Whole Blood 158 mg/dL (70-110)
[2023-03-22] MEDS: SODIUM CHLORIDE 0.9% 500 ML 500 ML IV SCH (17:48)
[2023-03-22 19:10] VITALS: BP 108/61
[2023-03-22] MEDS: CHLORHEXIDINE GLUCONATE 15 ML CUP MUCOUS MEM SCH (21:05)
[2023-03-22 21:08] LABS: ABG Base Excess -3.5 mmol/L; ABG HCO3 24 mmol/L (21-25); ABG Oxygen Saturation 92.4 % (94-97); ABG PCO2 57 mmHg (35-45); ABG PH 7.24 (7.35-7.45); ABG PO2 71 mmHg (83-108); ABG TCO2 26 mmol/L (19-24)
[2023-03-22 21:14] LABS: Allen Test Performed? yes
--- NOTE | 2023-03-22 22:07 | PN ---
PROGRESS NOTE HISTORY OF PRESENT ILLNESS: Kayli is a 78-year-old lady, who is in the intensive care unit with right-sided heart failure, was on dobutamine, was on heparin for DVT. Last night, she had an episode of atrial fibrillation with rapid ventricular rate, for which she underwent a defibrillation, converted back to sinus rhythm. Early this morning, she developed worsening respiratory distress and had been intubated. At the time of my evaluation this morning, she is intubated on vent and sedated. She is on IV heparin and amiodarone drip at 0.5 mg. PHYSICAL EXAMINATION: VITAL SIGNS: The patient remains in sinus rhythm. Heart rate is around 100 beats per minute. Blood pressure is 103/46, respiratory rate is 22. CHEST: Reveals diminished air entry with occasional rhonchi bilaterally. HEART: Reveals first and second heart sounds. No gallop. EXTREMITIES: Reveal bilateral moderate pitting edema and chronic stasis changes. LABORATORY DATA: Labs show a hemoglobin of 8, platelet count is 334. Blood gases show a pH of 7.2, pCO2 of 52, pO2 of 63. Potassium is 4.5, BUN is 58, creatinine is 2.5. ASSESSMENT: 1. Right-sided heart failure with pulmonary hypertension. 2. Paroxysmal atrial fibrillation. 3. Vent-requiring respiratory failure. 4. Renal failure. PLAN: I will stop the dobutamine because of the episode of atrial fibrillation that she had. I will continue her current medications. MMTALHA / TANYAN: [id number] /
[2023-03-22 23:51] LABS: Glucose,Whole Blood 154 mg/dL (70-110)
[2023-03-23] MEDS: INSULIN ASPART (NovoLOG) 100 UNIT/ML VIAL SQ SCH ×4 (00:26→18:55)
[2023-03-23] MEDS: MORPHINE SULFATE 4 MG/ML SYRINGE IV PRN ×2 (00:55→20:48)
[2023-03-23] MEDS: NOREPINEPHRINE 32 MG in SODIUM CHLORIDE 0.9% 218 ML IV SCH ×2 (02:00→14:51)
[2023-03-23] MEDS: ALBUTEROL NEBULIZED 2.5 MG/3 ML INHALATION SCH ×5 (04:17→21:26)
[2023-03-23 05:32] LABS: Anisocytosis Moderate; HCT 31.2 % (34.0-46.0); HGB 9.3 gm/dL (11.4-16.0); Hypochromasia Marked; MCH 36.6 pg (25.0-35.0); MCHC 29.8 g/dL (31.0-37.0); MCV 122.9 fL (80.0-100.0); Macrocytosis Marked; Mean Platelet Volume 11.5; Platelet Count 564 k/uL (150-450); Poikilocytosis Slight; RBC 2.54 m/uL (3.80-5.40); RDW 21.6 % (11.5-15.5)
[2023-03-23 05:45] LABS: Glucose,Whole Blood 156 mg/dL (70-110)
[2023-03-23 06:03] LABS: African American GFR (CKD) 20 (>60 ml/min/1.73 sqM); Anion Gap 13 mmol/L; Blood Urea Nitrogen 58 mg/dL (7-17); Calcium 8.3 mg/dL (8.4-10.2); Carbon Dioxide 21 mmol/L (22-30); Chloride 105 mmol/L (98-107); Glucose 160 mg/dL (74-99); Non-African American GFR(CKD) 18 (>60 ml/min/1.73 sqM); Potassium 4.7 mmol/L (3.5-5.1); Sodium 139 mmol/L (137-145)
[2023-03-23 06:05] LABS: ABG Base Excess -3.4 mmol/L; ABG HCO3 24 mmol/L (21-25); ABG PCO2 54 mmHg (35-45); ABG PH 7.26 (7.35-7.45); ABG PO2 71 mmHg (83-108); Allen Test Performed? Yes
[2023-03-23 06:56] LABS: Band Neutrophils % 13 %; Metamyelocytes % 9 %; Myelocytes % 9 %; Neutrophils % (M) 47 %; Nucleated Red Blood Cells 5 /100 WBC (0-0); Total Cells Counted 200
[2023-03-23 06:57] LABS: Anisocytosis (M) Present; Basophils # (M) 0.21 k/uL (0-0.2); Blast Cells # (M) 0.43 k/uL (0); Eosinophils # (M) 0.21 k/uL (0-0.7); Metamyelocytes # (M) 1.92 k/uL (0); Monocytes # (M) 1.28 k/uL (0-1.0); Myelocytes # (M) 1.92 k/uL (0); Ovalocytes Present; Poikilocytosis (M) Present; Polychromasia Present; WBC 21.3 k/uL (3.8-10.6)
[2023-03-23 06:58] LABS: Tear Drop Cells Present
[2023-03-23] MEDS: FUROSEMIDE 100 MG in SODIUM CHLORIDE 0.9% 90 ML IV SCH (07:26)
[2023-03-23] MEDS: PIPERACILLIN-TAZOBACTAM 3.375 GM in SODIUM CHLORIDE 0.9% 100 ML IVPB SCH (08:36)
[2023-03-23] MEDS: PANTOPRAZOLE 40 MG/10 ML VIAL IV SCH (08:37)
[2023-03-23] MEDS: CYANOCOBALAMIN 500 MCG TAB PO SCH (08:38)
[2023-03-23] MEDS: CHLORHEXIDINE GLUCONATE 15 ML CUP MUCOUS MEM SCH (08:38)
[2023-03-23] MEDS: HEPARIN SOD,PORK IN 0.45% NACL 25,000 UNIT in 0.45% NACL 1 250ML.BAG IV SCH (08:50)
--- NOTE | 2023-03-23 09:05 | P.PN ---
Subjective Progress Note Date: 03/23/23 I am seeing this patient in consultation today 03/15/2023 in the emergency room after she presented with acute on chronic shortness of breath that has been ongoing and progressively worsening for a couple weeks. Patient is a 78-year-old white female past medical history significant for COPD, obesity/obe sity hypoventilation syndrome, chronic hypoxemic respiratory failure, obstructive sleep apnea, CHF, diabetes mellitus, hypertension, hypothyroidism. She did have a recent hospitalization at our facility for a fall and was discharged on March 09. She does follow in the pulmonary office with Dr. Schilling. Most recent PFT from 2020, shows a combination of severe obstructive/restrictive disease. She is chronically oxygen dependent and utilizes 4 L/m nasal cannula. She is technically a poor historian. Patient states that she is chronically short of breath, however, she has been progressively more short of breath over the last couple weeks. Denies any infectious symptoms such as cough, fever, chest pain, hemoptysis. Denies sick contacts. Does admit chronic lower extremity swelling. She takes Demadex twice a day at home. Denies any chest pain, heart palpitations, syncope or increase in her lower extremity swelling. Chest x-ray shows moderate cardiomegaly, no alexia pulmonary edema or focal infiltrate suggestive of pneumonia. NT proBNP was elevated at 12,400. CBC has a WBC count of 5.1, hemoglobin 8.1, hematocrit 26.2, platelets 407. BMP shows sodium 138, potassium 5.5, chloride 102, serum bicarbonate 22, BUN 46, creatinine 1.87, glucose 137. D-dimer was elevated at 1.99, however, clinical suspicion for pulmonary embolism is low. Patient is scheduled to undergo VQ scan. Troponin less than 0.012. Normal saline is infusing at 75 ML's per hour. She is currently sitting up in bed, on 4 L/m nasal cannula, in no acute distress. Vital signs are stable. The patient is seen today 03/16/2023 in follow-up in the emergency department. She is currently sitting up in bed. Awake and alert in no acute distress. Maintained on BiPAP 13/8 and 40% FiO2. His been afebrile. Hemodynamically stable. Dopplers of the lower extremity were positive for DVT in the right. Ve ntilation perfusion scan revealed intermediate probability for pulmonary embolus. There is a moderate sized defect at the right base. Echocardiogram revealed severely increased left ventricular wall thickness. Left ventricular ejection fraction 55-60%. Flattened septum in systole and diastole consistent with right ventricular pressure fluid and volume overload. Severe right ventricular dilatation with severe pulmonary hypertension and an RVSP of 99 mmHG. White count 4.6. Hemoglobin 7.6. Platelets 383,000. Sodium 138. Potassium 5.1. Bicarb 22. BUN 43. Creatinine 1.84. Glucose 129. She is currently on a heparin drip. Receiving oral diuretics. Progress note dated 03/17/2023. 78-year-old female initially seen in the emergency department. Seen today in room 371. The patient continues on BiPAP, and IV heparin. She was discovered to have a right lower extremity DVT. The patient is feeling better, and gives a thumbs up, when asked how she is doing. Today's labs include a white count 4.5, he will been some 0.4, hematocrit 24.4, and a platelet count of 308,000. PTT is 66.3. Glucose is 159. VQ scan was indeterminate. Doppler lower lobe extremity did reveal a right lower extremity DVT. Progress note dated 03/18/2023. 78-year-old female seen in room 371. She continues on BiPAP. The patient is currently on IV heparin, but can be converted to a factor X a inhibitor. When not on BiPAP, she is getting oxygen, at 5 L. The patient clinically feels like she is improved. Current laboratory includes a white count 5.1, hemoglobin 7.5, hematocrit 25, and a platelet count of 315,000. On today's evaluation of 03/20/2023, I'm seeing the patient for a follow-up. T his is a 78-year-old female patient, quite debilitated with COPD, obesity and obesity hypoventilation syndrome and chronic hypoxic and hypercapnic respiratory failure along with severe right-sided heart failure and severe pulmonary hypertension and a preserved LV function. She is also known to have chronic kidney disease, diabetes mellitus, hypertension and hypothyroidism. She is morbidly obese. The patient presented to us initially with shortness of breath this been going on for the past several weeks. Had a viral screen was negative including Covid 19. The patient's condition progressively got worse and the patient got admitted to the intensive care unit yesterday and currently she is on a BiPAP at pressure 14/8 cm of water and FiO2 of 70%. It was noted that the patient was getting progressively more obtunded. While on the BiPAP, she is able to generate a tidal volume of 350 mL with a rate of 24. She is following simple commands however she is extremely weak. She is sore all over and she is having diffuse body aches. She is afebrile. She is hypotensive and she was also started on pressors and currently she is on norepinephrine running at 0.1 mcg/kg/m. She has also developed an acute kidney injury and had a BUN today is at 58 with a creatinine of 2.8 and a sodium level is at 136. She is acidotic and her potassium level is up to 5.6. Blood gas showed a pH of 7.21 with a pCO2 54 and pO2 of 86. The white cell count of 8.5 with a hemoglobin of 7.5. I do not see any chest x-rays done on this patient. The last chest x-ray was done on 03/14/2022 that showed cardiomegaly without any acute abnormalities. The Doppler of the lower extremities showed limited visibility and a clot was seen in the saphenous/femoral junction which is nonocclusive. The patient is cu rrently on IV heparin. A VQ scan that was done at a time of admission on 03/15/2023 was intermediate probability. The patient was diabetes with torsemide. The patient is currently on IV heparin. No antibiotic coverage for the time being. I also reviewed her most recent echocardiogram which showed severe tricuspid regurgitation, no evidence of any aortic stenosis, she has severe dilated RV with reduced function and severe pulmonary hypertension with a PA pressure of 99. There is flattening of the septum consistent with severe RV pressure/volume overload. On 03/21/2023, the patient is being seen in follow-up in the intensive care unit. The patient remains on a BiPAP at a pressure of 14/8 with an FiO2 of 100%. She was on BiPAP throughout the day yesterday and overnight she was kept on a BiPAP. She is still lethargic, level of consciousness and diminished yet she is arousable. She has diffuse body aches and she is very tender to touch brought her body. The patient is able to manage well on the BiPAP machine and she generating a tidal volume of 4 50 mL and a respiratory rate is around 30. Her pulse ox currently is at 98%. Chest x-ray shows no significant interval change. There is cardiomegaly. This pulmonary artery dilatation consistent with pulmonary hypertension. The patient has some airspace disease in the right lower lobe suspecting pneumonia for that reason the patient was started on IV Zosyn as a broad-spectrum antibiotic coverage. Hemodynamically, the patient has severe RV failure and pulmonary hypertension. He is diuresing well with Lasix. She was started on Lasix 60 mg IV every 8 hours and her urine output has approach 1 L over the past 24 hours. She is still in positive fluid balance pH she sustained an acute kidney injury and the creatinine is stable compared to yesterday. Creatinine this morning is at 2.8 with a BUN of 63. Sodium is at 13 8, potassium is at 5, currently 102 bicarb is 26. The patient is currently on norepinephrine running at 0.05 mcg/kg/m. Dobutamine was also added yesterday which is running at 5 mcg/kg/m. IV fluids are in the form of bicarb infusion at 75 mL an hour. No blood gases available from this morning. The most recent blood gas from yesterday showed a pH of 7.22 with a pCO2 of 62 and pO2 of 133 and this was on FiO2 of 70%. Patient remains on IV heparin. The cardiac rhythm is sinus at this point in time. 03/22/2023, the patient is struggling with her breathing and she is restless and still lethargic and encephalopathic and confused. She had to be started on Precedex as the patient was reaching out to a BiPAP mask and Precedex is running at 0.7 g. Kilogram per hour. Overnight, she encountered about of atrial fibrillation with rapid response. She became hemodynamically unstable and she h ad to be cardioverted. Subsequently, dobutamine was discontinued. Her current cardiac rhythm is back into sinus and the patient is on amiodarone per protocol running at 1 mg/m. She remains on pressors and norepinephrine is running at 0.14 mcg/kg/m. She is also on Lasix drip at 10 mg an hour. The patient is currently on a BiPAP at a pressure of 14/8 cm of water would notify DrOrestes 100%. Urine output is in order of 50-60 mL an hour. Overall fluid balance +1.2 L over the past 24 hours. Chest x-ray from today shows no significant interval change. There is CHF and cardiomegaly. Right lower lobe consolidation seems to be improved and the patient has a left IJ triple-lumen catheter in place. Blood gas was showing some improvement from yesterday. Note. Blood gas from today. She remains on IV heparin. The hemoglobin is stable at 8 with a white cell count of 9. BUN is at 58 with a creatinine of 2.58 and a sodium level is at 140. IV fluids are currently at KVO. She is afebrile. Based on her decompensated respiratory status, I made the decision to proceed with intubation mechanical ventilation. Avoided discussed this with her family including her and son yesterday. Obviously, her overall respiratory status is decompensated. She remains quite tachypneic, encephalopathic and obtunded. On 03/23/2023, the patient remains critically ill, intubated on a mechanical anuja tilator. She is on propofol which is running at 40 mcg/kg/m pH is adequately sedated for now. She remains on a mechanical ventilator, assist control mode at the rate of 32, tidal volume of 375, FiO2 is at 100% with a PEEP of 15. Chest x-ray shows increased interstitial markings bilaterally along with cardiomegaly. There is some infiltration along the left upper lobe and left perihilar area and the right infrahilar area also. Orotracheal tube is in a good location. The patient has a right IJ triple-lumen catheter in place. Blood gases show a pH of 7.26 with a pCO2 54 and pO2 of 71 and this was on FiO2 100%. The patient is hypotensive. She is in a normal sinus rhythm. She is on an amiodarone drip. Amiodarone is running at 0.5 mg/m. She is on norepinephrine running at 0.31 mcg/kg/m. She is in a positive fluid balance and she's on Lasix drip at 10 mg an hour. Overall urine output was the order of 1.6 L for yesterday. Her white cell count is higher today at 21.3. Hemoglobin is at 9.3 with a platelet count of 564. Urine is a 58 with a creatinine of 2.5 which is stable compared to yesterday and a sodium level is at 139. The patient remains on IV heparin regarding paroxysmal A. fib and a right lower extremity DVT. She remains on empiric antibiotic coverage with IV Zosyn. Enteral feeding was initiated and the patient is currently on vital high-protein at the rate of 30 mL an hour. CVP remains significantly elevated at 24. Objective - Vital Signs Vital signs: Vital Signs Temp 97.0 F L 03/23/23 04:00 Pulse 104 H 03/23/23 08:34 Resp 32 H 03/23/23 08:34 BP 108/61 03/22/23 19:00 Pulse Ox 92 L 03/23/23 07:15 FiO2 100 03/23/23 08:07 Intake & Output 03/22/23 03/23/23 03/23/23 18:59 06:59 18:59 Intake Total 1868.125 1052.627 157.107 Output Total 260 256 Balance 6104.988 3288.627 157.107 Weight 126.2 kg 130 kg Intake: IV 462 558 Furosemide 100 mg In 50 120 Sodium Chloride 0.9% 90 ml @ 10 MG/HR 10 mls/hr IV .Q10H [facility] Rx#: [id number] Piperacillin-Tazobactam 3 100 100 .375 gm In Sodium Chloride 0.9% 100 ml @ 25 mls/hr IVPB Q12HR [facility] Rx #:[id number] Pressure Bag (0.9 Sodium 72 78 Chloride) Sodium Chloride 0.9% 500 240 260 ml 500 ml @ 20 mls/hr IV .Q24H [facility] Rx#:[id number] Intake, IV Titration 988.258 2369.627 157.107 Amount Amiodarone 450 mg In 213.338 Dextrose 5% in Water 250 ml @ 0.5 MG/MIN 16.667 mls/hr IV .Q15H [facility] Rx#: [id number] Dexmedetomidine/0.9% NaCl 11.970 (Pmx) 400 mcg In Empty Bag 1 bag @ 0.2 MCG/KG/HR 6.245 mls/hr IV .Q16H1M [facility] Rx#:[id number] Furosemide 100 mg In 84.833 94.333 100 Sodium Chloride 0.9% 90 ml @ 10 MG/HR 10 mls/hr IV .Q10H [facility] Rx#: [id number] Heparin Sod,Pork in 0.45% 233.131 232.001 0 NaCl 25,000 unit In 0.45 % NaCl 1 250ml.bag @ 18 UNITS/KG/HR 21.8 mls/hr IV .[id number] [facility] Rx#: [id number] Norepinephrine 32 mg In 94.796 178.615 57.107 Sodium Chloride 0.9% 218 ml @ 0.03 MCG/KG/MIN 1. 775 mls/hr IV .Q24H [facility] Rx#:[id number] Norepinephrine 4 mg In 182.648 Sodium Chloride 0.9% 250 ml @ 0.03 MCG/KG/MIN 13. 843 mls/hr IV .[id number] [facility] Rx#:[id number] propofoL 1,000 mg In 256.552 288.34 Empty Bag 1 bag @ 15 MCG/ KG/MIN 11.358 mls/hr IV . Q8H49M [facility] Rx#:[id number] Tube Feeding 60 210 Other 30 90 Output: Urine 260 256 Other: Voiding Method Indwelling Catheter Indwelling Catheter ABP, PAP, CO, CI - Last Documented Arterial Blood Pressure 92/49 - Exam Intubated, sedated on propofol, orogastric and orotracheal tube are both in place. Symptoms of the mechanical ventilator. Head exam was generally normal. There was no scleral icterus or corneal arcus. Mucous membranes were dry Neck supple. Full range of motion. No adenopathy thyromegaly and there is significant JVDs bilaterally and the patient has a left IJ triple lumen catheter in place Cardiovascular examination reveals regular rhythm rate. S1-S2 normal. No S3 or S4. murmur noted. There is a systolic ejection murmur grade 3/6 heard over the right lateral sternal border Lungs reveal scattered rhonchi. No wheezes or crackles. Breath sounds equal. Breath sounds are diminished bilaterally Abdomen obese, but soft, with bowel sounds. No masses or tenderness. Extremities are intact. There is some edema in the lower extremities. No cyanosis or clubbing. Chronic venous stasis changes noted. Skin is without rash or lesion. Neurologic examination shows and the patient sedated on propofol. She grimaces to painful stimulation. Otherwise, no other significant response. - Labs CBC & Chem 7: 03/23/23 04:15 03/23/23 04:15 Labs: Abnormal Lab Results - Last 24 Hours (Table) 03/21/23 03/22/23 03/22/23 Range/Units 07:51 09:34 11:11 WBC (3.8-10.6) k/uL RBC (3.80-5.40) m/uL Hgb (11.4-16.0) gm/dL Hct (34.0-46.0) % MCV (80.0-100.0) fL MCH (25.0-35.0) pg MCHC (31.0-37.0) g/dL RDW (11.5-15.5) % Plt Count (150-450) k/uL Blast Cells % % Neutrophils # (Manual) (1.3-7.7) k/uL Monocytes # (Manual) (0-1.0) k/uL Basophils # (Manual) (0-0.2) k/uL Metamyelocytes # (Man) (0) k/uL Myelocytes # (Manual) (0) k/uL Blast Cells # (Man) (0) k/uL Nucleated RBCs (0-0) /100 WBC Macrocytosis APTT (22.0-30.0) sec ABG pH 7.28 L (7.35-7.45) ABG pCO2 52 H (35-45) mmHg ABG pO2 63 L (83-108) mmHg ABG Total CO2 26 H (19-24) mmol/L ABG O2 Saturation 89.8 L (94-97) % Carbon Dioxide (22-30) mmol/L BUN (7-17) mg/dL Creatinine (0.52-1.04) mg/dL Glucose (74-99) mg/dL POC Glucose (mg/dL) 181 H (70-110) mg/dL Calcium (8.4-10.2) mg/dL Crossmatch See Detail 03/22/23 03/22/23 03/22/23 Range/Units 17:44 20:59 23:49 WBC (3.8-10.6) k/uL RBC (3.80-5.40) m/uL Hgb (11.4-16.0) gm/dL Hct (34.0-46.0) % MCV (80.0-100.0) fL MCH (25.0-35.0) pg MCHC (31.0-37.0) g/dL RDW (11.5-15.5) % Plt Count (150-450) k/uL Blast Cells % % Neutrophils # (Manual) (1.3-7.7) k/uL Monocytes # (Manual) (0-1.0) k/uL Basophils # (Manual) (0-0.2) k/uL Metamyelocytes # (Man) (0) k/uL Myelocytes # (Manual) (0) k/uL Blast Cells # (Man) (0) k/uL Nucleated RBCs (0-0) /100 WBC Macrocytosis APTT (22.0-30.0) sec ABG pH 7.24 L (7.35-7.45) ABG pCO2 57 H (35-45) mmHg ABG pO2 71 L (83-108) mmHg ABG Total CO2 26 H (19-24) mmol/L ABG O2 Saturation 92.4 L (94-97) % Carbon Dioxide (22-30) mmol/L BUN (7-17) mg/dL Creatinine (0.52-1.04) mg/dL Glucose (74-99) mg/dL POC Glucose (mg/dL) 158 H 154 H (70-110) mg/dL Calcium (8.4-10.2) mg/dL Crossmatch 03/23/23 03/23/23 03/23/23 Range/Units 04:15 04:15 04:15 WBC 21.3 H (3.8-10.6) k/uL RBC 2.54 L (3.80-5.40) m/uL Hgb 9.3 L (11.4-16.0) gm/dL Hct 31.2 L (34.0-46.0) % MCV 122.9 H (80.0-100.0) fL MCH 36.6 H (25.0-35.0) pg MCHC 29.8 L (31.0-37.0) g/dL RDW 21.6 H (11.5-15.5) % Plt Count 564 H (150-450) k/uL Blast Cells % 2 H* % Neutrophils # (Manual) 12.70 H (1.3-7.7) k/uL Monocytes # (Manual) 1.28 H (0-1.0) k/uL Basophils # (Manual) 0.21 H (0-0.2) k/uL Metamyelocytes # (Man) 1.92 H (0) k/uL Myelocytes # (Manual) 1.92 H (0) k/uL Blast Cells # (Man) 0.43 H (0) k/uL Nucleated RBCs 5 H (0-0) /100 WBC Macrocytosis Marked A APTT 106.5 H* (22.0-30.0) sec ABG pH (7.35-7.45) ABG pCO2 (35-45) mmHg ABG pO2 (83-108) mmHg ABG Total CO2 (19-24) mmol/L ABG O2 Saturation (94-97) % Carbon Dioxide 21 L (22-30) mmol/L BUN 58 H (7-17) mg/dL Creatinine 2.55 H (0.52-1.04) mg/dL Glucose 160 H (74-99) mg/dL POC Glucose (mg/dL) (70-110) mg/dL Calcium 8.3 L (8.4-10.2) mg/dL Crossmatch 03/23/23 03/23/23 Range/Units 05:44 05:57 WBC (3.8-10.6) k/uL RBC (3.80-5.40) m/uL Hgb (11.4-16.0) gm/dL Hct (34.0-46.0) % MCV (80.0-100.0) fL MCH (25.0-35.0) pg MCHC (31.0-37.0) g/dL RDW (11.5-15.5) % Plt Count (150-450) k/uL Blast Cells % % Neutrophils # (Manual) (1.3-7.7) k/uL Monocytes # (Manual) (0-1.0) k/uL Basophils # (Manual) (0-0.2) k/uL Metamyelocytes # (Man) (0) k/uL Myelocytes # (Manual) (0) k/uL Blast Cells # (Man) (0) k/uL Nucleated RBCs (0-0) /100 WBC Macrocytosis APTT (22.0-30.0) sec ABG pH 7.26 L (7.35-7.45) ABG pCO2 54 H (35-45) mmHg ABG pO2 71 L (83-108) mmHg ABG Total CO2 (19-24) mmol/L ABG O2 Saturation 92.0 L (94-97) % Carbon Dioxide (22-30) mmol/L BUN (7-17) mg/dL Creatinine (0.52-1.04) mg/dL Glucose (74-99) mg/dL POC Glucose (mg/dL) 156 H (70-110) mg/dL Calcium (8.4-10.2) mg/dL Crossmatch Assessment and Plan Plan: Acute on chronic hypoxic/hypercapnic respiratory failure and the patient is currently intubated on a mechanical ventilator. Intubation was done on 03/14/2020. The patient failed BiPAP therapy. Echocardiogram revealed severely increased left ventricular wall thickness. Left ventricular ejection fraction 55-60%. Flattened septum in systole and diastole consistent with right ventricular pressure fluid and volume overload. Severe right ventricular dilatation with severe pulmonary hypertension and an RVSP of 99 mmHG. the patient remains in shock. This is essentially cardiogenic shock related to the right-sided heart failure. Possibility of superinfection/septic shock cannot be completely excluded. Shock/hypotension, essentially cardiogenic with right-sided heart failure and severe pulmonary hypertension. The patient remains on high-dose norepinephrine running at 0.3 mcg/kg/m. Altered mental status, currently intubated on a mechanical ventilator Acute on chronic kidney injury, creatinine is stable and the patient remains on Lasix drip at 10 mg an hour Non-anion gap metabolic acidosis, improved Suspected right lower lobe pulmonary embolism, right lower extremity DVT. The patient is currently on IV heparin Atrial fibrillation with rapid ventricular response, converted back into sinus rhythm and the patient is currently on amiodarone drip and IV heparin, current cardiac rhythm remained sinus Severe pulmonary hypertension and right-sided heart failure Chronic hypoxemic respiratory failure, chronically utilizes 4 L/m nasal cannula. History of COPD, stable. Obesity/obesity hypoventilation syndrome. Obstructive sleep apnea, utilizes BiPAP at night with a support of 13/8 cm of water on outpatient basis Diabetes mellitus, type II. Acute on chronic kidney disease, likely secondary to intravascular volume depletion/cardiorenal factors with a right-sided failure Acute hyperkalemia secondary to acidosis Macrocytic anemia. Hypertension. Hypothyroidism. Morbid obesity, with a BMI of 43.1 kg/m. Never tobacco smoker. Plan: We'll proceed with intubation and mechanical ventilation Ventilator changes for today Keep propofol Keep pressors Add vasopressin Neck serum cortisol level Check blood cultures 2 Continue IV Zosyn Monitor white cell count She is afebrile for now Switch this patient to oral amiodarone 400 mg by mouth twice a day and stop the amiodarone drip Continue the IV heparin Continue enteral feeding for nutritional support Condition is extremely critical. Patient carries a high mortality risk.. Significant debilitated with extensive comorbidities Critical care evaluation that was done in more than 30 minutes excluding time to do any procedures. I discussed the case with the the bedside and he is aware of her critical condition. Time with Patient: Greater than 30
[2023-03-23] MEDS: TAMSULOSIN 0.4 MG CAP.ER.24H PO SCH (09:09)
[2023-03-23] MEDS ORDERED: AMIODARONE 200 MG TAB PO SCH (09:15)
[2023-03-23] MEDS: VASOPRESSIN 20 UNIT in SODIUM CHLORIDE 0.9% 50 ML IV SCH ×2 (09:36→13:20)
--- NOTE | 2023-03-23 10:04 | P.PN ---
Subjective Patient is seen in follow-up for acute kidney injury. on Levophed. Vasopressin will be started soon. On amiodarone drip for A. fib. On Lasix drip. urine output 30 mL an hour. intubated. Vital signs - on vasopressor support. General: resting in bed. HEENT: intubated. LUNGS: scattered rhonchi. HEART: irregular rate and rhythm. ABDOMEN: no distention. EXTREMITITES: 1+ edema. Chronic changes noted. Objective - Vital Signs Vital signs: Vital Signs Temp 97.0 F L 03/23/23 04:00 Pulse 104 H 03/23/23 08:34 Resp 32 H 03/23/23 08:34 BP 108/61 03/22/23 19:00 Pulse Ox 92 L 03/23/23 07:15 FiO2 100 03/23/23 08:07 Intake & Output 03/22/23 03/23/23 03/23/23 18:59 06:59 18:59 Intake Total 8891.724 3446.627 157.107 Output Total 260 256 Balance 1756.196 1263.627 157.107 Weight 126.2 kg 130 kg Intake: IV 462 558 Furosemide 100 mg In 50 120 Sodium Chloride 0.9% 90 ml @ 10 MG/HR 10 mls/hr IV .Q10H [facility] Rx#: [id number] Piperacillin-Tazobactam 3 100 100 .375 gm In Sodium Chloride 0.9% 100 ml @ 25 mls/hr IVPB Q12HR [facility] Rx #:[id number] Pressure Bag (0.9 Sodium 72 78 Chloride) Sodium Chloride 0.9% 500 240 260 ml 500 ml @ 20 mls/hr IV .Q24H [facility] Rx#:[id number] Intake, IV Titration 082.404 4083.627 157.107 Amount Amiodarone 450 mg In 213.338 Dextrose 5% in Water 250 ml @ 0.5 MG/MIN 16.667 mls/hr IV .Q15H [facility] Rx#: [id number] Dexmedetomidine/0.9% NaCl 11.970 (Pmx) 400 mcg In Empty Bag 1 bag @ 0.2 MCG/KG/HR 6.245 mls/hr IV .Q16H1M [facility] Rx#:[id number] Furosemide 100 mg In 84.833 94.333 100 Sodium Chloride 0.9% 90 ml @ 10 MG/HR 10 mls/hr IV .Q10H [facility] Rx#: [id number] Heparin Sod,Pork in 0.45% 233.131 232.001 0 NaCl 25,000 unit In 0.45 % NaCl 1 250ml.bag @ 18 UNITS/KG/HR 21.8 mls/hr IV .[id number] [facility] Rx#: [id number] Norepinephrine 32 mg In 94.796 178.615 57.107 Sodium Chloride 0.9% 218 ml @ 0.03 MCG/KG/MIN 1. 775 mls/hr IV .Q24H [facility] Rx#:[id number] Norepinephrine 4 mg In 182.648 Sodium Chloride 0.9% 250 ml @ 0.03 MCG/KG/MIN 13. 843 mls/hr IV .[id number] [facility] Rx#:[id number] propofoL 1,000 mg In 256.552 288.34 Empty Bag 1 bag @ 15 MCG/ KG/MIN 11.358 mls/hr IV . Q8H49M [facility] Rx#:[id number] Tube Feeding 60 210 Other 30 90 Output: Urine 260 256 Other: Voiding Method Indwelling Catheter Indwelling Catheter ABP, PAP, CO, CI - Last Documented Arterial Blood Pressure 92/49 - Labs CBC & Chem 7: 03/23/23 04:15 03/23/23 04:15 Labs: Abnormal Lab Results - Last 24 Hours (Table) 03/21/23 03/22/23 03/22/23 Range/Units 07:51 11:11 17:44 WBC (3.8-10.6) k/uL RBC (3.80-5.40) m/uL Hgb (11.4-16.0) gm/dL Hct (34.0-46.0) % MCV (80.0-100.0) fL MCH (25.0-35.0) pg MCHC (31.0-37.0) g/dL RDW (11.5-15.5) % Plt Count (150-450) k/uL Blast Cells % % Neutrophils # (Manual) (1.3-7.7) k/uL Monocytes # (Manual) (0-1.0) k/uL Basophils # (Manual) (0-0.2) k/uL Metamyelocytes # (Man) (0) k/uL Myelocytes # (Manual) (0) k/uL Blast Cells # (Man) (0) k/uL Nucleated RBCs (0-0) /100 WBC Macrocytosis APTT (22.0-30.0) sec ABG pH (7.35-7.45) ABG pCO2 (35-45) mmHg ABG pO2 (83-108) mmHg ABG Total CO2 (19-24) mmol/L ABG O2 Saturation (94-97) % Carbon Dioxide (22-30) mmol/L BUN (7-17) mg/dL Creatinine (0.52-1.04) mg/dL Glucose (74-99) mg/dL POC Glucose (mg/dL) 181 H 158 H (70-110) mg/dL Calcium (8.4-10.2) mg/dL Crossmatch See Detail 03/22/23 03/22/23 03/23/23 Range/Units 20:59 23:49 04:15 WBC (3.8-10.6) k/uL RBC (3.80-5.40) m/uL Hgb (11.4-16.0) gm/dL Hct (34.0-46.0) % MCV (80.0-100.0) fL MCH (25.0-35.0) pg MCHC (31.0-37.0) g/dL RDW (11.5-15.5) % Plt Count (150-450) k/uL Blast Cells % % Neutrophils # (Manual) (1.3-7.7) k/uL Monocytes # (Manual) (0-1.0) k/uL Basophils # (Manual) (0-0.2) k/uL Metamyelocytes # (Man) (0) k/uL Myelocytes # (Manual) (0) k/uL Blast Cells # (Man) (0) k/uL Nucleated RBCs (0-0) /100 WBC Macrocytosis APTT 106.5 H* (22.0-30.0) sec ABG pH 7.24 L (7.35-7.45) ABG pCO2 57 H (35-45) mmHg ABG pO2 71 L (83-108) mmHg ABG Total CO2 26 H (19-24) mmol/L ABG O2 Saturation 92.4 L (94-97) % Carbon Dioxide (22-30) mmol/L BUN (7-17) mg/dL Creatinine (0.52-1.04) mg/dL Glucose (74-99) mg/dL POC Glucose (mg/dL) 154 H (70-110) mg/dL Calcium (8.4-10.2) mg/dL Crossmatch 03/23/23 03/23/23 03/23/23 Range/Units 04:15 04:15 05:44 WBC 21.3 H (3.8-10.6) k/uL RBC 2.54 L (3.80-5.40) m/uL Hgb 9.3 L (11.4-16.0) gm/dL Hct 31.2 L (34.0-46.0) % MCV 122.9 H (80.0-100.0) fL MCH 36.6 H (25.0-35.0) pg MCHC 29.8 L (31.0-37.0) g/dL RDW 21.6 H (11.5-15.5) % Plt Count 564 H (150-450) k/uL Blast Cells % 2 H* % Neutrophils # (Manual) 12.70 H (1.3-7.7) k/uL Monocytes # (Manual) 1.28 H (0-1.0) k/uL Basophils # (Manual) 0.21 H (0-0.2) k/uL Metamyelocytes # (Man) 1.92 H (0) k/uL Myelocytes # (Manual) 1.92 H (0) k/uL Blast Cells # (Man) 0.43 H (0) k/uL Nucleated RBCs 5 H (0-0) /100 WBC Macrocytosis Marked A APTT (22.0-30.0) sec ABG pH (7.35-7.45) ABG pCO2 (35-45) mmHg ABG pO2 (83-108) mmHg ABG Total CO2 (19-24) mmol/L ABG O2 Saturation (94-97) % Carbon Dioxide 21 L (22-30) mmol/L BUN 58 H (7-17) mg/dL Creatinine 2.55 H (0.52-1.04) mg/dL Glucose 160 H (74-99) mg/dL POC Glucose (mg/dL) 156 H (70-110) mg/dL Calcium 8.3 L (8.4-10.2) mg/dL Crossmatch 03/23/23 Range/Units 05:57 WBC (3.8-10.6) k/uL RBC (3.80-5.40) m/uL Hgb (11.4-16.0) gm/dL Hct (34.0-46.0) % MCV (80.0-100.0) fL MCH (25.0-35.0) pg MCHC (31.0-37.0) g/dL RDW (11.5-15.5) % Plt Count (150-450) k/uL Blast Cells % % Neutrophils # (Manual) (1.3-7.7) k/uL Monocytes # (Manual) (0-1.0) k/uL Basophils # (Manual) (0-0.2) k/uL Metamyelocytes # (Man) (0) k/uL Myelocytes # (Manual) (0) k/uL Blast Cells # (Man) (0) k/uL Nucleated RBCs (0-0) /100 WBC Macrocytosis APTT (22.0-30.0) sec ABG pH 7.26 L (7.35-7.45) ABG pCO2 54 H (35-45) mmHg ABG pO2 71 L (83-108) mmHg ABG Total CO2 (19-24) mmol/L ABG O2 Saturation 92.0 L (94-97) % Carbon Dioxide (22-30) mmol/L BUN (7-17) mg/dL Creatinine (0.52-1.04) mg/dL Glucose (74-99) mg/dL POC Glucose (mg/dL) (70-110) mg/dL Calcium (8.4-10.2) mg/dL Crossmatch Assessment and Plan Plan: Assessment: 1. Acute kidney injury secondary to ATN secondary to hypotension/shock. creatinine stable at 2.55. creatinine near 1.5 on 03/08/2023. Urine output about 30 mL an hour. no hydronephrosis noted on kidney ultrasound. 2. A. fib with RVR maintain on amiodarone drip. 3. Acute on chronic diastolic CHF with mild to moderate mitral regurgitation, severe tricuspid regurgitation and severe pulmonary hypertension. 4. Cardiogenic shock maintained on Levophed. Vasopressin also being started. 5. Acute hypoxic respiratory failure. 6. Diabetes. 7. Hyperkalemia secondary to acute kidney injury. Improved. Plan: Maintain Lasix drip. 80 mg IV Lasix once at noon. Maintain tube feeds. Continue to monitor renal function and urine output. Continue to assess daily for need for renal replacement therapy. Currently hemodynamically unstable to tolerate renal replacement therapy.
--- NOTE | 2023-03-23 10:31 | XR ---
EXAMINATION TYPE: XR chest 1V portable DATE OF EXAM: 03/23/2023 Comparison: 07/21/2022 Clinical History: 78-year-old female Tube placement Findings: ET tube tip at the level of the medial clavicular heads. A mass esophageal monitor is present. NG tub e courses below the diaphragm. Left CVC tip at the lower SVC. Heart mildly enlarged. Hyperinflation. Diffuse interstitial densities. Retrocardiac opacity persists. Impression: Ongoing cardiomegaly with CHF and interstitial pulmonary edema. Dense retrocardiac atelectasis and/or consolidation is also similar.
[2023-03-23 11:27] LABS: Glucose,Whole Blood 165 mg/dL (70-110)
--- NOTE | 2023-03-23 12:38 | P.PN ---
Subjective Progress Note Date: 03/23/23 Patient seen in the ICU at today's visit. Patient is now intubated, SPO2 100%. Pt is sedated. Spoke with nursing, no reported episodes of bleeding. Hgb improved 9.3, s/p 1 unit PRBCs Objective - Vital Signs Vital signs: Vital Signs Temp 97.5 F L 03/23/23 08:30 Pulse 100 03/23/23 11:46 Resp 32 H 03/23/23 11:46 BP 108/61 03/22/23 19:00 Pulse Ox 92 L 03/23/23 09:45 FiO2 100 03/23/23 11:40 Intake & Output 03/22/23 03/23/23 03/23/23 18:59 06:59 18:59 Intake Total 5371.093 8376.627 548.784 Output Total 260 256 120 Balance 8423.769 2381.627 428.784 Weight 126.2 kg 130 kg Intake: IV 462 558 90 Furosemide 100 mg In 50 120 Sodium Chloride 0.9% 90 ml @ 10 MG/HR 10 mls/hr IV .Q10H [facility] Rx#: [id number] Piperacillin-Tazobactam 3 100 100 .375 gm In Sodium Chloride 0.9% 100 ml @ 25 mls/hr IVPB Q12HR [facility] Rx #:[id number] Pressure Bag (0.9 Sodium 72 78 30 Chloride) Sodium Chloride 0.9% 500 240 260 60 ml 500 ml @ 20 mls/hr IV .Q24H [facility] Rx#:[id number] Intake, IV Titration 883.804 4905.627 368.784 Amount Amiodarone 450 mg In 213.338 Dextrose 5% in Water 250 ml @ 0.5 MG/MIN 16.667 mls/hr IV .Q15H [facility] Rx#: [id number] Dexmedetomidine/0.9% NaCl 11.970 (Pmx) 400 mcg In Empty Bag 1 bag @ 0.2 MCG/KG/HR 6.245 mls/hr IV .Q16H1M [facility] Rx#:[id number] Furosemide 100 mg In 84.833 94.333 100 Sodium Chloride 0.9% 90 ml @ 10 MG/HR 10 mls/hr IV .Q10H [facility] Rx#: [id number] Heparin Sod,Pork in 0.45% 233.131 232.001 17.999 NaCl 25,000 unit In 0.45 % NaCl 1 250ml.bag @ 18 UNITS/KG/HR 21.8 mls/hr IV .[id number] [facility] Rx#: [id number] Norepinephrine 32 mg In 94.796 178.615 57.107 Sodium Chloride 0.9% 218 ml @ 0.03 MCG/KG/MIN 1. 775 mls/hr IV .Q24H [facility] Rx#:[id number] Norepinephrine 4 mg In 182.648 Sodium Chloride 0.9% 250 ml @ 0.03 MCG/KG/MIN 13. 843 mls/hr IV .[id number] [facility] Rx#:[id number] Piperacillin-Tazobactam 3 75 .375 gm In Sodium Chloride 0.9% 100 ml @ 25 mls/hr IVPB Q12HR [facility] Rx #:[id number] propofoL 1,000 mg In 256.552 288.34 118.678 Empty Bag 1 bag @ 15 MCG/ KG/MIN 11.358 mls/hr IV . Q8H49M [facility] Rx#:[id number] Tube Feeding 60 210 90 Other 30 90 Output: Urine 260 256 120 Other: Voiding Method Indwelling Catheter Indwelling Catheter Indwelling Catheter ABP, PAP, CO, CI - Last Documented Arterial Blood Pressure 84/48 - Constitutional General appearance: Present: no acute distress, obese - Respiratory Details: ventilated breath sounds - Cardiovascular Details: tachycardic - Integumentary Integumentary: Absent: cyanotic - Psychiatric Psychiatric Comment(s): sedated - Labs CBC & Chem 7: 03/23/23 04:15 03/23/23 04:15 Labs: Abnormal Lab Results - Last 24 Hours (Table) 03/22/23 03/22/23 03/22/23 Range/Units 17:44 20:59 23:49 WBC (3.8-10.6) k/uL RBC (3.80-5.40) m/uL Hgb (11.4-16.0) gm/dL Hct (34.0-46.0) % MCV (80.0-100.0) fL MCH (25.0-35.0) pg MCHC (31.0-37.0) g/dL RDW (11.5-15.5) % Plt Count (150-450) k/uL Blast Cells % % Neutrophils # (Manual) (1.3-7.7) k/uL Monocytes # (Manual) (0-1.0) k/uL Basophils # (Manual) (0-0.2) k/uL Metamyelocytes # (Man) (0) k/uL Myelocytes # (Manual) (0) k/uL Blast Cells # (Man) (0) k/uL Nucleated RBCs (0-0) /100 WBC Macrocytosis APTT (22.0-30.0) sec ABG pH 7.24 L (7.35-7.45) ABG pCO2 57 H (35-45) mmHg ABG pO2 71 L (83-108) mmHg ABG Total CO2 26 H (19-24) mmol/L ABG O2 Saturation 92.4 L (94-97) % Carbon Dioxide (22-30) mmol/L BUN (7-17) mg/dL Creatinine (0.52-1.04) mg/dL Glucose (74-99) mg/dL POC Glucose (mg/dL) 158 H 154 H (70-110) mg/dL Calcium (8.4-10.2) mg/dL 03/23/23 03/23/23 03/23/23 Range/Units 04:15 04:15 04:15 WBC 21.3 H (3.8-10.6) k/uL RBC 2.54 L (3.80-5.40) m/uL Hgb 9.3 L (11.4-16.0) gm/dL Hct 31.2 L (34.0-46.0) % MCV 122.9 H (80.0-100.0) fL MCH 36.6 H (25.0-35.0) pg MCHC 29.8 L (31.0-37.0) g/dL RDW 21.6 H (11.5-15.5) % Plt Count 564 H (150-450) k/uL Blast Cells % 2 H* % Neutrophils # (Manual) 12.70 H (1.3-7.7) k/uL Monocytes # (Manual) 1.28 H (0-1.0) k/uL Basophils # (Manual) 0.21 H (0-0.2) k/uL Metamyelocytes # (Man) 1.92 H (0) k/uL Myelocytes # (Manual) 1.92 H (0) k/uL Blast Cells # (Man) 0.43 H (0) k/uL Nucleated RBCs 5 H (0-0) /100 WBC Macrocytosis Marked A APTT 106.5 H* (22.0-30.0) sec ABG pH (7.35-7.45) ABG pCO2 (35-45) mmHg ABG pO2 (83-108) mmHg ABG Total CO2 (19-24) mmol/L ABG O2 Saturation (94-97) % Carbon Dioxide 21 L (22-30) mmol/L BUN 58 H (7-17) mg/dL Creatinine 2.55 H (0.52-1.04) mg/dL Glucose 160 H (74-99) mg/dL POC Glucose (mg/dL) (70-110) mg/dL Calcium 8.3 L (8.4-10.2) mg/dL 03/23/23 03/23/23 03/23/23 Range/Units 05:44 05:57 11:25 WBC (3.8-10.6) k/uL RBC (3.80-5.40) m/uL Hgb (11.4-16.0) gm/dL Hct (34.0-46.0) % MCV (80.0-100.0) fL MCH (25.0-35.0) pg MCHC (31.0-37.0) g/dL RDW (11.5-15.5) % Plt Count (150-450) k/uL Blast Cells % % Neutrophils # (Manual) (1.3-7.7) k/uL Monocytes # (Manual) (0-1.0) k/uL Basophils # (Manual) (0-0.2) k/uL Metamyelocytes # (Man) (0) k/uL Myelocytes # (Manual) (0) k/uL Blast Cells # (Man) (0) k/uL Nucleated RBCs (0-0) /100 WBC Macrocytosis APTT (22.0-30.0) sec ABG pH 7.26 L (7.35-7.45) ABG pCO2 54 H (35-45) mmHg ABG pO2 71 L (83-108) mmHg ABG Total CO2 (19-24) mmol/L ABG O2 Saturation 92.0 L (94-97) % Carbon Dioxide (22-30) mmol/L BUN (7-17) mg/dL Creatinine (0.52-1.04) mg/dL Glucose (74-99) mg/dL POC Glucose (mg/dL) 156 H 165 H (70-110) mg/dL Calcium (8.4-10.2) mg/dL Assessment and Plan (1) Acute exacerbation of chronic obstructive pulmonary disease Current Visit: Yes Status: Acute Priority: High Code(s): J44.1 - CHRONIC OBSTRUCTIVE PULMONARY DISEASE W (ACUTE) EXACERBATION SNOMED Code(s): 063808354 (2) Macrocytic anemia Current Visit: Yes Status: Acute Priority: Medium Code(s): D53.9 - NUTRITI ONAL ANEMIA, UNSPECIFIED SNOMED Code(s): 83311934 (3) Pulmonary embolism Current Visit: Yes Status: Acute Priority: High Code(s): I26.99 - OTHER PULMONARY EMBOLISM WITHOUT ACUTE COR PULMONALE SNOMED Code(s): 93242451 Plan: Reported von Willebrand disease -Unclear about circumstances of diagnosis. Reports diagnosed 5 years ago at [facility]. Does not f/u with hematology. Reports no history of bleeding problems -No lab work found within [facility] to indicate the same VQ scan for SOB-probability intermediate for PE in RLL Baseline BLE doppler-thrombus in the rt leg CFV/GSV junction, refused popliteal assessment and the lt leg -Pt currently is denying any bleeding episodes, no precautions for surgery/invasive procedures. -Irregardless of von Willebrand disease, if pt has VTE/PE, anticoagulation needs to be given. Currently heparin drip. -Will see if renal function improves, may be able to do CTA. Will also see if pt improves if she can tolerate completion of BLE doppler -Provoked vs unprovoked clot, difficult to determine. Pt states she moves very little, this is chronic and had recent hospitalization. -Patient will need to be transitioned to oral anticoagulation with Eliquis prior to discharge, can be transitioned if no procedures planned. Pt will need to cl osely monitor for any signs of bleeding and have f/u for hgb monitoring. Pt would need minimum 3 months anticoagulation, if pt still rather immobilized would have to consider extending anticoagulation Macrocytic anemia -Iron studies not consistent with SAHARA, Vitamin B12 low end of normal at 312, MMA elevated. Folate normal. -Vitamin B12 1000 mcg was started empirically. She has notably refused vitamin B12 injections. PO Vitamin B12 has been started. -Thyroid studies revealed subclinical hypothyroidism -Med list reviewed, no med associated with macrocytosis seen -She was noted to have near normal hemoglobin in 2020 -Hgb improved to 9.3 s/p 1 unit PRBCs. Spoke with nursing not reported evidence of acute bleeding -2% blast cells noted on CBC today, these are likely reactive, however will need to continue to monitor CBC/blasts -Once pt acutely recovers will consider BM biopsy to further evaluate macrocytic anemia -Transfuse for Hgb <7 or if symptomatic
--- NOTE | 2023-03-23 13:33 | P.PN ---
Subjective Progress Note Date: 03/23/23 Patient is a 78-year-old lady past medical history significant for COPD, obesity/obesity hypoventilation syndrome, chronic hypoxemic respiratory failure, obstructive sleep apnea, CHF, diabetes mellitus, hypertension, hypothyroidism who presented to the hospital for possible worsening shortness of breath. She was in the hospital beginning of the month at which time she had a fall. Patient stated ever since she has been discharged she has been worsening shortness of breath. Shortness of breath is present on exertion and at rest. Patient states that only walking across the room makes her short of breath and winded. Denies any chest pain. There was no complain of any fever or chills. Denies any cough. Denies any nausea, vomiting abdominal pain. Patient was also going of lethargy and weakness. Because of worsening shortness of breath, patient came to the ER Initial lab work done in the ER showed WBC 5.1, hemoglobin 8.1, platelet count 407, sodium 138, potassium 5.5, BUNs 46, creatinine 1.87 and troponin 0.012, proBNP 73969 Influenza A not detected Influenza B not detected RSV not detected COVID-19 not detected EKG done in the ER showed heart rate of 86 , no ST segment elevation or depression seen, no T-wave inversions seen. Chest x-ray done in the ER showed moderate cardiac megaly, no pulmonary edema or infiltrate seen VQ scan done showed intermediate possibility for pulmonary embolism given the moderate sized defect at the right base Patient admitted to internal medicine service 03/16. Patient seen and examined. Patient had rapid response this morning because of respiratory distress, patient's pulse ox dropped into 70s, patient had to be placed on BiPAP. Doing much better now. Denies any shortness of breath. Patient is alert and oriented, answering question appropriately 2-D echo done showed normal left ventricle size and systolic function with severe hypertrophy, severely dilated right ventricle with reduced function and severe pulmonary hypertension, severe tricuspid with mild to moderate mitral regurg 03/17. Patient seen and examined. Patient was placed on BiPAP, FiO2 40%. States she feels much better. Patient was later switched to nasal cannula oxygen at 5 L. Patient is refusing vitamin B12 injections. Denies any cough. Denies any fever or chills. 03/18. Patient seen and examined. Labs were the brace 5.1, hemoglobin 7.5, platelet count 315. Heparin was discontinued, switched to oral Eliquis. Continues to be on BiPAP but breathing has improved a lot. Patient tired this morning, she wants to rest. Vital signs stable 03/19. Patient seen and examined. Patient currently on BiPAP with an FiO2 40%. Patient is responsive, answering questions appropriately. On BiPAP she states that she feels much better. States she wants to eat and wants to get off the BiPAP. 03/20. Patient seen and examined. Patient had rapid response called overnight for low blood pressure, patient was evaluated by A team and transferred to ICU. Currently on BiPAP, opened eyes, follows commands, he recognizes his family 03/21. Patient seen and examined. Patient continues to be on BiPAP, currently 1000% FiO2. Patient continues to be lethargic but arousable. Currently on dobutamine and Levophed drip. Patient also on IV Lasix 60 mg every 8. Family at the bedside 03/22. Patient seen and examined. Patient continued to be in respiratory distress, was on BiPAP but restless, patient was intubated by critical care team. Patient went into A. fib and RVR overnight and had to be cardioverted. Currently on Lasix drip, amiodarone, Levophed 03/23. Patient seen and examined. Labs done this morning showed occlusive 21.3, hemoglobin 9.3 sodium 139 potassium 4.7, BUN 58, creatinine 2.55. Continues to be intubated. Currently on IV Levophed and vasopressin and Lasix drip PHYSICAL EXAMINATION: GENERAL: The patient is intubated and sedated HEENT: Pupils are round and equally reacting to light. EOMI. No scleral icterus. No conjunctival pallor. Normocephalic, atraumatic. No pharyngeal erythema. No thyromegaly. CARDIOVASCULAR: S1 and S2 present. No murmurs, rubs, or gallops. PULMONARY: Diminished breath sounds at the bases bilaterally, rhonchi audible at the bases ABDOMEN: Soft, nontender, nondistended, normoactive bowel sounds. No palpable organomegaly. MUSCULOSKELETAL: No joint swelling or deformity. EXTREMITIES: No cyanosis, clubbing, or pedal edema. NEUROLOGICAL: intubated SKIN: No rashes. Assessment and plan Acute on chronic diastolic CHF Acute on chronic hypoxemic hypercapnic respiratory failure A. fib with RVR status post cardioversion severe pulmonary hypertension Hyperkalemia Acute on chronic kidney disease V/Q scan showing intermediate probably for PE On occlusive thrombus in the right saphenofemoral junction Chronic hypoxemic respiratory failure, chronically utilizes 4 L/m nasal cannula History of COPD, stable Obesity/obesity hypoventilation syndrome Obstructive sleep apnea, utilizes BiPAP at night with a support of 13/8 Diabetes mellitus, type II Macrocytic anemia, no acute blood loss noted. Hypertension Hypothyroidism Morbid obesity, with a BMI of 43.1 kg/m Monitor vital signs Monitor CBC monitor CMP Continue vent management per ICU Continue IV propofol Strict I's and O's, daily weights, continue IV Lasix drip Continue IV Levophed and vasopressin Continue IV heparin drip Switched IV amiodarone to oral amiodarone Continue tube feeding Avoid nephrotoxic agents. Aggressive bronchopulmonary hygiene Continue breathing treatments 2-D echo done showed normal left ventricle size and systolic function with severe hypertrophy, severely dilated right ventricle with reduced function and severe pulmonary hypertension, severe tricuspid with mild to moderate mitral regurg In regards to acute anemia,continue to monitor H&H transfuse for hemodynamic instability or hemoglobin less than 7, and anemia workup noted. Hematology oncology following, recommend oral anticoagulation for at least 3 months In regards to diabetes mellitus, continue sliding scale insulin nephrology following Critical care following Labs and medication were reviewed.. Continue same treatment. Continue with symptomatic treatment. Resume home medication. Monitor labs and vitals. DVT and GI prophylaxis. Further recommendations as per clinical course of the patient Dictation was produced using [employer] dictation software. please excuse any grammatical, word or spelling errors. Objective - Vital Signs Vital signs: Vital Signs Temp 97.0 F L 03/23/23 04:00 Pulse 104 H 03/23/23 08:34 Resp 32 H 03/23/23 08:34 BP 108/61 03/22/23 19:00 Pulse Ox 92 L 03/23/23 07:15 FiO2 100 03/23/23 08:07 Intake & Output 03/22/23 03/23/23 03/23/23 18:59 06:59 18:59 Intake Total 1153.744 3709.627 157.107 Output Total 260 256 Balance 1322.596 2206.627 157.107 Weight 126.2 kg 130 kg Intake: IV 462 558 Furosemide 100 mg In 50 120 Sodium Chloride 0.9% 90 ml @ 10 MG/HR 10 mls/hr IV .Q10H [facility] Rx#: [id number] Piperacillin-Tazobactam 3 100 100 .375 gm In Sodium Chloride 0.9% 100 ml @ 25 mls/hr IVPB Q12HR [facility] Rx #:[id number] Pressure Bag (0.9 Sodium 72 78 Chloride) Sodium Chloride 0.9% 500 240 260 ml 500 ml @ 20 mls/hr IV .Q24H [facility] Rx#:[id number] Intake, IV Titration 880.549 9065.627 157.107 Amount Amiodarone 450 mg In 213.338 Dextrose 5% in Water 250 ml @ 0.5 MG/MIN 16.667 mls/hr IV .Q15H [facility] Rx#: [id number] Dexmedetomidine/0.9% NaCl 11.970 (Pmx) 400 mcg In Empty Bag 1 bag @ 0.2 MCG/KG/HR 6.245 mls/hr IV .Q16H1M [facility] Rx#:[id number] Furosemide 100 mg In 84.833 94.333 100 Sodium Chloride 0.9% 90 ml @ 10 MG/HR 10 mls/hr IV .Q10H [facility] Rx#: [id number] Heparin Sod,Pork in 0.45% 233.131 232.001 0 NaCl 25,000 unit In 0.45 % NaCl 1 250ml.bag @ 18 UNITS/KG/HR 21.8 mls/hr IV .[id number] [facility] Rx#: [id number] Norepinephrine 32 mg In 94.796 178.615 57.107 Sodium Chloride 0.9% 218 ml @ 0.03 MCG/KG/MIN 1. 775 mls/hr IV .Q24H [facility] Rx#:[id number] Norepinephrine 4 mg In 182.648 Sodium Chloride 0.9% 250 ml @ 0.03 MCG/KG/MIN 13. 843 mls/hr IV .[id number] [facility] Rx#:[id number] propofoL 1,000 mg In 256.552 288.34 Empty Bag 1 bag @ 15 MCG/ KG/MIN 11.358 mls/hr IV . Q8H49M [facility] Rx#:[id number] Tube Feeding 60 210 Other 30 90 Output: Urine 260 256 Other: Voiding Method Indwelling Catheter Indwelling Catheter ABP, PAP, CO, CI - Last Documented Arterial Blood Pressure 92/49 - Labs CBC & Chem 7: 03/23/23 04:15 03/23/23 04:15 Labs: Abnormal Lab Results - Last 24 Hours (Table) 03/21/23 03/22/23 03/22/23 Range/Units 07:51 09:34 11:11 WBC (3.8-10.6) k/uL RBC (3.80-5.40) m/uL Hgb (11.4-16.0) gm/dL Hct (34.0-46.0) % MCV (80.0-100.0) fL MCH (25.0-35.0) pg MCHC (31.0-37.0) g/dL RDW (11.5-15.5) % Plt Count (150-450) k/uL Blast Cells % % Neutrophils # (Manual) (1.3-7.7) k/uL Monocytes # (Manual) (0-1.0) k/uL Basophils # (Manual) (0-0.2) k/uL Metamyelocytes # (Man) (0) k/uL Myelocytes # (Manual) (0) k/uL Blast Cells # (Man) (0) k/uL Nucleated RBCs (0-0) /100 WBC Macrocytosis APTT (22.0-30.0) sec ABG pH 7.28 L (7.35-7.45) ABG pCO2 52 H (35-45) mmHg ABG pO2 63 L (83-108) mmHg ABG Total CO2 26 H (19-24) mmol/L ABG O2 Saturation 89.8 L (94-97) % Carbon Dioxide (22-30) mmol/L BUN (7-17) mg/dL Creatinine (0.52-1.04) mg/dL Glucose (74-99) mg/dL POC Glucose (mg/dL) 181 H (70-110) mg/dL Calcium (8.4-10.2) mg/dL Crossmatch See Detail 03/22/23 03/22/23 03/22/23 Range/Units 17:44 20:59 23:49 WBC (3.8-10.6) k/uL RBC (3.80-5.40) m/uL Hgb (11.4-16.0) gm/dL Hct (34.0-46.0) % MCV (80.0-100.0) fL MCH (25.0-35.0) pg MCHC (31.0-37.0) g/dL RDW (11.5-15.5) % Plt Count (150-450) k/uL Blast Cells % % Neutrophils # (Manual) (1.3-7.7) k/uL Monocytes # (Manual) (0-1.0) k/uL Basophils # (Manual) (0-0.2) k/uL Metamyelocytes # (Man) (0) k/uL Myelocytes # (Manual) (0) k/uL Blast Cells # (Man) (0) k/uL Nucleated RBCs (0-0) /100 WBC Macrocytosis APTT (22.0-30.0) sec ABG pH 7.24 L (7.35-7.45) ABG pCO2 57 H (35-45) mmHg ABG pO2 71 L (83-108) mmHg ABG Total CO2 26 H (19-24) mmol/L ABG O2 Saturation 92.4 L (94-97) % Carbon Dioxide (22-30) mmol/L BUN (7-17) mg/dL Creatinine (0.52-1.04) mg/dL Glucose (74-99) mg/dL POC Glucose (mg/dL) 158 H 154 H (70-110) mg/dL Calcium (8.4-10.2) mg/dL Crossmatch 03/23/23 03/23/23 03/23/23 Range/Units 04:15 04:15 04:15 WBC 21.3 H (3.8-10.6) k/uL RBC 2.54 L (3.80-5.40) m/uL Hgb 9.3 L (11.4-16.0) gm/dL Hct 31.2 L (34.0-46.0) % MCV 122.9 H (80.0-100.0) fL MCH 36.6 H (25.0-35.0) pg MCHC 29.8 L (31.0-37.0) g/dL RDW 21.6 H (11.5-15.5) % Plt Count 564 H (150-450) k/uL Blast Cells % 2 H* % Neutrophils # (Manual) 12.70 H (1.3-7.7) k/uL Monocytes # (Manual) 1.28 H (0-1.0) k/uL Basophils # (Manual) 0.21 H (0-0.2) k/uL Metamyelocytes # (Man) 1.92 H (0) k/uL Myelocytes # (Manual) 1.92 H (0) k/uL Blast Cells # (Man) 0.43 H (0) k/uL Nucleated RBCs 5 H (0-0) /100 WBC Macrocytosis Marked A APTT 106.5 H* (22.0-30.0) sec ABG pH (7.35-7.45) ABG pCO2 (35-45) mmHg ABG pO2 (83-108) mmHg ABG Total CO2 (19-24) mmol/L ABG O2 Saturation (94-97) % Carbon Dioxide 21 L (22-30) mmol/L BUN 58 H (7-17) mg/dL Creatinine 2.55 H (0.52-1.04) mg/dL Glucose 160 H (74-99) mg/dL POC Glucose (mg/dL) (70-110) mg/dL Calcium 8.3 L (8.4-10.2) mg/dL Crossmatch 03/23/23 03/23/23 Range/Units 05:44 05:57 WBC (3.8-10.6) k/uL RBC (3.80-5.40) m/uL Hgb (11.4-16.0) gm/dL Hct (34.0-46.0) % MCV (80.0-100.0) fL MCH (25.0-35.0) pg MCHC (31.0-37.0) g/dL RDW (11.5-15.5) % Plt Count (150-450) k/uL Blast Cells % % Neutrophils # (Manual) (1.3-7.7) k/uL Monocytes # (Manual) (0-1.0) k/uL Basophils # (Manual) (0-0.2) k/uL Metamyelocytes # (Man) (0) k/uL Myelocytes # (Manual) (0) k/uL Blast Cells # (Man) (0) k/uL Nucleated RBCs (0-0) /100 WBC Macrocytosis APTT (22.0-30.0) sec ABG pH 7.26 L (7.35-7.45) ABG pCO2 54 H (35-45) mmHg ABG pO2 71 L (83-108) mmHg ABG Total CO2 (19-24) mmol/L ABG O2 Saturation 92.0 L (94-97) % Carbon Dioxide (22-30) mmol/L BUN (7-17) mg/dL Creatinine (0.52-1.04) mg/dL Glucose (74-99) mg/dL POC Glucose (mg/dL) 156 H (70-110) mg/dL Calcium (8.4-10.2) mg/dL Crossmatch
[2023-03-23] MEDS ORDERED: ALBUMIN HUMAN 5% 250 ML in EMPTY BAG 1 BAG IVPB STA ×3 (16:03→17:54)
[2023-03-23 18:51] LABS: Glucose,Whole Blood 179 mg/dL (70-110)
[2023-03-23 19:39] VITALS: RESP 32; TEMP 99.3
--- NOTE | 2023-03-23 20:50 | PN ---
PROGRESS NOTE HISTORY OF PRESENT ILLNESS: Kayli is a 78-year-old lady, who was admitted to hospital with right-sided heart failure, developed respiratory failure and had to be intubated. She is currently on vent, developed atrial fibrillation with rapid ventricular rate, but converted back to sinus rhythm, on IV heparin and oral amiodarone. She can be switched to Eliquis at an appropriate time. PHYSICAL EXAMINATION: GENERAL: Today, she is intubated, vented, sedated. Her leg edema had improved. VITAL SIGNS: Heart rate is around 90 to 100 beats per minute. Blood pressure is 93/50. Respiratory rate is 18. CHEST: Reveals diminished air entry bilaterally with occasional crackles and rhonchi. HEART: Reveals first and second heart sounds and a systolic murmur at the apex. ABDOMEN: Soft. EXTREMITIES: Reveal bilateral chronic changes with mild edema. LABORATORY DATA: Labs show that white cell count is elevated at 21, potassium is 4.7, creatinine is 2.5 with a BUN of 58. ASSESSMENT: 1. Respiratory failure, requiring ventilator. 2. Paroxysmal atrial fibrillation. 3. Renal failure. 4. Right-sided heart failure. PLAN: Continue with oral amiodarone and IV heparin and Lasix. We will follow the patient on an as needed basis at this time. MMODL / IJN: [id number] /
[2023-03-23 23:09] VITALS: PULSE 72
--- NOTE | 2023-03-28 09:29 | P.DS ---
Providers Date of admission: 03/14/23 20:06 Expected date of discharge: 03/23/23 Attending physician: Lacey Preston Consults: 03/14/23 20:05 Consult Physician Routine Consulting Provider: Kristen Biggs Consult Reason/Comments: chf Do you want consulting provider notified?: Yes Consult Physician Routine Consulting Provider: Juan Schilling Consult Reason/Comments: copd Do you want consulting provider notified?: Yes Consult Physician Urgent Consulting Provider: Pepito Kline Consult Reason/Comments: CKD Do you want consulting provider notified?: Yes 03/14/23 20:57 Consult Physician Routine Consulting Provider: Neal Jimenez Consult Reason/Comments: VW,Anticoagulation Do you want consulting provider notified?: Yes Primary care physician: Ricardo Hameed MD Hospital Course: Discharge diagnoses; Acute on chronic diastolic CHF Acute on chronic hypoxemic hypercapnic respiratory failure A. fib with RVR status post cardioversion severe pulmonary hypertension Hyperkalemia Acute on chronic kidney disease V/Q scan showing intermediate probably for PE On occlusive thrombus in the right saphenofemoral junction Chronic hypoxemic respiratory failure, chronically utilizes 4 L/m nasal cannula History of COPD, stable Obesity/obesity hypoventilation syndrome Obstructive sleep apnea, utilizes BiPAP at night with a support of 13/8 Diabetes mellitus, type II Macrocytic anemia, no acute blood loss noted. Hypertension Hypothyroidism Morbid obesity, with a BMI of 43.1 kg/m Hospital course; Patient is a 78-year-old lady past medical history significant for COPD, obesi ty/obesity hypoventilation syndrome, chronic hypoxemic respiratory failure, obstructive sleep apnea, CHF, diabetes mellitus, hypertension, hypothyroidism who presented to the hospital for possible worsening shortness of breath. She was in the hospital beginning of the month at which time she had a fall. Patient stated ever since she has been discharged she has been worsening shortness of breath. Shortness of breath is present on exertion and at rest. Patient states that only walking across the room makes her short of breath and winded. Denies any chest pain. There was no complain of any fever or chills. Denies any cough. Denies any nausea, vomiting abdominal pain. Patient was also going of lethargy and weakness. Because of worsening shortness of breath, patient came to the ER Initial lab work done in the ER showed WBC 5.1, hemoglobin 8.1, platelet count 407, sodium 138, potassium 5.5, BUNs 46, creatinine 1.87 and troponin 0.012, proBNP 01033 Influenza A not detected Influenza B not detected RSV not detected COVID-19 not detected EKG done in the ER showed heart rate of 86 , no ST segment elevation or depression seen, no T-wave inversions seen. Chest x-ray done in the ER showed moderate cardiac megaly, no pulmonary edema or infiltrate seen VQ scan done showed intermediate possibility for pulmonary embolism given the m oderate sized defect at the right base Patient admitted to internal medicine service 03/16. Patient seen and examined. Patient had rapid response this morning because of respiratory distress, patient's pulse ox dropped into 70s, patient had to be placed on BiPAP. Doing much better now. Denies any shortness of breath. Patient is alert and oriented, answering question appropriately 2-D echo done showed normal left ventricle size and systolic function with severe hypertrophy, severely dilated right ventricle with reduced function and severe pulmonary hypertension, severe tricuspid with mild to moderate mitral regurg 03/17. Patient seen and examined. Patient was placed on BiPAP, FiO2 40%. States she feels much better. Patient was later switched to nasal cannula oxygen at 5 L. Patient is refusing vitamin B12 injections. Denies any cough. Denies any fever or chills. 03/18. Patient seen and examined. Labs were the brace 5.1, hemoglobin 7.5, platelet count 315. Heparin was discontinued, switched to oral Eliquis. Continues to be on BiPAP but breathing has improved a lot. Patient tired this morning, she wants to rest. Vital signs stable 03/19. Patient seen and examined. Patient currently on BiPAP with an FiO2 40%. Patient is responsive, answering questions appropriately. On BiPAP she states that she feels much better. States she wants to eat and wants to get off the BiPAP. 03/20. Patient seen and examined. Patient had rapid response called overnight for low blood pressure, patient was evaluated by A team and transferred to ICU. Currently on BiPAP, opened eyes, follows commands, he recognizes his family 03/21. Patient seen and examined. Patient continues to be on BiPAP, currently 1000% FiO2. Patient continues to be lethargic but arousable. Currently on dobutamine and Levophed drip. Patient also on IV Lasix 60 mg every 8. Family at the bedside 03/22. Patient seen and examined. Patient continued to be in respiratory distress, was on BiPAP but restless, patient was intubated by critical care team. Patient went into A. fib and RVR overnight and had to be cardioverted. Currently on Lasix drip, amiodarone, Levophed 03/23. Patient seen and examined. Labs done this morning showed occlusive 21.3, hemoglobin 9.3 sodium 139 potassium 4.7, BUN 58, creatinine 2.55. Continues to be intubated. Currently on IV Levophed and vasopressin and Lasix drip Patient condition deteriorated, patient was requiring max dose of pressors. ICU discussed with patient's family, they wanted patient to be no code. Patient was pronounced on 03/23/23 at 21:06 PM Dictation was produced using [employer] dictation software. please excuse any grammatical, word or spelling errors. Patient Condition at Discharge: Serious Plan - Discharge Summary New Discharge Prescriptions: No Action metFORMIN HCL [Glucophage Xr] 1,000 mg PO W/BRKFST Metoprolol Succinate [Metoprolol Succinate ER] 25 mg PO DAILY Torsemide [Demadex] 10 mg PO BID metFORMIN HCL ER [Glucophage XR] 500 mg PO W/SUPPER Tamsulosin [Flomax] 0.4 mg PO PC-BRKFST 30 Days #30 cap Discharge Medication List metFORMIN HCL [Glucophage Xr] 1,000 mg PO W/BRKFST 12/20/16 [History] Metoprolol Succinate [Metoprolol Succinate ER] 25 mg PO DAILY 03/07/23 [History] Torsemide [Demadex] 10 mg PO BID 03/07/23 [History] metFORMIN HCL ER [Glucophage XR] 500 mg PO W/SUPPER 03/07/23 [History] Tamsulosin [Flomax] 0.4 mg PO PC-BRKFST 30 Days #30 cap 03/09/23 [Rx] Follow up Appointment(s)/Referral(s): Ricardo Hameed MD [Primary Care Provider] - 1-2 days Discharge Disposition: - Preliminary Cause of Preliminary Cause of : acute on chronic hypoxemic respiratory failure
== END 2023-03-23 21:06 | disposition expired | DRG 291 ==
LOC: EC 15:49 → 3SCARD 20:06 → 2SICU 03-20 05:56
PROVIDERS: ADMIT Hospitalist; ATTEND Hospitalist
PROC: 5A09457 Assistance with Respiratory Ventilation, 24-96 Consecutive Hours, Continuous Positive Airway Pressure (ICD-10-PCS; 2023-03-18)
PROC: 02HV33Z Insertion of Infusion Device into Superior Vena Cava, Percutaneous Approach (ICD-10-PCS; 2023-03-20)
PROC: 4A133J1 Monitoring of Arterial Pulse, Peripheral, Percutaneous Approach (ICD-10-PCS; 2023-03-21)
PROC: 4A133B1 Monitoring of Arterial Pressure, Peripheral, Percutaneous Approach (ICD-10-PCS; 2023-03-21)
PROC: 03HY32Z Insertion of Monitoring Device into Upper Artery, Percutaneous Approach (ICD-10-PCS; 2023-03-21)
PROC: 5A1945Z Respiratory Ventilation, 24-96 Consecutive Hours (ICD-10-PCS; 2023-03-22)
PROC: 0BH17EZ Insertion of Endotracheal Airway into Trachea, Via Natural or Artificial Opening (ICD-10-PCS; 2023-03-22)
PROC: 3E0G76Z Introduction of Nutritional Substance into Upper GI, Via Natural or Artificial Opening (ICD-10-PCS; 2023-03-22)
PROC: 0DH67UZ Insertion of Feeding Device into Stomach, Via Natural or Artificial Opening (ICD-10-PCS; 2023-03-22)
PROC: 3E043XZ Introduction of Vasopressor into Central Vein, Percutaneous Approach (ICD-10-PCS; principal; 2023-03-23)
DX: I13.0 Hypertensive heart and chronic kidney disease with heart failure and stage 1 through stage 4 chronic kidney disease, or unspecified chronic kidney disease (principal); I26.99 Other pulmonary embolism without acute cor pulmonale; I50.33 Acute on chronic diastolic (congestive) heart failure; J96.21 Acute and chronic respiratory failure with hypoxia; J96.22 Acute and chronic respiratory failure with hypercapnia; N17.0 Acute kidney failure with tubular necrosis; G93.40 Encephalopathy, unspecified; Z68.41 Body mass index [BMI] 40.0-44.9, adult; I82.401 Acute embolism and thrombosis of unspecified deep veins of right lower extremity; J44.1 Chronic obstructive pulmonary disease with (acute) exacerbation; E87.20 Acidosis, unspecified; E66.2 Morbid (severe) obesity with alveolar hypoventilation; D68.00 Von Willebrand disease, unspecified; R57.0 Cardiogenic shock; I27.29 Other secondary pulmonary hypertension; I08.1 Rheumatic disorders of both mitral and tricuspid valves; I48.0 Paroxysmal atrial fibrillation; D63.1 Anemia in chronic kidney disease; I50.82 Biventricular heart failure; N18.9 Chronic kidney disease, unspecified; Z66 Do not resuscitate; E11.22 Type 2 diabetes mellitus with diabetic chronic kidney disease; Z99.81 Dependence on supplemental oxygen; F06.8 Other specified mental disorders due to known physiological condition; D53.9 Nutritional anemia, unspecified; E03.9 Hypothyroidism, unspecified; F41.9 Anxiety disorder, unspecified; E87.5 Hyperkalemia; S09.90XS Unspecified injury of head, sequela; V49.9XXS Car occupant (driver) (passenger) injured in unspecified traffic accident, sequela; Z96.651 Presence of right artificial knee joint; Z86.718 Personal history of other venous thrombosis and embolism; Z79.899 Other long term (current) drug therapy; Z79.84 Long term (current) use of oral hypoglycemic drugs; Z87.891 Personal history of nicotine dependence; I45.9 Conduction disorder, unspecified; Z11.52 Encounter for screening for COVID-19; Z71.3 Dietary counseling and surveillance; Z88.8 Allergy status to other drugs, medicaments and biological substances; Z91.81 History of falling
CPT/HCPCS: 36415; 36600; 71045; 76770; 78582; 80048; 80053; 81001; 82533; 82607; 82668; 82728; 82747; 82805; 83010; 83036; 83540; 83550; 83605; 83615; 83690; 83735; 83880; 83921; 84100; 84132; 84145; 84439; 84443; 84481; 84484; 85025; 85027; 85045; 85379; 85610; 85730; 86850; 86900; 86901; 86920; 87040; 87070; 87205; 87636; 93005; 93306; 93970; 94002; 94003; 94640; 94660; 94760; 96361; 96365; 96366; 96375; 96376; 99291